=== PATIENT | female | born 1960 | race Caucasian/White ===

== ENCOUNTER 2017-01-21 20:31 | Emergency (ER) | payer OTHER ==
[~2017-01-21] VITALS: Ht 165.1 cm; Wt 59.0 kg
[~2017-01-21 20:31] MED LIST: AMBI5TAB PO; AMIT25TA9 PO; ATOR40TA16 PO; BLOOD GLUCOSE T1 TES; BLOOMIS; CELE20TA PO; CENTTAB PO; DICL1GEL TOPICAL; FISHCAP4 PO; GABA300C5 PO; HYDR-3535 PO; LANC1MIS; LANTUS2P SQ; LISI10TA3 PO; METF-382 PO; ROPI2TAB PO; SODI1TAB PO; VITA400C2 PO; XANA1TAB2 PO; [UNRECOGNIZED DRUG - CODE]
[2017-01-21 20:33] VITALS: BP 146/89; PULSE 82; RESP 18; TEMP 98.5; O2SAT 100
--- NOTE | 2017-01-21 21:09 | PD ---
HPI Chief Complaint: Pain: Acute or Chronic Time Seen by Provider: 21:00 Travel History International Travel<30 days: No Contact w/Intl Traveler<30days: No Traveled to known affect area: No History of Present Illness HPI 56-year-old female presents for evaluation of anterior bilateral thigh pain. Symptoms started 2 days ago. She has a history of chronic pain in multiple joints per her chart review. She reports that she currently takes Percocet for pain. She now has worse pain which she describes as a burning sensation in the anterior thighs bilaterally. She denies any trauma. Nothing seems to be the pain better or worse. She reports that she is currently prescribed gabapentin 3 times a day. She says that she is supposed to be having bilateral total hip replacement on February 13. She has no other complaints at this time. PFSH Past Medical History Arthritis: Yes Asthma: No Anxiety: Yes Depression: Yes Heart Rhythm Problems: No Cancer: No Cardiovascular Problems: No (HTN) High Cholesterol: Yes Chest Pain: Yes Congestive Heart Failure: No COPD: No Cerebrovascular Accident: No Diabetes: Yes (METFORMIN) Patient Takes Glucophage: Yes Diminished Hearing: No Endocrine: Yes (DM) Gastrointestinal Disorders: Yes (UPSET STOMACH TODAY) GERD: Yes Genitourinary: No Headaches: Yes Hepatitis: No Hiatal Hernia: No Hypertension: Yes Implanted Vascular Access Dvce: No Kidney Stones: No Musculoskeletal: Yes (CHRONIC BACK PAIN/ CHRONIC LEFT KNEE PAIN, RLS) Neurologic: No Psychiatric: No Reproductive: No Respiratory: Yes (COPD) Immunizations Current: Yes Migraines: Yes Myocardial Infarction: No Renal Failure: No Seizures: No Sleep Apnea: No Thyroid Disease: No Ulcer: No Tetanus Vaccination: Unknown Influenza Vaccination: Yes Menopausal: Yes Tubal Ligation: Yes Past Surgical History Abdominal Surgery: No Appendectomy: No Cardiac Surgery: No Section: Yes (1992) Cholecystectomy: No Ear Surgery: No Endocrine Surgery: No Eye Surgery: No Genitourinary Surgery: No Gynecologic Surgery: Yes (TUBLIGATION) Neurologic Surgery: No Oral Surgery: No Thoracic Surgery: No Other Surgery: Yes Social History Alcohol Use: Yes (RARELY) Tobacco Use: Yes Substance Use: No Allergies-Medications (Allergen,Severity, Reaction): Coded Allergies: No Known Allergies (Verified , 01/21/17) Reported Meds & Prescriptions Reported Meds & Active Scripts Active Gabapentin 300 Mg Cap 300 Mg PO TID Ambien (Zolpidem Tartrate) 5 Mg Tab 5 Mg PO HS PRN Ropinirole 2 Mg Tab 2 Mg PO HS Metformin ER (Metformin HCl) 1,000 Mg Ariana 1,000 Mg PO DAILY With evening meal Celexa (Citalopram Hydrobromide) 20 Mg Tab 20 Mg PO DAILY Sodium Chloride 1 Gm Tab 1 Gm PO DAILY Amitriptyline (Amitriptyline HCl) 25 Mg Tab 25 Mg PO HS Reported Xanax (Alprazolam) 1 Mg Tab 1 Mg PO Q8H PRN Centrum Silver (Multiple Vitamins W/ Minerals) 1 Tab 1 Tab PO DAILY Vitamin E 400 Unit Cap 400 Units PO DAILY Fish Oil + D3 (Fish Oil-Cholecalciferol) 1,200-1,000 Mg-Unit Cap 1 Cap PO DAILY Easy Touch Lancets 30G 1 Mis Mis 1 Box .ROUTE DIRECTED Ultilet Insulin Syringe/S 30G X 5/16" 0.5 ml (Insulin Syringe Ultilet 30G X 5/16 " 0.5 ml) 1 Mis Mis 1 Ea .ROUTE DIRECTED Lortab (Hydrocodone-Acetaminophen) 10-325 Mg Tab 1 Tab PO Q4H PRN Lisinopril 10 Mg Tab 10 Mg PO DAILY Lantus Inj (Insulin Glargine) 100 Unit/Ml Inj 10 Units SQ HS Atorvastatin (Atorvastatin Calcium) 40 Mg Tab 40 Mg PO DAILY Voltaren Topical (Diclofenac Topical) 1% Gel 1 Applic TOPICAL DAILY Blood Glucose Test Strips 1 Trina Trina 1 Ea .ROUTE DIRECTED Concepcion Contour Next Ez W/Device (Device) 1 Kit Kit 1 Ea .ROUTE DIRECTED Review of Systems Except as stated in HPI: all other systems reviewed are Neg Physical Exam Narrative GENERAL: Well-developed well-nourished female in no acute distress. SKIN: Warm and dry. There is no rash, no bruising, no soft tissue swelling CARDIOVASCULAR: Regular rate and rhythm. No murmur appreciated. RESPIRATORY: No accessory muscle use. Clear to auscultation. Breath sounds equal bilaterally. GASTROINTESTINAL: Abdomen soft, non-tender, nondistended. Hepatic and splenic margins not palpable. MUSCULOSKELETAL: There is no tenderness to palpation along the thoracic or lumbar midline spine. Bilaterally lower extremities no obvious deformities. There is no reproducible tenderness to palpation to the thighs or the calves or the knees. Negative Homans bilaterally. No lower extremity edema. 2+ dorsalis pedis and posterior tibial pulses. She does have some pain with hip and knee flexion and extension which appears chronic. NEUROLOGICAL: Awake and alert. No obvious cranial nerve deficits. Motor grossly within normal limits. Normal speech. Data Data Last Documented VS Vital Signs Date Time Temp Pulse Resp B/P Pulse Ox O2 Delivery O2 Flow Rate FiO2 01/21/17 20:33 98.5 82 18 146/89 100 Room Air Orders Ketorolac Inj (Toradol Inj) (01/21/17 21:30) Orphenadrine Inj (Norflex Inj) (01/21/17 21:30) Gabapentin (Neurontin) (01/21/17 21:30) Hydromorphone Pf Inj (Dilaudid Pf Inj) (01/21/17 21:30) MDM Medical Decision Making Medical Screen Exam Complete: Yes Emergency Medical Condition: Yes Medical Record Reviewed: Yes Differential Diagnosis Chronic pain, neuropathy, radiculopathy, peripheral vascular disease, muscle cramps, myositis, rhabdomyolysis, bilateral spontaneous femoral fractures Narrative Course 56-year-old female with history of chronic pain in multiple joints of her body who presents with 2 days of pain to the anterior thighs bilaterally. On examination there is no obvious deformity, no reproducible tenderness to palpation to the thighs to suggest bony involvement. There is certainly no evidence of compartment syndrome, arterial occlusion, DVT, infectious process and given her description of symptoms I suspect neuropathy as the most likely cause. She is currently on a regimen of gabapentin 300 mg 3 times a day. I recommended that she escalated her morning dose to 600 mg and follow up closely with her primary care physician. She will be given a dose of gabapentin tonight as well as a small dose of Dilaudid, Toradol and Norflex. She'll be discharged with a prescription for baclofen. Diagnosis Primary Impression: Leg pain, bilateral Additional Instructions: As discussed, increase morning dose of gabapentin to 600 mg. Continue taking afternoon and evening 300 mg doses as prescribed. Continue to use your normal at home pain medication as needed. Baclofen has been prescribed as well. Do not drive or drink alcohol when taking this medicine. Follow-up in the next few days with your primary care physician. Return for any emergent medical conditions. Med/Other Pt SpecificInfo: Prescription(s) given Scripts Baclofen 10 Mg Tab10 Mg PO Q8HR PRN (MUSCLE SPASM) 7 Days Ref 0 Prov:Hosea Owens MD 01/21/17 Disposition: 01 DISCHARGE HOME Condition: Stable Garret Tadeo Jan 21, 2017 21:08
[2017-01-21] MEDS ORDERED: BACL10TA PO (21:21)
[2017-01-21] MEDS ORDERED: KETOROLAC TROMETHAMINE 60 MG/2 ML (IM) VIAL IM ONE (21:30)
[2017-01-21] MEDS ORDERED: HYDROmorphone HCL PF 1 MG/ML VIAL IM ONE (21:30)
[2017-01-21] MEDS ORDERED: GABAPENTIN 300 MG CAP PO ONE (21:30)
[2017-01-21] MEDS ORDERED: ORPHENADRINE INJ 60 MG/2 ML AMP IM ONE (21:30)
[2017-02-04] MEDS ORDERED: BACL10TA PO (10:12)
[2017-02-07] MEDS ORDERED: LISI10TA3 PO (16:15)
[2017-03-21] MEDS ORDERED: BACL10TA PO (10:29)
[2017-04-16] MEDS ORDERED: LISI10TA3 PO (08:30)
== END 2017-01-21 21:54 | disposition home or self-care (01) ==
LOC: NEPK 20:31
DX: M79.605 Pain in left leg (principal); M79.604 Pain in right leg; E11.9 Type 2 diabetes mellitus without complications; I10 Essential (primary) hypertension; J44.9 Chronic obstructive pulmonary disease, unspecified; K21.9 Gastro-esophageal reflux disease without esophagitis; Z79.899 Other long term (current) drug therapy; Z79.4 Long term (current) use of insulin; Z72.0 Tobacco use
CPT/HCPCS: 96372; 99283; J1170; J1885; J2360

== ENCOUNTER 2017-04-18 14:10 | Observation (INO) | payer OTHER ==
[~2017-04-18] VITALS: Ht 160 cm; Wt 60.0 kg
[~2017-04-18 14:10] MED LIST changes: +BACL10TA PO; +METF500T PO
[2017-04-18 14:11] VITALS: BP 100/60; PULSE 80; RESP 18; TEMP 98.9; O2SAT 99
--- NOTE | 2017-04-18 14:48 | PD ---
Physical Exam Time Seen by Provider: 14:45 Narrative Pt presents to the ED for evaluation of multiple somatic complaints. She has a list with all of her complaints including confusion, weakness, lethargy, swelling of lower extremities. VSS. Awaiting bed placement. Data Data Last Documented VS Vital Signs Date Time Temp Pulse Resp B/P Pulse Ox O2 Delivery O2 Flow Rate FiO2 04/18/17 14:11 98.9 80 18 100/60 99 Room Air MDM Supervised Visit with ONESIMO: Laura Barrett Apr 18, 2017 14:48
--- NOTE | 2017-04-18 15:32 | PD ---
HPI Chief Complaint: General Weakness Time Seen by Provider: 14:54 Travel History International Travel<30 days: No Contact w/Intl Traveler<30days: No Traveled to known affect area: No History of Present Illness HPI 56-year-old female came to the emergency room with history of lethargic, altered mental status being found by her friend who brought her into the emergency room. As per the friend she last saw her her normal self at 1 PM yesterday. When she arrived today in the house patient was lethargic. Patient has history of chronic pain and takes pain medications. She was complaining of generalized pain when she arrived. However her speech was quite slurred and she was falling asleep in the middle off talking. Blood pressure was little bit soft in triage. PFSH Past Medical History Narrative Medical List of her past medical, surgical, social and family history was reviewed from the nursing note. Hx Anticoagulant Therapy: No Arthritis: Yes Asthma: No Anxiety: Yes Depression: Yes Heart Rhythm Problems: No Cancer: No Cardiovascular Problems: No (HTN) High Cholesterol: Yes Chest Pain: Yes Congestive Heart Failure: No COPD: No Cerebrovascular Accident: No Diabetes: Yes Diminished Hearing: No Endocrine: Yes (DM) Gastrointestinal Disorders: Yes (UPSET STOMACH TODAY) GERD: Yes Genitourinary: No Headaches: Yes Hepatitis: No Hiatal Hernia: No Hypertension: Yes Implanted Vascular Access Dvce: No Kidney Stones: No Musculoskeletal: Yes (CHRONIC BACK PAIN/ CHRONIC LEFT KNEE PAIN, RLS) Neurologic: No Psychiatric: No Reproductive: No Respiratory: Yes (COPD) Immunizations Current: Yes Migraines: Yes Myocardial Infarction: No Renal Failure: No Seizures: No Sleep Apnea: No Thyroid Disease: No Ulcer: No ?: Not Menopausal: Yes Tubal Ligation: Yes Past Surgical History Abdominal Surgery: No Appendectomy: No Cardiac Surgery: No Section: Yes (1992) Cholecystectomy: No Ear Surgery: No Endocrine Surgery: No Eye Surgery: No Genitourinary Surgery: No Gynecologic Surgery: Yes (TUBLIGATION) Neurologic Surgery: No Oral Surgery: No Thoracic Surgery: No Other Surgery: Yes Social History Alcohol Use: Yes (RARELY) Tobacco Use: Yes Substance Use: No Allergies-Medications (Allergen,Severity, Reaction): Coded Allergies: No Known Allergies (Verified , 04/18/17) Comments No known drug allergies. Reported Meds & Prescriptions Reported Meds & Active Scripts Active Metformin (Metformin HCl) 500 Mg Tab 500 Mg PO BIDPC With meals Lisinopril 10 Mg Tab 5 Mg PO DAILY Take half a tablet daily. Gabapentin 300 Mg Cap 300 Mg PO TID Celexa (Citalopram Hydrobromide) 20 Mg Tab 20 Mg PO DAILY Sodium Chloride 1 Gm Tab 1 Gm PO DAILY Amitriptyline (Amitriptyline HCl) 25 Mg Tab 25 Mg PO HS Reported Xanax (Alprazolam) 1 Mg Tab 1 Mg PO Q8H PRN Fish Oil + D3 (Fish Oil-Cholecalciferol) 1,200-1,000 Mg-Unit Cap 1 Cap PO DAILY Easy Touch Lancets 30G 1 Mis Mis 1 Box .ROUTE DIRECTED Ultilet Insulin Syringe/S 30G X 5/16" 0.5 ml (Insulin Syringe Ultilet 30G X 5/16 " 0.5 ml) 1 Mis Mis 1 Ea .ROUTE DIRECTED Lortab (Hydrocodone-Acetaminophen) 10-325 Mg Tab 1 Tab PO Q4H PRN Lantus Inj (Insulin Glargine) 100 Unit/Ml Inj 10 Units SQ HS Atorvastatin (Atorvastatin Calcium) 40 Mg Tab 40 Mg PO DAILY Blood Glucose Test Strips 1 Trian Trina 1 Ea .ROUTE DIRECTED OpenChime Contour Next Ez W/Device (Device) 1 Kit Kit 1 Ea .ROUTE DIRECTED Narrative Medication List of her home medications reviewed from the nursing note. Review of Systems Except as stated in HPI: all other systems reviewed are Neg Physical Exam Narrative GENERAL: Lethargic, slurred speech SKIN: Focused skin assessment warm/dry. Pale HEAD: Atraumatic. Normocephalic. EYES: Pupils equal and round. No scleral icterus. No injection or drainage. ENT: No nasal bleeding or discharge. Mucous membranes pink and moist. NECK: Trachea midline. No JVD. CARDIOVASCULAR: Regular rate and rhythm. No murmur appreciated. RESPIRATORY: No accessory muscle use. Clear to auscultation. Breath sounds equal bilaterally. GASTROINTESTINAL: Abdomen soft, non-tender, nondistended. Hepatic and splenic margins not palpable. MUSCULOSKELETAL: No obvious deformities. No clubbing. No cyanosis. No edema. NEUROLOGICAL: GCS of 13. No obvious cranial nerve deficits. Motor grossly within normal limits. Slurred speech. PSYCHIATRIC: Appropriate mood and affect; insight and judgment normal. Data Data Last Documented VS Vital Signs Date Time Temp Pulse Resp B/P Pulse Ox O2 Delivery O2 Flow Rate FiO2 04/18/17 19:10 98.4 97 18 155/99 100 Room Air Orders Electrocardiogram (04/18/17 15:43) Ammonia (04/18/17 15:43) Complete Blood Count With Diff (04/18/17 15:43) Comprehensive Metabolic Panel (04/18/17 15:43) Creatine Kinase (Cpk) (04/18/17 15:43) Prothrombin Time / Inr (Pt) (04/18/17 15:43) Troponin I (04/18/17 15:43) Urinalysis - C+S If Indicated (04/18/17 15:43) Lactic Acid Sepsis Protocol (04/18/17 15:43) Blood Culture (04/18/17 15:43) Chest, Single Ap (04/18/17 15:43) Ct Brain W/O Iv Contrast(Rout) (04/18/17 15:43) Blood Glucose (04/18/17 15:43) Ecg Monitoring (04/18/17 15:43) Iv Access Insert/Monitor (04/18/17 15:43) Oximetry (04/18/17 15:43) Sodium Chloride 0.9% Flush (Ns Flush) (04/18/17 15:45) Sodium Chlor 0.9% 1000 Ml Inj (Ns 1000 M (04/18/17 15:43) Drug Screen, Random Urine (04/18/17 15:43) Alcohol (Ethanol) (04/18/17 15:43) Naloxone Inj (Narcan Inj) (04/18/17 15:45) Naloxone Inj (Narcan Inj) (04/18/17 15:46) Naloxone Inj (Narcan Inj) (04/18/17 17:00) Admit Order (Ed Use Only) (04/18/17 19:25) Labs Laboratory Tests Test 04/18/17 04/18/17 16:20 16:45 Urine Color YELLOW Urine Turbidity CLEAR Urine pH 5.5 Urine Specific [place] 1.026 Urine Protein TRACE mg/dL Urine Glucose (UA) NEG mg/dL Urine Ketones NEG mg/dL Urine Occult Blood NEG Urine Nitrite NEG Urine Bilirubin NEG Urine Urobilinogen LESS THAN 2.0 MG/DL Urine Leukocyte Esterase TRACE Urine RBC 2 /hpf Urine WBC 1 /hpf Urine Squamous Epithelial 2 /hpf Cells Microscopic Urinalysis Comment CATH-CULT NOT IND Urine Opiates Screen NEG Urine Barbiturates Screen NEG Urine Amphetamines Screen NEG Urine Benzodiazepines Screen POS Urine Cocaine Screen NEG Urine Cannabinoids Screen POS White Blood Count 8.8 TH/MM3 Red Blood Count 3.96 MIL/MM3 Hemoglobin 11.5 GM/DL Hematocrit 36.3 % Mean Corpuscular Volume 91.6 FL Mean Corpuscular Hemoglobin 29.1 PG Mean Corpuscular Hemoglobin 31.7 % Concent Red Cell Distribution Width 14.5 % Platelet Count 226 TH/MM3 Mean Platelet Volume 8.4 FL Neutrophils (%) (Auto) 60.2 % Lymphocytes (%) (Auto) 22.1 % Monocytes (%) (Auto) 7.9 % Eosinophils (%) (Auto) 9.5 % Basophils (%) (Auto) 0.3 % Neutrophils # (Auto) 5.3 TH/MM3 Lymphocytes # (Auto) 1.9 TH/MM3 Monocytes # (Auto) 0.7 TH/MM3 Eosinophils # (Auto) 0.8 TH/MM3 Basophils # (Auto) 0.0 TH/MM3 CBC Comment DIFF FINAL Differential Comment Prothrombin Time 10.7 SEC Prothromb Time International 1.0 RATIO Ratio Sodium Level 136 MEQ/L Potassium Level 5.1 MEQ/L Chloride Level 105 MEQ/L Carbon Dioxide Level 23.2 MEQ/L Anion Gap 8 MEQ/L Blood Urea Nitrogen 12 MG/DL Creatinine 0.68 MG/DL Estimat Glomerular Filtration 89 ML/MIN Rate Random Glucose 61 MG/DL Lactic Acid Level 1.2 mmol/L Calcium Level 8.8 MG/DL Total Bilirubin 0.8 MG/DL Aspartate Amino Transf 26 U/L (AST/SGOT) Alanine Aminotransferase 11 U/L (ALT/SGPT) Alkaline Phosphatase 111 U/L Ammonia 24 MCMOL/L Total Creatine Kinase 111 U/L Troponin I LESS THAN 0.02 NG/ML Total Protein 6.4 GM/DL Albumin 3.2 GM/DL Ethyl Alcohol Level LESS THAN 3 MG/DL [facility] Medical Decision Making Medical Screen Exam Complete: Yes Emergency Medical Condition: Yes Medical Record Reviewed: Yes Interpretation(s) Twelve-lead EKG was reviewed by me. Normal sinus rhythm, normal axis, nonspecific ST-T wave changes. Heart rate of 69 bpm. Differential Diagnosis Intracranial bleed, narcotic overdose, substance abuse, electrolyte abnormality Narrative Course 5:57 PM awaiting for the blood test results to be back. Patient was given a total of 0.8 mg of Narcan after which she seemed to wake up a little more. Head CT and chest x-rays back and is not show any acute finding that would explain her condition. Awaiting for the blood test results to come back. Her CBC and UA appeared to be within acceptable limits. I have ordered a urine drug screen as well. 6:48 PM all the test results are back. Patient is positive for benzodiazepine and marijuana. Patient continues to be lethargic. I would like to admit her at least for observation until her mental status clears up. Awaiting for the residents to call back. Procedures EKG Prior to Arrival: No Diagnosis Primary Impression: Altered mental status Qualified Code: R40.1 - Stupor Admitting Information Admitting Physician Requests: Observation Rashawn Young MD Apr 18, 2017 15:32 Rashawn Young MD Apr 18, 2017 15:32 Rashawn Young MD Apr 18, 2017 15:32
[2017-04-18] MEDS ORDERED: SODIUM CHLOR 0.9% 1000 ML INJ 1,000 ML IV SCH (15:43)
[2017-04-18] MEDS ORDERED: NALOXONE HCL 0.4 MG/ML AMP IV PUSH ONE (15:45)
[2017-04-18] MEDS ORDERED: SODIUM CHLORIDE 0.9% FLUSH 5 ML FLUSH IV FLUSH PRN (15:45)
[2017-04-18] MEDS ORDERED: NALOXONE HCL 0.4 MG/ML AMP ONE (15:46)
--- NOTE | 2017-04-18 16:37 | RADRPT ---
EXAM DATE/TIME: 04/18/2017 16:26 [facility] COMPARISON: CT BRAIN W/O CONTRAST, November 29, 2015, 15:44. INDICATIONS : Evaluate for altered mental status. RADIATION DOSE: 28.75 CTDIvol (mGy) MEDICAL HISTORY : Hypertension. Chronic obstructive pulmonary disease. Diabetes mellitus type 2. SURGICAL HISTORY : Tubal ligation. ENCOUNTER: Initial ACUITY: 2 days PAIN SCALE: 3/10 LOCATION: Bilateral cranial TECHNIQUE: Multiple contiguous axial images were obtained of the head. Using automated exposure control and adj ustment of the mA and/or kV according to patient size, radiation dose was kept as low as reasonably a chievable to obtain optimal diagnostic quality images. DICOM format image data is available electro nically for review and comparison. FINDINGS: CEREBRUM: The ventricles are normal for age. 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 No evidence of midline shift, mass lesion, hemorrhage or acute infarction. No extra-axial fluid collections are seen. POSTERIOR FOSSA: The cerebellum and brainstem are intact. The 4th ventricle is midline. The cerebellopontine angle i s unremarkable. EXTRACRANIAL: The visualized portion of the orbits is intact. SKULL: The calvaria is intact. No evidence of skull fracture. CONCLUSION: 1. Stable bifrontal atrophy. 2. No significant change compared to 2016. Gino Nur MD on April 18, 2017 at 16:34 Board Certified Radiologist. This report was verified electronically.
[2017-04-18 16:43] LABS: BLOOD, URINE NEG (NEG); GLUCOSE,URINE NEG (NEG); KETONE, URINE NEG (NEG); NITRITE,URINE NEG (NEG); PH, URINE 5.5 (5.0-8.5); SQUAMOUS EPITHELIAL CELL URINE 2 /hpf (0-5); URINE COLOR YELLOW (YELLW/STRAW)
[2017-04-18 16:44] LABS: COMMENT (UR) CATH-CULT NOT IND; CULTURE IF INDICATED CATH CULTURE NOT IND
--- NOTE | 2017-04-18 16:50 | RADRPT ---
EXAM DATE/TIME: 04/18/2017 16:34 [facility] COMPARISON: CHEST SINGLE AP, August 24, 2016, 20:47. INDICATIONS : Syncopal episode. Weakness. MEDICAL HISTORY : Hypertension. Chronic obstructive pulmonary disease. Diabetes mellitus type II. SURGICAL HISTORY : None. ENCOUNTER: Initial ACUITY: 1 day PAIN SCORE: 0/10 LOCATION: Bilateral chest FINDINGS: A single view of the chest demonstrates the lungs to be symmetrically aerated without evidence of mas s, infiltrate or effusion. There is chronic stable interstitial lung changes bilaterally. The cardiom ediastinal contours are unremarkable. Osseous structures are intact. CONCLUSION: No acute disease. No significant change has occurred. Gino Nur MD on April 18, 2017 at 16:47 Board Certified Radiologist. This report was verified electronically.
[2017-04-18] MEDS ORDERED: NALOXONE HCL 2 MG/2 ML VIAL IV PUSH ONE (17:00)
[2017-04-18 17:11] VITALS: BP 160/82; PULSE 72; RESP 12; O2SAT 97
[2017-04-18 17:54] LABS: AUTOMATED NEUTROPHIL # 5.3 TH/MM3 (1.8-7.7); BASOPHIL % 0.3 % (0.0-2.0); EOSINOPHIL # 0.8 TH/MM3 (0-0.4); EOSINOPHIL % 9.5 % (0.0-4.0); HEMATOCRIT 36.3 % (35.0-46.0); HEMO FLAGS DIFF FINAL; LYMPH % 22.1 % (9.0-44.0); LYMPHOCYTE # 1.9 TH/MM3 (1.0-4.8); MEAN CELL VOLUME 91.6 FL (80.0-100.0); MEAN CORPUSCULAR HEMOGLOBIN 29.1 PG (27.0-34.0); MEAN CORPUSCULAR HGB CONC 31.7 % (32.0-36.0); MONO % 7.9 % (0.0-8.0); NEUT % 60.2 % (16.0-70.0); PLATELET COUNT 226 TH/MM3 (150-450); RED BLOOD COUNT 3.96 MIL/MM3 (4.00-5.30); RED CELL DISTRIBUTION WIDTH 14.5 % (11.6-17.2); WHITE BLOOD COUNT 8.8 TH/MM3 (4.0-11.0)
[2017-04-18 18:04] LABS: PROTHROMBIN TIME - PATIENT 10.7 SEC (9.8-11.6)
[2017-04-18 18:11] LABS: AMPHETAMINE, URINE NEG (NEG); BARBITURATES, URINE NEG (NEG); COCAINE, URINE NEG (NEG)
[2017-04-18 18:13] LABS: ALT (GPT) 11 U/L (10-53); ANION GAP 8 MEQ/L (5-15); AST (GOT) 26 U/L (15-37); BICARBONATE 23.2 MEQ/L (21.0-32.0); BLOOD UREA NITROGEN 12 MG/DL (7-18); CHLORIDE 105 MEQ/L (98-107); GLOMERULAR FILTRATION RATE 89 ML/MIN (>89); POTASSIUM 5.1 MEQ/L (3.5-5.1); SODIUM (NA) 136 MEQ/L (136-145)
[2017-04-18 18:19] LABS: ALKALINE PHOSPHATASE 111 U/L (45-117); CREATINE KINASE 111 U/L (26-192); TOTAL BILIRUBIN ADULT 0.8 MG/DL (0.2-1.0)
[2017-04-18 19:10] VITALS: BP 155/99; PULSE 97; RESP 18; TEMP 98.4; O2SAT 100
--- NOTE | 2017-04-18 20:03 | HHI.HP ---
[facility] Service Family Medicine Primary Care Physician Pavan Mckinley MD Admission Diagnosis altered mental status Diagnoses: Chief Complaint: Weakness International Travel<30 Days: No Contact w/Intl Traveler<30days: No Known Affected Area: No History of Present Illness 56 y/o female with PMHx of HTN, tobacco use, severe OA of both hips, DM, SIADH, and anxiety, presenting with 1 day hx of altered mental status and generalized weakness. History provided by pt and confirmed by . Pt woke up around 2am this morning looking for cigarettes around the house. During that time, she felt her legs giving out, fell, and couldn't stand up on her own. She started crying and began crawling. She was unsure if she hit her head. Her then found her on the floor and brought her back to bed. She denies LOC, accidental urination/defecation, shaking, N/ V, biting tongue, SOB, dizziness, and CP. She had an appointment to see ortho today at [place] for carpal tunnel syndrome in her right hand. As her best friend was accompanying her to the clinic, her best friend noticed that pt appeared lethargic and was not her normal self. Her best friend became concerned and brought pt to the ED for evaluation. In the ED, pt was complaining of generalized pain on arrival, had slurred speech, and was falling asleep in the middle of talking. Pt has a history of chronic pain and takes pain medications. Pt reports taking her regular meds this morning ,such as Xanax. She denies taking extra doses of her medications. Pt has also starting taking a new multivitamin, "Thrive", which contain high doses of Vitamin B12. Pt smokes about 1ppd and uses marijuana recreationally. Denies alcohol use and IV drug use. states that pt also has poor appetite and insomnia. She states that she has significant weight loss over the past 4 months after her hip surgery in February 2017, but can't recall how much. Denies suicidal ideation, previous history of stroke, NH, headache, fever, night sweats , and chills. Review of Systems ROS Limitations: Altered Mental Status (appeared confused upon arrival in ED), Poor Historian (tangential speech, said this is normal ) Constitutional: COMPLAINS OF: Weight loss (pt reports weight loss over past 4 months ), Change in appetite (poor appetite ), DENIES: Fever, Chills, Dizziness , Night Sweats Eyes: DENIES: Blurred vision, Vision loss Ears, nose, mouth, throat: DENIES: Odynophagia Respiratory: DENIES: Cough, Shortness of breath Cardiovascular: COMPLAINS OF: Lower Extremity Edema (pt reports swelling in lower extremities ), DENIES: Chest pain, Palpitations Gastrointestinal: DENIES: Abdominal pain, Diarrhea, Nausea, Vomiting, Difficulty Swallowing Genitourinary: DENIES: Dysuria Musculoskeletal: COMPLAINS OF: Muscle aches (pt reports generalized muscles aches ) Integumentary: DENIES: Rash Hematologic/lymphatic: DENIES: Lymphadenopathy Neurologic: COMPLAINS OF: Localized weakness (slight weakness in right leg ), Speech Problems (pt has slightly slurred speech ), DENIES: Headache, Paresthesias, Seizures Psychiatric: DENIES: Hallucinations, Agitation, Suicidal Ideation Past Family Social History Past Medical History Hypertension Chronic pain involving multiple joints due to previous trauma. Patient's pain management physician recently suspended. Due to previous trauma. She has been following with a different physician who is not on her insurance. History of glaucoma Diabetes Mellitus Past Surgical History Right wrist repair Allergies: Coded Allergies: No Known Allergies (Verified , 04/18/17) Family History Father from a car accident in 1959 Mother in 2011. History of heart disease, RA, dementia, unknown cancer. Social History Patient is currently on disability. She has been smoking a pack per day since she was 17 years old. She denies illicit drug use. Physical Exam Vital Signs Vital Signs Date Time Temp Pulse Resp B/P Pulse Ox O2 Delivery O2 Flow Rate FiO2 04/18/17 19:10 98.4 97 18 155/99 100 Room Air 04/18/17 17:11 72 12 160/82 97 Room Air 04/18/17 15:12 70 14 97 Room Air 04/18/17 14:11 98.9 80 18 100/60 99 Room Air Physical Exam GENERAL: Slight slurred speech,no apparent distress. SKIN: No rashes, ecchymoses or lesions. Cool and dry. HEAD: Atraumatic. Normocephalic. No temporal or scalp tenderness. EYES: Pupils equal round and reactive. Extraocular motions intact. No scleral icterus. No injection or drainage. ENT: Nose without bleeding, purulent drainage or septal hematoma. Throat without erythema, tonsillar hypertrophy or exudate. Uvula midline. Airway patent. NECK: Trachea midline. No JVD or lymphadenopathy. Supple, nontender, no meningeal signs. CARDIOVASCULAR: Regular rate and rhythm without murmurs, gallops, or rubs. RESPIRATORY: Clear to auscultation. Breath sounds equal bilaterally. No wheezes , rales, or rhonchi. GASTROINTESTINAL: Abdomen soft, non-tender, nondistended. No hepato-splenomegaly , or palpable masses. No guarding. MUSCULOSKELETAL: Lower extremities appear swollen, but no pitting edema. NEUROLOGICAL: Awake and alert. Cranial nerves II through XII intact. Slight left -sided face droop. Sensory within normal limits in face and all extremities. Mild weakness (4/5) in right arm and leg. Full strength (5/5) in left arm and leg. Slightly slurred and tangential speech. Affect is normal. Laboratory Laboratory Tests Test 04/18/17 04/18/17 16:20 16:45 Urine Color YELLOW Urine Turbidity CLEAR Urine pH 5.5 Urine Specific [place] 1.026 Urine Protein TRACE Urine Glucose (UA) NEG Urine Ketones NEG Urine Occult Blood NEG Urine Nitrite NEG Urine Bilirubin NEG Urine Urobilinogen LESS THAN 2.0 Urine Leukocyte Esterase TRACE Urine RBC 2 Urine WBC 1 Urine Squamous Epithelial 2 Cells Microscopic Urinalysis Comment CATH-CULT NOT IND Urine Opiates Screen NEG Urine Barbiturates Screen NEG Urine Amphetamines Screen NEG Urine Benzodiazepines Screen POS Urine Cocaine Screen NEG Urine Cannabinoids Screen POS White Blood Count 8.8 Red Blood Count 3.96 Hemoglobin 11.5 Hematocrit 36.3 Mean Corpuscular Volume 91.6 Mean Corpuscular Hemoglobin 29.1 Mean Corpuscular Hemoglobin 31.7 Concent Red Cell Distribution Width 14.5 Platelet Count 226 Mean Platelet Volume 8.4 Neutrophils (%) (Auto) 60.2 Lymphocytes (%) (Auto) 22.1 Monocytes (%) (Auto) 7.9 Eosinophils (%) (Auto) 9.5 Basophils (%) (Auto) 0.3 Neutrophils # (Auto) 5.3 Lymphocytes # (Auto) 1.9 Monocytes # (Auto) 0.7 Eosinophils # (Auto) 0.8 Basophils # (Auto) 0.0 CBC Comment DIFF FINAL Differential Comment Prothrombin Time 10.7 Prothromb Time International 1.0 Ratio Sodium Level 136 Potassium Level 5.1 Chloride Level 105 Carbon Dioxide Level 23.2 Anion Gap 8 Blood Urea Nitrogen 12 Creatinine 0.68 Estimat Glomerular Filtration 89 Rate Random Glucose 61 Lactic Acid Level 1.2 Calcium Level 8.8 Total Bilirubin 0.8 Aspartate Amino Transf 26 (AST/SGOT) Alanine Aminotransferase 11 (ALT/SGPT) Alkaline Phosphatase 111 Ammonia 24 Total Creatine Kinase 111 Troponin I LESS THAN 0.02 Total Protein 6.4 Albumin 3.2 Ethyl Alcohol Level LESS THAN 3 Date/Time Procedure Status Source Growth 04/18/17 17:05 Aerobic Blood Culture Received Blood Peripheral Pending 04/18/17 17:05 Anaerobic Blood Culture Received Blood Peripheral Pending Result Diagram: 04/18/17 1645 04/18/17 1645 Imaging Last Impressions Head CT 04/18/17 1543 Signed Impressions: Service Date/Time: Tuesday, April 18, 2017 16:26 - CONCLUSION: 1. Stable bifrontal atrophy. 2. No significant change compared to 2016. Gino Nur MD Chest X-Ray 04/18/17 1543 Signed Impressions: Service Date/Time: Tuesday, April 18, 2017 16:34 - CONCLUSION: No acute disease. No significant change has occurred. Gino Nur MD Head Magnetic Resonance Angiography 04/18/17 0000 Signed Impressions: Service Date/Time: Tuesday, April 18, 2017 21:55 - CONCLUSION: Normal examination for a patient of this age. Daniel Fairchild MD Brain MRI 04/18/17 0000 Signed Impressions: Service Date/Time: Tuesday, April 18, 2017 21:55 - CONCLUSION: 1. No acute findings. Mild white matter ischemic change. No recent infarct, mass effect or midline shift. Daniel Fairchild MD Assessment and Plan Assessment and Plan 56 y/o female with PMHx of HTN, tobacco use, severe OA of both hips, DM, SIADH, and anxiety, presenting with 1 day hx of altered mental status and generalized weakness. Pt admitted for observation and work-up. Differential diagnoses are hypoglycemia vs medication overdose vs TIA vs NH vs seizure. Pt has had previous hospitalizations of hypoglycemia. BMP showed glucose of 61. Pt has history of taking pain meds. Urine drug screen was positive for benzodiazepine and marijuana, thus medication overdose is likely. In the ED, pt given 0.8mg of Narcan after which she seemed more alert. Due to slight left-sided face droop and right-sided weakness in extremities, TIA/stroke could be likely. However, head CT, MRI and MRA appeared normal. NH is also low on the differential, since EKG and troponin were normal. Pt did not have any evidence of a seizure (shaking , biting tongue, accidental urination, post-ictal confusion), thus it is very unlikely. Code Status Full Code Discussed Condition With Pt discussed with Dr. Young. Pt seen and examined with Dr. Potter. Problem List: (1) Altered mental status Status: Acute Plan: -Pt given 0.8mg of Narco in the ED -Urine drug test positive for benzodiazepines and marijuana -CBC normal -BMP- Na of 136 and Glucose 61 -UA negative, UTI is unlikely responsible for AMS -CXR-normal; troponin normal, EKG normal, pt denies chest pain on exam -Head CT, MRI, and MRA - normal -Trending troponin q3h, EKG q3h, pt on telemetry -Orthostatic BP ordered for the AM -Ordered CBC and BMP for the AM (2) Uncontrolled diabetes mellitus Status: Chronic Plan: - bedside glucose -pt on NovoLog sliding scale (3) Hypertension Status: Chronic Plan: -Lisinopril 5mg PO daily (4) FEN/PPX Status: Acute Plan: Fluids- 60mls/hr, lower than maintenance b/c pt is able to drink and eat Electrolytes- monitor and replace as needed Nutrition: regular diet Nursing orders: vitals q4h, monitor I & Os, neuro checks q4h Problem Qualifiers (1) Altered mental status: Qualified Code: R40.1 - Saranya Martinez MD R1 Apr 18, 2017 20:03
[2017-04-18] MEDS: DOCUSATE SODIUM 50 MG/SENNA 8.6 MG TAB PO SCH (21:00)
[2017-04-18] MEDS ORDERED: NALOXONE HCL 0.4 MG/ML AMP IV PRN (21:00)
[2017-04-18] MEDS ORDERED: MAGNESIUM HYDROXIDE SUSP 30 ML CUP PO PRN (21:00)
[2017-04-18] MEDS: SODIUM CHLORIDE 0.9% FLUSH 10 ML FLUSH IV FLUSH SCH (21:19)
[2017-04-18] MEDS ORDERED: GLUCAGON 1 MG/ML VIAL OTHER PRN (21:30)
[2017-04-18] MEDS ORDERED: DEXTROSE 50% IN WATER 50 ML VIAL(D50) IV PRN (21:30)
[2017-04-18] MEDS ORDERED: DEXT 5%-NACL 0.45% 1000 ML INJ 1,000 ML IV SCH (21:30)
[2017-04-18] MEDS ORDERED: ENOXAPARIN SODIUM 40 MG/0.4 ML SYRINGE SQ SCH (21:45)
[2017-04-18] MEDS ORDERED: ENOXAPARIN SODIUM 30 MG/0.3 ML SYRINGE SQ SCH (21:45)
[2017-04-18] MEDS ORDERED: RESP: ALBUTEROL 2.5 MG/3 ML NEB (PRN) INH (22:00)
--- NOTE | 2017-04-18 22:47 | RADRPT ---
EXAM DATE/TIME: 04/18/2017 21:55 [facility] COMPARISON: No previous studies available for comparison. INDICATIONS : CVA. MEDICAL HISTORY : Diabetes mellitus type 2. SURGICAL HISTORY : section. Bilateral hips, forarms, and shoulders sx. ENCOUNTER: Initial ACUITY: 1 day PAIN SCORE: 5/10 LOCATION: Bilateral cranial TECHNIQUE: Multiplanar, multisequence MRI of the brain was performed without contrast. FINDINGS: CEREBRUM: The ventricles are normal for age. No evidence of midline shift, mass lesion, hemorrhage or acute in farction. No extraaxial fluid collections are seen. The pituitary gland and suprasellar cistern are normal in configuration. WHITE MATTER: Mild signal abnormalities are seen in the white matter. POSTERIOR FOSSA: The cerebellum and brainstem are intact. The 4th ventricle is midline. The cerebellopontine angle is unremarkable. The cerebellar tonsils are normal in position. DIFFUSION IMAGING: No focal areas of restricted diffusion are seen. No evidence of acute infarction. EXTRACRANIAL: The visualized portions of the orbits and paranasal sinuses are unremarkable. CONCLUSION: 1. No acute findings. Mild white matter ischemic change. No recent infarct, mass effect or midline sh ift. Daniel Fairchild MD on April 18, 2017 at 22:42 Board Certified Radiologist. This report was verified electronically.
--- NOTE | 2017-04-18 22:48 | RADRPT ---
EXAM DATE/TIME: 04/18/2017 21:55 [facility] COMPARISON: No previous studies available for comparison. INDICATIONS : CVA. MEDICAL HISTORY : Diabetes mellitus type 2. SURGICAL HISTORY : section. Bilateral hips, forarms, and shoulders sx. ENCOUNTER: Initial ACUITY: 1 day PAIN SCORE: 5/10 LOCATION: Bilateral cranial Please note a normal MRA of the brain does not entirely exclude the possibility of a small aneurysm, nor the possibility of distal intracranial vessel disease. TECHNIQUE: 3D time of flight MRA was performed. Source images, multiplanar STS MIP, and 3D volume MIP reconstru ctions were reviewed. FINDINGS: There is excellent visualization of the major intracranial arteries out to the second-order branch ve ssels. There is no evidence for aneurysm, vessel truncation or stenosis, and no evidence for vascula r malformation. CONCLUSION: Normal examination for a patient of this age. Daniel Fairchild MD on April 18, 2017 at 22:45 Board Certified Radiologist. This report was verified electronically.
[2017-04-18 23:48] VITALS: PULSE 77
[2017-04-19] VITALS (11 sets, daily range): BP systolic 110–146; BP diastolic 74–83; PULSE 65–87; RESP 16–18; TEMP 97.7–98.4; O2SAT 96–100
[2017-04-19] MEDS: INSULIN ASPART SUPPLEMENTAL SCALE SQ SCH ×2 (06:03→14:18)
[2017-04-19 06:07] LABS: AUTOMATED NEUTROPHIL # 3.6 TH/MM3 (1.8-7.7); BASOPHIL % 0.6 % (0.0-2.0); EOSINOPHIL # 0.8 TH/MM3 (0-0.4); EOSINOPHIL % 10.8 % (0.0-4.0); HEMATOCRIT 32.3 % (35.0-46.0); HEMO FLAGS DIFF FINAL; LYMPH % 29.3 % (9.0-44.0); LYMPHOCYTE # 2.1 TH/MM3 (1.0-4.8); MEAN CELL VOLUME 90.2 FL (80.0-100.0); MEAN CORPUSCULAR HEMOGLOBIN 29.7 PG (27.0-34.0); MEAN CORPUSCULAR HGB CONC 32.9 % (32.0-36.0); MONO % 8.1 % (0.0-8.0); NEUT % 51.2 % (16.0-70.0); PLATELET COUNT 215 TH/MM3 (150-450); RED BLOOD COUNT 3.59 MIL/MM3 (4.00-5.30); RED CELL DISTRIBUTION WIDTH 14.7 % (11.6-17.2); WHITE BLOOD COUNT 7.1 TH/MM3 (4.0-11.0)
[2017-04-19 06:27] LABS: ANION GAP 5 MEQ/L (5-15); BICARBONATE 26.6 MEQ/L (21.0-32.0); BLOOD UREA NITROGEN 9 MG/DL (7-18); CHLORIDE 108 MEQ/L (98-107); GLOMERULAR FILTRATION RATE 97 ML/MIN (>89); SODIUM (NA) 140 MEQ/L (136-145)
[2017-04-19] MEDS ORDERED: ALPRAZolam 1 MG TAB PO PRN (08:45)
[2017-04-19] MEDS ORDERED: ATORVASTATIN 40 MG TAB PO SCH (09:00)
[2017-04-19] MEDS ORDERED: LISINOPRIL 5 MG TAB PO SCH (09:00)
[2017-04-19] MEDS ORDERED: CITALOPRAM HYDROBROMIDE 20 MG TAB PO SCH (09:00)
--- NOTE | 2017-04-19 09:15 | HHI.FPPN ---
Subjective Remarks Patient is doing better this morning. She is awake alert oriented 3. She is answering questions appropriately. She is still having problems with her right foot and is unsure if she can walk properly. She understands she is on multiple medications and we would like for her to try to be off of some of these. She denies fever, chills, nausea, vomiting, diarrhea. (Derrell Hwang MD R2) Objective Vitals Vital Signs Date Time Temp Pulse Resp B/P Pulse Ox O2 Delivery O2 Flow Rate FiO2 04/19/17 07:53 98.4 71 16 146/83 100 04/19/17 06:40 96 21 04/19/17 03:31 65 04/19/17 02:59 97.8 69 18 110/74 100 04/19/17 00:50 76 04/19/17 00:49 98.4 77 18 129/78 100 144/74 131/74 04/18/17 23:48 77 04/18/17 19:10 98.4 97 18 155/99 100 Room Air 04/18/17 17:11 72 12 160/82 97 Room Air 04/18/17 15:12 70 14 97 Room Air 04/18/17 14:11 98.9 80 18 100/60 99 Room Air (Derrell Hwang MD R2) Result Diagram: 04/19/17 0540 04/19/17 0540 Imaging Last Impressions Head CT 04/18/17 1543 Signed Impressions: Service Date/Time: Tuesday, April 18, 2017 16:26 - CONCLUSION: 1. Stable bifrontal atrophy. 2. No significant change compared to 2016. Gino Nur MD Chest X-Ray 04/18/17 1543 Signed Impressions: Service Date/Time: Tuesday, April 18, 2017 16:34 - CONCLUSION: No acute disease. No significant change has occurred. Gino Nur MD Head Magnetic Resonance Angiography 04/18/17 0000 Signed Impressions: Service Date/Time: Tuesday, April 18, 2017 21:55 - CONCLUSION: Normal examination for a patient of this age. Daniel Fairchild MD Brain MRI 04/18/17 0000 Signed Impressions: Service Date/Time: Tuesday, April 18, 2017 21:55 - CONCLUSION: 1. No acute findings. Mild white matter ischemic change. No recent infarct, mass effect or midline shift. Daniel Fairchild MD Objective Remarks O. CONSTITUTIONAL/GEN: normally nourished, in NAD. EYES: conjunctiva normal, PERRLA, EOMI. ENT: Mouth and pharynx normal. NECK: thyroid midline, carotids symmetrical. LUNGS: clear A-P, respiratory effort is normal. CARDIOVASCULAR: RR without murmur or gallop. No significant edema. GI/ABD: soft without masses, without organomegaly. : no CVA tenderness NEURO: Awake and alert. Cranial nerves II through XII intact. Sensory within normal limits in face and all extremities. Mild weakness (4/5) in right arm and right foot. Right foot drop. Full strength (5/5) in left arm and leg. Affect is normal. SKIN: color normal, no rashes noted. HEME/LYMPH: no bruising, petechia or significant adenopathy MUSC: back is normal in appearance. Extremities are normal in appearance. PSYCH/MENTAL STATUS: Alert and oriented x 3. (Derrell Hwang MD R2) A/P Assessment and Plan 56-year-old female with history of anxiety, depression, status post bilateral hip replacement in February presents with altered mental status likely secondary to polypharmacy. Stroke workup negative. We discussed all of her medications and that we would like her to be off some of these including baclofen, ropinirole, Ambien. Also counseled against marijuana abuse. Her PCP may consider adding these discontinued medications one by one if she continues to have problems. In this way, we will be able to figure out the medication causes her to have altered mental status and stop that medication individually. Discharge Planning Likely today or tomorrow pending physical therapy evaluation (Derrell Hwang MD R2) Attending Attestation Patient seen and examined. Case reviewed and discussed with the resident team. Agree with plan of care as discussed with me and documented in the resident note.She is on so many meds that can be sedating. She understands that adding all these meds together could be too much. She also uses marijuana which can definitely add to confusion. Fortunately, she is much better today and is conversing appropriately. (Natty Zhang MD) Problem List: (1) Altered mental status Status: Acute Plan: Stroke workup negative Likely related to polypharmacy Currently resolved. Patient is awake alert and oriented 3, back to her baseline. We will discontinue baclofen, Ambien, ropinirole from her medication list. Her PCP can continue these one by one as needed. Continue Xanax (patient states she takes 2 a day) so she will not go through withdrawal. Her pain is being managed by pain management as an outpatient. We'll continue pain medication (Lortab) while inpatient. Physical therapy consult (2) Aftercare following bilateral hip joint replacement surgery Status: Acute Plan: Patient is status post bilateral hip replacement in February. We will have physical therapy evaluate the patient while here Patient does appear to have right foot drop on exam PT will determine physical therapy needs prior to discharge (3) Uncontrolled diabetes mellitus Status: Chronic Plan: - bedside glucose -pt on NovoLog sliding scale (4) Hypertension Status: Chronic Plan: -Lisinopril 5mg PO daily (5) Marijuana abuse Status: Acute Plan: Counseled cessation. Possibly related to altered mental status, see above (6) Restless leg syndrome Status: Chronic Plan: We'll stop home ropinirole as this can cause altered mental status PCP can continue this as needed Consider sleep study as an outpatient (7) Anxiety Status: Chronic Plan: Continue Xanax as this can cause withdrawals if removed abruptly Consider weaning as an outpatient Patient currently takes two 1 mg tablets daily (8) Depression Status: Chronic Plan: Continue citalopram (9) FEN/PPX Status: Acute Plan: Fluids-tolerating by mouth Electrolytes- monitor and replace as needed Nutrition: regular diet Prophylaxis: Lovenox 40 mg subcutaneous 24 hours (Derrell Hwang MD R2) Problem Qualifiers (1) Altered mental status: Qualified Code: R40.1 - Stupor (2) Uncontrolled diabetes mellitus: Qualified Code: E11.8 - Uncontrolled type 2 diabetes mellitus with complication , with long-term current use of insulin Derrell Hwang MD R2 Apr 19, 2017 09:15 Natty Zhang MD Apr 19, 2017 10:17
[2017-04-19] MEDS ORDERED: ACETAMINOPHEN/HYDROcodone 325 MG/10 MG TAB PO PRN (09:30)
--- NOTE | 2017-04-19 09:31 | HHI.DCPOC ---
Discharge Care Plan Diagnosis: (1) Altered mental status Goals to Promote Your Health * To prevent worsening of your condition and complications * To maintain your health at the optimal level Directions to Meet Your Goals Take your medications as prescribed Follow your dietary instruction Follow activity as directed Keep your appointments as scheduled Take your immunizations and boosters as scheduled If your symptoms worsen call your PCP, if no PCP go to Urgent Care Center or Emergency Room Smoking is Dangerous to Your Health. Avoid second hand smoke Call the 24-hour hour crisis hotline for domestic abuse at Derrell Hwang MD R2 Apr 19, 2017 09:31
[2017-04-19] MEDS: DOCUSATE SODIUM 50 MG/SENNA 8.6 MG TAB PO SCH (10:30)
[2017-04-19] MEDS: SODIUM CHLORIDE 0.9% FLUSH 10 ML FLUSH IV FLUSH SCH (10:31)
--- NOTE | 2017-04-19 16:01 | HHI.FPPN ---
Addendum to progress note ADDENDUM Reason for addendum: Additonal documentation Additional information After physical therapy evaluation indicating foot drop, the decision was made to proceed with neurology consultation. However, the patient did not want to see neurology and wanted to go home. She understood our accommodation forewarning to see neurology including finding out the potential etiology behind her footdrop. Despite this understanding, the patient wanted to go home. She understands we recommend outpatient physical therapy per the physical therapist's note. Discussed with Derrell Reed MD R2 Apr 19, 2017 16:01
--- NOTE | 2017-04-19 18:18 | EKG ---
Date Performed: 04/18/2017 Time Performed: 23:40:31 PTAGE: 56 years EKG: Sinus rhythm NORMAL ECG PREVIOUS TRACING : 04/18/2017 15.42 Compared to prior tracing no significant change DOCTOR: Danya Melchor Interpretating Date/Time 04/19/2017 18:17:38
--- NOTE | 2017-04-19 18:18 | EKG ---
Date Performed: 04/18/2017 Time Performed: 15:42:03 PTAGE: 56 years EKG: Sinus rhythm POSSIBLE LEFT ATRIAL ENLARGEMENT POSSIBLE RIGHT VENTRICULAR CONDUCTION DELAY BORDERLINE ECG PREVIOUS TRACING : 08/24/2016 21.10 Compared to prior tracing no significant change DOCTOR: Danya Melchor Interpretating Date/Time 04/19/2017 18:17:26
--- NOTE | 2017-04-19 18:19 | EKG ---
Date Performed: 04/19/2017 Time Performed: 03:06:54 PTAGE: 56 years EKG: Sinus rhythm POSSIBLE RIGHT VENTRICULAR CONDUCTION DELAY BORDERLINE ECG PREVIOUS TRACING : 04/18/2017 23.40 Compared to prior tracing no significant change DOCTOR: Danya Melchor Interpretating Date/Time 04/19/2017 18:17:52
== END 2017-04-19 18:03 | disposition home or self-care (01) ==
LOC: NEPE 14:10 → NEDA 19:27 → NEPGCP 21:38
PROVIDERS: ADMIT Family Medicine; ATTEND Family Medicine
DX: R41.82 Altered mental status, unspecified (principal); I10 Essential (primary) hypertension; M16.0 Bilateral primary osteoarthritis of hip; R53.1 Weakness; R52 Pain, unspecified; R47.81 Slurred speech; R40.1 Stupor; F17.200 Nicotine dependence, unspecified, uncomplicated; M21.379 Foot drop, unspecified foot; E11.65 Type 2 diabetes mellitus with hyperglycemia; G25.81 Restless legs syndrome; F12.10 Cannabis abuse, uncomplicated; F32.9 Major depressive disorder, single episode, unspecified; F41.9 Anxiety disorder, unspecified; Z79.4 Long term (current) use of insulin; Z96.643 Presence of artificial hip joint, bilateral; Z79.899 Other long term (current) drug therapy
CPT/HCPCS: 70450; 70544; 70551; 71010; 80048; 80053; 80307; 81001; 82140; 82550; 82948; 83605; 84484; 85025; 85610; 87040; 93005; 96374; 97162; 97165; 99285; G0378; G8987; G8988; J1650; J1815; J2310; J7030

== ENCOUNTER 2017-04-23 17:18 | Emergency (ER) | payer OTHER ==
[~2017-04-23] VITALS: Ht 165.1 cm; Wt 60.0 kg
[~2017-04-23 17:18] MED LIST changes: -AMBI5TAB PO; -BACL10TA PO; -CENTTAB PO; -DICL1GEL TOPICAL; -METF-382 PO; -ROPI2TAB PO; -VITA400C2 PO
[2017-04-23 17:22] VITALS: BP 110/72; PULSE 102; RESP 20; TEMP 98.3; O2SAT 96
[2017-04-23] MEDS ORDERED: LISI2.5T3 PO (18:40)
--- NOTE | 2017-04-23 18:53 | PD ---
HPI Chief Complaint: Medical Clearance Time Seen by Provider: 18:10 Travel History International Travel<30 days: No Contact w/Intl Traveler<30days: No Traveled to known affect area: No History of Present Illness HPI This is a 56 year old female status post bilateral hip replacement on February 14, 2017. The patient has been off her Xarelto for 2 weeks. She presents today with complaints of right leg swelling and pain. She was sent here at the request of her family practice doctor to rule out right lower extremity DVT. The patient reports swelling and pain in her right lower shimmy. She reports her left lower shimmy has been doing well without discomfort or swelling. There are no other complaints the time my examination. PFSH Past Medical History Hx Anticoagulant Therapy: No Arthritis: Yes Asthma: No Blood Disorders: No Anxiety: Yes Depression: Yes Heart Rhythm Problems: No Cancer: No Cardiovascular Problems: No High Cholesterol: Yes Chest Pain: Yes Congestive Heart Failure: No COPD: No Cerebrovascular Accident: No Diabetes: Yes Patient Takes Glucophage: Yes Diminished Hearing: No Endocrine: Yes Gastrointestinal Disorders: Yes (UPSET STOMACH TODAY) GERD: Yes Genitourinary: No Headaches: Yes Hepatitis: No Hiatal Hernia: No Hypertension: Yes Implanted Vascular Access Dvce: No Kidney Stones: No Musculoskeletal: Yes (hip and back) Neurologic: Yes (here with AMS) Psychiatric: No Reproductive: No Respiratory: No Immunizations Current: Yes Migraines: Yes Myocardial Infarction: No Renal Failure: No Seizures: No Sleep Apnea: No Thyroid Disease: No Ulcer: No Tetanus Vaccination: > 5 Years Influenza Vaccination: No Menopausal: Yes Tubal Ligation: Yes Past Surgical History Abdominal Surgery: No Appendectomy: No Cardiac Surgery: No Section: Yes (1992) Cholecystectomy: No Ear Surgery: No Endocrine Surgery: No Eye Surgery: No Genitourinary Surgery: No Gynecologic Surgery: Yes (TUBLIGATION) Neurologic Surgery: No Oral Surgery: No Thoracic Surgery: No Other Surgery: Yes (bilat hips) Social History Alcohol Use: No Tobacco Use: No (PPD) Substance Use: No Allergies-Medications (Allergen,Severity, Reaction): Coded Allergies: No Known Allergies (Verified , 04/23/17) Reported Meds & Prescriptions Reported Meds & Active Scripts Active Celexa (Citalopram Hydrobromide) 20 Mg Tab 20 Mg PO DAILY Amitriptyline (Amitriptyline HCl) 25 Mg Tab 25 Mg PO HS Reported Lisinopril 2.5 Mg Tab 2.5 Mg PO DAILY Xanax (Alprazolam) 1 Mg Tab 1 Mg PO Q8H PRN Lortab (Hydrocodone-Acetaminophen) 10-325 Mg Tab 1 Tab PO Q4H PRN Atorvastatin (Atorvastatin Calcium) 40 Mg Tab 40 Mg PO HS Review of Systems Except as stated in HPI: all other systems reviewed are Neg General / Constitutional: No: Fever HENT: No: Headaches, Lightheadedness Cardiovascular: No: Chest Pain or Discomfort, Palpitations Respiratory: No: Cough, Shortness of Breath Gastrointestinal: No: Nausea, Vomiting, Abdominal Pain Musculoskeletal: Positive: Edema (left lower extremity), Pain (left lower extremity) Neurologic: No: Weakness, Dizziness, Incontinence Physical Exam Narrative GENERAL: Well-nourished, well-developed patient, in no acute respiratory distress. SKIN: Focused skin assessment warm/dry. HEAD: Normocephalic/atraumatic. EYES: No scleral icterus. No injection or drainage. NECK: Supple, trachea midline. CARDIOVASCULAR: Regular rate and rhythm without murmurs, gallops, or rubs. RESPIRATORY: Breath sounds equal bilaterally. No accessory muscle use. GASTROINTESTINAL: Abdomen soft, non-tender, nondistended. MUSCULOSKELETAL: Right lower extremity with 1-2+ edema. She does have subjective pain to her foot and calf. There is no palpable cords in her popliteal area.. NEUROLOGICAL: Awake and alert. Cranial nerves II through XII intact. Motor grossly within normal limits. Five out of 5 muscle strength in all muscle groups. Normal speech. Data Data Last Documented VS Vital Signs Date Time Temp Pulse Resp B/P Pulse Ox O2 Delivery O2 Flow Rate FiO2 04/23/17 18:11 94 18 04/23/17 17:22 98.3 110/72 96 Room Air Orders Us Leg Venous Doppler (04/23/17 18:17) MDM Medical Decision Making Medical Screen Exam Complete: Yes Emergency Medical Condition: Yes Differential Diagnosis DVT versus postoperative edema versus dependent edema Narrative Course 56-year-old female who is status post bilateral hip replacements February 14, 2017. The patient has swelling and pain in her right lower extremity. She is sent here by her primary care doctor to rule out DVT. The patient be signed out to Dr. Young, who will follow up on the ultrasound results. Disposition will be per Dr. Young. Diagnosis Primary Impression: right lower extremity pain and edema. Hermelindo Mina MD Apr 23, 2017 18:53
--- NOTE | 2017-04-23 19:58 | RADRPT ---
EXAM DATE/TIME: 04/23/2017 19:18 [facility] COMPARISON: No previous studies available for comparison. INDICATIONS : Right leg pain and swelling. MEDICAL HISTORY : Hypertension. Gastroesophageal reflux disease. Migraine. Heartburn. Arthr itis. Diabetes. Depression. Endocrine disorder. SURGICAL HISTORY : Tubal ligation. section. Right wrist fracture repair. ENCOUNTER: Initial ACUITY: 2 day PAIN SCORE: 0/10 LOCATION: Right leg. TECHNIQUE: Venous ultrasound of the leg was performed from the inguinal ligament to the proximal calf. Real-time, color Doppler and spectral tracing, compression and augmentation techniques were us ed. FINDINGS: There is normal compressibility of the deep venous system from the inguinal region to the proximal ca lf. No echogenic clot is seen in the lumen of the common femoral, femoral, popliteal, and posterior tibial veins. There is a normal response of the venous system to proximal and distal augmentation an d respiration. CONCLUSION: Negative for deep venous thrombosis. Nick Cook MD FACR on April 23, 2017 at 19:56 Board Certified Radiologist. This report was verified electronically.
--- NOTE | 2017-04-23 20:00 | PD ---
Physical Exam Date Seen by Provider: Apr 23, 2017 Time Seen by Provider: 20:00 Narrative 56-year-old female came to the emergency room with history of leg swelling and pain status post hip replacement surgery. She was seen by the previous ER physician who signed the case over to me to follow-up on the ultrasound report. Please refer to his history and physical regarding further details. The ultrasound report just came back in its negative for DVT. I will that the patient about this test result and discharge her home on instructions. Data Data Last Documented VS Vital Signs Date Time Temp Pulse Resp B/P Pulse Ox O2 Delivery O2 Flow Rate FiO2 04/23/17 18:11 94 18 04/23/17 17:22 98.3 110/72 96 Room Air Orders Us Leg Venous Doppler (04/23/17 18:17) MDM Supervised Visit with ONESIMO: No Diagnosis Primary Impression: right lower extremity pain and edema. Referrals: Primary Care Physician Additional Instruction: Please keep the leg elevated above the heart level. Follow-up with your primary care in couple days. Return to the ER if the condition worsens or any other new concerns. Med/Other Pt SpecificInfo: No Change to Meds Disposition: 01 DISCHARGE HOME Condition: Stable Rashawn Young MD Apr 23, 2017 20:00
== END 2017-04-23 20:23 | disposition home or self-care (01) ==
LOC: NEPE 17:18
DX: M79.661 Pain in right lower leg (principal); R60.9 Edema, unspecified; M19.90 Unspecified osteoarthritis, unspecified site; F41.9 Anxiety disorder, unspecified; F32.9 Major depressive disorder, single episode, unspecified; E78.00 Pure hypercholesterolemia, unspecified; E11.9 Type 2 diabetes mellitus without complications; I10 Essential (primary) hypertension; K21.9 Gastro-esophageal reflux disease without esophagitis
CPT/HCPCS: 93971; 99284

== ENCOUNTER 2017-04-30 14:50 | Emergency (ER) | payer OTHER ==
[~2017-04-30] VITALS: Ht 165.1 cm; Wt 59.0 kg
[~2017-04-30 14:50] MED LIST changes: -BLOOD GLUCOSE T1 TES; -BLOOMIS; -FISHCAP4 PO; -GABA300C5 PO; -LANC1MIS; -LANTUS2P SQ; -LISI10TA3 PO; +LISI2.5T3 PO; -METF500T PO; -SODI1TAB PO; -[UNRECOGNIZED DRUG - CODE]
[2017-04-30 15:12] VITALS: BP 128/81; PULSE 84; RESP 16; TEMP 98.2; O2SAT 98
--- NOTE | 2017-04-30 15:39 | PD ---
HPI Chief Complaint: Pain: Acute or Chronic Time Seen by Provider: 15:20 Travel History International Travel<30 days: No Contact w/Intl Traveler<30days: No Traveled to known affect area: No History of Present Illness HPI 56-year-old female presents to the emergency room via ambulance for evaluation of acute on chronic low back pain. Patient has had chronic back pain for 10 years after fracturing it but states it worsened last night. She has had foot drop for the past 3 weeks which started about 8 weeks after hip replacement surgery on February 14. She has an appointment with a neurologist in 3 weeks to assess for the foot. Because "they have done everything else." States the foot drop has been causing her to fall more often recently. She last felt "a few days ago." Denies hitting her head or loss of consciousness. States the back pain did not become severe until last night. It was so severe she had difficulty getting to and from the bathroom and had to use a bucket next to her bed. States anytime anyone touches her, she screams in pain. Pain is localized to the midline lumbar spine without radiation. She reports chronic right lower extremity paresthesias that are no worse than previous. She has been taking her chronic pain medication including meloxicam, gabapentin, baclofen, and Percocet 10/325 without relief in symptoms. PFSH Past Medical History Hx Anticoagulant Therapy: No Arthritis: Yes Asthma: No Blood Disorders: No Anxiety: Yes Depression: Yes Heart Rhythm Problems: No Cancer: No Cardiovascular Problems: Yes (htn on meds) High Cholesterol: Yes Chest Pain: Yes Congestive Heart Failure: No COPD: No Cerebrovascular Accident: No Diabetes: Yes (diet ) Patient Takes Glucophage: No Diminished Hearing: No Endocrine: Yes Gastrointestinal Disorders: Yes (UPSET STOMACH TODAY) GERD: Yes Genitourinary: No Headaches: Yes Hepatitis: No Hiatal Hernia: No Hypertension: Yes Implanted Vascular Access Dvce: No Kidney Stones: No Musculoskeletal: Yes (hip and back) Neurologic: Yes (here with AMS) Psychiatric: No Reproductive: No Respiratory: No Immunizations Current: Yes Migraines: Yes Myocardial Infarction: No Renal Failure: No Seizures: No Sleep Apnea: No Thyroid Disease: No Ulcer: No Tetanus Vaccination: < 5 Years Influenza Vaccination: Yes ?: Not Menopausal: Yes Tubal Ligation: Yes Past Surgical History Abdominal Surgery: No Appendectomy: No Cardiac Surgery: No Section: Yes (1992) Cholecystectomy: No Ear Surgery: No Endocrine Surgery: No Eye Surgery: No Genitourinary Surgery: No Gynecologic Surgery: Yes (TUBLIGATION) Neurologic Surgery: No Oral Surgery: No Thoracic Surgery: No Other Surgery: Yes (bilat hips) Social History Alcohol Use: No Tobacco Use: No (PPD) Substance Use: No Allergies-Medications (Allergen,Severity, Reaction): Coded Allergies: No Known Allergies (Verified , 04/30/17) Reported Meds & Prescriptions Reported Meds & Active Scripts Active Percocet (Oxycodone-Acetaminophen) 10-325 mg Tab 1 Tab PO Q6H PRN Baclofen 10 Mg Tab 10 Mg PO Q8HR PRN Amitriptyline (Amitriptyline HCl) 25 Mg Tab 25 Mg PO HS Reported Gabapentin 300 Mg Cap 300 Mg PO DAILY Meloxicam 15 Mg Tab 15 Mg PO DAILY Lipitor (Atorvastatin Calcium) 40 Mg Tab 40 Mg PO HS Zofran (Ondansetron HCl) 8 Mg Tab 8 Mg PO Q8HR PRN Baclofen 10 Mg Tab 10 Mg PO TID PRN Oxycodone-Acetaminophen 5-325 mg Tab 1 Tab PO Q6H PRN Lisinopril 2.5 Mg Tab 2.5 Mg PO DAILY Ropinirole 2 Mg Tab 2 Mg PO HS Proair Hfa 8.5 GM Inh (Albuterol Sulfate) 90 Mcg/Act Aer 2 Puff INH Q4-6H PRN 108 mcg/actuation Citalopram (Citalopram Hydrobromide) 20 Mg Tab 20 Mg PO DAILY Zolpidem (Zolpidem Tartrate) 5 Mg Tab 5 Mg PO HS PRN Lisinopril 2.5 Mg Tab 2.5 Mg PO DAILY Xanax (Alprazolam) 1 Mg Tab 1 Mg PO Q8H PRN Review of Systems Except as stated in HPI: all other systems reviewed are Neg Physical Exam Narrative GENERAL: Well-nourished, well-developed female in no acute distress. Afebrile. SKIN: Focused skin assessment warm/dry. No erythema or ecchymosis. HEAD: Normocephalic. EYES: No scleral icterus. No injection or drainage. NECK: Supple, trachea midline. No JVD or lymphadenopathy. CARDIOVASCULAR: Regular rate and rhythm without murmurs, gallops, or rubs. RESPIRATORY: Breath sounds equal bilaterally. No accessory muscle use. BACK: No step-off or obvious deformity. No CVA tenderness. Strength 5/5 and equal in lower extremities. Bilateral 2+ patellar reflexes are equal. Positive straight leg raise on the right. Data Data Last Documented VS Vital Signs Date Time Temp Pulse Resp B/P Pulse Ox O2 Delivery O2 Flow Rate FiO2 04/30/17 21:15 85 14 138/88 99 Room Air 04/30/17 15:[address] Lumb Spine W/O Contrast (04/30/17 ) Oxycodone-Acetamin 10-325 Mg (Percocet 1 (04/30/17 17:15) Mri L Spine W&W/O Contrast (04/30/17 ) Complete Blood Count With Diff (04/30/17 17:18) Basic Metabolic Panel (Bmp) (04/30/17 17:18) Lorazepam Inj (Ativan Inj) (04/30/17 18:30) Gadodiamide Pf Inj (Omniscan Pf Inj) (04/30/17 19:47) Labs Laboratory Tests Test 04/30/17 18:05 White Blood Count 11.4 TH/MM3 Red Blood Count 4.26 MIL/MM3 Hemoglobin 12.8 GM/DL Hematocrit 37.8 % Mean Corpuscular Volume 88.7 FL Mean Corpuscular Hemoglobin 30.0 PG Mean Corpuscular Hemoglobin 33.8 % Concent Red Cell Distribution Width 13.3 % Platelet Count 431 TH/MM3 Mean Platelet Volume 7.7 FL Neutrophils (%) (Auto) 75.4 % Lymphocytes (%) (Auto) 13.3 % Monocytes (%) (Auto) 3.9 % Eosinophils (%) (Auto) 7.1 % Basophils (%) (Auto) 0.3 % Neutrophils # (Auto) 8.7 TH/MM3 Lymphocytes # (Auto) 1.5 TH/MM3 Monocytes # (Auto) 0.4 TH/MM3 Eosinophils # (Auto) 0.8 TH/MM3 Basophils # (Auto) 0.0 TH/MM3 CBC Comment DIFF FINAL Differential Comment Sodium Level 142 MEQ/L Potassium Level 4.1 MEQ/L Chloride Level 106 MEQ/L Carbon Dioxide Level 29.6 MEQ/L Anion Gap 6 MEQ/L Blood Urea Nitrogen 7 MG/DL Creatinine 0.71 MG/DL Estimat Glomerular Filtration 85 ML/MIN Rate Random Glucose 99 MG/DL Calcium Level 9.3 MG/DL MDM Medical Decision Making Medical Screen Exam Complete: Yes Emergency Medical Condition: Yes Medical Record Reviewed: Yes Differential Diagnosis Fracture, sprain, strain, muscle spasm, degenerative disc disease, spondylolisthesis Narrative Course 56-year-old female with history of chronic low back pain presents to the emergency room via ambulance for evaluation of acute on chronic pain. She reports history of frequent falls after developing foot drop 3 weeks ago. States that drop developed 8 weeks after she had bilateral hip replacement on February 14. She has an appointment with the neurologist on May 16 for follow-up on the foot drop. Patient is tender to palpation and crying out in pain with any movement on the bed. Vital signs stable. CT shows old fracture and anterior subluxation of L4 on L5 and diffuse annular bulge. I spoke to my attending physician regarding this and he recommends MRI because patient is in so much pain. She was given Percocet 10/325 with good relief in symptoms. Patient reports history of claustrophobia and was given Ativan prior to MRI. MRI shows acute bilateral sacral alar fractures, degenerative changes, and grade 1 anterior listhesis of L4-L5. Given her history of fall, sacral fractures are likely cause of her excruciating pain. Patient's pain was controlled in the emergency room with Percocet and Ativan. Patient states she feels safe to go home because her can help her and she has a walker. She was able to ambulate to and from the bathroom without significant difficulty. She'll be discharged with prescriptions for Percocet and baclofen. Told to follow up with her primary care physician or return for worsening symptoms. She understands and agrees to plan. Diagnosis Primary Impression: Sacral fracture, closed Qualified Code: S32.10XA - Closed fracture of sacrum, unspecified portion of sacrum, initial encounter Referrals: Primary Care Physician Patient Instructions: General Instructions Additional Instructions: Rest and drink plenty of fluids. Take Percocet as directed, as needed for pain. Do not drink alcohol or drive with taking medication. Baclofen as directed, as needed for muscle spasm/pain. Do not drink alcohol or drive while taking this medication. Apply ice to the affected area for 20 minutes at a time, as needed for pain and swelling. Follow-up with a primary care physician. Return to the emergency room for worsening symptoms. Med/Other Pt SpecificInfo: Prescription(s) given Scripts Oxycodone-Acetaminophen (Percocet)10-325 mg Tab1 Tab PO Q6H PRN (PAIN) #15 TAB Ref 0 Prov:Kimber Larose MD 04/30/17 Baclofen 10 Mg Tab10 Mg PO Q8HR PRN (MUSCLE SPASM) #21 TAB Ref 0 Prov:Tl Rosas MD 04/30/17 Disposition: 01 DISCHARGE HOME Condition: Stable Nelly Curiel Apr 30, 2017 15:39
[2017-04-30] MEDS ORDERED: LISI2.5T3 PO (16:36)
[2017-04-30] MEDS ORDERED: ALBUAER3 INH (16:36)
[2017-04-30] MEDS ORDERED: OXYC1TAB63 PO (16:36)
[2017-04-30] MEDS ORDERED: ZOFR8TAB PO (16:36)
[2017-04-30] MEDS ORDERED: MELO-1 PO (16:36)
[2017-04-30] MEDS ORDERED: GABA300C5 PO (16:36)
[2017-04-30] MEDS ORDERED: BACL10TA PO ×2 (16:36→21:08)
[2017-04-30] MEDS ORDERED: ROPI2TAB PO (16:36)
[2017-04-30] MEDS ORDERED: CITA20TA4 PO (16:36)
[2017-04-30] MEDS ORDERED: LIPI40TA PO (16:36)
[2017-04-30] MEDS ORDERED: ZOLP5TAB3 PO (16:36)
--- NOTE | 2017-04-30 17:02 | RADRPT ---
EXAM DATE/TIME: 04/30/2017 16:34 [facility] COMPARISON: No previous studies available for comparison. INDICATIONS : Fall. Lower back pain. RADIATION DOSE: 17.92 CTDIvol (mGy) MEDICAL HISTORY : Hypertension. SURGICAL HISTORY : Tubal ligation. section.Bilateral hip surgery. ENCOUNTER: Initial ACUITY: 4 - 6 days PAIN SCALE: 4/10 LOCATION: spine TECHNIQUE: Volumetric scanning of the lumbar spine was performed. Multiplanar reconstructions in the sagittal, coronal and oblique axial planes were performed. Using automated exposure control and adjustment of the mA and/or kV according to patient size, radiation dose was kept as low as reasonably achievable t o obtain optimal diagnostic quality images. DICOM format image data is available electronically for review and comparison. FINDINGS: VERTEBRAE: There is obvious wedging of the L1 vertebral body with a chronic appearing endplate cupped fracture. No endplate fracture is identified. Marked degenerative facet disease at L4-5 level and the L5-S1 lev els ALIGNMENT: Mild anterior subluxation of L4 on L5. T12-L1: The thecal sac has a normal diameter. No evidence of disc bulge or protrusion. The neural foramina are patent bilaterally. L1-L2: The thecal sac has a normal diameter. No evidence of disc bulge or protrusion. The neural foramina are patent bilaterally. L2-L3: The thecal sac has a normal diameter. No evidence of disc bulge or protrusion. The neural foramina are patent bilaterally. L3-L4: The thecal sac has a normal diameter. No evidence of disc bulge or protrusion. The neural foramina are patent bilaterally. L4-L5: Broad-based diffuse annular bulge narrows the thecal sac. Both lateral recesses are narrowed. The L4 nerve roots have already exited. L5-S1: The thecal sac has a normal diameter. No evidence of disc bulge or protrusion. The neural foramina are patent bilaterally. CONCLUSION: Wedging of the L1 vertebral body which on the CT scan is clearly chronic. On axial images I do not se e any obvious soft tissue swelling or residual fracture lines to suggest an acute fracture. Mild sten osis at L4-5 secondary to anterior subluxation of L4 on L5 and a diffuse annular bulge. Hosea Guzmán MD on April 30, 2017 at 16:57 Board Certified Radiologist. This report was verified electronically.
[2017-04-30] MEDS ORDERED: oxyCODONE/ACETAMINOPHEN 10 MG/325 MG TAB PO ONE (17:15)
[2017-04-30 18:20] LABS: AUTOMATED NEUTROPHIL # 8.7 TH/MM3 (1.8-7.7); BASOPHIL % 0.3 % (0.0-2.0); EOSINOPHIL # 0.8 TH/MM3 (0-0.4); EOSINOPHIL % 7.1 % (0.0-4.0); HEMATOCRIT 37.8 % (35.0-46.0); HEMO FLAGS DIFF FINAL; LYMPH % 13.3 % (9.0-44.0); LYMPHOCYTE # 1.5 TH/MM3 (1.0-4.8); MEAN CELL VOLUME 88.7 FL (80.0-100.0); MEAN CORPUSCULAR HGB CONC 33.8 % (32.0-36.0); MONO % 3.9 % (0.0-8.0); NEUT % 75.4 % (16.0-70.0); PLATELET COUNT 431 TH/MM3 (150-450); RED BLOOD COUNT 4.26 MIL/MM3 (4.00-5.30); RED CELL DISTRIBUTION WIDTH 13.3 % (11.6-17.2); WHITE BLOOD COUNT 11.4 TH/MM3 (4.0-11.0)
[2017-04-30] MEDS ORDERED: LORazepam 2 MG/ML VIAL IM ONE (18:30)
[2017-04-30 18:36] LABS: POTASSIUM 4.1 MEQ/L (3.5-5.1)
[2017-04-30 18:41] LABS: BICARBONATE 29.6 MEQ/L (21.0-32.0)
[2017-04-30] MEDS ORDERED: GADODIAMIDE PF 287 MG/ML 5 ML VIAL (for RAD MRI) IV ONE (19:47)
--- NOTE | 2017-04-30 20:33 | RADRPT ---
EXAM DATE/TIME: 04/30/2017 19:32 [facility] COMPARISON: CT LUMBAR SPINE W/O CONTRAST, April 30, 2017, 16:34. INDICATIONS : Radiculopathy. Right lower extremity weakness. CONTRAST: 12 cc Omniscan (gadodiamide) IV MEDICAL HISTORY : Hypertension. SURGICAL HISTORY : section. Bilateral hips, forarms, and shoulders. ENCOUNTER: Initial ACUITY: 1 week PAIN SCORE: 8/10 LOCATION: Lower back. TECHNIQUE: Multiplanar multisequence MRI of the lumbar spine was performed with and without contrast. FINDINGS: The most caudal appearing lumbar vertebra is numbered as L5. There is a nonacute moderate wedge compr ession fracture of L1 with a Schmorl node at the superior endplate. There is diffuse disc desiccation and mild disc space narrowing. The conus is unremarkable. Facet joint fluid at L3-4 and L4-5 bilater ally. There is no spinal stenosis. There is abnormal marrow edema and enhancement involving the S1 se gment inferior endplate as well as asked to. This is quite pronounced and there is a small amount of surrounding edema. There is evidence of bilateral sacral alar fractures with associated edema and enh ancement. Grade 1 anterolisthesis of L4 on L5. T12-L1: The thecal sac has a normal diameter. No evidence of disc bulge or protrusion. The neural foramina are patent bilaterally. L1-L2: Minimal diffuse disc bulge and mild facet and ligamentum flavum hypertrophy. L2-L3: Mild facet and ligamentum flavum hypertrophy. L3-L4: Mild diffuse disc bulge and moderate facet and ligamentum flavum hypertrophy with no canal or foramin al narrowing. L4-L5: A diffuse disc bulge is present abutting the L5 nerve roots and right L4 exiting nerve. Moderate left foraminal narrowing. L5-S1: A diffuse disc bulge is present. There is abutment but no displacement of the L5 nerves. There is mod erate bilateral foraminal narrowing. CONCLUSION: 1. Sacral fractures are noted as described above. 2. Degenerative changes of the lumbar spine are noted as above. Narciso Anderson MD on April 30, 2017 at 20:25 Board Certified Radiologist. This report was verified electronically.
[2017-04-30] MEDS ORDERED: PERC10TA27 PO ×2 (21:08→21:12)
[2017-04-30 21:15] VITALS: BP 138/88; PULSE 85; RESP 14; O2SAT 99
== END 2017-04-30 21:30 | disposition home or self-care (01) ==
LOC: PHEFT 14:50
DX: S32.10XA Unspecified fracture of sacrum, initial encounter for closed fracture (principal); G89.29 Other chronic pain; M21.379 Foot drop, unspecified foot; R20.9 Unspecified disturbances of skin sensation; I10 Essential (primary) hypertension; E78.00 Pure hypercholesterolemia, unspecified; F17.210 Nicotine dependence, cigarettes, uncomplicated; K21.9 Gastro-esophageal reflux disease without esophagitis; Z96.643 Presence of artificial hip joint, bilateral; W19.XXXA Unspecified fall, initial encounter; Y93.9 Activity, unspecified; Y92.9 Unspecified place or not applicable
CPT/HCPCS: 72131; 72158; 80048; 85025; 96372; 99285; A9579; J2060

== ENCOUNTER 2017-08-24 12:39 | Observation (INO) | payer OTHER ==
[2017-08-24] VITALS (9 sets, daily range): BP systolic 122–172; BP diastolic 75–96; PULSE 57–103; RESP 13–18; TEMP 97.4–98.4; O2SAT 96–99
[~2017-08-24] VITALS: Ht 165.1 cm; Wt 58.0 kg
[~2017-08-24 12:39] MED LIST changes: +ALBUAER3 INH; -ATOR40TA16 PO; +BACL10TA PO; -CELE20TA PO; +CITA20TA4 PO; +GABA300C5 PO; -HYDR-3535 PO; +LIPI40TA PO; +MELO15TA20 PO; +METF500T PO; +OXYC1TAB63 PO; +PERC10TA27 PO; +ROPI2TAB PO; +ZOFR8TAB PO; +ZOLP5TAB3 PO
[2017-08-24] MEDS ORDERED: SODIUM CHLOR 0.9% 1000 ML INJ 1,000 ML IV SCH (13:21)
[2017-08-24] MEDS ORDERED: SODIUM CHLORIDE 0.9% FLUSH 5 ML FLUSH IV FLUSH PRN (13:30)
--- NOTE | 2017-08-24 13:38 | PD ---
HPI Chief Complaint: Fall Time Seen by Provider: 12:53 Travel History International Travel<30 days: No Contact w/Intl Traveler<30days: No Traveled to known affect area: No History of Present Illness HPI 57-year-old female with history of chronic pain, hypertension, hyperlipidemia, diabetes mellitus, who presents after having a mechanical fall today. states that she was sitting on the porch drinking coffee when she went to stand up, she fell forward striking her head on the handrail. There is no reported loss of consciousness. does report that she has been much more confused over the last few days. He reports she's had 2 previous falls. There is no change in her medication. She denies taking more of her pain medication or sleeping medication that previously's prescribed. There is no reported fevers, chills. The patient is able to answer questions however is very lethargic and falls asleep during exam. PFSH Past Medical History Hx Anticoagulant Therapy: No Arthritis: Yes Asthma: No Blood Disorders: No Anxiety: Yes Depression: Yes Heart Rhythm Problems: No Cancer: No Cardiovascular Problems: Yes (htn on meds) High Cholesterol: Yes Chest Pain: Yes Congestive Heart Failure: No COPD: No Cerebrovascular Accident: No Diabetes: Yes (diet ) Diminished Hearing: No Endocrine: Yes Gastrointestinal Disorders: Yes (UPSET STOMACH TODAY) GERD: Yes Genitourinary: No Headaches: Yes Hepatitis: No Hiatal Hernia: No Hypertension: Yes Implanted Vascular Access Dvce: No Kidney Stones: No Musculoskeletal: Yes (hip and back) Neurologic: Yes (here with AMS) Psychiatric: No Reproductive: No Respiratory: No Immunizations Current: Yes Migraines: Yes Myocardial Infarction: No Renal Failure: No Seizures: No Sleep Apnea: No Thyroid Disease: No Ulcer: No Menopausal: Yes Tubal Ligation: Yes Past Surgical History Abdominal Surgery: No Appendectomy: No Cardiac Surgery: No Section: Yes (1992) Cholecystectomy: No Ear Surgery: No Endocrine Surgery: No Eye Surgery: No Genitourinary Surgery: No Gynecologic Surgery: Yes (TUBLIGATION) Neurologic Surgery: No Oral Surgery: No Thoracic Surgery: No Other Surgery: Yes (bilat hips-02/2017) Social History Alcohol Use: No (denies) Tobacco Use: No (ppd of cigs) Substance Use: Yes (hx of crack, cocaine use) Allergies-Medications (Allergen,Severity, Reaction): Coded Allergies: No Known Allergies (Verified Adverse Reaction, Unknown, 08/24/17) Reported Meds & Prescriptions Reported Meds & Active Scripts Active Metformin (Metformin HCl) 500 Mg Tab 500 Mg PO DAILY With a meal Gabapentin 300 Mg Cap 300 Mg PO TID Percocet (Oxycodone-Acetaminophen) 10-325 mg Tab 1 Tab PO Q6H PRN Amitriptyline (Amitriptyline HCl) 25 Mg Tab 25 Mg PO HS Reported Meloxicam 15 Mg Tab 15 Mg PO DAILY Lipitor (Atorvastatin Calcium) 40 Mg Tab 40 Mg PO HS Zofran (Ondansetron HCl) 8 Mg Tab 8 Mg PO Q8HR PRN Baclofen 10 Mg Tab 10 Mg PO TID PRN Oxycodone-Acetaminophen 5-325 mg Tab 1 Tab PO Q6H PRN Ropinirole 2 Mg Tab 2 Mg PO HS Proair Hfa 8.5 GM Inh (Albuterol Sulfate) 90 Mcg/Act Aer 2 Puff INH Q4-6H PRN 108 mcg/actuation Citalopram (Citalopram Hydrobromide) 20 Mg Tab 20 Mg PO DAILY Zolpidem (Zolpidem Tartrate) 5 Mg Tab 5 Mg PO HS PRN Lisinopril 2.5 Mg Tab 2.5 Mg PO DAILY Xanax (Alprazolam) 1 Mg Tab 1 Mg PO Q8H PRN Review of Systems Except as stated in HPI: all other systems reviewed are Neg General / Constitutional: No: Fever, Chills Eyes: No: Blurred Vision, Photophobia HENT: Positive: Headaches (forehead where she struck her head), Lightheadedness , Neck Pain (chronic neck) Cardiovascular: No: Chest Pain or Discomfort, Palpitations Respiratory: No: Cough, Shortness of Breath Gastrointestinal: No: Nausea, Vomiting, Abdominal Pain Genitourinary: No: Frequency, Dysuria, Incontinence Musculoskeletal: Positive: Pain (chronic neck and back pain), No: Weakness Neurologic: Positive: Weakness, Dizziness, Headache (forehead where she struck her head on the handrail.), Change in Mentation (lethargy with sleepiness), Slurred Speech Physical Exam Narrative GENERAL: Well-developed well-nourished female who appears lethargic and sleepy. The patient was falling asleep when answering questions. SKIN: Focused skin assessment warm/dry. HEAD: Normocephalic. The patient has a small hematoma to the left forehead. EYES: Pupils equal and round. No scleral icterus. No injection or drainage. ENT: No nasal bleeding or discharge. Mucous membranes pink and moist. NECK: Trachea midline. Chronic neck pain. No new neck pain. No midline deformity. CARDIOVASCULAR: Regular rate and rhythm. No murmur appreciated. RESPIRATORY: No accessory muscle use. Clear to auscultation. Breath sounds equal bilaterally. GASTROINTESTINAL: Abdomen soft, non-tender, nondistended. MUSCULOSKELETAL: No obvious deformities. No clubbing. No cyanosis. No edema. NEUROLOGICAL: Awake and lethargic. No obvious cranial nerve deficits. Motor grossly within normal limits. Slurred speech. The patient falls asleep when not stimulated Data Data Last Documented VS Vital Signs Date Time Temp Pulse Resp B/P (MAP) Pulse Ox O2 Delivery O2 Flow Rate FiO2 08/24/17 16:00 76 18 153/96 (115) 99 Room Air 08/24/17 12:40 97.4 Orders Orders Electrocardiogram (08/24/17:) Ammonia (08/24/17:) Complete Blood Count With Diff (08/24/17:) Comprehensive Metabolic Panel (08/24/17:) Troponin I (08/24/17:) Thyroid Stimulating Hormone (08/24/17:) Urinalysis - C+S If Indicated (08/24/17 13:21) Chest, Single Ap (08/24/17:21) Ct Brain W/O Iv Contrast(Rout) (08/24/17:21) Blood Glucose (08/24/17:) Ecg Monitoring (08/24/17:21) Iv Access Insert/Monitor (08/24/17:) Oximetry (08/24/17 13:21) Sodium Chloride 0.9% Flush (Ns Flush) (08/24/17 13:30) Sodium Chlor 0.9% 1000 Ml Inj (Ns 1000 M (08/24/17 13:21) Drug Screen, Random Urine (08/24/17 13:21) Alcohol (Ethanol) (08/24/17 13:21) Tylenol (Acetaminophen) (08/24/17 13:21) Salicylates (Aspirin) (08/24/17 13:21) Ct Cerv Spine W/O Contrast (08/24/17 13:23) Naloxone Inj (Narcan Inj) (08/24/17 15:00) Admit Order (Ed Use Only) (08/24/17 17:00) Labs Laboratory Tests Test 08/24/17 13:30 08/24/17 14:15 08/24/17 14:30 White Blood Count 6.6 TH/MM3 Red Blood Count 4.44 MIL/MM3 Hemoglobin 13.7 GM/DL Hematocrit 40.0 % Mean Corpuscular Volume 90.2 FL Mean Corpuscular Hemoglobin 31.0 PG Mean Corpuscular Hemoglobin Concent 34.3 % Red Cell Distribution Width 14.8 % Platelet Count 309 TH/MM3 Mean Platelet Volume 8.3 FL Neutrophils (%) (Auto) 59.0 % Lymphocytes (%) (Auto) 24.3 % Monocytes (%) (Auto) 6.7 % Eosinophils (%) (Auto) 9.4 % Basophils (%) (Auto) 0.6 % Neutrophils # (Auto) 3.9 TH/MM3 Lymphocytes # (Auto) 1.6 TH/MM3 Monocytes # (Auto) 0.4 TH/MM3 Eosinophils # (Auto) 0.6 TH/MM3 Basophils # (Auto) 0.0 TH/MM3 CBC Comment DIFF FINAL Differential Comment Blood Urea Nitrogen 4 MG/DL Creatinine 0.85 MG/DL Random Glucose 155 MG/DL Total Protein 7.8 GM/DL Albumin 4.0 GM/DL Calcium Level 9.2 MG/DL Alkaline Phosphatase 154 U/L Aspartate Amino Transf (AST/SGOT) 19 U/L Alanine Aminotransferase (ALT/SGPT) 30 U/L Total Bilirubin 0.4 MG/DL Sodium Level 138 MEQ/L Potassium Level 4.3 MEQ/L Chloride Level 102 MEQ/L Carbon Dioxide Level 30.4 MEQ/L Anion Gap 6 MEQ/L Estimat Glomerular Filtration Rate 69 ML/MIN Troponin I LESS THAN 0.02 NG/ML Thyroid Stimulating Hormone 3rd Gen 1.370 uIU/ML Salicylates Level 4.7 MG/DL Acetaminophen Level LESS THAN 2.0 MCG/ML Ethyl Alcohol Level LESS THAN 3 MG/DL Ammonia 13 MCMOL/L Urine Color YELLOW Urine Turbidity CLEAR Urine pH 6.0 Urine Specific [place] 1.010 Urine Protein NEG mg/dL Urine Glucose (UA) NEG mg/dL Urine Ketones NEG mg/dL Urine Occult Blood TRACE Urine Nitrite NEG Urine Bilirubin NEG Urine Urobilinogen LESS THAN 2.0 MG/DL Urine Leukocyte Esterase NEG Urine RBC 1 /hpf Urine Squamous Epithelial Cells <1 /hpf Urine Hyaline Casts 6 /lpf Urine Mucus FEW /lpf Microscopic Urinalysis Comment CATH-CULT NOT IND MDM Medical Decision Making Medical Screen Exam Complete: Yes Emergency Medical Condition: Yes Differential Diagnosis Closed head injury versus intracranial injury versus metabolic derangement versus overmedication Narrative Course 57-year-old female history chronic neck and back pain, diabetes mellitus, hyperlipidemia, hypertension, presents here with altered mental status and reported head trauma. The patient reportedly fell and struck her head on a handrail on the porch. reports she's been more lethargic and having slurred speech over the last 2-3 days. The patient is on pain medication as well as sleeping medication. Patient reports she is not taking any more medicine that she was prescribed. She reports no change in her medication regimen. Head CT and neck CT showed no evidence of acute process. Chest x-ray shows no acute process. Salicylate and acetaminophen are negative. Alcohol level is negative. Urine tox is pending at this time. The patient is taking opiates for pain. She is given 0.4 mg of Narcan. This did perk her up a little bit however she is still lethargic and sleepy. The patient is a patient of the [facility] [facility]. I spoke with Dr. delaney, resident covering for the service who will admit the patient under Dr. Natty Zhang. Suspicion is that this patient has had overmedication. She is not suicidal. Diagnosis Primary Impression: Altered sensorium Additional Impressions: History of chronic pain suspected overmedication History of hypertension Diabetes mellitus Hyperlipidemia Admitting Information Admitting Physician Requests: Observation Hermelindo Mina MD Aug 24, 2017 13:38
--- NOTE | 2017-08-24 13:58 | RADRPT ---
EXAM DATE/TIME: 08/24/2017 13:47 [facility] COMPARISON: CHEST SINGLE AP, April 18, 2017, 16:34. INDICATIONS : Syncope, weakness, short of breath MEDICAL HISTORY : Diabetes mellitus type II. Chronic obstructive pulmonary disease. Hypertension. SURGICAL HISTORY : None. ENCOUNTER: Initial ACUITY: 1 day PAIN SCORE: Non-responsive. LOCATION: Bilateral chest FINDINGS: Portable AP view of the chest demonstrates a normal-sized cardiac silhouette. No effusion, consolidat ion, or pneumothorax is visualized. The bones and soft tissues demonstrate no acute abnormality. Ther e are degenerative changes of the thoracic spine. CONCLUSION: No acute cardiopulmonary abnormality is identified. Smooth Bocanegra MD on August 24, 2017 at 13:55 Board Certified Radiologist. This report was verified electronically.
[2017-08-24 14:04] LABS: AUTOMATED NEUTROPHIL # 3.9 TH/MM3 (1.8-7.7); BASOPHIL % 0.6 % (0.0-2.0); EOSINOPHIL # 0.6 TH/MM3 (0-0.4); EOSINOPHIL % 9.4 % (0.0-4.0); HEMO FLAGS DIFF FINAL; LYMPH % 24.3 % (9.0-44.0); LYMPHOCYTE # 1.6 TH/MM3 (1.0-4.8); MEAN CELL VOLUME 90.2 FL (80.0-100.0); MEAN CORPUSCULAR HGB CONC 34.3 % (32.0-36.0); MONO % 6.7 % (0.0-8.0); PLATELET COUNT 309 TH/MM3 (150-450); RED BLOOD COUNT 4.44 MIL/MM3 (4.00-5.30); RED CELL DISTRIBUTION WIDTH 14.8 % (11.6-17.2); WHITE BLOOD COUNT 6.6 TH/MM3 (4.0-11.0)
[2017-08-24 14:25] LABS: ALT (GPT) 30 U/L (10-53); ANION GAP 6 MEQ/L (5-15); AST (GOT) 19 U/L (15-37); BICARBONATE 30.4 MEQ/L (21.0-32.0); BLOOD UREA NITROGEN 4 MG/DL (7-18); CHLORIDE 102 MEQ/L (98-107); GLOMERULAR FILTRATION RATE 69 ML/MIN (>89); POTASSIUM 4.3 MEQ/L (3.5-5.1); SODIUM (NA) 138 MEQ/L (136-145)
[2017-08-24 14:30] LABS: ALCOHOL LESS THAN 3 MG/DL (0-5)
--- NOTE | 2017-08-24 14:32 | RADRPT ---
EXAM DATE/TIME: 08/24/2017 13:53 [facility] COMPARISON: CT BRAIN W/O CONTRAST, April 18, 2017, 16:26. INDICATIONS : Fell and hit head. Decreased consciousness. RADIATION DOSE: 30.65 CTDIvol (mGy) MEDICAL HISTORY : Hypertension. Cardiovascular disease SURGICAL HISTORY : Tubal ligation. ENCOUNTER: Initial ACUITY: 1 day PAIN SCALE: Non-responsive LOCATION: cranial TECHNIQUE: Multiple contiguous axial images were obtained of the head. Using automated exposure control and adj ustment of the mA and/or kV according to patient size, radiation dose was kept as low as reasonably a chievable to obtain optimal diagnostic quality images. DICOM format image data is available electro nically for review and comparison. FINDINGS: CEREBRUM: The ventricles are normal for age. No evidence of midline shift, mass lesion, hemorrhage or acute in farction. No extra-axial fluid collections are seen. POSTERIOR FOSSA: The cerebellum and brainstem are intact. The 4th ventricle is midline. The cerebellopontine angle i s unremarkable. EXTRACRANIAL: The visualized portion of the orbits is intact. SKULL: The calvaria is intact. No evidence of skull fracture. Cephalohematoma left front region. CONCLUSION: Intracranial contents unremarkable. Nick Cook MD FACR on August 24, 2017 at 14:29 Board Certified Radiologist. This report was verified electronically.
[2017-08-24 14:36] LABS: ACETAMINOPHEN LESS THAN 2.0 MCG/ML (10.0-30.0); ALKALINE PHOSPHATASE 154 U/L (45-117); TOTAL BILIRUBIN ADULT 0.4 MG/DL (0.2-1.0)
--- NOTE | 2017-08-24 14:36 | RADRPT ---
EXAM DATE/TIME: 08/24/2017 13:53 [facility] COMPARISON: No previous studies available for comparison. INDICATIONS : Fell and hit head. Decreased consciousness. RADIATION DOSE: 18.44 CTDIvol (mGy) MEDICAL HISTORY : Cardiovascular disease. Hypertension. SURGICAL HISTORY : Tubal ligation. ENCOUNTER: Initial ACUITY: 1 day PAIN SCALE: Non-responsive LOCATION: neck TECHNIQUE: Volumetric scanning of the cervical spine was performed. Multiplanar reconstructions in the sagittal, coronal and oblique axial planes were performed. Using automated exposure control and adjustment o f the mA and/or kV according to patient size, radiation dose was kept as low as reasonably achievable to obtain optimal diagnostic quality images. DICOM format image data is available electronically f or review and comparison. FINDINGS: VERTEBRAE: Normal vertebral body height. ALIGNMENT: No evidence of subluxation. C2-C3: The bony spinal canal is normal in size. No evidence of disc bulge or herniation. The neural forami na are bilaterally patent. C3-C4: The bony spinal canal is normal in size. No evidence of disc bulge or herniation. . Mild bilateral neural foramina encroachment C4-C5: The bony spinal canal is normal in size. No evidence of disc bulge or herniation. Mild bilateral ne ural foramina encroachment. C5-C6: Minimal degenerative changes are seen with mild bilateral neuroforaminal encroachment. C6-C7: The bony spinal canal is normal in size. No evidence of disc bulge or herniation. The neural forami na are bilaterally patent. C7-T1: The bony spinal canal is normal in size. No evidence of disc bulge or herniation. The neural forami na are bilaterally patent. CONCLUSION: Degenerative changes, negative for fracture. Nick Cook MD FACR on August 24, 2017 at 14:33 Board Certified Radiologist. This report was verified electronically.
[2017-08-24 14:44] LABS: BLOOD, URINE TRACE (NEG); GLUCOSE,URINE NEG (NEG); HYALINE CAST, URINE 6 /lpf (RARE); KETONE, URINE NEG (NEG); MUCUS URINE FEW /lpf (OCC); NITRITE,URINE NEG (NEG); SQUAMOUS EPITHELIAL CELL URINE <1 /hpf (0-5); URINE COLOR YELLOW (YELLW/STRAW)
[2017-08-24 14:45] LABS: COMMENT (UR) CATH-CULT NOT IND; CULTURE IF INDICATED CATH CULTURE NOT IND
[2017-08-24] MEDS ORDERED: NALOXONE HCL 0.4 MG/ML AMP IV PUSH PRN (15:00)
--- NOTE | 2017-08-24 20:01 | HHI.HP ---
[facility] Service Family Medicine Primary Care Physician Christiano Browne MD Admission Diagnosis altered mental status, suspected overmedication, diabetes, htn , Diagnoses: International Travel<30 Days: No Contact w/Intl Traveler<30days: No Known Affected Area: No History of Present Illness The patient is a 57-year-old female with a past medical history of hypertension, diabetes, glaucoma, and chronic pain that presents to the [place] ED after having a mechanical fall. Patient states that a week ago, she received a phone call that her daughter, who is a drug abuser, is back in [facility] each made her very sad. Around 3-4 AM in the morning, she took two 2 mg Xanax pills that belonged to her because she just wanted to sleep and forget all the pain. She currently has a prescription for 1 mg tablets PO every 8 hours. Patient states that she has insomnia secondary to PTSD from her son being premature and having multiple medical problems. After taking the Xanax pills, she went to bed and later got up to go to the bathroom when she fell out of the bed. Later that morning she was able to get some breakfast and was having coffee with her on the porch which is connected to the kitchen. She got up to go into the house to pick something up when she tripped on a piece of loose wood on the deck and hit her head on the top rail of the deck. This happened around 9:51 AM. Patient states that she has dropped foot which causes her toes to get caught up in stuff. She denies any recent illnesses or medication changes prior to this incident. She did not want to come to the ER, she is only here because of her 's insistence. She was hoping to sleep off the medication at home. Review of Systems Constitutional: DENIES: Fever, Chills Eyes: DENIES: Blurred vision, Vision loss Ears, nose, mouth, throat: DENIES: Nasal discharge, Throat pain Respiratory: DENIES: Cough, Shortness of breath Cardiovascular: DENIES: Chest pain, Palpitations, Syncope Gastrointestinal: DENIES: Diarrhea, Nausea, Vomiting Genitourinary: DENIES: Urinary frequency, Dysuria Musculoskeletal: DENIES: Back pain (nothing acute) Integumentary: DENIES: Pruritus, Rash Neurologic: COMPLAINS OF: Headache, Poor Balance (intermittent) Psychiatric: COMPLAINS OF: Depression, DENIES: Suicidal Ideation, Homicidal Ideation Past Family Social History Past Medical History Hypertension Diabetes Mellitus - she states that she's not on any medications. She denies being on metformin although this medication is present on her med rec Chronic pain involving multiple joints due to previous trauma. History of glaucoma Past Surgical History Right wrist repair Reported Medications Reported Meds & Active Scripts Active Metformin (Metformin HCl) 500 Mg Tab 500 Mg PO DAILY With a meal Gabapentin 300 Mg Cap 300 Mg PO TID Percocet (Oxycodone-Acetaminophen) 10-325 mg Tab 1 Tab PO Q6H PRN Amitriptyline (Amitriptyline HCl) 25 Mg Tab 25 Mg PO HS Reported Meloxicam 15 Mg Tab 15 Mg PO DAILY Lipitor (Atorvastatin Calcium) 40 Mg Tab 40 Mg PO HS Zofran (Ondansetron HCl) 8 Mg Tab 8 Mg PO Q8HR PRN Baclofen 10 Mg Tab 10 Mg PO TID PRN Oxycodone-Acetaminophen 5-325 mg Tab 1 Tab PO Q6H PRN Ropinirole 2 Mg Tab 2 Mg PO HS Proair Hfa 8.5 GM Inh (Albuterol Sulfate) 90 Mcg/Act Aer 2 Puff INH Q4-6H PRN 108 mcg/actuation Citalopram (Citalopram Hydrobromide) 20 Mg Tab 20 Mg PO DAILY Zolpidem (Zolpidem Tartrate) 5 Mg Tab 5 Mg PO HS PRN Lisinopril 2.5 Mg Tab 2.5 Mg PO DAILY Xanax (Alprazolam) 1 Mg Tab 1 Mg PO Q8H PRN Allergies: Coded Allergies: No Known Allergies (Verified Allergy, Unknown, 08/24/17) Family History Father from a car accident in 1959 Mother in 2011. History of heart disease, RA, dementia, unknown cancer. Social History Patient is currently on disability Started smoking half pack a day in 2003 She denies illicit drug use Physical Exam Vital Signs Vital Signs Date Time Temp Pulse Resp B/P (MAP) Pulse Ox O2 Delivery O2 Flow Rate FiO2 08/24/17 19:54 08/24/17 17:36 103 122/75 (91) 08/24/17 16:00 76 18 153/96 (115) 99 Room Air 08/24/17 15:00 76 16 139/84 (102) 97 Room Air 08/24/17 13:30 97 Room Air 08/24/17 12:40 97.4 84 13 172/95 (120) 98 Physical Exam GENERAL: This is a well-nourished, well-developed patient, in no apparent distress. Very talkative when awake, occasionally sleepy during the exam SKIN: No rashes, ecchymoses or lesions. Cool and dry. HEAD: Swollen left forehead with no open wounds. Normocephalic. No temporal or scalp tenderness. EYES: Pupils equal round and reactive. Extraocular motions intact. No scleral icterus. No injection or drainage. ENT: Nose without bleeding, purulent drainage or septal hematoma. Throat without erythema, tonsillar hypertrophy or exudate. Uvula midline. Airway patent. NECK: Trachea midline. No JVD or lymphadenopathy. Supple, nontender, no meningeal signs. CARDIOVASCULAR: Regular rate and rhythm without murmurs, gallops, or rubs. RESPIRATORY: Clear to auscultation. Breath sounds equal bilaterally. No wheezes , rales, or rhonchi. GASTROINTESTINAL: Abdomen soft, non-tender, nondistended. No hepato-splenomegaly , or palpable masses. No guarding. MUSCULOSKELETAL: Extremities without clubbing, cyanosis, or edema. No joint tenderness, effusion, or edema noted. No calf tenderness. Feet appear normal bilaterally NEUROLOGICAL: Awake and alert during most of the exam. Cranial nerves II through XII intact. Normal finger to nose exam. Motor and sensory grossly within normal limits. Five out of 5 muscle strength in all muscle groups. Normal speech. Laboratory Laboratory Tests Test 08/24/17 13:30 08/24/17 14:15 08/24/17 14:30 White Blood Count 6.6 Red Blood Count 4.44 Hemoglobin 13.7 Hematocrit 40.0 Mean Corpuscular Volume 90.2 Mean Corpuscular Hemoglobin 31.0 Mean Corpuscular Hemoglobin Concent 34.3 Red Cell Distribution Width 14.8 Platelet Count 309 Mean Platelet Volume 8.3 Neutrophils (%) (Auto) 59.0 Lymphocytes (%) (Auto) 24.3 Monocytes (%) (Auto) 6.7 Eosinophils (%) (Auto) 9.4 Basophils (%) (Auto) 0.6 Neutrophils # (Auto) 3.9 Lymphocytes # (Auto) 1.6 Monocytes # (Auto) 0.4 Eosinophils # (Auto) 0.6 Basophils # (Auto) 0.0 CBC Comment DIFF FINAL Differential Comment Blood Urea Nitrogen 4 Creatinine 0.85 Random Glucose 155 Total Protein 7.8 Albumin 4.0 Calcium Level 9.2 Alkaline Phosphatase 154 Aspartate Amino Transf (AST/SGOT) 19 Alanine Aminotransferase (ALT/SGPT) 30 Total Bilirubin 0.4 Sodium Level 138 Potassium Level 4.3 Chloride Level 102 Carbon Dioxide Level 30.4 Anion Gap 6 Estimat Glomerular Filtration Rate 69 Troponin I LESS THAN 0.02 Thyroid Stimulating Hormone 3rd Gen 1.370 Salicylates Level 4.7 Acetaminophen Level LESS THAN 2.0 Ethyl Alcohol Level LESS THAN 3 Ammonia 13 Urine Color YELLOW Urine Turbidity CLEAR Urine pH 6.0 Urine Specific [place] 1.010 Urine Protein NEG Urine Glucose (UA) NEG Urine Ketones NEG Urine Occult Blood TRACE Urine Nitrite NEG Urine Bilirubin NEG Urine Urobilinogen LESS THAN 2.0 Urine Leukocyte Esterase NEG Urine RBC 1 Urine Squamous Epithelial Cells <1 Urine Hyaline Casts 6 Urine Mucus FEW Microscopic Urinalysis Comment CATH-CULT NOT IND Urine Opiates Screen NEG Urine Barbiturates Screen NEG Urine Amphetamines Screen NEG Urine Benzodiazepines Screen POS Urine Cocaine Screen NEG Urine Cannabinoids Screen NEG Result Diagram: 08/24/17 1330 08/24/17 1330 Imaging Last 72 hours Impressions Cervical Spine CT 08/24/171322 Signed Impressions: Service Date/Time: Thursday, August 24, 2017 13:53 - CONCLUSION: Degenerative changes, negative for fracture. iNck Cook MD FACR Head CT 08/24/171320 Signed Impressions: Service Date/Time: Thursday, August 24, 2017 13:53 - CONCLUSION: Intracranial contents unremarkable. Nick Cook MD FACR Chest X-Ray 08/24/171320 Signed Impressions: Service Date/Time: Thursday, August 24, 2017 13:47 - CONCLUSION: No acute cardiopulmonary abnormality is identified. Smooth Bocanegra MD Course In the ED, patient was administered 0.4 mg of Narcan IV push which helped wake her up. A CT of her head was normal. CT cervical spine did not indicate any fractures. Caprini VTE Risk Assessment Caprini VTE Risk Assessment: No/Low Risk (score <= 1) Caprini Risk Assessment Model Point Value = 1 Point Value = 2 Point Value = 3 Point Value = 5 Age 41-60 Minor surgery BMI > 25 kg/m2 Swollen legs Varicose veins or History of unexplained or recurrent spontaneous Oral contraceptives or hormone replacement Sepsis (< 1 month) Serious lung disease, including pneumonia (< 1 month) Abnormal pulmonary function Acute myocardial infarction Congestive heart failure (< 1 month) History of inflammatory bowel disease Medical patient at bed rest Age 61-74 Arthroscopic surgery Major open surgery (> 45 min) Laparoscopic surgery (> 45 min) Malignancy Confined to bed (> 72 hours) Immobilizing plaster cast Central venous access Age >= 75 History of VTE Family history of VTE Factor V Leiden Prothrombin [id number] Lupus anticoagulant Anticardiolipin antibodies Elevated serum homocysteine Heparin-induced thrombocytopenia Other congenital or acquired thrombophilia Stroke (< 1 month) Elective arthroplasty Hip, pelvis, or leg fracture Acute spinal cord injury (< 1 month) Prophylaxis Regimen Total Risk Factor Score Risk Level Prophylaxis Regimen 0-1 Low Early ambulation 2 Moderate Order ONE of the following: *Sequential Compression Device (SCD) *Heparin 5000 units SQ BID 3-4 Higher Order ONE of the following medications: *Heparin 5000 units SQ TID *Enoxaparin/Lovenox 40 mg SQ daily (WT < 150 kg, CrCl > 30 mL/min) *Enoxaparin/Lovenox 30 mg SQ daily (WT < 150 kg, CrCl > 10-29 mL/min) *Enoxaparin/Lovenox 30 mg SQ BID (WT < 150 kg, CrCl > 30 mL/min) AND/OR *Sequential Compression Device (SCD) 5 or more Highest Order ONE of the following medications: *Heparin 5000 units SQ TID (Preferred with Epidurals) *Enoxaparin/Lovenox 40 mg SQ daily (WT < 150 kg, CrCl > 30 mL/min) *Enoxaparin/Lovenox 30 mg SQ daily (WT < 150 kg, CrCl > 10-29 mL/min) *Enoxaparin/Lovenox 30 mg SQ BID (WT < 150 kg, CrCl > 30 mL/min) AND *Sequential Compression Device (SCD) Assessment and Plan Assessment and Plan 57 year old female presents with lethargy/altered mental status secondary to overdose on Xanax. She will be admitted on observation with continuous telemetry to monitor her vital signs. Code Status Full code Discussed Condition With ED attending. Will discuss with FPTS Senior. Problem List: (1) Altered mental status ICD Codes: R41.82 - Altered mental status, unspecified Plan: -Acutely altered after ingestion of 4 mg of Xanax -CT head negative, but will continue to monitor in case of a slow bleed from head trauma -Troponin 1 less than 0.02 -Ammonia within normal limits at 13 -Aspirin, acetaminophen, and alcohol levels within normal limits -Urine drug screen positive for benzodiazepines only -Admit on observation -Continuous cardiac monitoring with telemetry -Neuro checks every 4 hours -Vital signs every 4 -Fall precautions -Seizure precautions -Hold all home medications that may have a sedating effect including Percocet, gabapentin, amitriptyline, citalopram, alprazolam, and zolpidem -Zofran 4 mg IV push every 6 hours when necessary nausea vomiting -Narcan 0.4 mg IV push and scheduled 1 when necessary respiratory depression or hypotension (2) Hypertension ICD Codes: I10 - Hypertension Status: Chronic Plan: -Continue lisinopril 2.5 mg by mouth daily -Vasotec 1.25 mg IV PRN SBP greater than or equal to 170 or DBP greater than or equal to 100 (3) History of diabetes mellitus ICD Codes: Z86.39 - Personal history of other endocrine, nutritional and metabolic disease Status: Chronic Plan: -Not currently on metformin per patient -However due to history of diabetes, will start Accu-Cheks with sliding scale insulin as needed (4) Chronic pain disorder ICD Codes: G89.4 - Chronic pain syndrome Status: Chronic Plan: Continue baclofen 10 mg by mouth 3 times a day when necessary muscle pain Continue meloxicam 15 mg by mouth daily for arthritis pain (5) Hyperlipidemia ICD Codes: E78.5 - Hyperlipidemia, unspecified Status: Chronic Plan: Continue atorvastatin 40 mg by mouth daily (6) FEN Plan: Fluids: Oral fluids only Electrolytes: Will monitor and replace as needed Nutrition: Regular adult diet while awake Problem Qualifiers (1) Hypertension: Qualified Codes: I10 - Essential (primary) hypertension Sania Bacon MD R2 Aug 24, 2017 20:01
[2017-08-24] MEDS ORDERED: DEXTROSE 50% IN WATER 50 ML VIAL(D50) IV PUSH PRN (20:30)
[2017-08-24] MEDS ORDERED: ALBUTEROL SULFATE 90 MCG/ACT HFA 8 GM INHALER INH PRN (20:30)
[2017-08-24] MEDS ORDERED: PILL SPLITTER OTHER PRN (20:30)
[2017-08-24] MEDS ORDERED: GLUCAGON 1 MG/ML VIAL OTHER PRN (20:30)
[2017-08-24] MEDS ORDERED: BACLOFEN 10 MG TAB PO PRN (20:30)
[2017-08-24] MEDS ORDERED: ATORVASTATIN 40 MG TAB PO SCH (21:00)
[2017-08-24] MEDS: INSULIN ASPART SUPPLEMENTAL SCALE SQ SCH (21:00)
[2017-08-24] MEDS ORDERED: ONDANSETRON HCL 4 MG/2 ML VIAL IVP PRN (21:30)
[2017-08-24] MEDS ORDERED: ACETAMINOPHEN 325 MG TAB PO PRN (21:30)
[2017-08-24] MEDS ORDERED: ENOXAPARIN SODIUM 40 MG/0.4 ML SYRINGE SQ SCH (22:00)
[2017-08-25 00:20] VITALS: PULSE 84
[2017-08-25 03:24] VITALS: BP 168/96; PULSE 75; RESP 17; TEMP 97.9; O2SAT 99
[2017-08-25 04:00] VITALS: PULSE 86
[2017-08-25] MEDS ORDERED: NALOXONE HCL 0.4 MG/ML AMP IV PUSH PRN (05:00)
[2017-08-25] MEDS ORDERED: ENALAPRILAT 1.25 MG/ML VIAL IV PUSH PRN (05:30)
[2017-08-25 08:18] VITALS: BP 132/80; PULSE 68; RESP 20; TEMP 97.9; O2SAT 96
[2017-08-25 08:30] VITALS: PULSE 58
[2017-08-25] MEDS ORDERED: LISINOPRIL 5 MG TAB PO SCH (09:00)
[2017-08-25] MEDS ORDERED: MELOXICAM 15 MG TAB PO SCH (09:00)
[2017-08-25] MEDS ORDERED: NON-FORMULARY DRUG (Lisinopril 2.5 MG) PO SCH (09:00)
[2017-08-25] MEDS: INSULIN ASPART SUPPLEMENTAL SCALE SQ SCH (09:00)
[2017-08-25 09:40] LABS: BICARBONATE 27.7 MEQ/L (21.0-32.0); POTASSIUM 4.9 MEQ/L (3.5-5.1)
--- NOTE | 2017-08-25 10:17 | HHI.FPPN ---
Subjective Remarks Patient seen and examined this morning. Afebrile vital signs stable. She reports that she is back to her baseline. She is no longer feeling drowsy or confused. She feels that her strength is back to normal. She denies any suicidal or homicidal ideations. She understands she taken the amount of Xanax she did wrong and has no intention to do so again. (Deshawn Yepez MD, R3) Objective Vitals Vital Signs Date Time Temp Pulse Resp B/P (MAP) Pulse Ox O2 Delivery O2 Flow Rate FiO2 08/25/17 08:18 97.9 68 20 132/80 (97) 96 08/25/17 04:00 86 08/25/17 03:24 97.9 75 17 168/96 (120) 99 08/25/17 00:20 84 08/24/17 23:45 98.1 65 17 142/93 (109) 96 08/24/17 22:04 57 08/24/17 20:40 98.4 85 17 140/83 (102) 98 08/24/17 20:27 98 21 08/24/17 19:54 08/24/17 17:36 103 122/75 (91) 08/24/17 16:00 76 18 153/96 (115) 99 Room Air 08/24/17 15:00 76 16 139/84 (102) 97 Room Air 08/24/17 13:30 97 Room Air 08/24/17 12:40 97.4 84 13 172/95 (120) 98 I/O 08/24/17 08/24/17 08/24/17 08/25/17 08/25/17 08/25/17 07:00 15:00 23:00 07:00 15:00 23:00 Intake Total 1120 ml Balance 1120 ml Intake Oral 120 ml IV Total 1000 ml # Voids 1 (Deshawn Yepez MD, R3) Result Diagram: 08/24/17 1330 08/25/17 0722 Imaging Last Impressions Cervical Spine CT 08/24/17 1323 Signed Impressions: Service Date/Time: Thursday, August 24, 2017 13:53 - CONCLUSION: Degenerative changes, negative for fracture. Nick Cook MD FACR Head CT 08/24/17 1321 Signed Impressions: Service Date/Time: Thursday, August 24, 2017 13:53 - CONCLUSION: Intracranial contents unremarkable. Nick Cook MD FACR Chest X-Ray 08/24/17 1321 Signed Impressions: Service Date/Time: Thursday, August 24, 2017 13:47 - CONCLUSION: No acute cardiopulmonary abnormality is identified. Smooth Bocanegra MD Objective Remarks GEN: Well-developed, well-nourished patient. No acute distress. CV: Regular rate and rhythm without obvious murmurs LUNGS: Clear to auscultation bilaterally. Normal respiratory effort. No wheezes , rales, rhonchi. GI: Soft, nontender, nondistended. No palpable masses. Bowel sounds WNL. EXT: No edema. NEURO/PSYCH: Afocal. Awake, alert, and oriented x3. Appropriate insight and judgment. Medications and IVs Current Medications Medications (Trade) Dose Ordered Sig/Ana Route Start Time Stop Time Status Last Admin (NS Flush) 2 ml UNSCH PRN IV FLUSH 08/24/17 13:30 (Narcan Inj) 0.4 mg UNSCH X1 PRN IV PUSH 08/24/17 15:00 08/24/17 16:04 (Proair Hfa Inh) 2 puff Q4HR PRN INH 08/24/17 20:30 (Lipitor) 40 mg HS PO 08/24/17 21:00 (Lioresal) 10 mg TID PRN PO 08/24/17 20:30 (Mobic) 15 mg DAILY PO 08/25/17 09:00 08/25/17 08:18 (D50w (Vial) Inj) 50 ml UNSCH PRN IV PUSH 08/24/17 20:30 (Glucagon Inj) 1 mg UNSCH PRN OTHER 08/24/17 20:30 (NovoLOG SUPPLEMENTAL SCALE) 1 ACHS SLIDING SCALE SQ 08/24/17 21:00 (Prinivil) 2.5 mg DAILY PO 08/25/17 09:00 08/25/17 08:18 (Pill Splitter) 1 ea UNSCH PRN OTHER 08/24/17 20:30 (Zofran Inj) 4 mg Q6H PRN IVP 08/24/17 21:30 (Lovenox Inj) 40 mg Q24H SQ 08/24/17 22:00 (Tylenol) 650 mg Q6H PRN PO 08/24/17 21:30 (Narcan Inj) 0.4 mg UNSCH X1 PRN IV PUSH 08/25/17 05:00 08/27/17 04:59 (Vasotec Inj) 1.25 mg Q6H PRN IV PUSH 08/25/17 05:30 (Deshawn Yepez MD, R3) A/P Assessment and Plan 57 year old female presents with lethargy/altered mental status secondary to overdose on Xanax. She will be admitted on observation with continuous telemetry to monitor her vital signs. Discharge Planning Plan for discharge home today (Deshawn Yepez MD, R3) Attending Attestation Patient seen and examined. Case reviewed and discussed with the resident team. Agree with plan of care as discussed with me and documented in the resident note. Saw her in the ED. She unequivocally stated she was not trying to kill herself. "My sister would try to kill herself and go in the [facility] and I told her to use a gun in her mouth because I don't believe in committing suicide." "I come from a dysfunctional family with an alcoholic mother as well plus my brother dies riding a motorcycle and I was very close to him." She also reports having PTSD from her son being born premature 24 years ago at [facility] as he had many problems especially in the first 5 months of his life. I discussed with her that Xanax is one of the leading causes of seizures and is very dangerous to quit suddenly and also to take too much of. She stated she only took her Xanax normally when she was having a panic attack and would be very careful with it. I recommended she strongly consider counselling as she had many issues past and present that were weighting on her mind. (Natty Zhang MD) Problem List: (1) Altered mental status ICD Codes: R41.82 - Altered mental status, unspecified Plan: Patient was acutely altered from ingesting 4 mg of Xanax. She was able to sleep the results from this and is now back to her baseline. -CT head negative, but will continue to monitor in case of a slow bleed from head trauma -Troponin 1 less than 0.02 -Ammonia within normal limits at 13 -Aspirin, acetaminophen, and alcohol levels within normal limits -Urine drug screen positive for benzodiazepines only -Admit on observation -Continuous cardiac monitoring with telemetry -Neuro checks every 4 hours -Vital signs every 4 -Fall precautions -Seizure precautions -Hold all home medications that may have a sedating effect including Percocet, gabapentin, amitriptyline, citalopram, alprazolam, and zolpidem -Zofran 4 mg IV push every 6 hours when necessary nausea vomiting -Narcan 0.4 mg IV push and scheduled 1 when necessary respiratory depression or hypotension (2) Hypertension ICD Codes: I10 - Hypertension Status: Chronic Plan: -Continue lisinopril 2.5 mg by mouth daily -Vasotec 1.25 mg IV PRN SBP greater than or equal to 170 or DBP greater than or equal to 100 (3) History of diabetes mellitus ICD Codes: Z86.39 - Personal history of other endocrine, nutritional and metabolic disease Status: Chronic Plan: -Not currently on metformin per patient -However due to history of diabetes, will start Accu-Cheks with sliding scale insulin as needed (4) Chronic pain disorder ICD Codes: G89.4 - Chronic pain syndrome Status: Chronic Plan: Continue baclofen 10 mg by mouth 3 times a day when necessary muscle pain Continue meloxicam 15 mg by mouth daily for arthritis pain (5) Hyperlipidemia ICD Codes: E78.5 - Hyperlipidemia, unspecified Status: Chronic Plan: Continue atorvastatin 40 mg by mouth daily (6) FEN Plan: Fluids: Oral fluids only Electrolytes: Will monitor and replace as needed Nutrition: Regular adult diet (Deshawn Yepez MD, R3) Problem Qualifiers (1) Altered mental status: Qualified Codes: R41.82 - Altered mental status, unspecified (2) Hypertension: Qualified Codes: I10 - Essential (primary) hypertension Deshawn Yepez MD, R3 Aug 25, 2017 10:17 Natty Zhang MD Aug 25, 2017 15:50
--- NOTE | 2017-08-25 10:20 | HHI.DCPOC ---
Discharge Care Plan Diagnosis: (1) Benzodiazepine overdose (2) Altered mental status Goals to Promote Your Health * To prevent worsening of your condition and complications * To maintain your health at the optimal level Directions to Meet Your Goals Take your medications as prescribed Follow your dietary instruction Follow activity as directed Keep your appointments as scheduled Take your immunizations and boosters as scheduled If your symptoms worsen call your PCP, if no PCP go to Urgent Care Center or Emergency Room Smoking is Dangerous to Your Health. Avoid second hand smoke Call the 24-hour hour crisis hotline for domestic abuse at Deshawn Yepez MD, R3 Aug 25, 2017 10:20
[2017-08-25 12:22] VITALS: BP 130/60; PULSE 68; RESP 18; TEMP 97.9; O2SAT 96
--- NOTE | 2017-08-25 12:32 | EKG ---
Date Performed: 08/24/2017 Time Performed: 15:20:12 PTAGE: 57 years EKG: Sinus rhythm ARM LEADS REVERSED ATYPICAL ECG Compared to PREVIOUS TRACING , the arm leads are now reversed. The precordial leads appear to be abou t the same. Recommend repeat tracing with corrected limb lead placement. PREVIOUS TRACIN04/19/2017 03.06 DOCTOR: Seamus Barrow Interpretating Date/Time 08/25/2017 12:31:14
== END 2017-08-25 12:38 | disposition home or self-care (01) ==
LOC: NEPC 12:39 → NEDA 17:05 → NEPGCP 19:47
PROVIDERS: ADMIT Family Medicine; ATTEND Family Medicine
DX: R41.82 Altered mental status, unspecified (principal); T42.4X1A Poisoning by benzodiazepines, accidental (unintentional), initial encounter; S09.90XA Unspecified injury of head, initial encounter; R53.83 Other fatigue; R55 Syncope and collapse; R53.1 Weakness; R06.02 Shortness of breath; I10 Essential (primary) hypertension; E78.00 Pure hypercholesterolemia, unspecified; E11.9 Type 2 diabetes mellitus without complications; J44.9 Chronic obstructive pulmonary disease, unspecified; K21.9 Gastro-esophageal reflux disease without esophagitis; R07.9 Chest pain, unspecified; F41.9 Anxiety disorder, unspecified; M54.2 Cervicalgia; M54.9 Dorsalgia, unspecified; G89.4 Chronic pain syndrome; G47.00 Insomnia, unspecified; F43.10 Post-traumatic stress disorder, unspecified; F32.9 Major depressive disorder, single episode, unspecified; H40.9 Unspecified glaucoma; M19.90 Unspecified osteoarthritis, unspecified site; F17.200 Nicotine dependence, unspecified, uncomplicated; Z79.899 Other long term (current) drug therapy; Z91.81 History of falling; W06.XXXA Fall from bed, initial encounter
CPT/HCPCS: 70450; 71010; 72125; 80048; 80053; 80307; 81001; 82140; 82948; 84443; 84484; 85025; 93005; 96360; 97162; 99285; G0378; G8987; G8988; J2310; J7030

== ENCOUNTER 2017-09-17 16:09 | Observation (INO) | payer OTHER ==
[~2017-09-17] VITALS: Ht 165.1 cm; Wt 56.8 kg
[2017-09-17 16:17] VITALS: BP 119/79; PULSE 106; RESP 16; TEMP 97.8; O2SAT 100
[2017-09-17] MEDS ORDERED: SODIUM CHLOR 0.9% 1000 ML INJ 1,000 ML IV ONE ×3 (17:19→19:00)
[2017-09-17] MEDS ORDERED: INSULIN HUMAN REGULAR 1,000 UNITS/10 ML VIAL IV PUSH ONE ×2 (17:30→19:00)
[2017-09-17] MEDS ORDERED: SODIUM CHLORIDE 0.9% FLUSH 10 ML FLUSH IVF PRN (17:30)
[2017-09-17 18:02] LABS: AUTOMATED NEUTROPHIL # 5.1 TH/MM3 (1.8-7.7); BASOPHIL # 0.1 TH/MM3 (0-0.2); BASOPHIL % 0.9 % (0.0-2.0); EOSINOPHIL # 0.1 TH/MM3 (0-0.4); EOSINOPHIL % 1.9 % (0.0-4.0); HEMATOCRIT 44.8 % (35.0-46.0); HEMO FLAGS DIFF FINAL; LYMPH % 20.5 % (9.0-44.0); LYMPHOCYTE # 1.5 TH/MM3 (1.0-4.8); MEAN CELL VOLUME 88.3 FL (80.0-100.0); MEAN CORPUSCULAR HEMOGLOBIN 29.3 PG (27.0-34.0); MEAN CORPUSCULAR HGB CONC 33.2 % (32.0-36.0); MONO % 4.3 % (0.0-8.0); NEUT % 72.4 % (16.0-70.0); PLATELET COUNT 340 TH/MM3 (150-450); RED BLOOD COUNT 5.07 MIL/MM3 (4.00-5.30); WHITE BLOOD COUNT 7.1 TH/MM3 (4.0-11.0)
[2017-09-17 18:10] LABS: CHLORIDE 91 MEQ/L (98-107); POTASSIUM 4.8 MEQ/L (3.5-5.1); SODIUM (NA) 126 MEQ/L (136-145)
[2017-09-17 18:13] LABS: ANION GAP 16 MEQ/L (5-15); BICARBONATE 19.1 MEQ/L (21.0-32.0)
--- NOTE | 2017-09-17 18:20 | PD ---
HPI . Diabetes Chief Complaint: Diabetic Time Seen by Provider: 17:19 Travel History International Travel<30 days: No Contact w/Intl Traveler<30days: No Traveled to known affect area: No History of Present Illness HPI This patient presents with a three-day history of dizziness, blurred vision, polyuria/polydipsia and headache. Symptoms are getting progressively worse. She reports history of diabetes but states that her doctor took her off of her medication about 6 months ago because she was doing so well. She is not sure as to what may have caused this current problem with hyperglycemia. She does state that her symptoms are very similar to the symptoms that she had when she was first diagnosed with diabetes. PFSH Past Medical History Hx Anticoagulant Therapy: No Arthritis: Yes Asthma: No Blood Disorders: No Anxiety: Yes Depression: Yes Heart Rhythm Problems: No Cancer: No Cardiovascular Problems: Yes (htn on meds) High Cholesterol: Yes Chest Pain: Yes Congestive Heart Failure: No COPD: No Cerebrovascular Accident: No Diabetes: Yes (diet ) Patient Takes Glucophage: No Diminished Hearing: No Endocrine: Yes Gastrointestinal Disorders: Yes GERD: Yes Genitourinary: No Headaches: Yes Hepatitis: No Hiatal Hernia: No Hypertension: Yes Implanted Vascular Access Dvce: No Kidney Stones: No Musculoskeletal: Yes (hip and back) Neurologic: Yes Psychiatric: No Reproductive: No Respiratory: No Immunizations Current: Yes Migraines: Yes Myocardial Infarction: No Renal Failure: No Seizures: No Sleep Apnea: No Thyroid Disease: No Ulcer: No Tetanus Vaccination: Unknown Influenza Vaccination: Yes ?: Not LMP: MENOPAUSAL Menopausal: Yes Tubal Ligation: Yes Past Surgical History Abdominal Surgery: No Appendectomy: No Cardiac Surgery: No Section: Yes (1992) Cholecystectomy: No Ear Surgery: No Endocrine Surgery: No Eye Surgery: No Genitourinary Surgery: No Gynecologic Surgery: Yes (TUBLIGATION) Neurologic Surgery: No Oral Surgery: No Thoracic Surgery: No Other Surgery: Yes (bilat hips-02/2017) Social History Alcohol Use: No (denies) Tobacco Use: Yes (1/2 ppd) Substance Use: No (hx of crack, cocaine, marijuana ) Allergies-Medications (Allergen,Severity, Reaction): Coded Allergies: No Known Allergies (Verified Allergy, Unknown, 09/17/17) Reported Meds & Prescriptions Reported Meds & Active Scripts Active Gabapentin 300 Mg Cap 300 Mg PO TID Percocet (Oxycodone-Acetaminophen) 10-325 mg Tab 1 Tab PO Q6H PRN Amitriptyline (Amitriptyline HCl) 25 Mg Tab 25 Mg PO HS Reported Meloxicam 15 Mg Tab 15 Mg PO DAILY Lipitor (Atorvastatin Calcium) 40 Mg Tab 40 Mg PO HS Ropinirole 2 Mg Tab 2 Mg PO HS Proair Hfa 8.5 GM Inh (Albuterol Sulfate) 90 Mcg/Act Aer 2 Puff INH Q4-6H PRN 108 mcg/actuation Citalopram (Citalopram Hydrobromide) 20 Mg Tab 20 Mg PO DAILY Zolpidem (Zolpidem Tartrate) 5 Mg Tab 5 Mg PO HS PRN Lisinopril 2.5 Mg Tab 2.5 Mg PO DAILY Xanax (Alprazolam) 1 Mg Tab 1 Mg PO Q8H PRN Review of Systems Except as stated in HPI: all other systems reviewed are Neg Eyes: Positive: Blurred Vision HENT: Positive: Headaches Gastrointestinal: Positive: Nausea Endocrine: Positive: Polyuria, Polydipsia Physical Exam Narrative GENERAL: Patient is awake and alert and does not appear to be in any acute distress. SKIN: warm/dry. HEAD: Normocephalic. Atraumatic. EYES: Pupils equal and round. No scleral icterus. No injection or drainage. ENT: No nasal bleeding or discharge. Mucous membranes pink and moist. NECK: Trachea midline. Full range of motion without pain.. CARDIOVASCULAR: Regular rate and rhythm. Heart sounds normal. RESPIRATORY: No accessory muscle use. Clear to auscultation. Breath sounds equal bilaterally. GASTROINTESTINAL: Abdomen soft. Nontender. Bowel sounds present. Nondistended. : MUSCULOSKELETAL: No obvious deformities. NEUROLOGICAL: Awake and alert. No obvious cranial nerve deficits. Motor grossly within normal limits. Normal speech. PSYCHIATRIC: Appropriate mood and affect; insight and judgment normal. Data Data Last Documented VS Vital Signs Date Time Temp Pulse Resp B/P (MAP) Pulse Ox O2 Delivery O2 Flow Rate FiO2 09/17/17 17:15 100 Room Air 09/17/17 16:17 97.8 106 16 119/79 (92) Orders Orders Electrocardiogram (09/17/17 17:19) Complete Blood Count With Diff (09/17/17 17:19) Comprehensive Metabolic Panel (09/17/17 17:19) Beta Hydroxybutyrate (Acetone) (09/17/17 17:19) Urinalysis - C+S If Indicated (09/17/17 17:19) Blood Glucose (09/17/17 17:19) Blood Glucose (09/17/17 18:19) Blood Glucose (09/17/17 19:19) Blood Glucose (09/17/17 20:19) Blood Glucose (09/17/17 21:19) Blood Glucose (09/17/17 22:19) Blood Glucose (09/17/17 23:19) Iv Access Insert/Monitor (09/17/17 17:19) NPO (09/17/17 17:19) Sodium Chlor 0.9% 1000 Ml Inj (Ns 1000 M (09/17/17 17:19) Sodium Chlor 0.9% 1000 Ml Inj (Ns 1000 M (09/17/17 17:49) Sodium Chloride 0.9% Flush (Ns Flush) (09/17/17 17:30) Insulin Human Regular Inj (Novolin R Inj (09/17/17 17:30) Insulin Human Regular Inj (Novolin R Inj (09/17/17 19:00) Ns (Bolus) Inj (09/17/17 19:00) Potassium Chloride (Kcl) (09/17/17 19:00) Labs Laboratory Tests Test 09/17/17 17:45 White Blood Count 7.1 TH/MM3 Red Blood Count 5.07 MIL/MM3 Hemoglobin 14.9 GM/DL Hematocrit 44.8 % Mean Corpuscular Volume 88.3 FL Mean Corpuscular Hemoglobin 29.3 PG Mean Corpuscular Hemoglobin Concent 33.2 % Red Cell Distribution Width 13.0 % Platelet Count 340 TH/MM3 Mean Platelet Volume 9.1 FL Neutrophils (%) (Auto) 72.4 % Lymphocytes (%) (Auto) 20.5 % Monocytes (%) (Auto) 4.3 % Eosinophils (%) (Auto) 1.9 % Basophils (%) (Auto) 0.9 % Neutrophils # (Auto) 5.1 TH/MM3 Lymphocytes # (Auto) 1.5 TH/MM3 Monocytes # (Auto) 0.3 TH/MM3 Eosinophils # (Auto) 0.1 TH/MM3 Basophils # (Auto) 0.1 TH/MM3 CBC Comment DIFF FINAL Differential Comment Urine Color YELLOW Urine Turbidity CLEAR Urine pH 5.5 Urine Specific [place] 1.035 Urine Protein NEG mg/dL Urine Glucose (UA) 1000 OR GREATER mg/dL Urine Ketones 80 OR GREATER mg/dL Urine Occult Blood TRACE Urine Nitrite NEG Urine Bilirubin NEG Urine Leukocyte Esterase NEG Urine RBC 4-9 /hpf Urine WBC 3-5 /hpf Urine Squamous Epithelial Cells 0-5 /hpf Microscopic Urinalysis Comment CULT NOT INDICATED Blood Urea Nitrogen 15 MG/DL Creatinine 1.00 MG/DL Random Glucose 452 MG/DL Total Protein 7.8 GM/DL Albumin 4.0 GM/DL Calcium Level 9.6 MG/DL Alkaline Phosphatase 160 U/L Aspartate Amino Transf (AST/SGOT) 8 U/L Alanine Aminotransferase (ALT/SGPT) 14 U/L Total Bilirubin 0.5 MG/DL Sodium Level 126 MEQ/L Potassium Level 4.8 MEQ/L Chloride Level 91 MEQ/L Carbon Dioxide Level 19.1 MEQ/L Anion Gap 16 MEQ/L Estimat Glomerular Filtration Rate 57 ML/MIN MDM Medical Decision Making Medical Screen Exam Complete: Yes Emergency Medical Condition: Yes Interpretation(s) EKG shows a sinus rhythm with a rate of 89. No acute ST segment changes noted. Differential Diagnosis Differential diagnosis of hyperglycemia includes but is not limited to dietary indiscretion, medication noncompliance, infection, DC Narrative Course Patient presents with signs and symptoms compatible with hyperglycemia. Her fingerstick blood sugar here was over 500. I have ordered IV fluids and IV insulin. Labs are pending. Disposition will depend on how she does in the next couple of hours and upon what her labs show. CBC & BMP Diagram 09/17/17 17:45 Total Protein 7.8, Albumin 4.0, Calcium Level 9.6, Alkaline Phosphatase 160 H, Aspartate Amino Transf (AST/SGOT) 8 L, Alanine Aminotransferase (ALT/SGPT) 14, Total Bilirubin 0.5 UA neg for infection. Fingerstick sugar an hour after IV insulin was 370. I have ordered an additional dose of insulin 5 units IV. I have also ordered an additional liter of fluid. I have ordered a repeat BMP in an hour. Care is being turned over to Dr. Baca at this time. Diagnosis Primary Impression: Hyperglycemia Condition: Stable Nancy Kenyon MD Sep 17, 2017 18:20
[2017-09-17 18:26] LABS: BLOOD, URINE TRACE (NEG); GLUCOSE,URINE 1000 OR GREATER mg/dL (NEG); KETONE, URINE 80 OR GREATER mg/dL (NEG); NITRITE,URINE NEG (NEG); PH, URINE 5.5 (5.0-8.5)
[2017-09-17 18:28] LABS: ALKALINE PHOSPHATASE 160 U/L (45-117); ALT (GPT) 14 U/L (10-53); AST (GOT) 8 U/L (15-37); BLOOD UREA NITROGEN 15 MG/DL (7-18); GLOMERULAR FILTRATION RATE 57 ML/MIN (>89); TOTAL BILIRUBIN ADULT 0.5 MG/DL (0.2-1.0)
[2017-09-17 18:30] LABS: URINE COLOR YELLOW (YELLW/STRAW)
[2017-09-17 18:32] LABS: COMMENT (UR) CULT NOT INDICATED; CULTURE IF INDICATED CULT NOT INDICATED; SQUAMOUS EPITHELIAL CELL URINE 0-5 /hpf (0-5)
[2017-09-17] MEDS ORDERED: POTASSIUM CHLORIDE 20 MEQ CONTROLLED RELEASE TAB PO ONE (19:00)
--- NOTE | 2017-09-17 19:09 | PD ---
Physical Exam Date Seen by Provider: Sep 17, 2017 Time Seen by Provider: 19:08 Narrative Accepted in transfer of care from Dr. Kenyon Data Data Last Documented VS Vital Signs Date Time Temp Pulse Resp B/P (MAP) Pulse Ox O2 Delivery O2 Flow Rate FiO2 09/17/17 22:12 98.2 88 14 133/91 (105) 99 Room Air Orders Orders Electrocardiogram (09/17/17 17:19) Complete Blood Count With Diff (09/17/17 17:19) Comprehensive Metabolic Panel (09/17/17 17:19) Beta Hydroxybutyrate (Acetone) (09/17/17 17:19) Urinalysis - C+S If Indicated (09/17/17 17:19) Blood Glucose (09/17/17 17:19) Blood Glucose (09/17/17 18:19) Blood Glucose (09/17/17 19:19) Blood Glucose (09/17/17 20:19) Blood Glucose (09/17/17 21:19) Blood Glucose (09/17/17 22:19) Blood Glucose (09/17/17 23:19) Iv Access Insert/Monitor (09/17/17 17:19) NPO (09/17/17 17:19) Sodium Chlor 0.9% 1000 Ml Inj (Ns 1000 M (09/17/17 17:19) Sodium Chlor 0.9% 1000 Ml Inj (Ns 1000 M (09/17/17 17:49) Sodium Chloride 0.9% Flush (Ns Flush) (09/17/17 17:30) Insulin Human Regular Inj (Novolin R Inj (09/17/17 17:30) Insulin Human Regular Inj (Novolin R Inj (09/17/17 19:00) Sodium Chlor 0.9% 1000 Ml Inj (Ns 1000 M (09/17/17 19:00) Potassium Chloride (Kcl) (09/17/17 19:00) Basic Metabolic Panel (Bmp) (09/17/17 20:00) Blood Gas Venous Ph (09/17/17 21:51) Admit Order (Ed Use Only) (09/17/17 ) Solar Installation Manager / Telemetry CORINNE.Q8H (09/17/17 22:28) Diet 1999 [place] Cons Carb (09/18/17 Breakfast) Activity Oob With Assistance (09/17/17 22:28) Notify Dr: Other (09/17/17 22:28) Place In Observation (09/17/17 ) Vital Signs (Adult) Q4H (09/17/17 22:27) Activity Oob With Assistance (09/17/17 22:27) Solar Installation Manager / Telemetry .CONTINUOUS (09/17/17 22:27) Diet Heart Healthy (09/18/17 Breakfast) Sodium Chlor 0.9% 1000 Ml Inj (Ns 1000 M (09/17/17 22:27) Sodium Chloride 0.9% Flush (Ns Flush) (09/17/17 22:30) Sodium Chloride 0.9% Flush (Ns Flush) (09/18/17 09:00) Basic Metabolic Panel (Bmp) (09/18/17 06:00) Complete Blood Count With Diff (09/18/17 06:00) Case Management Consult (09/17/17 22:27) Naloxone Inj (Narcan Inj) (09/17/17 22:30) Bedside Glucose Q4H (09/17/17 22:27) Blood Glucose Goal (Criteria) (09/17/17 22:27) Hypoglycemia 70 Mg/Dl Or < (09/17/17 22:27) Notify Dr: Other (09/17/17 22:27) Dextrose 50% In Jesse (Vial) Inj (D50w (Vi (09/17/17 22:30) Glucagon Inj (Glucagon Inj) (09/17/17 22:30) Medium Novolog Scale (09/17/17 23:00) Labs Laboratory Tests Test 09/17/17 17:45 09/17/17 20:45 09/17/17 22:02 White Blood Count 7.1 TH/MM3 Red Blood Count 5.07 MIL/MM3 Hemoglobin 14.9 GM/DL Hematocrit 44.8 % Mean Corpuscular Volume 88.3 FL Mean Corpuscular Hemoglobin 29.3 PG Mean Corpuscular Hemoglobin Concent 33.2 % Red Cell Distribution Width 13.0 % Platelet Count 340 TH/MM3 Mean Platelet Volume 9.1 FL Neutrophils (%) (Auto) 72.4 % Lymphocytes (%) (Auto) 20.5 % Monocytes (%) (Auto) 4.3 % Eosinophils (%) (Auto) 1.9 % Basophils (%) (Auto) 0.9 % Neutrophils # (Auto) 5.1 TH/MM3 Lymphocytes # (Auto) 1.5 TH/MM3 Monocytes # (Auto) 0.3 TH/MM3 Eosinophils # (Auto) 0.1 TH/MM3 Basophils # (Auto) 0.1 TH/MM3 CBC Comment DIFF FINAL Differential Comment Urine Color YELLOW Urine Turbidity CLEAR Urine pH 5.5 Urine Specific [place] 1.035 Urine Protein NEG mg/dL Urine Glucose (UA) 1000 OR GREATER mg/dL Urine Ketones 80 OR GREATER mg/dL Urine Occult Blood TRACE Urine Nitrite NEG Urine Bilirubin NEG Urine Leukocyte Esterase NEG Urine RBC 4-9 /hpf Urine WBC 3-5 /hpf Urine Squamous Epithelial Cells 0-5 /hpf Microscopic Urinalysis Comment CULT NOT INDICATED Blood Urea Nitrogen 15 MG/DL 12 MG/DL Creatinine 1.00 MG/DL 0.72 MG/DL Random Glucose 452 MG/DL 236 MG/DL Total Protein 7.8 GM/DL Albumin 4.0 GM/DL Calcium Level 9.6 MG/DL 8.3 MG/DL Alkaline Phosphatase 160 U/L Aspartate Amino Transf (AST/SGOT) 8 U/L Alanine Aminotransferase (ALT/SGPT) 14 U/L Total Bilirubin 0.5 MG/DL Sodium Level 126 MEQ/L 135 MEQ/L Potassium Level 4.8 MEQ/L 4.4 MEQ/L Chloride Level 91 MEQ/L 104 MEQ/L Carbon Dioxide Level 19.1 MEQ/L 18.8 MEQ/L Anion Gap 16 MEQ/L 12 MEQ/L Estimat Glomerular Filtration Rate 57 ML/MIN 83 ML/MIN B-Hydroxybutyrate 7.00 MMOL/L Venous Blood pH 7.31 MDM Medical Record Reviewed: Yes Supervised Visit with ONESIMO: No Interpretation(s) CBC & BMP Diagram 09/17/17 17:45 Total Protein 7.8, Albumin 4.0, Calcium Level 9.6, Alkaline Phosphatase 160 H, Aspartate Amino Transf (AST/SGOT) 8 L, Alanine Aminotransferase (ALT/SGPT) 14, Total Bilirubin 0.5 09/17/17 20:45 Calcium Level 8.3 #L Vital Signs Date Time Temp Pulse Resp B/P (MAP) Pulse Ox O2 Delivery O2 Flow Rate FiO2 09/17/17 22:12 98.2 88 14 133/91 (105) 99 Room Air 09/17/17 19:54 98.2 84 15 121/78 (92) 99 Room Air 09/17/17 17:15 100 Room Air 09/17/17 16:17 97.8 106 16 119/79 (92) 100 bhb: 7.0, elevated venous ph: 7.31 Differential Diagnosis Accepted in transfer of care from Dr. Kenyon; please refer to her dictation Narrative Course Accepted in transfer of care from Dr. Kenyon; for follow up of pending labs, response to medications, and disposition She'll signed out as type 2 diabetes all above metformin for several months was recently hospitalization with stable blood sugar and more recently in the past 3 days having polydipsia and polyphagia dizziness and some mild blurring of vision. Patient presented with hyperglycemia and bicarbonate 19 with elevated anion gap concerning for metabolic disturbance/ DKA; patient was identified to have a beta hydroxybutyric acid of 7 also elevated previously managing provider had planned to administer additional fluids and insulin with repeat basic metabolic panel with recommendation to discharge patient to home and close follow-up with primary care provider; repeat basic metabolic panel is resulted and does show that patient is improving her anion gap however her venous pH is 7.31; patient will require admission for ongoing management of her hyperglycemia with metabolic acidosis. Call placed to [facility] service for admission. Discussed with Dr Jordan --> OBS Patient aware of observation and agreeable with plan. Physician Communication Physician Communication call placed to [facility] service, discussed with Dr Jordan --will admit as obs for hyperglycemia Diagnosis Primary Impression: Hyperglycemia Additional Impressions: Diabetes mellitus Metabolic acidosis, normal anion gap (NAG) Admitting Information Admitting Physician Requests: Observation Condition: Stable Pratima Baca MD Sep 17, 2017 19:09
[2017-09-17 19:54] VITALS: BP 121/78; PULSE 84; RESP 15; TEMP 98.2; O2SAT 99
[2017-09-17 21:33] LABS: BICARBONATE 18.8 MEQ/L (21.0-32.0); POTASSIUM 4.4 MEQ/L (3.5-5.1)
[2017-09-17 22:12] VITALS: BP 133/91; PULSE 88; RESP 14; TEMP 98.2; O2SAT 99
[2017-09-17] MEDS ORDERED: DEXTROSE 50% IN WATER 50 ML VIAL(D50) IV PUSH PRN (22:30)
[2017-09-17] MEDS ORDERED: SODIUM CHLORIDE 0.9% FLUSH 10 ML FLUSH IV FLUSH PRN (22:30)
[2017-09-17] MEDS ORDERED: NALOXONE HCL 0.4 MG/ML AMP IV PUSH PRN (22:30)
[2017-09-17] MEDS ORDERED: GLUCAGON 1 MG/ML VIAL OTHER PRN (22:30)
[2017-09-17 23:13] VITALS: BP 135/86; TEMP 98.4
[2017-09-18] VITALS: BP 147/84; PULSE 80; RESP 18; TEMP 98.7; O2SAT 100
[2017-09-18] MEDS: SODIUM CHLOR 0.9% 1000 ML INJ 1,000 ML IV SCH ×2 (00:12→10:55)
[2017-09-18] MEDS ORDERED: ZOLPIDEM TARTRATE 5 MG TAB PO PRN (00:15)
[2017-09-18] MEDS ORDERED: AMITRIPTYLINE HCL 25 MG TAB PO ONE (01:00)
[2017-09-18] MEDS: oxyCODONE/ACETAMINOPHEN 10 MG/325 MG TAB PO PRN ×2 (01:05→12:33)
[2017-09-18] MEDS: INSULIN ASPART SUPPLEMENTAL SCALE SQ SCH ×3 (01:07→14:36)
[2017-09-18 02:29] VITALS: PULSE 81
[2017-09-18 04:00] VITALS: BP 135/87; PULSE 81; RESP 16; TEMP 98.4; O2SAT 93
[2017-09-18 06:19] LABS: BASOPHIL # 0.1 TH/MM3 (0-0.2); BASOPHIL % 1.9 % (0.0-2.0); EOSINOPHIL # 0.3 TH/MM3 (0-0.4); EOSINOPHIL % 3.9 % (0.0-4.0); HEMO FLAGS DIFF FINAL; LYMPH % 31.1 % (9.0-44.0); LYMPHOCYTE # 2.2 TH/MM3 (1.0-4.8); MEAN CELL VOLUME 87.8 FL (80.0-100.0); MEAN CORPUSCULAR HEMOGLOBIN 29.7 PG (27.0-34.0); MEAN CORPUSCULAR HGB CONC 33.8 % (32.0-36.0); MONO % 6.9 % (0.0-8.0); NEUT % 56.2 % (16.0-70.0); PLATELET COUNT 279 TH/MM3 (150-450); RED BLOOD COUNT 4.21 MIL/MM3 (4.00-5.30); RED CELL DISTRIBUTION WIDTH 12.7 % (11.6-17.2); WHITE BLOOD COUNT 7.1 TH/MM3 (4.0-11.0)
[2017-09-18 06:28] LABS: POTASSIUM 3.9 MEQ/L (3.5-5.1)
[2017-09-18 06:33] LABS: BICARBONATE 18.8 MEQ/L (21.0-32.0)
[2017-09-18 08:00] VITALS: BP 143/80; PULSE 82; RESP 18; TEMP 96.5; O2SAT 96
[2017-09-18] MEDS ORDERED: SODIUM CHLORIDE 0.9% FLUSH 10 ML FLUSH IV FLUSH SCH (09:00)
[2017-09-18] MEDS ORDERED: CITALOPRAM HYDROBROMIDE 20 MG TAB PO SCH (09:30)
[2017-09-18] MEDS ORDERED: LISINOPRIL 5 MG TAB PO SCH (09:45)
[2017-09-18] MEDS ORDERED: PILL SPLITTER OTHER PRN (09:45)
[2017-09-18] MEDS ORDERED: INSULIN DETEMIR 100 UNITS/ML VIAL SQ SCH (10:00)
[2017-09-18 12:00] VITALS: BP 137/87; PULSE 85; RESP 18; TEMP 98.5; O2SAT 95
[2017-09-18] MEDS ORDERED: GABAPENTIN 300 MG CAP PO SCH (13:00)
[2017-09-18] MEDS ORDERED: NOVOLOGP2 SQ (14:53)
[2017-09-18] MEDS ORDERED: GLUCTES12 (14:53)
[2017-09-18] MEDS ORDERED: INSU1MIS15 (14:53)
[2017-09-18] MEDS ORDERED: METF1000 PO (14:53)
[2017-09-18] MEDS ORDERED: GLUCKIT15 (14:53)
[2017-09-18] MEDS ORDERED: LANCETS1 MI1 (14:53)
[2017-09-18] MEDS ORDERED: LEVEMIR SQ (14:53)
--- NOTE | 2017-09-18 14:53 | HHI.DCPOC ---
Discharge Care Plan Diagnosis: (1) Uncontrolled diabetes mellitus Goals to Promote Your Health * To prevent worsening of your condition and complications * To maintain your health at the optimal level Directions to Meet Your Goals Take your medications as prescribed Follow your dietary instruction Follow activity as directed Keep your appointments as scheduled Take your immunizations and boosters as scheduled If your symptoms worsen call your PCP, if no PCP go to Urgent Care Center or Emergency Room Smoking is Dangerous to Your Health. Avoid second hand smoke Call the 24-hour hour crisis hotline for domestic abuse at Rubén Mcdonnell Sep 18, 2017 14:53
--- NOTE | 2017-09-18 15:21 | HHI.HP ---
HPI Service [facility] Primary Care Physician Christiano Browne MD Admission Diagnosis Hyperglycemia; metabolic disturbance Diagnoses: (1) Diabetic ketoacidosis Diagnosis: Principal (2) Uncontrolled diabetes mellitus Diagnosis: Principal Chief Complaint: Blurred vision Travel History International Travel<30 Days: No Contact w/Intl Traveler <30 Da: No Traveled to Known Affected Are: No History of Present Illness 57-year-old female with known history of diabetes, chronic obstructive pulmonary disease, hypertension, chronic back pain in the hospital for multiple symptoms to include blurred vision, polydipsia, polyuria, lightheadedness, dizziness. The patient indicates that she does have history of diabetes and was taking off of her medication metformin 500 mg twice daily, Lantus 10 units twice daily approximately 6 months ago. Patient does not know if she misinterpreted what her primary doctor said that she did discontinue her medications. She indicates that she had been doing well until last when she started developing lightheadedness, dizziness. Worsening polydipsia, polyuria and blurred vision. She states that she made her bring her to the hospital because she could not see across the table to look at him because of the blurred vision and she cannot see the TV guide. Patient had workup done in the emergency department found to have anion gap acidosis with elevated beta hydroxybutyrate and hyperglycemia. Patient was given 11 units of insulin in the emergency department with significant improvement of her hyperglycemia, anion gap. An ER doctor requested the patient to be observed in the hospital for further management. Review of Systems Constitutional: COMPLAINS OF: Dizziness Endocrine: COMPLAINS OF: Polydipsia, Polyuria Eyes: COMPLAINS OF: Blurred vision Genitourinary: COMPLAINS OF: Urinary frequency Except as stated in HPI: all other systems reviewed are Neg Past Family Social History Past Medical History Diabetes Hypertension Hyperlipidemia Chronic pain History of glaucoma Anxiety Restless leg syndrome Chronic obstructive pulmonary disease Gastroesophageal reflux Past Surgical History Bilateral hip replacement Right wrist surgery Tubal ligation Reported Medications Reported Meds & Active Scripts Active Levemir Inj (Insulin Detemir) 1,000 unit/ 10 ML Vial 10 Units SQ HS 30 Days Do not mix with any other Insulin. Novolog Inj (Insulin Aspart) 1,000 Unit/10 Ml Vial 1-9 Units SQ ACHS Max dose at bedtime:( )units; sugars less than 70,(0)units; sugars 150-199,(1) unit; sugars 200-249,(3) units; sugars 250-299,(5) units; sugars 300-349,(7) units; sugars greater than 349,(9) units Glucocom Test Strips (Blood Glucose Test Strips) 1 Trina Trina Ea .ROUTE DIRECTED Do Accu-Cheks before each meal and at bedtime Lancets 1 Mis Mis Ea .ROUTE DIRECTED Insulin Syringe/U-100/31G X /16" 1 ml 31 Gauge X 5/16" Mis Ea .ROUTE DIRECTED Glucocom Blood Glucose Mo W/Device (Device) 1 Kit Kit Kit .ROUTE DIRECTED Metformin (Metformin HCl) 1,000 Mg Tab 1,000 Mg PO DAILY With a meal Gabapentin 300 Mg Cap 300 Mg PO TID Percocet (Oxycodone-Acetaminophen) 10-325 mg Tab 1 Tab PO Q6H PRN Amitriptyline (Amitriptyline HCl) 25 Mg Tab 25 Mg PO HS Reported Meloxicam 15 Mg Tab 15 Mg PO DAILY Lipitor (Atorvastatin Calcium) 40 Mg Tab 40 Mg PO HS Ropinirole 2 Mg Tab 2 Mg PO HS Proair Hfa 8.5 GM Inh (Albuterol Sulfate) 90 Mcg/Act Aer 2 Puff INH Q4-6H PRN 108 mcg/actuation Citalopram (Citalopram Hydrobromide) 20 Mg Tab 20 Mg PO DAILY Zolpidem (Zolpidem Tartrate) 5 Mg Tab 5 Mg PO HS PRN Lisinopril 2.5 Mg Tab 2.5 Mg PO DAILY Xanax (Alprazolam) 1 Mg Tab 1 Mg PO Q8H PRN Allergies: Coded Allergies: No Known Allergies (Verified Allergy, Unknown, 09/17/17) Family History Reviewed is significant for mother having heart disease, permanent pacemaker, lymphoma Social History Patient continues smoke a half a pack a cigarettes a day since 2003. She states that she does smoke her sister's marijuana. Records indicate that she has history of crack cocaine use. Patient denies any alcohol use Physical Exam Vital Signs Vital Signs Date Time Temp Pulse Resp B/P (MAP) Pulse Ox O2 Delivery O2 Flow Rate FiO2 09/18/17 12:00 98.5 85 18 137/87 (104) 95 09/18/17 08:00 96.5 82 18 143/80 (101) 96 09/18/17 04:00 98.4 81 16 135/87 (103) 93 09/18/17 02:29 81 09/18/17 00:00 98.7 80 18 147/84 (105) 100 09/17/17 23:13 98.4 84 15 135/86 (102) 99 09/17/17 22:12 98.2 88 14 133/91 (105) 99 Room Air 09/17/17 19:54 98.2 84 15 121/78 (92) 99 Room Air 09/17/17 17:15 100 Room Air 09/17/17 16:17 97.8 106 16 119/79 (92) 100 Physical Exam GENERAL: Well-developed, well-nourished, in no acute distress. alert and orientated HEENT: Head is normocephalic without any lesions or masses noted. Facial features are symmetric. Eyes: Pupils equal round reactive to light. Extraocular muscles are intact. Conjunctivae were clear. Oropharyngeal: Pharynx without any erythema edema. Tongue is midline without deviation. Buccal mucosa is moist without any masses or lesions NECK: Supple without any masses. Trachea midline no deviation. No JVD, no bruits are appreciated CARDIAC: Regular rhythm, regular rate. S1/S2 are heard. No murmurs gallops or rubs. LUNGS: Clear to auscultation bilaterally. No wheeze, rhonchi or rales. No use of accessory muscles on inspiration or expiration. ABDOMEN: Soft, nontender. Nondistended. Bowel sounds heard in all 4 quadrants. No organomegaly or masses. Negative rebound, negative guarding EXTREMITIES: No edema, pulses are equal bilaterally. No cyanosis or clubbing NEUROLOGY: Mood and affect appear appropriate. Cranial nerves II through XII grossly intact. Muscle strength 5/5 in upper and lower extremities bilaterally. Deep tendon reflexes are 2+ in upper and lower extremities bilaterally. Laboratory Laboratory Tests Test 09/17/17 17:45 09/17/17 20:45 09/17/17 22:02 09/18/17 04:55 White Blood Count 7.1 7.1 Red Blood Count 5.07 4.21 Hemoglobin 14.9 12.5 Hematocrit 44.8 37.0 Mean Corpuscular Volume 88.3 87.8 Mean Corpuscular Hemoglobin 29.3 29.7 Mean Corpuscular Hemoglobin Concent 33.2 33.8 Red Cell Distribution Width 13.0 12.7 Platelet Count 340 279 Mean Platelet Volume 9.1 9.4 Neutrophils (%) (Auto) 72.4 56.2 Lymphocytes (%) (Auto) 20.5 31.1 Monocytes (%) (Auto) 4.3 6.9 Eosinophils (%) (Auto) 1.9 3.9 Basophils (%) (Auto) 0.9 1.9 Neutrophils # (Auto) 5.1 4.0 Lymphocytes # (Auto) 1.5 2.2 Monocytes # (Auto) 0.3 0.5 Eosinophils # (Auto) 0.1 0.3 Basophils # (Auto) 0.1 0.1 CBC Comment DIFF FINAL DIFF FINAL Differential Comment Urine Color YELLOW Urine Turbidity CLEAR Urine pH 5.5 Urine Specific [place] 1.035 Urine Protein NEG Urine Glucose (UA) 1000 OR GREATER Urine Ketones 80 OR GREATER Urine Occult Blood TRACE Urine Nitrite NEG Urine Bilirubin NEG Urine Leukocyte Esterase NEG Urine RBC 4-9 Urine WBC 3-5 Urine Squamous Epithelial Cells 0-5 Microscopic Urinalysis Comment CULT NOT INDICATED Blood Urea Nitrogen 15 12 10 Creatinine 1.00 0.72 0.60 Random Glucose 452 236 180 Total Protein 7.8 Albumin 4.0 Calcium Level 9.6 8.3 8.2 Alkaline Phosphatase 160 Aspartate Amino Transf (AST/SGOT) 8 Alanine Aminotransferase (ALT/SGPT) 14 Total Bilirubin 0.5 Sodium Level 126 135 135 Potassium Level 4.8 4.4 3.9 Chloride Level 91 104 106 Carbon Dioxide Level 19.1 18.8 18.8 Anion Gap 16 12 10 Estimat Glomerular Filtration Rate 57 83 103 B-Hydroxybutyrate 7.00 Venous Blood pH 7.31 Result Diagram: 09/18/1745409/18/17454 Caprini VTE Risk Assessment Caprini VTE Risk Assessment: Mod/High Risk (score >= 2) Caprini Risk Assessment Model Point Value = 1 Point Value = 2 Point Value = 3 Point Value = 5 Age 41-60 Minor surgery BMI > 25 kg/m2 Swollen legs Varicose veins or History of unexplained or recurrent spontaneous Oral contraceptives or hormone replacement Sepsis (< 1 month) Serious lung disease, including pneumonia (< 1 month) Abnormal pulmonary function Acute myocardial infarction Congestive heart failure (< 1 month) History of inflammatory bowel disease Medical patient at bed rest Age 61-74 Arthroscopic surgery Major open surgery (> 45 min) Laparoscopic surgery (> 45 min) Malignancy Confined to bed (> 72 hours) Immobilizing plaster cast Central venous access Age >= 75 History of VTE Family history of VTE Factor V Leiden Prothrombin [id number] Lupus anticoagulant Anticardiolipin antibodies Elevated serum homocysteine Heparin-induced thrombocytopenia Other congenital or acquired thrombophilia Stroke (< 1 month) Elective arthroplasty Hip, pelvis, or leg fracture Acute spinal cord injury (< 1 month) Prophylaxis Regimen Total Risk Factor Score Risk Level Prophylaxis Regimen 0-1 Low Early ambulation 2 Moderate Order ONE of the following: *Sequential Compression Device (SCD) *Heparin 5000 units SQ BID 3-4 Higher Order ONE of the following medications: *Heparin 5000 units SQ TID *Enoxaparin/Lovenox 40 mg SQ daily (WT < 150 kg, CrCl > 30 mL/min) *Enoxaparin/Lovenox 30 mg SQ daily (WT < 150 kg, CrCl > 10-29 mL/min) *Enoxaparin/Lovenox 30 mg SQ BID (WT < 150 kg, CrCl > 30 mL/min) AND/OR *Sequential Compression Device (SCD) 5 or more Highest Order ONE of the following medications: *Heparin 5000 units SQ TID (Preferred with Epidurals) *Enoxaparin/Lovenox 40 mg SQ daily (WT < 150 kg, CrCl > 30 mL/min) *Enoxaparin/Lovenox 30 mg SQ daily (WT < 150 kg, CrCl > 10-29 mL/min) *Enoxaparin/Lovenox 30 mg SQ BID (WT < 150 kg, CrCl > 30 mL/min) AND *Sequential Compression Device (SCD) Assessment and Plan Assessment and Plan Diabetic ketoacidosis in a patient with uncontrolled diabetes Patient presented with anion gap 16, beta hydroxybutyrate 7.0, pseudohyponatremia, venous blood gas pH 7.31 This was corrected by insulin given in emergency department patient was continued on sliding scale insulin with control of her glucose Discussed with the patient of starting back on long-acting insulin and metformin. Patient is in agreement. Hypertension, hyperlipidemia Continued home medications Chronic back pain, restless leg syndrome continued home medication Chronic obstructive pulmonary disease O2 saturations are good, no need for any oxygen at this time We'll start duo nebs if needed Discharge disposition Discharge home in stable condition Activity: Ad kane. Diet: Diabetic diet Medications per medication reconciliation Follow-up with primary medical doctor in one week Medical Decision Making MDM Remarks The exam, history, and the medical decision-making described in the above note were completed with the assistance of the mid-level provider. I reviewed and agree with the findings presented. I attest that I had a [id number] encounter with the patient on the same day, and personally performed and documented my assessment and findings in the medical record. Ms. Neri is a pleasant 57 year old female with a history of DM type 2 who was admitted due to DKA. Her DKA quickly improved. She stated that because she lost a lot of weight, she thought she was told to stop all her diabetic medications. During her stay in the hospital she required about 22 units of insulin. She is currently doing well and wants to go home. GENERAL: Alert, oriented x 3, NAD. SKIN: Warm and dry. HEAD: Normocephalic. EYES: No scleral icterus. No injection or drainage. NECK: Supple, trachea midline. No JVD or lymphadenopathy. CARDIOVASCULAR: Regular rate and rhythm without murmurs, gallops, or rubs. RESPIRATORY: Breath sounds equal bilaterally. No accessory muscle use. GASTROINTESTINAL: Abdomen soft, non-tender, nondistended. MUSCULOSKELETAL: No cyanosis, or edema. BACK: Nontender without obvious deformity. No CVA tenderness. A/P: Diabetes mellitus type 2 DKA - DKA resolved. Patient is advised to take metformin 1000mg BID. She was on Metformin 500mg BID. - We will give her Long acting insulin 10 units QHS and sliding scale insulin. - She is strongly advised to work with her PCP to adjust insulin regimen. Will discharge patient home today. Problem Qualifiers (1) Uncontrolled diabetes mellitus: Qualified Codes: E13.8 - Other specified diabetes mellitus with unspecified complications; E13.65 - Other specified diabetes mellitus with hyperglycemia; Z79.4 - senior living (current) use of insulin Rubén Mcdonnell Sep 18, 2017 15:21 Stanley Wolfe DO Sep 18, 2017 23:09
[2017-09-18 16:00] VITALS: BP 133/88; PULSE 85; RESP 18; TEMP 98.8; O2SAT 96
[2017-09-18 16:17] LABS: HEMOGLOBIN A1a 1.4 %; HEMOGLOBIN A1b 1.1 %; HEMOGLOBIN Ao 75.9 %; HEMOGLOBIN F 1.8 %; HEMOGLOBIN LA1C 2.7 %; HEMOGLOBIN P3 5.7 %
--- NOTE | 2017-09-18 17:33 | EKG ---
Date Performed: 09/17/2017 Time Performed: 17:35:35 PTAGE: 57 years EKG: Sinus rhythm POSSIBLE RIGHT ATRIAL ENLARGEMENT This racing is not directly comparable to the previous tracing, Be cause of the previous limb lead reversal. The precordial leads however are unchanged on a serial basi s. BORDERLINE ECG PREVIOUS TRACING : 08/24/2017 15.20 DOCTOR: Danya Melchor Interpretating Date/Time 09/18/2017 17:31:52
[2017-09-18] MEDS ORDERED: ATORVASTATIN 40 MG TAB PO SCH (21:00)
[2017-09-18] MEDS ORDERED: AMITRIPTYLINE HCL 25 MG TAB PO SCH (21:00)
[2017-09-19] MEDS ORDERED: INFLUENZA VIRUS VACCINE (QUADRIVALENT) 0.5 ML SYR IM ONE (10:00)
[2017-10-01] MEDS ORDERED: GLUCTES12 (15:29)
[2017-10-01] MEDS ORDERED: INSU1MIS15 (15:29)
[2017-10-01] MEDS ORDERED: NOVOLOGP2 SQ (15:29)
[2017-10-01] MEDS ORDERED: LEVEMIR SQ (15:29)
[2017-10-01] MEDS ORDERED: GLUCKIT15 (15:29)
[2017-10-01] MEDS ORDERED: LANCETS1 MI1 (15:29)
[2017-10-01] MEDS ORDERED: METF1000 PO (15:29)
== END 2017-09-18 16:57 | disposition home or self-care (01) ==
LOC: PHED 16:09 → PHEDA 22:30 → PH3A 23:19
PROVIDERS: ADMIT Hospitalist; ATTEND Hospitalist
DX: E11.10 Type 2 diabetes mellitus with ketoacidosis without coma (principal); E88.9 Metabolic disorder, unspecified; H53.8 Other visual disturbances; R42 Dizziness and giddiness; J44.9 Chronic obstructive pulmonary disease, unspecified; I10 Essential (primary) hypertension; M54.9 Dorsalgia, unspecified; G89.29 Other chronic pain; E78.00 Pure hypercholesterolemia, unspecified; G25.81 Restless legs syndrome; K21.9 Gastro-esophageal reflux disease without esophagitis; F41.9 Anxiety disorder, unspecified; F32.9 Major depressive disorder, single episode, unspecified; H40.9 Unspecified glaucoma; M19.90 Unspecified osteoarthritis, unspecified site; F17.210 Nicotine dependence, cigarettes, uncomplicated; Z79.4 Long term (current) use of insulin; Z79.899 Other long term (current) drug therapy; Z96.643 Presence of artificial hip joint, bilateral
CPT/HCPCS: 80048; 80053; 81001; 82010; 82800; 82948; 83036; 85025; 93005; 96361; 96372; 96374; 96376; 99285; G0378; J1815; J7030

== ENCOUNTER 2017-12-20 19:28 | Observation (INO) | payer OTHER ==
[~2017-12-20] VITALS: Ht 165.1 cm; Wt 57.0 kg
[~2017-12-20 19:28] MED LIST changes: -BACL10TA PO; +GLUCKIT15; +GLUCTES12; +INSU1MIS15; +LANCETS1 MI1; +LEVEMIR SQ; +METF1000 PO; -METF500T PO; +NOVOLOGP2 SQ; -OXYC1TAB63 PO; -PERC10TA27 PO; -ZOFR8TAB PO
[2017-12-20 20:54] VITALS: BP 109/56; PULSE 81; RESP 18; TEMP 98.4; O2SAT 98
[2017-12-20] MEDS ORDERED: SODIUM CHLOR 0.9% 1000 ML INJ 1,000 ML IV ONE ×2 (21:30→22:30)
[2017-12-20] MEDS ORDERED: SODIUM CHLORIDE 0.9% FLUSH 10 ML FLUSH IVF PRN (21:30)
--- NOTE | 2017-12-20 21:36 | PD ---
HPI Chief Complaint: Diabetic Time Seen by Provider: 21:01 Travel History International Travel<30 days: No Contact w/Intl Traveler<30days: No Traveled to known affect area: No History of Present Illness HPI 57-year-old female with history of diabetes and chronic pain syndrome presents to part for complaint of poorly controlled blood sugars and hyperglycemia. Patient states over the past 3 weeks she has seen her primary care provider who increased her daily metformin from 1000 mg daily to 2000 mg daily. Patient is also on Levemir and regular insulin. Patient states that last evening reportedly her blood sugar was 600 and she took a sliding scale dose of insulin and blood sugar went down into the 400 range but she still did not feel well all evening she was also having muscle cramps. Patient states she did not come to the emergency room at that time and waited to call her primary care provider this morning but as he did not respond to anesthetic of the emergency room patient states she has had some blurring of vision and some urinary frequency and polydipsia as well as blood sugars reportedly remain elevated. In triage blood sugar was reportedly 384. Patient is also on Percocet daily every 4 hours for chronic pain syndrome and took her last dose of Percocet reportedly at 4 PM. Patient denies any headache speech disturbance chest pain palpitations shortness of breath vomiting abdominal cramping diarrhea dysuria hematuria flank pain skin rash or joint pain. Patient had no fever or chills. PFSH Past Medical History Narrative Medical Anxiety depression COPD diabetes hypertension chronic pain syndrome migraines C- section tubal ligation hip surgery tobacco use; nursing notes reviewed Hx Anticoagulant Therapy: No Arthritis: Yes Asthma: No Blood Disorders: No Anxiety: Yes Depression: Yes Heart Rhythm Problems: No Cancer: No Cardiovascular Problems: Yes High Cholesterol: Yes Chest Pain: No Congestive Heart Failure: No COPD: Yes Cerebrovascular Accident: No Diabetes: Yes (diet ) Diminished Hearing: No Endocrine: Yes Gastrointestinal Disorders: Yes GERD: Yes Genitourinary: No Headaches: Yes Hepatitis: No Hiatal Hernia: No Hypertension: Yes Immune Disorder: No Implanted Vascular Access Dvce: No Kidney Stones: No Musculoskeletal: Yes (hip and back) Neurologic: Yes Psychiatric: No Reproductive: No Respiratory: Yes Immunizations Current: Yes Migraines: Yes Myocardial Infarction: No Renal Failure: No Seizures: No Sleep Apnea: No Thyroid Disease: No Ulcer: No Menopausal: Yes Tubal Ligation: Yes Past Surgical History Abdominal Surgery: No Appendectomy: No Cardiac Surgery: No Section: Yes (1992) Cholecystectomy: No Ear Surgery: No Endocrine Surgery: No Eye Surgery: No Genitourinary Surgery: No Gynecologic Surgery: Yes (TUBLIGATION) Neurologic Surgery: No Oral Surgery: No Thoracic Surgery: No Other Surgery: Yes (bilat hips-02/2017) Social History Alcohol Use: No (denies) Tobacco Use: Yes (10/16 ppd) Substance Use: No (hx of crack, cocaine, marijuana ) Allergies-Medications (Allergen,Severity, Reaction): Coded Allergies: No Known Allergies (Verified Allergy, Unknown, 12/20/17) Reported Meds & Prescriptions Reported Meds & Active Scripts Active Levemir Inj (Insulin Detemir) 1,000 unit/ 10 ML Vial 10 Units SQ HS 30 Days Do not mix with any other Insulin. Novolog Inj (Insulin Aspart) 1,000 Unit/10 Ml Vial 1-9 Units SQ ACHS Max dose at bedtime:( )units; sugars less than 70,(0)units; sugars 150-199,(1) unit; sugars 200-249,(3) units; sugars 250-299,(5) units; sugars 300-349,(7) units; sugars greater than 349,(9) units Glucocom Test Strips (Blood Glucose Test Strips) 1 Trina Trina Ea .ROUTE DIRECTED Do Accu-Cheks before each meal and at bedtime Lancets 1 Mis Mis Ea .ROUTE DIRECTED Insulin Syringe/U-100/31G X 5/16" 1 ml 31 Gauge X 5/16" Mis Ea .ROUTE DIRECTED Glucocom Blood Glucose Mo W/Device (Device) 1 Kit Kit Kit .ROUTE DIRECTED Metformin (Metformin HCl) 1,000 Mg Tab 1,000 Mg PO DAILY With a meal Gabapentin 300 Mg Cap 300 Mg PO TID Amitriptyline (Amitriptyline HCl) 25 Mg Tab 25 Mg PO HS Reported Meloxicam 15 Mg Tab 15 Mg PO DAILY Lipitor (Atorvastatin Calcium) 40 Mg Tab 40 Mg PO HS Ropinirole 2 Mg Tab 2 Mg PO HS Proair Hfa 8.5 GM Inh (Albuterol Sulfate) 90 Mcg/Act Aer 2 Puff INH Q4-6H PRN 108 mcg/actuation Citalopram (Citalopram Hydrobromide) 20 Mg Tab 20 Mg PO DAILY Zolpidem (Zolpidem Tartrate) 5 Mg Tab 5 Mg PO HS PRN Lisinopril 2.5 Mg Tab 2.5 Mg PO DAILY Xanax (Alprazolam) 1 Mg Tab 1 Mg PO Q8H PRN Review of Systems Except as stated in HPI: all other systems reviewed are Neg General / Constitutional: No: Fever, Chills Eyes: Positive: Blurred Vision HENT: No: Headaches, Vertigo, Lightheadedness Cardiovascular: No: Chest Pain or Discomfort Respiratory: No: Shortness of Breath Gastrointestinal: Positive: Nausea, No: Vomiting, Diarrhea, Abdominal Pain Genitourinary: Positive: Frequency, No: Dysuria Musculoskeletal: Positive: Myalgias, Arthralgias Skin: No Rash Neurologic: No: Weakness, Dizziness, Syncope Psychiatric: No: Anxiety Endocrine: Positive: Polyuria Physical Exam Narrative GENERAL: Well-developed well-nourished female no acute distress no respiratory distress mild slurring of speech but has just taken narcotic pain medication; gcs 15 SKIN: Warm and dry. HEAD: Normocephalic. EYES: No scleral icterus. No injection or drainage. NECK: Supple, trachea midline. No JVD or lymphadenopathy. CARDIOVASCULAR: Regular rate and rhythm without murmurs, gallops, or rubs. RESPIRATORY: Breath sounds equal bilaterally. No accessory muscle use. GASTROINTESTINAL: Abdomen soft, non-tender, nondistended. MUSCULOSKELETAL: No cyanosis, or edema. BACK: Nontender without obvious deformity. No CVA tenderness. Data Data Last Documented VS Vital Signs Date Time Temp Pulse Resp B/P (MAP) Pulse Ox O2 Delivery O2 Flow Rate FiO2 12/20/17 21:54 98.0 73 20 93/58 (70) 98 Room Air Orders Orders Electrocardiogram (12/20/17 21:24) Complete Blood Count With Diff (12/20/17 21:24) Comprehensive Metabolic Panel (12/20/17 21:24) Magnesium (Mg) (12/20/17 21:24) Beta Hydroxybutyrate (Acetone) (12/20/17 21:24) Lactic Acid (12/20/17 21:24) Urinalysis - C+S If Indicated (12/20/17 21:24) Chest, Single Ap (12/20/17 21:24) Blood Gas Venous (Vbg) (12/20/17 21:24) Ecg Monitoring (12/20/17 21:24) Iv Access Insert/Monitor (12/20/17 21:24) Oximetry (12/20/17 21:24) NPO (12/20/17 21:24) Sodium Chloride 0.9% Flush (Ns Flush) (12/20/17 21:30) Troponin I (12/20/17 21:24) Lipase (12/20/17 21:24) Sodium Chlor 0.9% 1000 Ml Inj (Ns 1000 M (12/20/17 21:30) Sodium Chlor 0.9% 1000 Ml Inj (Ns 1000 M (12/20/17 22:30) Insulin Human Regular Inj (Novolin R Inj (12/20/17 22:45) Drug Screen, Random Urine (12/20/17 22:43) Blood Glucose (12/20/17 23:23) Admit Order (Ed Use Only) (12/21/17 ) Insurance Assistant / Telemetry CORINNE.[email or web address] (12/21/17 00:22) Diet 1999 Ada Cons Carb (12/21/17 Breakfast) Activity Oob With Assistance (12/21/17 00:22) Notify Dr: Other (12/21/17 00:22) Labs Laboratory Tests Test 12/20/17 21:55 12/20/17 22:00 12/20/17 23:55 Blood Gas Puncture Site RN KAYLEIGH Blood Gas Patient Temperature 98.6 Venous Blood pH 7.32 Venous Blood Partial Pressure CO2 57 mmHg Venous Blood Partial Pressure O2 18 mmHg Venous Blood HCO3 29 mmol/L Venous Blood Oxygen Saturation 28 % Venous Blood Oxygen Content 5.4 Vol % Venous Blood Base Excess 3.4 mmol/L Oxygen Delivery Device ROOM AIR Blood Gas Inspired Oxygen 21 % White Blood Count 8.7 TH/MM3 Red Blood Count 4.33 MIL/MM3 Hemoglobin 13.8 GM/DL Hematocrit 39.3 % Mean Corpuscular Volume 90.7 FL Mean Corpuscular Hemoglobin 32.0 PG Mean Corpuscular Hemoglobin Concent 35.3 % Red Cell Distribution Width 13.6 % Platelet Count 243 TH/MM3 Mean Platelet Volume 8.5 FL Neutrophils (%) (Auto) 48.3 % Lymphocytes (%) (Auto) 36.1 % Monocytes (%) (Auto) 5.1 % Eosinophils (%) (Auto) 9.8 % Basophils (%) (Auto) 0.7 % Neutrophils # (Auto) 4.2 TH/MM3 Lymphocytes # (Auto) 3.2 TH/MM3 Monocytes # (Auto) 0.4 TH/MM3 Eosinophils # (Auto) 0.9 TH/MM3 Basophils # (Auto) 0.1 TH/MM3 CBC Comment DIFF FINAL Differential Comment Blood Urea Nitrogen 22 MG/DL Creatinine 1.42 MG/DL Random Glucose 328 MG/DL Total Protein 6.8 GM/DL Albumin 3.7 GM/DL Calcium Level 8.9 MG/DL Magnesium Level 2.2 MG/DL Alkaline Phosphatase 118 U/L Aspartate Amino Transf (AST/SGOT) 11 U/L Alanine Aminotransferase (ALT/SGPT) 12 U/L Total Bilirubin 0.4 MG/DL Sodium Level 131 MEQ/L Potassium Level 4.1 MEQ/L Chloride Level 94 MEQ/L Carbon Dioxide Level 29.0 MEQ/L Anion Gap 8 MEQ/L Estimat Glomerular Filtration Rate 38 ML/MIN Lactic Acid Level 2.7 mmol/L Troponin I LESS THAN 0.02 NG/ML Lipase 68 U/L B-Hydroxybutyrate 0.10 MMOL/L MDM Medical Decision Making Medical Screen Exam Complete: Yes Emergency Medical Condition: Yes Medical Record Reviewed: Yes Interpretation(s) vpH: 7.32, acidotic BHB:0.1, not elevated lactic acid: 2.7 elevated Last Impressions Chest X-Ray 12/20/[id number] Signed Impressions: Service Date/Time: December 22:04 - CONCLUSION: The lungs are clear. Vidal Robertson MD CBC & BMP Diagram 12/20/17 22:00 Total Protein 6.8, Albumin 3.7, Calcium Level 8.9, Magnesium Level 2.2, Alkaline Phosphatase 118 H, Aspartate Amino Transf (AST/SGOT) 11 L, Alanine Aminotransferase (ALT/SGPT) 12, Total Bilirubin 0.4 Vital Signs Date Time Temp Pulse Resp B/P (MAP) Pulse Ox O2 Delivery O2 Flow Rate FiO2 12/20/17 21:54 98.0 73 20 93/58 (70) 98 Room Air 12/20/17 21:43 98.0 72 20 89/50 (63) 98 Room Air 12/20/17 21:42 98.0 72 20 89/50 (63) 92 Room Air 12/20/17 20:54 98.4 81 18 109/56 (57) 98 Differential Diagnosis Hyperglycemia, uncontrolled diabetes, DKA, electrolyte disturbance, dehydration , polysubstance ingestion, ACS Narrative Course Patient placed on air sampling and monitoring IV access obtained specimens collected and sent for resulting triage glucose 384 repeat random glucose ordered and 1 L normal saline ordered Patient given repeat bolus of normal saline; regular insulin 4 units IV Repeat blood sugar 187 Patient producing urine and clinically symptomatically improved Patient identified to have elevated lactic acid as well as renal insufficiency and venous pH of 7.32 most likely reflective of hydration status as well as consider effect of increased metformin use Patient's case discussed with medicine service along through residents/family practice service for observation admission Physician Communication Physician Communication dicussed with DR Moreno --attending Dr Hwang Diagnosis Primary Impression: Uncontrolled diabetes mellitus Additional Impression: Elevated lactic acid level Admitting Information Admitting Physician Requests: Observation Pratima Baca MD Dec 20, 2017 21:36
[2017-12-20 21:42] VITALS: BP 89/50; PULSE 72; RESP 20; TEMP 98; O2SAT 92
[2017-12-20 21:43] VITALS: BP 89/50; PULSE 72; RESP 20; TEMP 98; O2SAT 98
[2017-12-20 21:54] VITALS: BP 93/58; PULSE 73; RESP 20; TEMP 98; O2SAT 98
[2017-12-20 22:40] LABS: AUTOMATED NEUTROPHIL # 4.2 TH/MM3 (1.8-7.7); BASOPHIL # 0.1 TH/MM3 (0-0.2); BASOPHIL % 0.7 % (0.0-2.0); EOSINOPHIL # 0.9 TH/MM3 (0-0.4); EOSINOPHIL % 9.8 % (0.0-4.0); HEMATOCRIT 39.3 % (35.0-46.0); HEMOGLOBIN 13.8 GM/DL (11.6-15.3); LYMPH % 36.1 % (9.0-44.0); LYMPHOCYTE # 3.2 TH/MM3 (1.0-4.8); MEAN CELL VOLUME 90.7 FL (80.0-100.0); MEAN CORPUSCULAR HGB CONC 35.3 % (32.0-36.0); MEAN PLATELET VOLUME 8.5 FL (7.0-11.0); MONO % 5.1 % (0.0-8.0); MONOCYTE # 0.4 TH/MM3 (0-0.9); NEUT % 48.3 % (16.0-70.0); PLATELET COUNT 243 TH/MM3 (150-450); RED BLOOD COUNT 4.33 MIL/MM3 (4.00-5.30); RED CELL DISTRIBUTION WIDTH 13.6 % (11.6-17.2); WHITE BLOOD COUNT 8.7 TH/MM3 (4.0-11.0)
[2017-12-20] MEDS ORDERED: INSULIN HUMAN REGULAR 1,000 UNITS/10 ML VIAL IV PUSH ONE (22:45)
[2017-12-20 22:55] LABS: ALBUMIN 3.7 GM/DL (3.4-5.0); ALT (GPT) 12 U/L (10-53); AST (GOT) 11 U/L (15-37); BLOOD UREA NITROGEN 22 MG/DL (7-18); CALCIUM 8.9 MG/DL (8.5-10.1); CHLORIDE 94 MEQ/L (98-107); CREATININE 1.42 MG/DL (0.50-1.00); GLOMERULAR FILTRATION RATE 38 ML/MIN (>89); GLUCOSE,RANDOM 328 MG/DL (74-106); MAGNESIUM 2.2 MG/DL (1.5-2.5); SODIUM (NA) 131 MEQ/L (136-145)
--- NOTE | 2017-12-20 22:56 | RADRPT ---
EXAM DATE/TIME: 12/20/2017 22:04 [facility] COMPARISON: CHEST SINGLE AP, August 24, 2017, 13:47. INDICATIONS : Vomiting- elevated glucose levels. Shortness of breath. MEDICAL HISTORY : Cardiovascular disease. Hypertension SURGICAL HISTORY : Tubal ligation. ENCOUNTER: Initial ACUITY: 1 day PAIN SCORE: 3/10 LOCATION: Bilateral chest FINDINGS: A single view of the chest demonstrates the lungs to be symmetrically aerated without evidence of mas s, infiltrate or effusion. The cardiomediastinal contours are unremarkable. Osseous structures are intact. CONCLUSION: The lungs are clear. Vidal Robertson MD on December 20, 2017 at 22:54 Board Certified Radiologist. This report was verified electronically.
[2017-12-20 22:57] LABS: ALKALINE PHOSPHATASE 118 U/L (45-117); TOTAL BILIRUBIN ADULT 0.4 MG/DL (0.2-1.0); TOTAL PROTEIN 6.8 GM/DL (6.4-8.2); TROPONIN I LESS THAN 0.02 NG/ML (0.02-0.05)
[2017-12-21] VITALS: BP 88/55; PULSE 66; RESP 16; O2SAT 100
[2017-12-21 00:23] LABS: BACTERIA, URINE MOD /hpf; BILIRUBIN, URINE NEG (NEG); BLOOD, URINE NEG (NEG); GLUCOSE,URINE 1000 mg/dL (NEG); HYALINE CAST, URINE 31 /lpf (RARE); KETONE, URINE NEG (NEG); MUCUS URINE FEW /lpf (OCC); NITRITE,URINE NEG (NEG); SQUAMOUS EPITHELIAL CELL URINE 24 /hpf (0-5); TRANSITIONAL EPI CELLS, URINE <1 /hpf; URINE COLOR YELLOW (YELLW/STRAW); URINE LEUKOCYTE ESTERASE NEG (NEG)
[2017-12-21] MEDS ORDERED: cefTRIAXone INJ 1,000 MG in SODIUM CHLORIDE 0.9% INJ 100 ML IV ONE (00:45)
--- NOTE | 2017-12-21 00:45 | HHI.HP ---
[facility] Service Family Medicine Primary Care Physician Christiano Browne MD Admission Diagnosis uncontrollled diabetes; elevated lactic acid Diagnoses: Chief Complaint: high blood sugar International Travel<30 Days: No Contact w/Intl Traveler<30days: No History of Present Illness 57-year-old female with history of diabetes, hypertension, chronic pain presents for hyperglycemia. She states that her blood sugar was 600 earlier today, and then went down to around 474. She takes Levemir and NovoLog. She normally takes from 6-8 units of Levemir at night. She states since then, she has not felt well for general malaise. She also having some left upper extremity muscle cramps. She attempted to call to the office, she sees Dr. Mckinley, but decided to come to the ED. She states she ran out of metformin last couple days as well. Otherwise, patient denies any new complaints. Denies any recent illness. Denies any chest pain, shortness of breath, fever/chills, abdominal pain, dysuria. Denies nay nausea/vomiting. She states she 6 Percocet every 6 hours for chronic pain from bilateral hip surgery and degenerative disc disease. Review of Systems ROS Limitations: Clinical Condition, Poor Historian Constitutional: COMPLAINS OF: Fatigue, DENIES: Fever, Weight gain, Weight loss , Chills, Dizziness Eyes: DENIES: Blurred vision, Vision loss Ears, nose, mouth, throat: DENIES: Hearing loss, Vertigo Respiratory: DENIES: Cough, Snoring, Sputum production, Shortness of breath Cardiovascular: DENIES: Chest pain, Palpitations, Syncope, Lower Extremity Edema Gastrointestinal: DENIES: Abdominal pain, Black stools, Bloody stools, Constipation, Diarrhea, Nausea, Vomiting Genitourinary: DENIES: Dysmenorrhea, Dyspareunia, Urinary frequency Musculoskeletal: DENIES: Stiffness, Joint Swelling, Neck pain Integumentary: DENIES: Abnormal pigmentation, Rash Immunologic/allergic: DENIES: Eczema, Urticaria Neurologic: DENIES: Abnormal gait, Headache, Paresthesias, Seizures Psychiatric: DENIES: Mood changes, Depression, Hallucinations Past Family Social History Past Medical History Hypertension Chronic pain involving multiple joints due to previous trauma. History of glaucoma Diabetes Mellitus Depression COPD RLS Past Surgical History Right wrist repair Tubal ligation Bilateral hip replacements Reported Medications Reported Meds & Active Scripts Active Levemir Inj (Insulin Detemir) 1,000 unit/ 10 ML Vial 10 Units SQ HS 30 Days Do not mix with any other Insulin. Novolog Inj (Insulin Aspart) 1,000 Unit/10 Ml Vial 1-9 Units SQ ACHS Max dose at bedtime:( )units; sugars less than 70,(0)units; sugars 150-199,(1) unit; sugars 200-249,(3) units; sugars 250-299,(5) units; sugars 300-349,(7) units; sugars greater than 349,(9) units Glucocom Test Strips (Blood Glucose Test Strips) 1 Trina Trina Ea .ROUTE DIRECTED Do Accu-Cheks before each meal and at bedtime Lancets 1 Mis Mis Ea .ROUTE DIRECTED Insulin Syringe/U-100/31G X 5/16" 1 ml 31 Gauge X 5/16" Mis Ea .ROUTE DIRECTED Glucocom Blood Glucose Mo W/Device (Device) 1 Kit Kit Kit .ROUTE DIRECTED Metformin (Metformin HCl) 1,000 Mg Tab 1,000 Mg PO DAILY With a meal Gabapentin 300 Mg Cap 300 Mg PO TID Amitriptyline (Amitriptyline HCl) 25 Mg Tab 25 Mg PO HS Reported Meloxicam 15 Mg Tab 15 Mg PO DAILY Lipitor (Atorvastatin Calcium) 40 Mg Tab 40 Mg PO HS Ropinirole 2 Mg Tab 2 Mg PO HS Proair Hfa 8.5 GM Inh (Albuterol Sulfate) 90 Mcg/Act Aer 2 Puff INH Q4-6H PRN 108 mcg/actuation Citalopram (Citalopram Hydrobromide) 20 Mg Tab 20 Mg PO DAILY Zolpidem (Zolpidem Tartrate) 5 Mg Tab 5 Mg PO HS PRN Lisinopril 2.5 Mg Tab 2.5 Mg PO DAILY Xanax (Alprazolam) 1 Mg Tab 1 Mg PO Q8H PRN Allergies: Coded Allergies: No Known Allergies (Verified Allergy, Unknown, 12/20/17) Active Ordered Medications Active Medications Ceftriaxone Sodium 1000 mg/ Sodium Chloride 100 ml @ 200 mls/hr ONCE ONCE IV; Start 12/21/17 at 00:45; Stop 12/21/17 at 01:14 Insulin Human Regular (NovoLIN R INJ) 4 units ONCE ONCE IV PUSH Last administered on 12/20/17at 22:55; Admin Dose 4 UNITS; Start 12/20/17 at 22:45; Stop 12/20/17 at 22:46; Status DC Sodium Chloride 1,000 ml @ 999 mls/hr BOLUS ONCE IV Last administered on at 21:49; Admin Dose 999 MLS/HR; Start 12/20/17 at 21:30; Stop 12/20/17 at 22:30 ; Status DC Sodium Chloride 1,000 ml @ 999 mls/hr BOLUS ONCE IV Last administered on at 22:55; Admin Dose 999 MLS/HR; Start 12/20/17 at 22:30; Stop 12/20/17 at 23:30 ; Status DC Sodium Chloride (NS Flush) 2 ml UNSCH PRN IVF Last administered on 12/20/17at 21: 50; Admin Dose 2 ML; Start 12/20/17 at 21:30 Family History Father from a car accident in 1959 Mother in 2011. History of heart disease, RA, dementia, unknown cancer. Social History Patient is currently on disability. She has been smoking a pack per day since she was 17 years old. Alcohol use denies Marijuana occasionally Physical Exam Vital Signs Vital Signs Date Time Temp Pulse Resp B/P (MAP) Pulse Ox O2 Delivery O2 Flow Rate FiO2 12/21/17 00:00 66 16 88/55 (66) 100 12/20/17 21:54 98.0 73 20 93/58 (70) 98 Room Air 12/20/17 21:43 98.0 72 20 89/50 (63) 98 Room Air 12/20/17 21:42 98.0 72 20 89/50 (63) 92 Room Air 12/20/17 20:54 98.4 81 18 109/56 (73) 98 Physical Exam GENERAL: This is a well-nourished, well-developed patient, in no apparent distress. Falling asleep during exam SKIN: No rashes, ecchymoses or lesions. Cool and dry. HEAD: Atraumatic. Normocephalic. EYES: Pupils equal round and reactive. Extraocular motions intact. No scleral icterus. No injection or drainage. ENT: Throat without erythema, tonsillar hypertrophy or exudate. Uvula midline. Airway patent. NECK: Trachea midline. No JVD or lymphadenopathy. Supple, nontender. CARDIOVASCULAR: Regular rate and rhythm without murmurs, gallops, or rubs. RESPIRATORY: Clear to auscultation. Breath sounds equal bilaterally. No wheezes , rales, or rhonchi. GASTROINTESTINAL: Abdomen soft, non-tender, nondistended. No hepato-splenomegaly , or palpable masses. No guarding. MUSCULOSKELETAL: Extremities without clubbing, cyanosis, or edema. No joint tenderness, effusion, or edema noted. No calf tenderness. NEUROLOGICAL: Awake and alert. Oriented x3. Motor and sensory grossly within normal limits. Five out of 5 muscle strength in all muscle groups. Normal speech. Laboratory Laboratory Tests Test 12/20/17 21:55 12/20/17 22:00 12/20/17 23:55 Blood Gas Puncture Site RN KAYLEIGH Blood Gas Patient Temperature 98.6 Venous Blood pH 7.32 Venous Blood Partial Pressure CO2 57 Venous Blood Partial Pressure O2 18 Venous Blood HCO3 29 Venous Blood Oxygen Saturation 28 Venous Blood Oxygen Content 5.4 Venous Blood Base Excess 3.4 Oxygen Delivery Device ROOM AIR Blood Gas Inspired Oxygen 21 White Blood Count 8.7 Red Blood Count 4.33 Hemoglobin 13.8 Hematocrit 39.3 Mean Corpuscular Volume 90.7 Mean Corpuscular Hemoglobin 32.0 Mean Corpuscular Hemoglobin Concent 35.3 Red Cell Distribution Width 13.6 Platelet Count 243 Mean Platelet Volume 8.5 Neutrophils (%) (Auto) 48.3 Lymphocytes (%) (Auto) 36.1 Monocytes (%) (Auto) 5.1 Eosinophils (%) (Auto) 9.8 Basophils (%) (Auto) 0.7 Neutrophils # (Auto) 4.2 Lymphocytes # (Auto) 3.2 Monocytes # (Auto) 0.4 Eosinophils # (Auto) 0.9 Basophils # (Auto) 0.1 CBC Comment DIFF FINAL Differential Comment Blood Urea Nitrogen 22 Creatinine 1.42 Random Glucose 328 Total Protein 6.8 Albumin 3.7 Calcium Level 8.9 Magnesium Level 2.2 Alkaline Phosphatase 118 Aspartate Amino Transf (AST/SGOT) 11 Alanine Aminotransferase (ALT/SGPT) 12 Total Bilirubin 0.4 Sodium Level 131 Potassium Level 4.1 Chloride Level 94 Carbon Dioxide Level 29.0 Anion Gap 8 Estimat Glomerular Filtration Rate 38 Lactic Acid Level 2.7 Troponin I LESS THAN 0.02 Lipase 68 B-Hydroxybutyrate 0.10 Urine Color YELLOW Urine Turbidity HAZY Urine pH 5.0 Urine Specific [place] 1.015 Urine Protein NEG Urine Glucose (UA) 1000 Urine Ketones NEG Urine Occult Blood NEG Urine Nitrite NEG Urine Bilirubin NEG Urine Urobilinogen LESS THAN 2.0 Urine Leukocyte Esterase NEG Urine RBC 1 Urine WBC 1 Urine Squamous Epithelial Cells 24 Urine Transitional Epithelial Cells <1 Urine Bacteria MOD Urine Hyaline Casts 31 Urine Mucus FEW Microscopic Urinalysis Comment CULTURE INDICATED Urine Opiates Screen NEG Urine Barbiturates Screen NEG Urine Amphetamines Screen NEG Urine Benzodiazepines Screen POS Urine Cocaine Screen NEG Urine Cannabinoids Screen POS Date/Time Source Procedure Growth Status 12/20/17 23:55 Urine Clean Catch Urine Culture Pending Received Result Diagram: 12/20/17219912/20/172199 Imaging Last Impressions Chest X-Ray 12/20/172123 Signed Impressions: Service Date/Time: December 22:04 - CONCLUSION: The lungs are clear. MD Kathrin Concepcion VTE Risk Assessment Kathrin VTE Risk Assessment: No/Low Risk (score <= 1) Princerini Risk Assessment Model Point Value = 1 Point Value = 2 Point Value = 3 Point Value = 5 Age 41-60 Minor surgery BMI > 25 kg/m2 Swollen legs Varicose veins or History of unexplained or recurrent spontaneous Oral contraceptives or hormone replacement Sepsis (< 1 month) Serious lung disease, including pneumonia (< 1 month) Abnormal pulmonary function Acute myocardial infarction Congestive heart failure (< 1 month) History of inflammatory bowel disease Medical patient at bed rest Age 61-74 Arthroscopic surgery Major open surgery (> 45 min) Laparoscopic surgery (> 45 min) Malignancy Confined to bed (> 72 hours) Immobilizing plaster cast Central venous access Age >= 75 History of VTE Family history of VTE Factor V Leiden Prothrombin [id number] Lupus anticoagulant Anticardiolipin antibodies Elevated serum homocysteine Heparin-induced thrombocytopenia Other congenital or acquired thrombophilia Stroke (< 1 month) Elective arthroplasty Hip, pelvis, or leg fracture Acute spinal cord injury (< 1 month) Prophylaxis Regimen Total Risk Factor Score Risk Level Prophylaxis Regimen 0-1 Low Early ambulation 2 Moderate Order ONE of the following: *Sequential Compression Device (SCD) *Heparin 5000 units SQ BID 3-4 Higher Order ONE of the following medications: *Heparin 5000 units SQ TID *Enoxaparin/Lovenox 40 mg SQ daily (WT < 150 kg, CrCl > 30 mL/min) *Enoxaparin/Lovenox 30 mg SQ daily (WT < 150 kg, CrCl > 10-29 mL/min) *Enoxaparin/Lovenox 30 mg SQ BID (WT < 150 kg, CrCl > 30 mL/min) AND/OR *Sequential Compression Device (SCD) 5 or more Highest Order ONE of the following medications: *Heparin 5000 units SQ TID (Preferred with Epidurals) *Enoxaparin/Lovenox 40 mg SQ daily (WT < 150 kg, CrCl > 30 mL/min) *Enoxaparin/Lovenox 30 mg SQ daily (WT < 150 kg, CrCl > 10-29 mL/min) *Enoxaparin/Lovenox 30 mg SQ BID (WT < 150 kg, CrCl > 30 mL/min) AND *Sequential Compression Device (SCD) Assessment and Plan Assessment and Plan 57-year-old female with history of diabetes, hypertension, COPD, chronic pain presents due to hyperglycemia. Will admit for monitoring of glucose and clinical stabilization Code Status Full Discussed Condition With Chari Augustin Problem List: (1) Uncontrolled diabetes mellitus ICD Codes: E11.65 - Type 2 diabetes mellitus with hyperglycemia Status: Chronic Plan: Patient presents with blood glucose of 328 on admission. Patient given 2 1 L boluses of normal saline as well as 4 units of insulin. Vitals stable. Afebrile. The WBC 8.7. Lactic acid 2.7 VBG shows pH of 7.32, PCO2 57, PO2 18, HCO3 29. Beta hydroxybutyrate 0.10. Anion gap 8 Unsure of cause of mild DKA, possible UTI from UA, given Rocephin in ED. Also poor compliance with insulin. BG 185 at 0003 -Will give another 1L bolus due to hypotension -1.5 maintenance NS IVF -Sliding scale insulin w/ regular accuchecks -Follow BMP q4H -Monitor I/O -Hold home metformin (2) UTI (urinary tract infection) ICD Codes: N39.0 - Urinary tract infection, site not specified Plan: UA with moderate bacteria. Endorses urinary frequency Given Rocephin in ED -Continue for possible UTI -F/u urine culture (3) Chronic pain disorder ICD Codes: G89.4 - Chronic pain syndrome Status: Chronic Plan: Continue home meds: Gabapentin, mobic Perocet PRN (4) Depression ICD Codes: F32.9 - Major depressive disorder, single episode, unspecified Status: Chronic Plan: Continue home meds: amitriptyline, Celexa (5) RLS (restless legs syndrome) ICD Codes: G25.81 - Restless legs syndrome Plan: Continue home ropinirole (6) Hyperlipemia ICD Codes: E78.5 - Hyperlipidemia, unspecified Status: Chronic Plan: Continue home lipitor (7) FEN Status: Acute Plan: Fluids: NS @ 150mls/hr Electrolyte: mild hyponatremia; monitor replace PRN Nutrition: Diabetic diet DVT ppx: Heparin Problem Qualifiers (1) Uncontrolled diabetes mellitus: Qualified Codes: E11.65 - Type 2 diabetes mellitus with hyperglycemia; Z79.4 - rat exterminator (current) use of insulin (2) UTI (urinary tract infection): Qualified Codes: N30.00 - Acute cystitis without hematuria (3) Depression: Qualified Codes: F32.9 - Major depressive disorder, single episode, unspecified (4) Hyperlipemia: Qualified Codes: E78.5 - Hyperlipidemia, unspecified Girma Edmondson MD Dec 21, 2017 00:45
[2017-12-21] MEDS ORDERED: BISACODYL 10 MG SUPP RECTAL PRN (01:15)
[2017-12-21] MEDS ORDERED: SODIUM CHLORIDE 0.9% FLUSH 10 ML FLUSH IV FLUSH PRN (01:15)
[2017-12-21] MEDS ORDERED: SENNOSIDES 8.6 MG TAB PO PRN (01:15)
[2017-12-21] MEDS ORDERED: ALBUTEROL SULFATE 90 MCG/ACT HFA 8 GM INHALER INH PRN (01:15)
[2017-12-21] MEDS ORDERED: NALOXONE HCL 0.4 MG/ML AMP IV PUSH PRN (01:15)
[2017-12-21] MEDS ORDERED: MAGNESIUM HYDROXIDE SUSP 30 ML CUP PO PRN (01:15)
[2017-12-21] MEDS ORDERED: LACTULOSE SYRUP 20 GM/30 ML CUP PO PRN (01:15)
[2017-12-21] MEDS ORDERED: GLUCAGON 1 MG/ML VIAL OTHER PRN (01:30)
[2017-12-21] MEDS ORDERED: ONDANSETRON HCL 4 MG/2 ML VIAL IV PUSH PRN (01:30)
[2017-12-21] MEDS ORDERED: oxyCODONE/ACETAMINOPHEN 10 MG/325 MG TAB PO PRN (01:30)
[2017-12-21] MEDS ORDERED: DEXTROSE 50% IN WATER 50 ML VIAL(D50) IV PUSH PRN (01:30)
[2017-12-21] MEDS ORDERED: SODIUM CHLOR 0.9% 1000 ML INJ 1,000 ML IV ONE (01:30)
[2017-12-21] MEDS ORDERED: oxyCODONE/ACETAMINOPHEN 5 MG/325 MG TAB PO PRN (01:30)
[2017-12-21] MEDS ORDERED: ACETAMINOPHEN 325 MG TAB PO PRN (01:30)
[2017-12-21] MEDS ORDERED: PILL SPLITTER OTHER PRN (01:45)
[2017-12-21] MEDS ORDERED: SODIUM CHLOR 0.9% 1000 ML INJ 1,000 ML IV SCH (02:30)
[2017-12-21 03:32] LABS: AUTOMATED NEUTROPHIL # 3.7 TH/MM3 (1.8-7.7); BASOPHIL % 0.4 % (0.0-2.0); EOSINOPHIL # 1.1 TH/MM3 (0-0.4); EOSINOPHIL % 11.8 % (0.0-4.0); HEMATOCRIT 38.2 % (35.0-46.0); HEMOGLOBIN 13.3 GM/DL (11.6-15.3); LYMPHOCYTE # 4.2 TH/MM3 (1.0-4.8); MEAN CELL VOLUME 91.3 FL (80.0-100.0); MEAN CORPUSCULAR HEMOGLOBIN 31.7 PG (27.0-34.0); MEAN CORPUSCULAR HGB CONC 34.7 % (32.0-36.0); MEAN PLATELET VOLUME 8.5 FL (7.0-11.0); MONO % 5.1 % (0.0-8.0); MONOCYTE # 0.5 TH/MM3 (0-0.9); NEUT % 38.7 % (16.0-70.0); PLATELET COUNT 244 TH/MM3 (150-450); RED BLOOD COUNT 4.18 MIL/MM3 (4.00-5.30); RED CELL DISTRIBUTION WIDTH 13.6 % (11.6-17.2); WHITE BLOOD COUNT 9.5 TH/MM3 (4.0-11.0)
[2017-12-21 04:00] VITALS: BP 95/50; PULSE 61; RESP 16; O2SAT 80
[2017-12-21 04:39] LABS: BICARBONATE 29.6 MEQ/L (21.0-32.0); CALCIUM 8.5 MG/DL (8.5-10.1); CREATININE 0.91 MG/DL (0.50-1.00)
[2017-12-21 07:40] VITALS: BP 122/77; PULSE 65; RESP 18; O2SAT 97
[2017-12-21] MEDS ORDERED: INSULIN ASPART SUPPLEMENTAL SCALE SQ SCH (08:00)
[2017-12-21] MEDS ORDERED: SODIUM CHLORIDE 0.9% FLUSH 10 ML FLUSH IV FLUSH SCH (09:00)
[2017-12-21] MEDS ORDERED: GABAPENTIN 300 MG CAP PO SCH (09:00)
[2017-12-21] MEDS ORDERED: MELOXICAM 15 MG TAB PO SCH (09:00)
[2017-12-21] MEDS ORDERED: CITALOPRAM HYDROBROMIDE 20 MG TAB PO SCH (09:00)
[2017-12-21] MEDS ORDERED: LISINOPRIL 5 MG TAB PO SCH (09:00)
[2017-12-21] MEDS ORDERED: HEPARIN SODIUM - SQ 10,000 UNITS/ML VIAL SQ SCH (09:00)
[2017-12-21] MEDS ORDERED: DOCUSATE SODIUM 50 MG/SENNA 8.6 MG TAB PO SCH (09:00)
[2017-12-21] MEDS ORDERED: LEVEMIR SQ (11:16)
[2017-12-21] MEDS ORDERED: NOVOLOGP2 SQ (11:16)
[2017-12-21] MEDS ORDERED: METF1000 PO ×3 (11:16→12:57)
--- NOTE | 2017-12-21 11:17 | HHI.DCPOC ---
Discharge Care Plan Diagnosis: (1) Uncontrolled diabetes mellitus Goals to Promote Your Health * To prevent worsening of your condition and complications * To maintain your health at the optimal level Directions to Meet Your Goals Take your medications as prescribed Follow your dietary instruction Follow activity as directed Keep your appointments as scheduled Take your immunizations and boosters as scheduled If your symptoms worsen call your PCP, if no PCP go to Urgent Care Center or Emergency Room Smoking is Dangerous to Your Health. Avoid second hand smoke Call the 24-hour hour crisis hotline for domestic abuse at Deshawn Yepez MD, R3 Dec 21, 2017 11:17
[2017-12-21] MEDS ORDERED: MACR100C2 PO ×2 (11:23→12:55)
--- NOTE | 2017-12-21 11:24 | HHI.FPPN ---
Subjective Remarks Patient seen and examined this morning. Afebrile vital signs stable. She reports that she is feeling better today. She admits to noticing her blood sugars being elevated more often than they should be. She does feel like she develops a headache and nausea when her blood sugars too high. She states that she was without her metformin for several days due to lack of refilled medication. She has been titrating her insulin will need to continue this as an outpatient. We informed her as a team will provide her with refills of her diabetes medications, and that she is stable for discharge home to follow-up with her PCP Dr. Mckinley. She agrees to this plan of care. (Deshawn Yepez MD, R3) Objective Vitals Vital Signs Date Time Temp Pulse Resp B/P (MAP) Pulse Ox O2 Delivery O2 Flow Rate FiO2 12/21/17 07:40 65 18 122/77 (92) 97 Room Air 12/21/17 04:00 61 16 95/50 (65) 80 12/21/17 00:00 66 16 88/55 (66) 100 12/20/17 21:54 98.0 73 20 93/58 (70) 98 Room Air 12/20/17 21:43 98.0 72 20 89/50 (63) 98 Room Air 12/20/17 21:42 98.0 72 20 89/50 (63) 92 Room Air 12/20/17 20:54 98.4 81 18 109/56 (73) 98 I/O 12/20/17 12/20/17 12/20/17 12/21/17 12/21/17 12/21/17 07:00 15:00 23:00 07:00 15:00 23:00 Intake Total 1000 ml 1000 ml Balance 1000 ml 1000 ml Intake IV Total 1000 ml 1000 ml (Deshawn Yepez MD, R3) Result Diagram: 12/21/1722412/21/17224 Imaging Last Impressions Chest X-Ray 12/20/172123 Signed Impressions: Service Date/Time: December 22:04 - CONCLUSION: The lungs are clear. Vidal Robertson MD Objective Remarks GEN: Well-developed, well-nourished patient. No acute distress. CV: Regular rate and rhythm without obvious murmurs LUNGS: Clear to auscultation bilaterally. Normal respiratory effort. No wheezes , rales, rhonchi. GI: Soft, nontender, nondistended. No palpable masses. Bowel sounds WNL. EXT: No edema. NEURO/PSYCH: Afocal. Awake, alert, and oriented x3. Appropriate insight and judgment. Medications and IVs Current Medications Medications (Trade) Dose Ordered Sig/Ana Route Start Time Stop Time Status Last Admin (NS Flush) 2 ml UNSCH PRN IV FLUSH 12/21/17 01:15 (NS Flush) 2 ml BID IV FLUSH 12/21/17 09:00 12/21/17 09:33 (Narcan Inj) 0.4 mg UNSCH PRN IV PUSH 12/21/17 01:15 (Joan-Colace) 1 tab BID PO 12/21/17 09:00 12/21/17 09:35 (Milk Of Magnesia Liq) 30 ml Q12H PRN PO 12/21/17 01:15 (Senokot) 17.2 mg Q12H PRN PO 12/21/17 01:15 (Dulcolax Supp) 10 mg DAILY PRN RECTAL 12/21/17 01:15 (Lactulose Liq) 30 ml DAILY PRN PO 12/21/17 01:15 (Proair Hfa Inh) 2 puff DAILY PRN INH 12/21/17 01:15 (Elavil) 25 mg HS PO 12/21/17 21:00 (Lipitor) 40 mg HS PO 12/21/17 21:00 (CeleXA) 20 mg DAILY PO 12/21/17 09:00 12/21/17 09:35 (Neurontin) 300 mg TID PO 12/21/17 09:00 12/21/17 09:34 (Mobic) 15 mg DAILY PO 12/21/17 09:00 12/21/17 09:34 (Requip) 2 mg HS PO 12/21/17 21:00 (D50w (Vial) Inj) 50 ml UNSCH PRN IV PUSH 12/21/17 01:30 (Glucagon Inj) 1 mg UNSCH PRN OTHER 12/21/17 01:30 (NovoLOG SUPPLEMENTAL SCALE) 1 ACHS SLIDING SCALE SQ 12/21/17 08:00 12/21/17 09:33 Sodium Chloride 1,000 ml @ 150 mls/hr Q6H40M IV 12/21/17 02:30 12/21/17 06:01 (Tylenol) 650 mg Q4H PRN PO 12/21/17 01:30 (Percocet 5-325 Mg) 1 tab Q6H PRN PO 12/21/17 01:30 (Percocet 10-325 Mg) 1 tab Q6H PRN PO 12/21/17 01:30 (Zofran Inj) 4 mg Q6H PRN IV PUSH 12/21/17 01:30 Ceftriaxone Sodium 1000 mg/ Sodium Chloride 100 ml @ 200 mls/hr Q24H IV 12/22/17 00:30 (Deshawn Yepez MD, R3) A/P Assessment and Plan 57-year-old female with history of diabetes, hypertension, COPD, chronic pain presents due to hyperglycemia. Admitted for monitoring of glucose and clinical stabilization Discharge Planning Discharge home today (Deshawn Yepez MD, R3) Attending Attestation Patient seen and examined with the medicine team. Case discussed with the resident team. Agree with plan of care as discussed with me and documented in the resident note. (Cecilia Hwang MD) Problem List: (1) Uncontrolled diabetes mellitus ICD Codes: E11.65 - Type 2 diabetes mellitus with hyperglycemia Status: Chronic Plan: Current random glucose is 112 and stable. -Sliding scale insulin w/ regular accuchecks -We will restart patient's home medications and provide prescription refills -Monitor I/O -Start metformin 1000 mg twice daily (2) UTI (urinary tract infection) ICD Codes: N39.0 - Urinary tract infection, site not specified Plan: UA with moderate bacteria. Endorses urinary frequency Given Rocephin in ED -Urine culture pending will be followed as an outpatient -Discharged on Macrobid 100 mg twice daily for 5 days (3) Chronic pain disorder ICD Codes: G89.4 - Chronic pain syndrome Status: Chronic Plan: Continue home meds: Gabapentin, mobic Perocet PRN (4) Depression ICD Codes: F32.9 - Major depressive disorder, single episode, unspecified Status: Chronic Plan: Continue home meds: amitriptyline, Celexa (5) RLS (restless legs syndrome) ICD Codes: G25.81 - Restless legs syndrome Plan: Continue home ropinirole (6) Hyperlipemia ICD Codes: E78.5 - Hyperlipidemia, unspecified Status: Chronic Plan: Continue home lipitor (7) FEN Status: Acute Plan: Fluids: Adequate p.o. intake Electrolyte: mild hyponatremia; monitor replace PRN Nutrition: Diabetic diet DVT ppx: Heparin (Deshawn Yepez MD, R3) Problem Qualifiers (1) Uncontrolled diabetes mellitus: Qualified Codes: E11.65 - Type 2 diabetes mellitus with hyperglycemia; Z79.4 - salvage determiner (current) use of insulin (2) UTI (urinary tract infection): Qualified Codes: N30.00 - Acute cystitis without hematuria (3) Depression: Qualified Codes: F32.9 - Major depressive disorder, single episode, unspecified (4) Hyperlipemia: Qualified Codes: E78.5 - Hyperlipidemia, unspecified Deshawn Yepez MD, R3 Dec 21, 2017 11:24 Cecilia Hwang MD Dec 21, 2017 11:37
[2017-12-21] MEDS ORDERED: AMITRIPTYLINE HCL 25 MG TAB PO SCH (21:00)
[2017-12-21] MEDS ORDERED: ATORVASTATIN 40 MG TAB PO SCH (21:00)
[2017-12-22] MEDS ORDERED: cefTRIAXone INJ 1,000 MG in SODIUM CHLORIDE 0.9% INJ 100 ML IV SCH (00:30)
--- NOTE | 2017-12-22 22:56 | EKG ---
Date Performed: 12/20/2017 Time Performed: 23:31:18 PTAGE: 57 years EKG: Sinus rhythm NONSPECIFIC T-WAVE ABNORMALITY BORDERLINE ECG Compared to prior tracing, rate has decreased DOCTOR: Jose De Jesus Melendez Interpretating Date/Time 12/22/2017 22:55:08
== END 2017-12-21 14:56 | disposition home or self-care (01) ==
LOC: NEPC 19:28 → NEDA 12-21 00:24 → NEDH 12-21 14:37
PROVIDERS: ADMIT Family Medicine; ATTEND Family Medicine
DX: E11.65 Type 2 diabetes mellitus with hyperglycemia (principal); N30.00 Acute cystitis without hematuria; F32.9 Major depressive disorder, single episode, unspecified; R74.0 Nonspecific elevation of levels of transaminase and lactic acid dehydrogenase [LDH]; N28.9 Disorder of kidney and ureter, unspecified; E78.5 Hyperlipidemia, unspecified; E87.1 Hypo-osmolality and hyponatremia; G25.81 Restless legs syndrome; I10 Essential (primary) hypertension; J44.9 Chronic obstructive pulmonary disease, unspecified; G89.4 Chronic pain syndrome; K21.9 Gastro-esophageal reflux disease without esophagitis; R94.31 Abnormal electrocardiogram [ECG] [EKG]; F17.210 Nicotine dependence, cigarettes, uncomplicated; Z79.4 Long term (current) use of insulin; Z79.891 Long term (current) use of opiate analgesic; Z96.643 Presence of artificial hip joint, bilateral
CPT/HCPCS: 71045; 80048; 80053; 80307; 81001; 82010; 82805; 83605; 83690; 83735; 84484; 85025; 87040; 87086; 93005; 96361; 96365; 96366; 96372; 96375; 97161; 99285; G0378; G8987; G8988; J0696; J1815; J7030

== ENCOUNTER 2018-01-03 20:28 | Inpatient (IN) | payer OTHER ==
[~2018-01-03] VITALS: Ht 165.1 cm; Wt 63.6 kg
[~2018-01-03 20:28] MED LIST changes: +MACR100C2 PO
[2018-01-03 20:38] VITALS: BP 142/76; PULSE 83; RESP 16; TEMP 98.6; O2SAT 98
[2018-01-03 20:40] VITALS: O2SAT 99
[2018-01-03 20:50] VITALS: RESP 16; O2SAT 99
[2018-01-03 21:00] LABS: BASOPHIL # 0.1 TH/MM3 (0-0.2); BASOPHIL % 0.9 % (0.0-2.0); EOSINOPHIL # 0.5 TH/MM3 (0-0.4); EOSINOPHIL % 6.7 % (0.0-4.0); HEMATOCRIT 37.3 % (35.0-46.0); HEMOGLOBIN 12.6 GM/DL (11.6-15.3); LYMPH % 31.5 % (9.0-44.0); LYMPHOCYTE # 2.3 TH/MM3 (1.0-4.8); MEAN CORPUSCULAR HEMOGLOBIN 30.8 PG (27.0-34.0); MEAN CORPUSCULAR HGB CONC 33.8 % (32.0-36.0); MONO % 7.3 % (0.0-8.0); MONOCYTE # 0.5 TH/MM3 (0-0.9); NEUT % 53.6 % (16.0-70.0); PLATELET COUNT 306 TH/MM3 (150-450); RED CELL DISTRIBUTION WIDTH 12.6 % (11.6-17.2); WHITE BLOOD COUNT 7.4 TH/MM3 (4.0-11.0)
[2018-01-03] MEDS ORDERED: SODIUM CHLOR 0.9% 1000 ML INJ 1,000 ML IV SCH (21:00)
[2018-01-03] MEDS ORDERED: NALOXONE HCL 0.4 MG/ML AMP IV PUSH ONE ×5 (21:00→23:15)
[2018-01-03 21:04] LABS: CHLORIDE 97 MEQ/L (98-107); SODIUM (NA) 131 MEQ/L (136-145)
[2018-01-03 21:07] LABS: BICARBONATE 27.2 MEQ/L (21.0-32.0); BLOOD UREA NITROGEN 6 MG/DL (7-18); CALCIUM 9.2 MG/DL (8.5-10.1); GLUCOSE,RANDOM 314 MG/DL (74-106)
[2018-01-03 21:10] LABS: INTERNATIONAL NORMALIZED RATIO 1.1 RATIO; PROTHROMBIN TIME - PATIENT 10.7 SEC (9.8-11.6)
[2018-01-03 21:11] LABS: CREATININE 0.75 MG/DL (0.50-1.00); GLOMERULAR FILTRATION RATE 79 ML/MIN (>89)
[2018-01-03 21:16] LABS: TROPONIN I LESS THAN 0.02 NG/ML (0.02-0.05)
--- NOTE | 2018-01-03 21:22 | RADRPT ---
EXAM DATE/TIME: 01/03/2018 20:53 [place] COMPARISON: No previous studies available for comparison. INDICATIONS : Stroke alert. RADIATION DOSE: 57.05 CTDIvol (mGy) This report was called by Dr. Fairchild to Drs. Baca at 919 PM MEDICAL HISTORY : Hypertension. Chronic obstructive pulmonary disease. Diabetes mellitus type 2. SURGICAL HISTORY : None. ENCOUNTER: Initial ACUITY: 1 day PAIN SCALE: 0/10 LOCATION: cranial TECHNIQUE: Multiple contiguous axial images were obtained of the head. Using automated exposure control and adj ustment of the mA and/or kV according to patient size, radiation dose was kept as low as reasonably a chievable to obtain optimal diagnostic quality images. DICOM format image data is available electro nically for review and comparison. FINDINGS: CEREBRUM: The ventricles are normal for age. No evidence of midline shift, mass lesion, hemorrhage or acute in farction. No extra-axial fluid collections are seen. POSTERIOR FOSSA: The cerebellum and brainstem are intact. The 4th ventricle is midline. The cerebellopontine angle i s unremarkable. EXTRACRANIAL: The visualized portion of the orbits is intact. SKULL: The calvaria is intact. No evidence of skull fracture. CONCLUSION: 1. No acute intracranial abnormalities. Partial opacification of ethmoid air cells. Daniel aFirchild MD on January 03, 2018 at 21:15 Board Certified Radiologist. This report was verified electronically.
--- NOTE | 2018-01-03 21:24 | PD ---
HPI Chief Complaint: Altered Mental Status Time Seen by Provider: 20:51 Travel History International Travel<30 days: No Contact w/Intl Traveler<30days: No Traveled to known affect area: No History of Present Illness HPI 57-year-old female presents to the emergency department by private transportation in the care of her for evaluation of possible stroke due to sudden onset of altered mentation. According to the there is been no recent injury or trauma. Has been as good with the patient throughout the afternoon. According to while sitting in the parking lot in the car waiting to get out of the vehicle to go into [facility] he noticed that patient seemed to have a few seconds of a stair and then seemed to not respond to him when he asked her to get out of the car. He continues to see that she would not get out of the vehicle on her own and decided that she might be having a stroke and drove her immediately to the emergency room. noted the symptoms approximately 8:05 PM. reports patient has diabetes. Patient' s is very concerned her blood sugar is uncontrolled. Patient was recently hospitalized for poorly controlled blood sugar. Here the patient is awake appears slightly drowsy but answers appropriately denies headache denies weakness and denies any difficulty swallowing denies visual disturbance and denies any nausea chest pain or shortness of breath. Patient knows who she is where she would is and is able to provide information. Patient states she has taken her diabetic medication as prescribed. PFSH Past Medical History Narrative Medical Diabetes chronic pain syndrome dyslipidemia COPD Hx Anticoagulant Therapy: No Arthritis: Yes Asthma: No Blood Disorders: No Anxiety: Yes Depression: Yes Heart Rhythm Problems: No Cancer: No Cardiovascular Problems: Yes High Cholesterol: Yes Chest Pain: No Congestive Heart Failure: No COPD: Yes Cerebrovascular Accident: No Diabetes: Yes (diet ) Diminished Hearing: No Endocrine: Yes Gastrointestinal Disorders: Yes GERD: Yes Genitourinary: No Headaches: Yes Hepatitis: No Hiatal Hernia: No Hypertension: Yes Immune Disorder: No Implanted Vascular Access Dvce: No Kidney Stones: No Musculoskeletal: Yes (hip and back) Neurologic: Yes Psychiatric: No Reproductive: No Respiratory: Yes Immunizations Current: Yes Migraines: Yes Myocardial Infarction: No Renal Failure: No Seizures: No Sleep Apnea: No Thyroid Disease: No Ulcer: No Menopausal: Yes Tubal Ligation: Yes Past Surgical History Abdominal Surgery: No Appendectomy: No Cardiac Surgery: No Section: Yes (1992) Cholecystectomy: No Ear Surgery: No Endocrine Surgery: No Eye Surgery: No Genitourinary Surgery: No Gynecologic Surgery: Yes (TUBLIGATION) Neurologic Surgery: No Oral Surgery: No Thoracic Surgery: No Other Surgery: Yes (bilat hips-02/2017) Social History Alcohol Use: No Tobacco Use: Yes (10/16 ppd) Substance Use: No (hx of crack, cocaine, marijuana ) Allergies-Medications (Allergen,Severity, Reaction): Coded Allergies: No Known Allergies (Verified Allergy, Unknown, 12/20/17) Reported Meds & Prescriptions Reported Meds & Active Scripts Active Metformin (Metformin HCl) 1,000 Mg Tab 1,000 Mg PO BID With a meal.. Macrobid (Nitrofurantoin Monohydrate Macrocrystals) 100 Mg Capsule 100 Mg PO BID . Levemir Inj (Insulin Detemir) 1,000 unit/ 10 ML Vial 10 Units SQ HS 30 Days Do not mix with any other Insulin. Novolog Inj (Insulin Aspart) 1,000 Unit/10 Ml Vial 1-9 Units SQ ACHS Max dose at bedtime:( )units; sugars less than 70,(0)units; sugars 150-199,(1) unit; sugars 200-249,(3) units; sugars 250-299,(5) units; sugars 300-349,(7) units; sugars greater than 349,(9) units Glucocom Test Strips (Blood Glucose Test Strips) 1 Trina Trina Ea .ROUTE DIRECTED Do Accu-Cheks before each meal and at bedtime Lancets 1 Mis Mis Ea .ROUTE DIRECTED Insulin Syringe/U-100/31G X 5/16" 1 ml 31 Gauge X 5/16" Mis Ea .ROUTE DIRECTED Glucocom Blood Glucose Mo W/Device (Device) 1 Kit Kit Kit .ROUTE DIRECTED Gabapentin 300 Mg Cap 300 Mg PO TID Amitriptyline (Amitriptyline HCl) 25 Mg Tab 25 Mg PO HS Reported Meloxicam 15 Mg Tab 15 Mg PO DAILY Lipitor (Atorvastatin Calcium) 40 Mg Tab 40 Mg PO HS Ropinirole 2 Mg Tab 2 Mg PO HS Proair Hfa 8.5 GM Inh (Albuterol Sulfate) 90 Mcg/Act Aer 2 Puff INH Q4-6H PRN 108 mcg/actuation Citalopram (Citalopram Hydrobromide) 20 Mg Tab 20 Mg PO DAILY Zolpidem (Zolpidem Tartrate) 5 Mg Tab 5 Mg PO HS PRN Lisinopril 2.5 Mg Tab 2.5 Mg PO DAILY Xanax (Alprazolam) 1 Mg Tab 1 Mg PO Q8H PRN Review of Systems ROS Limitations: Clinical Condition, Poor Historian, Other: (Spouse) General / Constitutional: No: Fever Eyes: No: Visual changes HENT: No: Headaches Cardiovascular: No: Chest Pain or Discomfort Respiratory: No: Shortness of Breath Gastrointestinal: No: Abdominal Pain Genitourinary: No: Dysuria Musculoskeletal: No: Pain Skin: No Rash Neurologic: No: Weakness, Headache Hematologic/Lymphatic: No: Lymph Node Enlargement Physical Exam Narrative GENERAL: Well-developed well-nourished female no acute distress no respiratory distress GCS 14-15, mild drowsiness with mild slurring of speech SKIN: Warm and dry. HEAD: Atraumatic. Normocephalic. EYES: Pupils equal and round. Extraocular muscles intact. No scleral icterus. No injection or drainage. ENT: No nasal bleeding or discharge. Mucous membranes pink and moist. NECK: Trachea midline. No JVD. CARDIOVASCULAR: Regular rate and rhythm. RESPIRATORY: No accessory muscle use. Clear to auscultation. Breath sounds equal bilaterally. GASTROINTESTINAL: Abdomen soft, non-tender, nondistended. Hepatic and splenic margins not palpable. MUSCULOSKELETAL: Extremities without clubbing, cyanosis, or edema. No obvious deformities. NEUROLOGICAL: Awake and mild drowsiness. No obvious cranial nerve deficits. Motor grossly within normal limits. Five out of 5 muscle strength in the arms and legs. Negative pronator drift. Negative limb ataxia. Mild slurring of speech. PSYCHIATRIC: Appropriate mood and affect; insight and judgment normal. Data Data Last Documented VS Vital Signs Date Time Temp Pulse Resp B/P (MAP) Pulse Ox O2 Delivery O2 Flow Rate FiO2 01/03/18 22:12 100 21 Orders Orders Cath For Specimen (01/03/18 20:46) Neuro Checks Q2HX12,Q4H (01/03/18 20:46) Nursing Bedside Swallow Assess .ONCE (01/03/18 20:46) Activity Bed Rest (01/03/18 20:46) Diet Npo (01/04/18 Breakfast) Prothrombin Time / Inr (Pt) (01/03/18 20:46) Act Partial Throm Time (Ptt) (01/03/18 20:46) Complete Blood Count With Diff (01/03/18 20:46) Basic Metabolic Panel (Bmp) (01/03/18 20:46) Fibrinogen (01/03/18 20:46) Creatine Kinase (Cpk) (01/03/18 20:46) Troponin I (01/03/18 20:46) Ua Includes Microscopic (01/03/18 20:46) Drug Screen, Random Urine (01/03/18 20:46) Type And Screen (01/03/18 20:46) Ct Brain W/O Iv Contrast(Rout) (01/03/18 ) Cta Brain W Iv Contrast W 3d (01/03/18 20:46) Cta Neck W Iv Contrast W 3d (01/03/18 20:46) Electrocardiogram (01/03/18 ) Beta Hcg (Quant/Titer) (01/03/18 20:46) Consult Neurology (01/03/18 20:46) Blood Glucose (01/03/18 20:46) Ecg Monitoring (01/03/18 20:46) Iv Access Insert/Monitor (01/03/18 20:46) NPO (01/03/18 20:46) Oximetry (01/03/18 20:46) Resp Oxygen Nc Stroke (01/03/18 ) Naloxone Inj (Narcan Inj) (01/03/18 21:00) Sodium Chlor 0.9% 1000 Ml Inj (Ns 1000 M (01/03/18 21:00) Iohexol 350 Inj (Omnipaque 350 Inj) (01/03/18 21:33) Naloxone Inj (Narcan Inj) (01/03/18 22:45) Ammonia Aromatic Inhalant (Aromatic Ammo (01/03/18 22:45) Naloxone Inj (Narcan Inj) (01/03/18 22:45) Ct Brain W/O Iv Contrast(Rout) (01/03/18 ) Arterial Blood Gas (Abg) (01/03/18 ) Naloxone Inj (Narcan Inj) (01/03/18 23:15) Naloxone Inj (Narcan Inj) (01/03/18 23:15) Naloxone Inj (Narcan Inj) (01/03/18 23:15) Sodium Chlor 0.9% 1000 Ml Inj (Ns 1000 M (01/03/18 23:45) Etomidate Inj (Amidate Inj) (01/03/18 23:54) Succinylcholine Inj (Quelicin Inj) (01/03/18 23:55) Chest, Single Ap (01/04/18 ) (Hub Use Only)Inp Phy Cons/Ref (01/04/18 ) Propofol 1000 Mg/100 Ml Inj (Diprivan 10 (01/04/18 00:45) Tylenol (Acetaminophen) (01/04/18 00:49) Salicylates (Aspirin) (01/04/18 00:49) Osmolality, Urine (01/04/18 00:49) Osmolality,Serum (01/04/18 00:49) Sodium, Random Urine (01/04/18 00:49) Portable Eeg (01/04/18 ) Mri Brain W/O Contrast (01/04/18 ) Basic Metabolic Panel (Bmp) (01/04/18 00:49) Magnesium (Mg) (01/04/18 00:49) Phosphorus (Po4) (01/04/18 00:49) Admit Order (Ed Use Only) (01/04/18 ) Superintendent Pier / Telemetry CORINNE.Q8H (01/04/18 00:56) Activity Bed Rest (01/04/18 00:56) Notify Dr: Other (01/04/18 00:56) Labs Laboratory Tests Test 01/03/18 20:51 01/03/18 21:41 White Blood Count 7.4 TH/MM3 Red Blood Count 4.10 MIL/MM3 Hemoglobin 12.6 GM/DL Hematocrit 37.3 % Mean Corpuscular Volume 91.0 FL Mean Corpuscular Hemoglobin 30.8 PG Mean Corpuscular Hemoglobin Concent 33.8 % Red Cell Distribution Width 12.6 % Platelet Count 306 TH/MM3 Mean Platelet Volume 8.0 FL Neutrophils (%) (Auto) 53.6 % Lymphocytes (%) (Auto) 31.5 % Monocytes (%) (Auto) 7.3 % Eosinophils (%) (Auto) 6.7 % Basophils (%) (Auto) 0.9 % Neutrophils # (Auto) 4.0 TH/MM3 Lymphocytes # (Auto) 2.3 TH/MM3 Monocytes # (Auto) 0.5 TH/MM3 Eosinophils # (Auto) 0.5 TH/MM3 Basophils # (Auto) 0.1 TH/MM3 CBC Comment DIFF FINAL Differential Comment Prothrombin Time 10.7 SEC Prothromb Time International Ratio 1.1 RATIO Activated Partial Thromboplast Time 25.8 SEC Fibrinogen 367 mg/dL Blood Urea Nitrogen 6 MG/DL Creatinine 0.75 MG/DL Random Glucose 314 MG/DL Calcium Level 9.2 MG/DL Sodium Level 131 MEQ/L Potassium Level 3.9 MEQ/L Chloride Level 97 MEQ/L Carbon Dioxide Level 27.2 MEQ/L Anion Gap 7 MEQ/L Estimat Glomerular Filtration Rate 79 ML/MIN Total Creatine Kinase 37 U/L Troponin I LESS THAN 0.02 NG/ML Human Chorionic Gonadotropin, Quant 3 MIU/ML Urine Color YELLOW Urine Turbidity CLEAR Urine pH 6.5 Urine Specific Ledbetter LESS/EQUAL 1.005 Urine Protein NEG mg/dL Urine Glucose (UA) 1000 OR GREATER mg/dL Urine Ketones NEG mg/dL Urine Occult Blood TRACE Urine Nitrite NEG Urine Bilirubin NEG Urine Urobilinogen 0.2 MG/DL Urine Leukocyte Esterase NEG Urine RBC 3-5 /hpf Urine WBC 0-2 /hpf Urine Squamous Epithelial Cells 0-5 /hpf Urine Bacteria NONE /hpf Urine Yeast (Budding) OCC Microscopic Urinalysis Comment Urine Opiates Screen NEG Urine Barbiturates Screen NEG Urine Amphetamines Screen NEG Urine Benzodiazepines Screen POS Urine Cocaine Screen NEG Urine Cannabinoids Screen NEG MDM Medical Decision Making Medical Screen Exam Complete: Yes Emergency Medical Condition: Yes Medical Record Reviewed: Yes Interpretation(s) EKG: Normal sinus rhythm rate [address] elevation injury pattern or ectopy noted Last Impressions Neck CTA 01/03/182045 Signed Impressions: Service Date/Time: December 20:53 - CONCLUSION: Normal examination for a patient of this age. Daniel Fairchild MD Head CTA 01/03/182045 Signed Impressions: Service Date/Time: December 20:53 - CONCLUSION: Normal examination for a patient of this age. Daniel Fairchild MD Head CT 01/03/18 0000 Signed Impressions: Service Date/Time: December 23:41 - CONCLUSION: Stable unremarkable noncontrast head CT Chin Zepeda MD Head CT 01/03/18 0000 Signed Impressions: Service Date/Time: December 20:53 - CONCLUSION: 1. No acute intracranial abnormalities. Partial opacification of ethmoid air cells. Daniel Fairchild MD CBC & BMP Diagram 01/03/18 20:51 Calcium Level 9.2 Vital Signs Date Time Temp Pulse Resp B/P (MAP) Pulse Ox O2 Delivery O2 Flow Rate FiO2 01/03/18 22:12 100 21 01/03/18 20:40 99 21 Coagulation studies in normal range Urine drug screen positive for benzodiazepines Urinalysis positive for glucosuria negative ketones Troponin I is less than 0.02, elevated CK total is 32 not elevated Differential Diagnosis Altered mental status, stroke alert, uncontrolled diabetes/hypoglycemia, polysubstance ingestion, seizure, metabolic disturbance/encephalopathy Narrative Course Patient immediately placed supine on ED stretcher placed on secured entrance monitor with continuous pulse oximetry and stat bedside glucose 311; patient presents with mild drowsiness but able to follow commands identifies herself and her date of tongue is midline airway is patent demonstrate slurring of speech symmetric motor strength and sensory exam for bilateral upper extremities and lower extremities no limb ataxia no pronator drift. NIHSS : 2; stroke alert called; Patient sent for stat CT brain noncontrast; discussed with neurologist; reported to nurse prescription for Lortab. At 9:10 PM patient with GCS of 9 after presenting with GCS of 14-15 therefore Narcan 0.2 mg IV administered patient's GCS 15 patient able to say her name date of without slurring of speech able to repeat you cannot teach in all dog matrix able to follow commands able to name 3 items without difficulty able to count fingers no focality on neurologic exam no facial droop tongue midline no pronator drift motor strength 5/5 no limb ataxia. This information was shared with the neurologist Dr. Diane by phone [phone] patient is not a candidate for TPA; aware CT brain noncontrast is pending and CTA brain and carotids pending; Patient admits to Xanax and Percocet use, denies Lortab use. @ 9:[address] negative per radiologist, additional Narcan 0.2 mg IV administered , repeat dose LOC awake, GCS 15 Patient awaiting pending labs for admission Patient noted to be markedly somnolent with snoring respirations and minimal response to sternal rub. Patient given additional Narcan response to repeat doses with minimal response. Patient sent for a stat CT brain noncontrast. While waiting for CT patient transiently sat upright complained of needing to urinate and then became somnolent and then again had decreased level of consciousness with snoring respirations. Stat CT revealed no acute intracranial process and as patient with ongoing recurrence of sonorous respirations and decreased level consciousness patient was intubated. Postintubation chest x-ray reveals no lobar infiltrate no pneumothorax and endotracheal tube to be in good position with NG tube in place. Patient's case was discussed with banking paralegal who has graciously accepted the patient with altered mental status with history of opiate use and chronic benzodiazepine use blood sugar 282. Patient will be admitted for altered mental status long-term benzodiazepine use as possible benzodiazepine overdose history of recent opiate use although tox screen is negative for opiates and poorly controlled diabetes. Physician Communication Physician Communication @ 9:14 no tPa per neurologist, Dr Romeo @ 9:[address] Fairchild radiologist negative CT; discussed with Dr Tamayo ---> ICU service Diagnosis Primary Impression: Altered mental status Additional Impressions: [facility] prescription benzodiazepine use Opiate use Diabetes Admitting Information Admitting Physician Requests: Admit Pratima Baca MD Jan 03, 2018 21:24
[2018-01-03] MEDS ORDERED: IOHEXOL 350 MG/ML 10 ML VIAL (for RAD DIAG) IVCONTRAST ONE (21:33)
[2018-01-03 21:47] LABS: BILIRUBIN, URINE NEG (NEG); BLOOD, URINE TRACE (NEG); GLUCOSE,URINE 1000 OR GREATER mg/dL (NEG); KETONE, URINE NEG (NEG); NITRITE,URINE NEG (NEG); PH, URINE 6.5 (5.0-8.5); URINE COLOR YELLOW (YELLW/STRAW); URINE LEUKOCYTE ESTERASE NEG (NEG)
--- NOTE | 2018-01-03 21:48 | RADRPT ---
EXAM DATE/TIME: 01/03/2018 20:53 [facility] COMPARISON: No previous studies available for comparison. INDICATIONS : Stroke alert. IV CONTRAST: 100 cc Omnipaque 350 (iohexol) IV ; Cumulative dose for multiple exams. RADIATION DOSE: 43.08 CTDIvol (mGy) ; Combined studies MEDICAL HISTORY : Chronic obstructive pulmonary disease. Diabetes mellitus type 2. Hypertension. SURGICAL HISTORY : None. ENCOUNTER: Initial ACUITY: 1 day PAIN SCALE: 0/10 LOCATION: cranial TECHNIQUE: Volumetric scanning was performed using a multi-row detector CT scanner. The data was post processed with a variety of visualization algorithms including full volume maximum intensity projection, multi -planar sliding thin slab reformation, curved planar reformation, and surface rendering techniques. Using automated exposure control and adjustment of the mA and/or kV according to patient size, radiat ion dose was kept as low as reasonably achievable to obtain optimal diagnostic quality images. DICO M format image data is available electronically for review and comparison. FINDINGS: There is excellent visualization of the major intracranial arteries out to the second-order branch ve ssels. There is no evidence for aneurysm, vessel truncation or stenosis, and no evidence for vascula r malformation. CONCLUSION: Normal examination for a patient of this age. Daniel Fairchild MD on January 03, 2018 at 21:42 Board Certified Radiologist. This report was verified electronically.
--- NOTE | 2018-01-03 21:51 | RADRPT ---
EXAM DATE/TIME: 01/03/2018 20:53 [facility] COMPARISON: No previous studies available for comparison. INDICATIONS : Stroke alert. IV CONTRAST: 100 cc Omnipaque 350 (iohexol) IV ; Cumulative dose for multiple exams. RADIATION DOSE: 43.06 CTDIvol (mGy) ; Combined studies MEDICAL HISTORY : Chronic obstructive pulmonary disease. Diabetes mellitus type 2. Hypertension. SURGICAL HISTORY : None. ENCOUNTER: Initial ACUITY: 1 day PAIN SCALE: 0/10 LOCATION: neck Elevated flow velocities and ICA/CCA ratios have been found to correlate with increased degrees of vessel stenosis, calculated as percentage of diameter relative to a normal segment of distal ICA/CCA. TECHNIQUE: Volumetric scanning was performed using a multirow detector CT scanner. The data was post processed with a variety of visualization algorithms including full-volume maximum intensity projection, multip lanar sliding thin-slab reformation, curved-planar reformation, and surface-rendering techniques. Us ing automated exposure control and adjustment of the mA and/or kV according to patient size, radiatio n dose was kept as low as reasonably achievable to obtain optimal diagnostic quality images. DICOM f ormat image data is available electronically for review and comparison. FINDINGS: AORTIC ARCH: There is a three-vessel origin of the great vessels from the aorta. No evidence of ostial narrowing. RIGHT CAROTID: The common carotid artery is intact. The carotid bulb has a normal configuration without ulceration o r narrowing. The internal carotid artery lumen is smooth without stenosis. The external carotid tarsha ry is intact. LEFT CAROTID: The common carotid artery is intact. The carotid bulb has a normal configuration without ulceration or narrowing. The internal carotid artery lumen is smooth without stenosis. The external carotid ar teddy is intact. VERTEBRALS: The vertebral arteries have a symmetric diameter. No stenotic lesions are seen. CONCLUSION: Normal examination for a patient of this age. Daniel Fairchild MD on January 03, 2018 at 21:46 Board Certified Radiologist. This report was verified electronically.
[2018-01-03 22:12] VITALS: O2SAT 100
[2018-01-03 22:38] LABS: WBC, URINE 0-2 /hpf (0-5)
[2018-01-03 22:39] LABS: SQUAMOUS EPITHELIAL CELL URINE 0-5 /hpf (0-5)
[2018-01-03] MEDS ORDERED: AMMONIA AROMATIC INHALANT 0.33 ML NASAL ONE (22:45)
[2018-01-03 23:00] VITALS: BP 161/98; PULSE 72; RESP 12; O2SAT 99
[2018-01-03] MEDS ORDERED: NALOXONE INJ 4 MG in DEXTROSE 5% IN WATER INJ 246 ML IV PRN ×2 (23:15)
[2018-01-03] MEDS ORDERED: SODIUM CHLOR 0.9% 1000 ML INJ 1,000 ML IV ONE (23:45)
[2018-01-03] MEDS ORDERED: ETOMIDATE 20 MG/10 ML VIAL ONE (23:54)
[2018-01-03] MEDS ORDERED: SUCCINYLCHOLINE CHLORIDE 200 MG/10 ML VIAL ONE (23:55)
[2018-01-04] VITALS (58 sets, daily range): BP systolic 84–175; BP diastolic 66–118; PULSE 74–124; RESP 8–32; TEMP 97.8–100.2; O2SAT 98–100
[2018-01-04] MEDS: PROPOFOL 1000 MG/100 ML INJ 100 ML IV PRN ×6 (00:10→23:35)
--- NOTE | 2018-01-04 00:15 | RADRPT ---
EXAM DATE/TIME: 01/03/2018 23:41 [facility] COMPARISON: CT BRAIN W/O CONTRAST, January 03, 2018, 20:53. INDICATIONS : Altered mental status. RADIATION DOSE: 58.34 CTDIvol (mGy) MEDICAL HISTORY : Hypertension. Diabetes mellitus type 2. Chronic obstructive pulmonary disease. SURGICAL HISTORY : None. ENCOUNTER: Subsequent ACUITY: 1 day PAIN SCALE: Non-responsive LOCATION: cranial TECHNIQUE: Multiple contiguous axial images were obtained of the head. Using automated exposure control and adj ustment of the mA and/or kV according to patient size, radiation dose was kept as low as reasonably a chievable to obtain optimal diagnostic quality images. DICOM format image data is available electro nically for review and comparison. FINDINGS: CEREBRUM: The ventricles are normal for age. No evidence of midline shift, mass lesion, hemorrhage or acute in farction. No extra-axial fluid collections are seen. POSTERIOR FOSSA: The cerebellum and brainstem are intact. The 4th ventricle is midline. The cerebellopontine angle i s unremarkable. EXTRACRANIAL: The visualized portion of the orbits is intact. SKULL: The calvaria is intact. No evidence of skull fracture. CONCLUSION: Stable unremarkable noncontrast head CT Chin Zepeda MD on January 04, 2018 at 0:11 Board Certified Radiologist. This report was verified electronically.
[2018-01-04] MEDS ORDERED: PROPOFOL 1000 MG/100 ML INJ 100 ML IV PRN (00:45)
[2018-01-04] MEDS: SODIUM CHLOR 0.9% 1000 ML INJ 1,000 ML IV SCH ×3 (00:54→23:34)
--- NOTE | 2018-01-04 00:57 | RADRPT ---
EXAM DATE/TIME: 01/04/2018 00:28 This report includes an Addendum and supersedes previous reports for this exam. [facility] COMPARISON: CTA CAROTID ARTERIES W 3D RECON, January 03, 2018, 20:53. CHEST SINGLE AP, April 18, 2017, 16:34. CHES T SINGLE AP, August 24, 2017, 13:47. CHEST SINGLE AP, December 20, 2017, 22:04. INDICATIONS : Post intubation MEDICAL HISTORY : Hypertension. Diabetes mellitus type 2. Chronic obstructive pulmonary disease SURGICAL HISTORY : None. ENCOUNTER: Initial ACUITY: 1 day PAIN SCORE: Non-responsive. LOCATION: Bilateral chest FINDINGS: A single AP portable supine view of the chest was obtained and demonstrates that the patient is statu s post intubation with the endotracheal tube tip approximately 3 cm above the ugo. A nasogastric t ube is been placed with the tip in the proximal stomach. The side-port is at the level of the distal esophagus. There is mild hazy perihilar opacities without focal consolidation or effusion. The heart size is within normal limits. The distal left clavicle is abnormal in appearance with apparent resorp tion of bone. This was not present on the more remote 2017 examinations. No other bony abnormalities identified. CONCLUSION: 1. Interval intubation and placement of nasogastric tube. The distal side-port of the nasogastric tub e lies in the region of the distal esophagus. 2. Abnormal distal left clavicle which appears to correspond to an ununited fracture on the CT caroti d angiogram. Chin Zepeda MD on January 04, 2018 at 0:49 Board Certified Radiologist. This report was verified electronically. ADDENDUM: The mild hazy opacity in the perihilar regions could represent early pulmonary edema. Chin Zepeda MD on January 04, 2018 at 2:16 Board Certified Radiologist. This report was verified electronically.
[2018-01-04] MEDS ORDERED: ONDANSETRON HCL 4 MG/2 ML VIAL IV PUSH PRN (01:00)
[2018-01-04] MEDS ORDERED: MAGNESIUM SULFATE INJ 2 GM in SODIUM CHLORIDE 0.9% INJ 96 ML IV PRN (01:00)
[2018-01-04] MEDS ORDERED: RESP: ALBUTEROL 2.5 MG/IPRATROPIUM 0.5 MG NEB (PRN) INH (01:00)
[2018-01-04] MEDS ORDERED: MAGNESIUM HYDROXIDE SUSP 30 ML CUP PO PRN (01:00)
[2018-01-04] MEDS ORDERED: POTASSIUM PHOSPHATE INJ 30 MMOL in SODIUM CHLOR 0.9% 250 ML INJ 250 ML IV PRN (01:00)
[2018-01-04] MEDS ORDERED: DEXTROSE 50% IN WATER 50 ML VIAL(D50) IV PUSH PRN (01:00)
[2018-01-04] MEDS ORDERED: MISCELLANEOUS NURSING INFORMATION XX SCH (01:00)
[2018-01-04] MEDS ORDERED: CHLORHEXIDINE GLUCONATE 2 % 1 PACK (2 CLOTHS) TOP PRN (01:00)
[2018-01-04] MEDS ORDERED: POTASSIUM PHOSPHATE MONOBASIC 500 MG TAB PO PRN (01:00)
[2018-01-04] MEDS ORDERED: MAGNESIUM SULFATE INJ 4 GM in SODIUM CHLORIDE 0.9% INJ 92 ML IV PRN (01:00)
[2018-01-04] MEDS ORDERED: POTASSIUM CHLOR 20 MEQ PREMIX 100 ML IV PRN (01:00)
[2018-01-04] MEDS ORDERED: POTASSIUM CHLORIDE 25 MEQ EFFERVESCENT TAB PO PRN (01:00)
[2018-01-04] MEDS ORDERED: SODIUM PHOSPHATE INJ 30 MMOL in SODIUM CHLOR 0.9% 250 ML INJ 240 ML IV PRN (01:00)
[2018-01-04] MEDS ORDERED: LORazepam 2 MG/ML VIAL IV PUSH PRN (01:00)
[2018-01-04] MEDS ORDERED: MAGNESIUM OXIDE 400 MG TAB PO PRN (01:00)
[2018-01-04] MEDS ORDERED: POTASSIUM CHLOR 40 MEQ PREMIX 100 ML IV PRN ×2 (01:00)
[2018-01-04] MEDS ORDERED: POTASSIUM PHOSPHATE MONOBASIC 500 MG TAB PO/TUBE PRN (01:00)
[2018-01-04] MEDS ORDERED: SODIUM CHLORIDE FLUSH PRN IV FLUSH (02:00)
[2018-01-04] MEDS ORDERED: PANTOPRAZOLE SODIUM 40 MG VIAL IV PUSH ONE (02:00)
[2018-01-04 02:02] LABS: CHLORIDE 101 MEQ/L (98-107); SODIUM (NA) 137 MEQ/L (136-145)
[2018-01-04 02:05] LABS: CALCIUM 9.2 MG/DL (8.5-10.1)
[2018-01-04 02:06] LABS: ALBUMIN 3.6 GM/DL (3.4-5.0); BICARBONATE 27.5 MEQ/L (21.0-32.0); BLOOD UREA NITROGEN 5 MG/DL (7-18); GLUCOSE,RANDOM 331 MG/DL (74-106); MAGNESIUM 1.4 MG/DL (1.5-2.5)
[2018-01-04 02:09] LABS: ALT (GPT) 14 U/L (10-53); AST (GOT) 12 U/L (15-37); CREATININE 0.66 MG/DL (0.50-1.00); GLOMERULAR FILTRATION RATE 92 ML/MIN (>89); PHOSPHORUS 2.9 MG/DL (2.5-4.9)
[2018-01-04 02:10] LABS: TOTAL BILIRUBIN ADULT 0.6 MG/DL (0.2-1.0); TOTAL PROTEIN 7.1 GM/DL (6.4-8.2)
[2018-01-04 02:11] LABS: ALKALINE PHOSPHATASE 116 U/L (45-117)
[2018-01-04] MEDS ORDERED: PANTOPRAZOLE INJ 80 MG in SODIUM CHLORIDE 0.9% INJ 35 ML IV ONE (02:12)
[2018-01-04] MEDS ORDERED: PANTOPRAZOLE INJ 80 MG in SODIUM CHLORIDE 0.9% INJ 100 ML IV SCH (02:12)
[2018-01-04 02:17] LABS: DIRECT BILIRUBIN ADULT 0.1 MG/DL (0.0-0.2); INDIRECT BILIRUBIN 0.5 MG/DL (0.0-0.8)
[2018-01-04] MEDS ORDERED: MAGNESIUM SULFATE 4 GM PREMIX 100 ML IV ONE (02:30)
[2018-01-04] MEDS ORDERED: MAGNESIUM SULFATE INJ 4 GM in SODIUM CHLORIDE 0.9% INJ 92 ML IV ONE (02:45)
[2018-01-04] MEDS: LABETALOL HCL 100 MG/20 ML VIAL IV PUSH PRN ×3 (02:58→04:57)
[2018-01-04] MEDS: RESP: ALBUTEROL 2.5 MG/IPRATROPIUM 0.5 MG NEB (SCH) INH ×4 (03:06→22:00)
[2018-01-04] MEDS: hydrALAZINE HCL 20 MG/ML VIAL IV PUSH PRN ×3 (03:35→17:07)
[2018-01-04] MEDS: CHLORHEXIDINE GLUCONATE 2 % 1 PACK (2 CLOTHS) TOP SCH (04:00)
[2018-01-04 04:01] LABS: ACETAMINOPHEN LESS THAN 2.0 MCG/ML (10.0-30.0)
[2018-01-04] MEDS: INSULIN NovoLIN REGULAR SUPPLEMENTAL SCALE SQ SCH ×6 (05:20→23:12)
[2018-01-04] MEDS ORDERED: HEPARIN SODIUM - SQ 10,000 UNITS/ML VIAL SQ SCH (06:00)
--- NOTE | 2018-01-04 07:45 | MH ---
cc: Otilia Anne MD DATE OF ADMISSION: 01/04/2018 HISTORY OF PRESENT ILLNESS: The patient is a 57-year-old female with past medical history of hypertension, diabetes mellitus, COPD, depression, restless leg syndrome, who presented to [place] ED as a stroke alert. According to the ED records, while the patient was sitting in the car with her , he noticed her to have a few seconds of staring and then seemed to not respond to him when he asked her to get out of the car. He drove her immediately to the ED. The patient was recently hospitalized for poorly controlled diabetes mellitus. The patient, in the ED, was slightly drowsy; however, she was answering questions appropriately initially. Due to her worsening mental status, she was intubated for airway protection. In the ED, the patient was given Narcan x 4 and received 1 liter of normal saline. A CT scan of the brain was unremarkable. She also underwent CTA of the brain and neck, which was within normal. Chest x-ray post-intubation showed ET tube above the ugo, a mild hazy opacity in the perihilar region. Dr. Diane from Neurology service was notified by ED and the patient deemed not a candidate for TPA. She is scheduled to undergo an MRI of the brain along with EEG today. Her urine drug screen was positive for benzodiazepines. There is no evidence of any fever or leukocytosis. When seen in the ER, the patient is sedated with Diprivan and on full mechanical ventilation. She is hypertensive with systolic blood pressure 150s to 160s. PAST MEDICAL HISTORY: Significant for COPD, hypertension, depression, diabetes mellitus, chronic pain syndrome. PAST SURGICAL HISTORY: Previous tubal ligation, previous bilateral hip replacements, previous right wrist repair. ALLERGIES: NO KNOWN DRUG ALLERGIES REPORTED. REPORTED MEDICATIONS: Lipitor, lisinopril, Meloxicam, gabapentin, amitriptyline, Xanax, insulin. SOCIAL HISTORY: Nondrinker, smoker. FAMILY HISTORY: Reviewed, not contributing to present illness. REVIEW OF SYSTEMS: As per HPI. Rest of review of systems limited as the patient is intubated. PHYSICAL EXAMINATION: GENERAL: A 57-year-old female, intubated for airway protection and sedated with Diprivan. VITAL SIGNS: Afebrile, pulse of 86, blood pressure 150/105, saturation 100%. Vent setting: Assist control ventilation with a rate of 15, tidal volume 500, PEEP of 5, FiO2 of 50%. HEENT: Atraumatic, normocephalic. Pupils are equal, round, reactive to light and accommodation. Extraocular muscles intact. Conjunctivae pink. Nonicteric sclerae. Oral mucosa within normal. NECK: Supple. No JVD, adenopathy, or thyromegaly. Trachea in the midline. CARDIOVASCULAR: Regular rate and rhythm. Normal S1, S2, No murmurs, rubs or gallops noted. LUNGS: Bilateral equal air entry. No rales or wheezing. ABDOMEN: Soft, nontender. No distention. Positive bowel sounds. EXTREMITIES: No cyanosis, clubbing or edema. NEUROLOGIC: Intubated and sedated. LABORATORY DATA: Sodium 137, potassium 3.4, chloride 101, CO2 of 27, BUN 5, creatinine 0.66, glucose 331, magnesium 1.4, lactic acid 1.3, phosphorus 2.9. Troponin less than 0.02. Total CK 37. Ammonia 24. WBC 7.4, hemoglobin 12.6, hematocrit 37, platelet count 306. Urine drug screen positive for benzodiazepines. Alcohol level less than 3. Tylenol level less than 2. INR 1.1, PT 10.7, PTT 25.8. Urinalysis negative for nitrite, negative for leukocyte esterase. RADIOGRAPHIC STUDIES: CT brain, CTA of the head and neck unremarkable. EKG is normal sinus rhythm with a rate of 70 beats per minute. IMPRESSION: 1. Vent dependent respiratory failure. 2. Altered mental status, likely secondary to chronic Xanax and Percocet use. 3. Chronic pain syndrome. 4. Hyperglycemia. 5. History of diabetes mellitus. 6. Hypertension. 7. History of depression. 8. History of chronic obstructive pulmonary disease. 9. History of restless leg syndrome. RECOMMENDATIONS: 1. Monitor neuro status closely and daily sedation vacation. CT scan of the brain along with a CTA of the brain and neck unremarkable in the emergency department. Her urine drug screen was positive for benzodiazepines. The patient is status post Narcan x 4 in the ER with waxing and waning mental status prior to incubation. 2. Dr. Diane from Neurology service was notified and the patient is scheduled to undergo MRI and EEG today. 3. Continue with vent support and maintain sats above 92%. 4. Bronchodilators in the form of DuoNeb q.6 hours and will initiate ICU vent bundle. Decrease FIO2 40%. 5. Start spontaneous breathing trials once mental status improves. 6. Monitor heart rate and blood pressure closely and maintain MAP greater than 65 mmHg. Lactic acid level measured 1.3. Placed on hydralazine 10 mg IV q.6 hours p.r.n. for systolic blood pressure greater than 160 and Lopressor 25 mg q.12 hours. 7. Monitor renal function, I's and O's and electrolyte replacement per protocol. Continue with IV fluids, NS at 84 mL an hour. She received 1 liter of NS in the ER. 8. Keep n.p.o. for now and continue with Pepcid 20 mg IV q.12 hours. Consult GI service. The patient might need upper endoscopy. She had coffee ground material gastric output from the OG tube. 9. Monitor for signs of infections, which include fever and WBC. I will hold off on antibiotics at this time as there is no evidence of any infectious process. Follow up on blood cultures which was obtained in the ED. 10. Sliding scale insulin with Accu-Cheks for glycemic control. 11. Monitor CBC and coags. 12. GI prophylaxis with Pepcid and DVT prophylaxis with SCDs. 13. Further recommendations will be based on hospital course. MD ASAF Banks/LYNN , 07:04 AM , 07:44 AM
[2018-01-04] MEDS: FAMOTIDINE 20 MG/2 ML VIAL IV PUSH SCH ×2 (08:16→20:29)
[2018-01-04] MEDS: DOCUSATE SODIUM 50 MG/SENNA 8.6 MG TAB PO SCH ×2 (08:16→20:22)
[2018-01-04] MEDS: CHLORHEXIDINE 0.12% (ORAL KIT) 15 ML CUP MT SCH ×2 (08:17→19:18)
[2018-01-04] MEDS: SODIUM CHLORIDE FLUSH BID IV FLUSH SCH ×2 (08:18→20:22)
[2018-01-04] MEDS ORDERED: METOPROLOL TARTRATE 25 MG TAB PO SCH (09:00)
[2018-01-04 09:25] LABS: AUTOMATED NEUTROPHIL # 9.9 TH/MM3 (1.8-7.7); BASOPHIL # 0.1 TH/MM3 (0-0.2); BASOPHIL % 0.5 % (0.0-2.0); EOSINOPHIL # 0.3 TH/MM3 (0-0.4); HEMATOCRIT 43.9 % (35.0-46.0); HEMOGLOBIN 14.8 GM/DL (11.6-15.3); LYMPH % 14.7 % (9.0-44.0); LYMPHOCYTE # 1.9 TH/MM3 (1.0-4.8); MEAN CELL VOLUME 89.6 FL (80.0-100.0); MEAN CORPUSCULAR HEMOGLOBIN 30.1 PG (27.0-34.0); MEAN CORPUSCULAR HGB CONC 33.6 % (32.0-36.0); MEAN PLATELET VOLUME 8.5 FL (7.0-11.0); MONO % 6.1 % (0.0-8.0); MONOCYTE # 0.8 TH/MM3 (0-0.9); NEUT % 76.7 % (16.0-70.0); PLATELET COUNT 398 TH/MM3 (150-450); RED CELL DISTRIBUTION WIDTH 13.1 % (11.6-17.2)
[2018-01-04] MEDS ORDERED: GADODIAMIDE PF 287 MG/ML 5 ML VIAL (for RAD MRI) IV PUSH ONE (10:10)
--- NOTE | 2018-01-04 10:13 | MB ---
cc: Alejandra Mendez MD DATE: 01/04/2018 HISTORY OF PRESENT ILLNESS: She is a 57-year-old woman seen in neurological consultation. She was intubated in the unit and came to the hospital apparently when she had decreased responsiveness and apparent some staring. She received Narcan on multiple occasions and saline and apparently initially her responsiveness improved, but then she became poorly responsive again so she was intubated. In the interim, the patient has had a CT angio of the head and neck reported as negative. She was positive for benzo in her urine drug screen. She has been treated for diabetes with a recent hospitalization for poorly controlled blood sugars. There is history of chronic pain, hypertension, and COPD. NEUROLOGIC EXAM: Showed the patient to be poorly responsive, but with stimulation, she started withdrawing mildly, grimaces and started moving all 4 extremities grossly equally. Reflexes are diminished, nearly absent throughout and plantar responses are flexor. Pupils are relatively small, but reactive. Eyes were in primary position. LABORATORY DATA: Includes a white count of 7.4 yesterday, today it is 13.0. Sodium now 137, but was 131 yesterday. Glucose yesterday at 314 and today 331. ASSESSMENT AND PLAN: Acute encephalopathy, indeterminate cause, but likely toxic metabolic. I do not think this is a cerebrovascular event and she had a head CT angio of the head and neck which were unremarkable. Continue medical care by the slitter cut off operator. EEG was actually in progress and the MRI of the brain is pending. I will follow the neurological course. Thank you for asking us to assist in her care. Alejandra Mendez MD OFC/DL , 09:38 AM , 10:11 AM
[2018-01-04 10:55] LABS: SODIUM,RANDOM URINE 127 MEQ/L
[2018-01-04 11:03] LABS: OSMOLALITY,URINE 611 MOSM/KG (300-1300)
[2018-01-04] MEDS ORDERED: GADODIAMIDE PF 287 MG/ML 5 ML VIAL (for RAD MRI) IVCONTRAST ONE (11:07)
--- NOTE | 2018-01-04 11:30 | RADRPT ---
EXAM DATE/TIME: 01/04/2018 10:55 [facility] COMPARISON: CT BRAIN W/O CONTRAST, January 03, 2018, 23:41. INDICATIONS : Syncope. CONTRAST: 13 cc Omniscan (gadodiamide) IV MEDICAL HISTORY : Unknown. SURGICAL HISTORY : Unknown. ENCOUNTER: Initial ACUITY: 1 day PAIN SCORE: 10/10 LOCATION: Head. TECHNIQUE: Multiplanar, multisequence MRI of the brain was performed both prior to and following the administrat ion of paramagnetic contrast. FINDINGS: CEREBRUM: Bifrontal cortical atrophy. The ventricles are normal for age. No evidence of midline shift, mass le kayla, hemorrhage or acute infarction. No extraaxial fluid collections are seen. The pituitary gland and suprasellar cistern are normal in configuration. WHITE MATTER: Scattered foci of bright T2 signal abnormalities are seen in the white matter. POSTERIOR FOSSA: The cerebellum and brainstem are intact. The 4th ventricle is midline. The cerebellopontine angle is unremarkable. The cerebellar tonsils are normal in position. DIFFUSION IMAGING: No focal areas of restricted diffusion are seen. No evidence of acute infarction. EXTRACRANIAL: The visualized portions of the orbits are unremarkable. Sinus disease. POST-CONTRAST: No abnormal areas of parenchymal or dural enhancement. No evidence of blood-brain barrier breakdown. CONCLUSION: 1. Bifrontal cortical atrophy and extensive nonspecific white matter changes likely chronic ischemic small vessel vasculopathy. 2. No acute infarction. 3. No active enhancement. Donte Wooten MD on January 04, 2018 at 11:24 Board Certified Radiologist. This report was verified electronically.
[2018-01-04] MEDS ORDERED: METOPROLOL TARTRATE 25 MG TAB PO PRN (13:00)
[2018-01-04] MEDS: METOPROLOL TARTRATE 50 MG TAB PO SCH ×2 (14:35→20:29)
--- NOTE | 2018-01-04 14:37 | PD.PROCEDR ---
GI Procedure PROCEDURE PERFORMED EGD with biopsy INDICATION FOR PROCEDURE [] Coffee-ground emesis and GI bleed PROCEDURE: The procedure, risks and benefits were discussed with Ms. Neri and informed consent was obtained. Anesthesia sedated her with Diprivan. She was placed in the left lateral decubitus position. EGD: The Pentax videoscope was introduced through the oropharynx and advanced to the second portion of the duodenum under direct visualization. Retroflexion was performed in the stomach. Biopsy from the antrum and esophagus ESTIMATED BLOOD LOSS: None SPECIMENS REMOVED: Distal esophagus, antrum COMPLICATIONS: None IMPRESSION: Patient has severe esophagitis with small ulcer and Beatriz-Alvarez tear possibly biopsy was done from the distal esophagus Gastritis biopsy from the antrum to rule out H. pylori Significant duodenitis with small superficial ulcers PLAN: No NSAIDs Protonix 40 mg daily Follow-up biopsy Monitor H&H Upper endoscopy in two-month Bernabe Owens MD Jan 04, 2018 14:37
--- NOTE | 2018-01-04 15:02 | MB ---
cc: Bernabe Owens MD DATE: 01/04/2018 REASON FOR REFERRAL: Coffee ground emesis. Thank you for the consultation. HISTORY OF PRESENT ILLNESS: A 57-year-old lady with multiple medical problems, came to the emergency room as a Stroke Alert. The patient was intubated. She was with her in the car when she saw the changes where she was staring and nonresponsive. She ended up intubated, but the patient also was having coffee ground emesis and some blood coming and patient currently is intubated. NG tube with coffee ground emesis. Not able to give any history. I talked to her , he did not think that she has any GI issues in the past. PAST MEDICAL HISTORY: Significant for COPD, hypertension, diabetes, depression, chronic pain syndrome. PAST SURGICAL HISTORY: Significant for tubal ligation, bilateral hip replacement, right wrist repair. ALLERGIES: NO KNOWN DRUG ALLERGIES. MEDICATIONS: Reviewed in the chart. SOCIAL HISTORY: No alcohol, but positive tobacco. FAMILY HISTORY: Unable to obtain, but from the chart, it says noncontributory. REVIEW OF SYSTEMS: Unable to review. PHYSICAL EXAMINATION: GENERAL: The patient is lying in bed, intubated, sedated. HEENT: Pupils are equal and reactive. NECK: Supple. CHEST: Clear to auscultation bilaterally. CARDIAC: Regular rhythm. No murmurs or gallops. ABDOMEN: Soft, nondistended. EXTREMITIES: No edema, clubbing or cyanosis. NEUROLOGIC: Intact. LABORATORY DATA: White count 13.0, hemoglobin 14.8, platelets 398. INR 1.1. Liver function tests are normal. Ammonia 24. Glucose was elevated at 331. BUN and creatinine normal. Toxicology was unremarkable. Brain MRI: Bifrontal cortical atrophy, extensive nonspecific white matter changes, no acute infarction. ASSESSMENT AND PLAN: A 57-year-old lady who has history of possible stroke. The patient is intubated. She had coffee ground emesis and suspicious for GI bleed, so we will plan on doing upper endoscopy for evaluation. I talked to her and obtained the consent from him. He is agreeable to the procedure. He understands the procedure and complications. MD JEZ Ashby/MORRO , 02:34 PM , 03:01 PM
--- NOTE | 2018-01-04 17:52 | MG ---
cc: Alejandra Mendez MD DATE OF STUDY: 01/04/2018 REQUESTING PHYSICIAN: Dr. Tamayo. INDICATIONS: An EEG was obtained on this 57-year-old patient. The patient is sedated on Diprivan. DESCRIPTION: The EEG shows some beta activity diffusely. There is episodic generalized attenuation. There are probable sleep spindles and K complexes seen intermittently. The patient is intubated, sedated, and photic stimulation disclosed no significant change. INTERPRETATION: Probable normal sleep electroencephalogram, related to sedation. No ictal pattern. Alejandra Mendez MD OFC/KD , 05:40 PM , 05:51 PM
--- NOTE | 2018-01-04 19:53 | EKG ---
Date Performed: 01/03/2018 Time Performed: 21:18:03 PTAGE: 57 years EKG: Sinus rhythm Since previous tracing, no significant change noted NORMAL ECG PREVIOUS TRACING : 12/20/2017 23.31 DOCTOR: Dipesh Mckeon Interpretating Date/Time 01/04/2018 19:50:30
[2018-01-05] VITALS (39 sets, daily range): BP systolic 98–163; BP diastolic 69–111; PULSE 70–112; RESP 9–42; TEMP 97.5–99.4; O2SAT 96–100
[2018-01-05] MEDS: INSULIN NovoLIN REGULAR SUPPLEMENTAL SCALE SQ SCH ×6 (03:18→23:31)
[2018-01-05] MEDS: hydrALAZINE HCL 20 MG/ML VIAL IV PUSH PRN (03:18)
[2018-01-05] MEDS: PROPOFOL 1000 MG/100 ML INJ 100 ML IV PRN ×2 (03:19→05:30)
[2018-01-05] MEDS: CHLORHEXIDINE GLUCONATE 2 % 1 PACK (2 CLOTHS) TOP SCH (03:23)
[2018-01-05] MEDS: RESP: ALBUTEROL 2.5 MG/IPRATROPIUM 0.5 MG NEB (SCH) INH ×4 (04:00→22:15)
[2018-01-05 06:30] LABS: AUTOMATED NEUTROPHIL # 17.5 TH/MM3 (1.8-7.7); BASOPHIL # 0.1 TH/MM3 (0-0.2); BASOPHIL % 0.5 % (0.0-2.0); EOSINOPHIL % 0.2 % (0.0-4.0); HEMATOCRIT 42.7 % (35.0-46.0); HEMOGLOBIN 14.5 GM/DL (11.6-15.3); LYMPH % 9.1 % (9.0-44.0); LYMPHOCYTE # 1.9 TH/MM3 (1.0-4.8); MEAN CELL VOLUME 90.2 FL (80.0-100.0); MEAN CORPUSCULAR HEMOGLOBIN 30.7 PG (27.0-34.0); MEAN PLATELET VOLUME 8.7 FL (7.0-11.0); MONO % 3.8 % (0.0-8.0); MONOCYTE # 0.8 TH/MM3 (0-0.9); NEUT % 86.4 % (16.0-70.0); PLATELET COUNT 360 TH/MM3 (150-450); RED BLOOD COUNT 4.73 MIL/MM3 (4.00-5.30); RED CELL DISTRIBUTION WIDTH 12.8 % (11.6-17.2); WHITE BLOOD COUNT 20.3 TH/MM3 (4.0-11.0)
[2018-01-05] MEDS: CHLORHEXIDINE 0.12% (ORAL KIT) 15 ML CUP MT SCH ×2 (08:00→20:27)
[2018-01-05 08:06] LABS: ALBUMIN 3.3 GM/DL (3.4-5.0); ALKALINE PHOSPHATASE 106 U/L (45-117); ALT (GPT) 12 U/L (10-53); AST (GOT) 28 U/L (15-37); BICARBONATE 25.1 MEQ/L (21.0-32.0); BLOOD UREA NITROGEN 6 MG/DL (7-18); CALCIUM 8.3 MG/DL (8.5-10.1); CHLORIDE 100 MEQ/L (98-107); CREATININE 0.66 MG/DL (0.50-1.00); GLOMERULAR FILTRATION RATE 92 ML/MIN (>89); GLUCOSE,RANDOM 173 MG/DL (74-106); MAGNESIUM 1.8 MG/DL (1.5-2.5); PHOSPHORUS 3.1 MG/DL (2.5-4.9); SODIUM (NA) 137 MEQ/L (136-145); TOTAL BILIRUBIN ADULT 0.9 MG/DL (0.2-1.0); TOTAL PROTEIN 7.1 GM/DL (6.4-8.2)
[2018-01-05] MEDS: POTASSIUM CHLOR 20 MEQ PREMIX 100 ML IV PRN ×4 (09:09→15:22)
[2018-01-05] MEDS: SODIUM CHLORIDE FLUSH BID IV FLUSH SCH ×2 (09:17→20:26)
[2018-01-05] MEDS: METOPROLOL TARTRATE 50 MG TAB PO SCH ×2 (09:23→20:26)
[2018-01-05] MEDS: DOCUSATE SODIUM 50 MG/SENNA 8.6 MG TAB PO SCH ×2 (09:23→20:26)
[2018-01-05] MEDS: FAMOTIDINE 20 MG/2 ML VIAL IV PUSH SCH ×2 (09:27→20:26)
[2018-01-05] MEDS: PIPERACIL-TAZO 4.5 GM PREMIX 100 ML IV SCH ×3 (12:31→22:25)
--- NOTE | 2018-01-05 13:11 | HHI.GIFU ---
GI Follow-up Note Consult Follow-up Subjective: Patient laying in bed comfortably, slightly confused. No nausea, vomiting reported. egd yesterday showed esophageal ulcer Objective: PHYSICAL EXAMINATION: Vitals signs stable No fever Vital Signs Date Time Temp Pulse Resp B/P (MAP) Pulse Ox O2 Delivery O2 Flow Rate FiO2 01/05/18 12:00 78 13 111/82 (92) 99 01/05/18 12:00 78 01/05/18 11:42 99 Nasal Cannula 3.00 01/05/18 11:00 76 19 112/81 (91) 99 01/05/18 10:00 92 17 124/83 (97) 99 01/05/18 10:00 92 01/05/18 09:00 102 17 113/80 (91) 100 01/05/18 09:00 99 Nasal Cannula 3 01/05/18 08:00 30 01/05/18 08:00 97.6 98 22 105/83 (90) 100 01/05/18 08:00 98 01/05/18 07:50 100 30 01/05/18 07:00 110 23 143/75 (97) 100 01/05/18 06:30 104 22 124/91 (102) 99 01/05/18 06:00 100 30 01/05/18 06:00 106 21 143/94 (110) 99 01/05/18 06:00 112 01/05/18 05:30 108 42 140/96 (111) 98 01/05/18 05:18 108 19 140/92 (108) 99 HEENT: Pupils round and reactive to light; normocephalic; atraumatic; no jaundice. Throat is clear. NECK: Neck is supple, no JVD, no lymphadenopathy. CHEST: Chest is clear to auscultation and percussion. CARDIAC: Regular rate and rhythm with no murmur gallop or rubs. ABDOMEN: Soft, nondistended, nontender; no hepatosplenomegaly; bowel sounds are present in all four quadrants. EXTREMITIES: No clubbing, cyanosis, or edema. SKIN: Normal; no rash; no jaundice. CONTINUITY TESTER: No focal deficits; alert , slightly confused Available Data (labs, X- Rays, Procedues) : Laboratory Tests Test 01/03/18 20:51 01/03/18 21:41 01/04/18 01:13 01/04/18 01:27 White Blood Count 7.4 TH/MM3 Red Blood Count 4.10 MIL/MM3 Hemoglobin 12.6 GM/DL Hematocrit 37.3 % Mean Corpuscular Volume 91.0 FL Mean Corpuscular Hemoglobin 30.8 PG Mean Corpuscular Hemoglobin Concent 33.8 % Red Cell Distribution Width 12.6 % Platelet Count 306 TH/MM3 Mean Platelet Volume 8.0 FL Neutrophils (%) (Auto) 53.6 % Lymphocytes (%) (Auto) 31.5 % Monocytes (%) (Auto) 7.3 % Eosinophils (%) (Auto) 6.7 % Basophils (%) (Auto) 0.9 % Neutrophils # (Auto) 4.0 TH/MM3 Lymphocytes # (Auto) 2.3 TH/MM3 Monocytes # (Auto) 0.5 TH/MM3 Eosinophils # (Auto) 0.5 TH/MM3 Basophils # (Auto) 0.1 TH/MM3 CBC Comment DIFF FINAL Differential Comment Prothrombin Time 10.7 SEC Prothromb Time International Ratio 1.1 RATIO Activated Partial Thromboplast Time 25.8 SEC Fibrinogen 367 mg/dL Blood Urea Nitrogen 6 MG/DL 5 MG/DL Creatinine 0.75 MG/DL 0.66 MG/DL Random Glucose 314 MG/DL 331 MG/DL Calcium Level 9.2 MG/DL 9.2 MG/DL Sodium Level 131 MEQ/L 137 MEQ/L Potassium Level 3.9 MEQ/L 3.4 MEQ/L Chloride Level 97 MEQ/L 101 MEQ/L Carbon Dioxide Level 27.2 MEQ/L 27.5 MEQ/L Anion Gap 7 MEQ/L 9 MEQ/L Estimat Glomerular Filtration Rate 79 ML/MIN 92 ML/MIN Total Creatine Kinase 37 U/L Troponin I LESS THAN 0.02 NG/ML Human Chorionic Gonadotropin, Quant 3 MIU/ML Urine Color YELLOW Urine Turbidity CLEAR Urine pH 6.5 Urine Specific [place] LESS/EQUAL 1.005 Urine Protein NEG mg/dL Urine Glucose (UA) 1000 OR GREATER mg/dL Urine Ketones NEG mg/dL Urine Occult Blood TRACE Urine Nitrite NEG Urine Bilirubin NEG Urine Urobilinogen 0.2 MG/DL Urine Leukocyte Esterase NEG Urine RBC 3-5 /hpf Urine WBC 0-2 /hpf Urine Squamous Epithelial Cells 0-5 /hpf Urine Bacteria NONE /hpf Urine Yeast (Budding) OCC Microscopic Urinalysis Comment Urine Opiates Screen NEG Urine Barbiturates Screen NEG Urine Amphetamines Screen NEG Urine Benzodiazepines Screen POS Urine Cocaine Screen NEG Urine Cannabinoids Screen NEG Blood Gas Puncture Site RT BRACHIAL Blood Gas Patient Temperature 98.6 Blood Gas HCO3 27 mmol/L Blood Gas Base Excess 2.8 mmol/L Blood Gas Oxygen Saturation 93 % Arterial Blood pH 7.44 Arterial Blood Partial Pressure CO2 40 mmHG Arterial Blood Partial Pressure O2 110 mmHG Arterial Blood Oxygen Content 17.2 Vol % Arterial Blood Carboxyhemoglobin 4.5 % Arterial Blood Methemoglobin 1.2 % Blood Gas Hemoglobin 13.0 G/DL Oxygen Delivery Device VENTILATOR Blood Gas Ventilator Setting AC550/15/PEEP5 Blood Gas Inspired Oxygen 50 % Total Protein 7.1 GM/DL Albumin 3.6 GM/DL Phosphorus Level 2.9 MG/DL Magnesium Level 1.4 MG/DL Alkaline Phosphatase 116 U/L Aspartate Amino Transf (AST/SGOT) 12 U/L Alanine Aminotransferase (ALT/SGPT) 14 U/L Total Bilirubin 0.6 MG/DL Direct Bilirubin 0.1 MG/DL Lactic Acid Level 1.3 mmol/L Indirect Bilirubin 0.5 MG/DL Ammonia 24 MCMOL/L Salicylates Level 4.5 MG/DL Acetaminophen Level LESS THAN 2.0 MCG/ML Ethyl Alcohol Level LESS THAN 3 MG/DL Test 01/04/18 01:30 01/04/18 08:30 01/04/18 08:50 01/05/18 05:50 Serum Osmolality 304 MOSM/KG Urine Osmolality 611 MOSM/KG Urine Random Sodium 127 MEQ/L Nasal Screen MRSA (PCR) MRSA NOT DETECTED White Blood Count 13.0 TH/MM3 20.3 TH/MM3 Red Blood Count 4.90 MIL/MM3 4.73 MIL/MM3 Hemoglobin 14.8 GM/DL 14.5 GM/DL Hematocrit 43.9 % 42.7 % Mean Corpuscular Volume 89.6 FL 90.2 FL Mean Corpuscular Hemoglobin 30.1 PG 30.7 PG Mean Corpuscular Hemoglobin Concent 33.6 % 34.0 % Red Cell Distribution Width 13.1 % 12.8 % Platelet Count 398 TH/MM3 360 TH/MM3 Mean Platelet Volume 8.5 FL 8.7 FL Neutrophils (%) (Auto) 76.7 % 86.4 % Lymphocytes (%) (Auto) 14.7 % 9.1 % Monocytes (%) (Auto) 6.1 % 3.8 % Eosinophils (%) (Auto) 2.0 % 0.2 % Basophils (%) (Auto) 0.5 % 0.5 % Neutrophils # (Auto) 9.9 TH/MM3 17.5 TH/MM3 Lymphocytes # (Auto) 1.9 TH/MM3 1.9 TH/MM3 Monocytes # (Auto) 0.8 TH/MM3 0.8 TH/MM3 Eosinophils # (Auto) 0.3 TH/MM3 0.0 TH/MM3 Basophils # (Auto) 0.1 TH/MM3 0.1 TH/MM3 CBC Comment DIFF FINAL DIFF FINAL Differential Comment Blood Urea Nitrogen 6 MG/DL Creatinine 0.66 MG/DL Random Glucose 173 MG/DL Total Protein 7.1 GM/DL Albumin 3.3 GM/DL Calcium Level 8.3 MG/DL Phosphorus Level 3.1 MG/DL Magnesium Level 1.8 MG/DL Alkaline Phosphatase 106 U/L Aspartate Amino Transf (AST/SGOT) 28 U/L Alanine Aminotransferase (ALT/SGPT) 12 U/L Total Bilirubin 0.9 MG/DL Sodium Level 137 MEQ/L Potassium Level 3.0 MEQ/L Chloride Level 100 MEQ/L Carbon Dioxide Level 25.1 MEQ/L Anion Gap 12 MEQ/L Estimat Glomerular Filtration Rate 92 ML/MIN Test 01/05/18 08:06 Blood Gas Puncture Site RT RADIAL Blood Gas Patient Temperature 37.0 Blood Gas HCO3 23 mmol/L Blood Gas Base Excess 0.2 mmol/L Blood Gas Oxygen Saturation 96 % Arterial Blood pH 7.52 Arterial Blood Partial Pressure CO2 28 mmHg Arterial Blood Partial Pressure O2 126 mmHg Arterial Blood Oxygen Content 18.3 Vol % Arterial Blood Carboxyhemoglobin 1.3 % Arterial Blood Methemoglobin 1.3 % Blood Gas Hemoglobin 13.4 G/DL Oxygen Delivery Device VENTILATOR Blood Gas Ventilator Setting CPAP 5/5 Blood Gas Inspired Oxygen 30 % ASSESSMENT/PLAN: gi bleeding-secondary esophageal ulcer , mw tear-no indication of active bleeding Recommendations ppi-bid clear liquid diet, than advance as tolerated -speech pathology eval first ok for anticoagulation form gi point call us as needed fu gi upon dc egd in 8-12 weeks gi will sign off It was a pleasure seeing Lynette Neri. Thank you for this consult. Entered by: Savannah Cano MD Jan 05, 2018 13:11
--- NOTE | 2018-01-05 19:41 | HHI.CCPN ---
Subjective Remarks/Hospital Course The patient is a 57-year-old female with past medical history of hypertension, diabetes mellitus, COPD, depression, restless leg syndrome, who presented to [place] ED as a stroke alert. According to the ED records, while the patient was sitting in the car with her , he noticed her to have a few seconds of staring and then seemed to not respond to him when he asked her to get out of the car. He drove her immediately to the ED. The patient was recently hospitalized for poorly controlled diabetes mellitus. The patient, in the ED, was slightly drowsy; however, she was answering questions appropriately initially. Due to her worsening mental status, she was intubated for airway protection. In the ED, the patient was given Narcan x 4 and received 1 liter of normal saline. A CT scan of the brain was unremarkable. She also underwent CTA of the brain and neck, which was within normal. Chest x-ray post-intubation showed ET tube above the ugo, a mild hazy opacity in the perihilar region. Dr. Diane from Neurology service was notified by ED and the patient deemed not a candidate for TPA. She is scheduled to undergo an MRI of the brain along with EEG today. Her urine drug screen was positive for benzodiazepines. There is no evidence of any fever or leukocytosis. When seen in the ER, the patient is sedated with Diprivan and on full mechanical ventilation. She is hypertensive with systolic blood pressure 150s to 160s. 01/05: Extubated and breathing comfortably. Airway clear. No complaints, mildly confused. Objective Vital Signs Date Time Temp Pulse Resp B/P (MAP) Pulse Ox O2 Delivery O2 Flow Rate FiO2 01/05/18 12:00 78 13 111/82 (92) 99 01/05/18 11:42 Nasal Cannula 3.00 01/05/18 08:00 30 01/05/18 08:00 97.6 Intake and Output 01/05/18 01/05/18 01/05/18 07:59 15:59 23:59 Intake Total 2852 ml 100 ml 100 ml Output Total 900 ml Balance 1952 ml 100 ml 100 ml Result Diagram: 01/05/18 0550 01/05/18 0550 Other Results Laboratory Tests Test 01/05/18 08:06 Blood Gas Puncture Site RT RADIAL Blood Gas Patient Temperature 37.0 Blood Gas HCO3 23 mmol/L (22-26) Blood Gas Base Excess 0.2 mmol/L (-2-2) Blood Gas Oxygen Saturation 96 % (90-100) Arterial Blood pH 7.52 (7.380-7.420) Arterial Blood Partial Pressure CO2 28 mmHg (38-42) Arterial Blood Partial Pressure O2 126 mmHg (61-120) Arterial Blood Oxygen Content 18.3 Vol % (12.0-20.0) Arterial Blood Carboxyhemoglobin 1.3 % (0-4) Arterial Blood Methemoglobin 1.3 % (0-2) Blood Gas Hemoglobin 13.4 G/DL (12.0-16.0) Oxygen Delivery Device VENTILATOR Blood Gas Ventilator Setting CPAP 5/5 Blood Gas Inspired Oxygen 30 % Objective Remarks PHYSICAL EXAMINATION: GENERAL: Alert, confused. HEENT: Atraumatic, normocephalic. NECK: Supple. Airway widely patent. CARDIOVASCULAR: Regular rate and rhythm. Normal S1, S2, No JVD. LUNGS: Bilateral equal air entry. No rales or wheezing. Comfortable respiratory pattern. ABDOMEN: Soft, nontender. No distention. Positive bowel sounds. No guarding. EXTREMITIES: No cyanosis, clubbing or edema. Well perfused. NEUROLOGIC: Confused but conversant. Moves 4 limbs with 5/5 strength. Follows commands. A/P Assessment and Plan IMPRESSION: 1. Vent dependent respiratory failure. 2. Altered mental status, likely secondary to chronic Xanax and Percocet use. 3. Chronic pain syndrome. 4. Hyperglycemia. 5. History of diabetes mellitus. 6. Hypertension. 7. History of depression. 8. History of chronic obstructive pulmonary disease. 9. History of restless leg syndrome. Plan: 1. OOB with assistance. 2. Minimal sedation, watch for withdrawal. 3. Swallow eval. 4. If coherent in a.m. discharge. Hermelindo Hager MD Jan 05, 2018 19:41
[2018-01-05] MEDS ORDERED: INSULIN DETEMIR 100 UNITS/ML VIAL SQ SCH (21:00)
[2018-01-06] VITALS (47 sets, daily range): BP systolic 98–133; BP diastolic 58–93; PULSE 74–106; RESP 13–28; TEMP 98.4–99.4; O2SAT 94–99
[2018-01-06] MEDS: CHLORHEXIDINE GLUCONATE 2 % 1 PACK (2 CLOTHS) TOP SCH (04:00)
[2018-01-06] MEDS: INSULIN NovoLIN REGULAR SUPPLEMENTAL SCALE SQ SCH ×6 (04:00→23:41)
[2018-01-06] MEDS: PIPERACIL-TAZO 4.5 GM PREMIX 100 ML IV SCH ×4 (04:01→22:38)
[2018-01-06] MEDS: RESP: ALBUTEROL 2.5 MG/IPRATROPIUM 0.5 MG NEB (SCH) INH ×4 (04:36→21:00)
[2018-01-06 06:07] LABS: AUTOMATED NEUTROPHIL # 8.6 TH/MM3 (1.8-7.7); BASOPHIL % 0.4 % (0.0-2.0); EOSINOPHIL # 0.1 TH/MM3 (0-0.4); EOSINOPHIL % 1.2 % (0.0-4.0); HEMATOCRIT 35.2 % (35.0-46.0); HEMOGLOBIN 12.1 GM/DL (11.6-15.3); LYMPH % 18.2 % (9.0-44.0); LYMPHOCYTE # 2.1 TH/MM3 (1.0-4.8); MEAN CELL VOLUME 89.4 FL (80.0-100.0); MEAN CORPUSCULAR HEMOGLOBIN 30.8 PG (27.0-34.0); MEAN CORPUSCULAR HGB CONC 34.4 % (32.0-36.0); MEAN PLATELET VOLUME 7.9 FL (7.0-11.0); MONO % 5.4 % (0.0-8.0); MONOCYTE # 0.6 TH/MM3 (0-0.9); NEUT % 74.8 % (16.0-70.0); PLATELET COUNT 283 TH/MM3 (150-450); RED BLOOD COUNT 3.94 MIL/MM3 (4.00-5.30); RED CELL DISTRIBUTION WIDTH 12.8 % (11.6-17.2); WHITE BLOOD COUNT 11.4 TH/MM3 (4.0-11.0)
[2018-01-06 06:46] LABS: BICARBONATE 23.5 MEQ/L (21.0-32.0); CALCIUM 8.4 MG/DL (8.5-10.1); CREATININE 0.58 MG/DL (0.50-1.00); MAGNESIUM 1.7 MG/DL (1.5-2.5); PHOSPHORUS 2.5 MG/DL (2.5-4.9)
--- NOTE | 2018-01-06 06:46 | HHI.CCPN ---
Subjective Remarks/Hospital Course The patient is a 57-year-old female with past medical history of hypertension, diabetes mellitus, COPD, depression, restless leg syndrome, who presented to [place] [place] ED as a stroke alert. According to the ED records, while the patient was sitting in the car with her , he noticed her to have a few seconds of staring and then seemed to not respond to him when he asked her to get out of the car. He drove her immediately to the ED. The patient was recently hospitalized for poorly controlled diabetes mellitus. The patient, in the ED, was slightly drowsy; however, she was answering questions appropriately initially. Due to her worsening mental status, she was intubated for airway protection. In the ED, the patient was given Narcan x 4 and received 1 liter of normal saline. A CT scan of the brain was unremarkable. She also underwent CTA of the brain and neck, which was within normal. Chest x-ray post-intubation showed ET tube above the ugo, a mild hazy opacity in the perihilar region. Dr. Diane from Neurology service was notified by ED and the patient deemed not a candidate for TPA. She is scheduled to undergo an MRI of the brain along with EEG today. Her urine drug screen was positive for benzodiazepines. There is no evidence of any fever or leukocytosis. When seen in the ER, the patient is sedated with Diprivan and on full mechanical ventilation. She is hypertensive with systolic blood pressure 150s to 160s. 01/05: Extubated and breathing comfortably. Airway clear. No complaints, mildly confused. 01/06 patient s/p extubation yesterday. Awake, alert lying in bed in NAD. Afebrile. Objective Vital Signs Date Time Temp Pulse Resp B/P (MAP) Pulse Ox O2 Delivery O2 Flow Rate FiO2 01/06/18 06:01 94 13 111/76 (88) 97 01/06/18 04:01 99.2 01/05/18 22:16 21 01/05/18 11:42 Nasal Cannula 3.00 Intake and Output 01/06/18 01/06/18 01/07/18 08:00 16:00 00:00 Intake Total 560 ml Output Total 350 ml Balance 210 ml Result Diagram: 01/06/18 0597 01/05/18 3398 Other Results Laboratory Tests Test 01/05/18 08:06 01/05/18 21:30 01/06/18 05:55 Blood Gas Puncture Site RT RADIAL Blood Gas Patient Temperature 37.0 Blood Gas HCO3 23 mmol/L Blood Gas Base Excess 0.2 mmol/L Blood Gas Oxygen Saturation 96 % Arterial Blood pH 7.52 Arterial Blood Partial Pressure CO2 28 mmHg Arterial Blood Partial Pressure O2 126 mmHg Arterial Blood Oxygen Content 18.3 Vol % Arterial Blood Carboxyhemoglobin 1.3 % Arterial Blood Methemoglobin 1.3 % Blood Gas Hemoglobin 13.4 G/DL Oxygen Delivery Device VENTILATOR Blood Gas Ventilator Setting CPAP 5/5 Blood Gas Inspired Oxygen 30 % Potassium Level 4.0 MEQ/L 3.0 MEQ/L White Blood Count 11.4 TH/MM3 Red Blood Count 3.94 MIL/MM3 Hemoglobin 12.1 GM/DL Hematocrit 35.2 % Mean Corpuscular Volume 89.4 FL Mean Corpuscular Hemoglobin 30.8 PG Mean Corpuscular Hemoglobin Concent 34.4 % Red Cell Distribution Width 12.8 % Platelet Count 283 TH/MM3 Mean Platelet Volume 7.9 FL Neutrophils (%) (Auto) 74.8 % Lymphocytes (%) (Auto) 18.2 % Monocytes (%) (Auto) 5.4 % Eosinophils (%) (Auto) 1.2 % Basophils (%) (Auto) 0.4 % Neutrophils # (Auto) 8.6 TH/MM3 Lymphocytes # (Auto) 2.1 TH/MM3 Monocytes # (Auto) 0.6 TH/MM3 Eosinophils # (Auto) 0.1 TH/MM3 Basophils # (Auto) 0.0 TH/MM3 CBC Comment DIFF FINAL Differential Comment Blood Urea Nitrogen 7 MG/DL Creatinine 0.58 MG/DL Random Glucose 120 MG/DL Calcium Level 8.4 MG/DL Phosphorus Level 2.5 MG/DL Magnesium Level 1.7 MG/DL Sodium Level 142 MEQ/L Chloride Level 107 MEQ/L Carbon Dioxide Level 23.5 MEQ/L Anion Gap 12 MEQ/L Estimat Glomerular Filtration Rate 107 ML/MIN Imaging Last Impressions Chest X-Ray 01/04/18 0000 Signed Impressions: Service Date/Time: Thursday, January 04, 2018 00:28 - CONCLUSION: 1. Interval intubation and placement of nasogastric tube. The distal side-port of the nasogastric tube lies in the region of the distal esophagus. 2. Abnormal distal left clavicle which appears to correspond to an ununited fracture on the CT carotid angiogram. Chin Zepeda MD ADDENDUM: The mild hazy opacity in the perihilar regions could represent early pulmonary edema. Chin Zepeda MD Brain MRI 01/04/18 0000 Signed Impressions: Service Date/Time: Thursday, January 04, 2018 10:55 - CONCLUSION: 1. Bifrontal cortical atrophy and extensive nonspecific white matter changes likely chronic ischemic small vessel vasculopathy. 2. No acute infarction. 3. No active enhancement. Donte Wooten MD Neck CTA [id number]/03/182045 Signed Impressions: Service Date/Time: December 20:53 - CONCLUSION: Normal examination for a patient of this age. Daniel Fairchild MD Head CTA [id number]/03/182045 Signed Impressions: Service Date/Time: December 20:53 - CONCLUSION: Normal examination for a patient of this age. Daniel Fairchild MD Head CT 01/03/18 0000 Signed Impressions: Service Date/Time: December 23:41 - CONCLUSION: Stable unremarkable noncontrast head CT Chin Zepeda MD Objective Remarks PHYSICAL EXAMINATION: GENERAL: Alert, confused. HEENT: Atraumatic, normocephalic. NECK: Supple. Airway widely patent. CARDIOVASCULAR: Regular rate and rhythm. Normal S1, S2, No JVD. LUNGS: Bilateral equal air entry. No rales or wheezing. Comfortable respiratory pattern. ABDOMEN: Soft, nontender. No distention. Positive bowel sounds. No guarding. EXTREMITIES: No cyanosis, clubbing or edema. Well perfused. NEUROLOGIC: Confused but conversant. Moves 4 limbs with 5/5 strength. Follows commands. A/P Assessment and Plan IMPRESSION: 1. Resp Insuff - extubated 01/05 2. AMS, likely secondary to chronic Xanax and Percocet use(improved) 3. Chronic pain syndrome. 4. Hyperglycemia. 5. History of diabetes mellitus. 6. Hypertension. 7. History of depression. 8. History of chronic obstructive pulmonary disease. 9. History of restless leg syndrome. Plan: Monitor neuro status, avoid sedatives MRI brain:. Bifrontal cortical atrophy and extensive nonspecific white matter changes likely chronic ischemic small vessel vasculopathy. No acute infarction. Neuro is following- Dr. Mendez Awaiting psych eval Continue with oxygen keep sats >92% Bronchodilators Monitor HR and BP keep MAP>65mmHg. Decrease Lopressor 25mg Q12 Monitor renal function, electrolytes replacement per protocol. Will need K replacement today On PO diet. GI is following s/p EGD: severe esophagitis with small ulcer and Beatriz-Alvarez tear possibly biopsy was done from the distal esophagus Gastritis biopsy from the antrum to rule out H. pylori Significant duodenitis with small superficial ulcers Continue with empiric abx (Zosyn, add Vanco ) WBC is trending down. sputum cx: MRSA, GNR. BC:NGTD SSI for glycemic control, d/c Levemir GI prophylaxis- On Pepcid Will sign off and transfer care to [facility] Level 2 Otilia Anne MD Jan 06, 2018 06:46
[2018-01-06] MEDS: CHLORHEXIDINE 0.12% (ORAL KIT) 15 ML CUP MT SCH ×2 (08:00→22:38)
[2018-01-06] MEDS: POTASSIUM CHLOR 20 MEQ PREMIX 100 ML IV PRN ×4 (09:10→18:57)
[2018-01-06] MEDS: METOPROLOL TARTRATE 25 MG TAB PO SCH ×2 (09:11→20:27)
[2018-01-06] MEDS: DOCUSATE SODIUM 50 MG/SENNA 8.6 MG TAB PO SCH ×2 (09:11→20:27)
[2018-01-06] MEDS: FAMOTIDINE 20 MG/2 ML VIAL IV PUSH SCH ×2 (09:12→20:27)
[2018-01-06] MEDS: SODIUM CHLORIDE FLUSH BID IV FLUSH SCH ×2 (09:13→20:26)
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
[2018-01-06] MEDS ORDERED: VANCOMYCIN 1 GM/200 ML INJ 200 ML IV SCH (18:00)
[2018-01-07] VITALS (15 sets, daily range): BP systolic 113–160; BP diastolic 78–103; PULSE 78–106; RESP 0–26; TEMP 99.1–99.5; O2SAT 95–99
[2018-01-07] MEDS: INSULIN NovoLIN REGULAR SUPPLEMENTAL SCALE SQ SCH ×2 (04:00→08:00)
[2018-01-07] MEDS: RESP: ALBUTEROL 2.5 MG/IPRATROPIUM 0.5 MG NEB (SCH) INH ×2 (04:00→09:47)
[2018-01-07] MEDS: CHLORHEXIDINE GLUCONATE 2 % 1 PACK (2 CLOTHS) TOP SCH (04:00)
[2018-01-07] MEDS: PIPERACIL-TAZO 4.5 GM PREMIX 100 ML IV SCH ×2 (04:03→10:00)
[2018-01-07 05:14] LABS: AUTOMATED NEUTROPHIL # 9.7 TH/MM3 (1.8-7.7); BASOPHIL # 0.4 TH/MM3 (0-0.2); EOSINOPHIL # 0.1 TH/MM3 (0-0.4); HEMATOCRIT 36.6 % (35.0-46.0); HEMOGLOBIN 12.5 GM/DL (11.6-15.3); LYMPH % 17.7 % (9.0-44.0); LYMPHOCYTE # 2.4 TH/MM3 (1.0-4.8); MEAN CELL VOLUME 91.2 FL (80.0-100.0); MEAN CORPUSCULAR HEMOGLOBIN 31.1 PG (27.0-34.0); MEAN CORPUSCULAR HGB CONC 34.1 % (32.0-36.0); MEAN PLATELET VOLUME 8.7 FL (7.0-11.0); NEUT % 71.3 % (16.0-70.0); PLATELET COUNT 186 TH/MM3 (150-450); RED BLOOD COUNT 4.01 MIL/MM3 (4.00-5.30); WHITE BLOOD COUNT 13.6 TH/MM3 (4.0-11.0)
[2018-01-07 05:45] LABS: CALCIUM 9.2 MG/DL (8.5-10.1)
[2018-01-07 05:46] LABS: BICARBONATE 21.6 MEQ/L (21.0-32.0)
[2018-01-07 05:49] LABS: CREATININE 0.53 MG/DL (0.50-1.00)
[2018-01-07] MEDS: CHLORHEXIDINE 0.12% (ORAL KIT) 15 ML CUP MT SCH (08:00)
[2018-01-07] MEDS: SODIUM CHLORIDE FLUSH BID IV FLUSH SCH (09:00)
[2018-01-07] MEDS: DOCUSATE SODIUM 50 MG/SENNA 8.6 MG TAB PO SCH ×2 (09:00→09:16)
[2018-01-07] MEDS: FAMOTIDINE 20 MG/2 ML VIAL IV PUSH SCH (09:15)
[2018-01-07] MEDS ORDERED: VANCOMYCIN 1 GM/200 ML INJ 200 ML IV SCH (09:15)
[2018-01-07] MEDS: METOPROLOL TARTRATE 25 MG TAB PO SCH (09:16)
[2018-01-07] MEDS ORDERED: PROPOFOL 200 MG/20 ML AMP IV ONE (12:00)
[2018-01-07] MEDS ORDERED: LIDOCAINE HCL 1% PF 5 ML SYRINGE OTHER ONE (12:00)
[2018-01-07] MEDS ORDERED: LACTTAB8 PO (12:20)
[2018-01-07] MEDS ORDERED: BACT800T5 PO (12:20)
--- NOTE | 2018-01-07 12:24 | HHI.DS ---
Discharge Summary Admission Date Jan 04, 2018 at 00:58 Discharge Date: Jan 07, 2018 Admitting Diagnosis altered mental status; h/o opiate/benzodiazepine use (1) Overdose ICD Code: T50.901A - Poisoning by unspecified drugs, medicaments and biological substances, accidental (unintentional), initial encounter Diagnosis: Principal (2) Opiate use ICD Code: F11.90 - Opioid use, unspecified, uncomplicated Diagnosis: Principal Status: Acute Procedures Intubation Brief History - From Admission Patient admitted secondary to overdose CBC/BMP: 01/07/18 0452 01/07/18 0452 Significant Findings Laboratory Tests Test 01/05/18 05:50 01/05/18 08:06 01/05/18 21:30 01/06/18 05:55 White Blood Count 20.3 TH/MM3 (4.0-11.0) 11.4 TH/MM3 (4.0-11.0) Neutrophils (%) (Auto) 86.4 % (16.0-70.0) 74.8 % (16.0-70.0) Neutrophils # (Auto) 17.5 TH/MM3 (1.8-7.7) 8.6 TH/MM3 (1.8-7.7) Blood Urea Nitrogen 6 MG/DL (7-18) Random Glucose 173 MG/DL (74-106) 120 MG/DL (74-106) Albumin 3.3 GM/DL (3.4-5.0) Calcium Level 8.3 MG/DL (8.5-10.1) 8.4 MG/DL (8.5-10.1) Potassium Level 3.0 MEQ/L (3.5-5.1) 3.0 MEQ/L (3.5-5.1) Arterial Blood pH 7.52 (7.380-7.420) Arterial Blood Partial Pressure CO2 28 mmHg (38-42) Arterial Blood Partial Pressure O2 126 mmHg (61-120) Red Blood Count 3.94 MIL/MM3 (4.00-5.30) Test 01/06/18 18:14 01/06/18 22:44 01/07/18 04:52 White Blood Count 13.6 TH/MM3 (4.0-11.0) Neutrophils (%) (Auto) 71.3 % (16.0-70.0) Basophils (%) (Auto) 3.0 % (0.0-2.0) Neutrophils # (Auto) 9.7 TH/MM3 (1.8-7.7) Monocytes # (Auto) 1.0 TH/MM3 (0-0.9) Basophils # (Auto) 0.4 TH/MM3 (0-0.2) Random Glucose 116 MG/DL (74-106) Chloride Level 108 MEQ/L (98-107) Hospital Course Mrs. Neri is a 57-year-old female. She has chronic pain and takes narcotics at baseline. She was not taking narcotics as prescribed in an accidental overdose. Psychiatry has evaluated this patient and does not feel that there was suicidal action taken for this overdose. When she came in she was severely obtunded and had to be intubated initially. As narcotics wore off she did well and was extubated. Extubation included culture of the intubation tube which was positive for MRSA. Patient has no signs of infection. MRSA is likely colonization. She is back to her baseline and has been ambulatory. Medical clearance stable for discharge home today. She will take Bactrim for 10 days with probiotics. Other home treatment to resume. Patient is reiterated not take prescribed medications except as prescribed. Pt Condition on Discharge: Stable Discharge Disposition: Discharge Home Discharge Time: <= 30 minutes Discharge Instructions DIET: Follow Instructions for: As Tolerated, No Restrictions Activities you can perform: Regular-No Restrictions Follow up Referrals: PCP Follow-up - 2 Weeks New Medications: Lactobacillus Acidophilus (Lactobacillus Acidophilus) 1 Billion Cell Tab 1 TAB PO TIDAC for Nutritional Supplement, #30 TAB 0 Refills Sulfamethoxazole-Trimethoprim (Bactrim DS) 800-160 Mg Tab 1 TAB PO BID for Infection, #20 TAB 0 Refills Continued Medications: Albuterol 8.5 GM Inh (Proair Hfa 8.5 GM Inh) 90 Mcg/Act Aer 2 PUFF INH Q4-6H PRN for SHORTNESS OF BREATH, #1 INHALER 0 Refills 108 mcg/actuation Alprazolam (Xanax) 1 Mg Tab 1 MG PO Q8H PRN for ANXIETY, TAB 0 Refills Amitriptyline (Amitriptyline) 25 Mg Tab 25 MG PO HS for Control Depression, #60 TAB 2 Refills Atorvastatin (Lipitor) 40 Mg Tab 40 MG PO HS for Cholesterol Management, #30 TAB 0 Refills Citalopram (Citalopram) 20 Mg Tab 20 MG PO DAILY for Control Depression, #30 TAB 0 Refills Gabapentin (Gabapentin) 300 Mg Cap 300 MG PO TID, #90 CAP 3 Refills Insulin Aspart Inj (Novolog Inj) 1,000 Unit/10 Ml Vial 1-9 UNITS SQ ACHS for Blood Sugar Management, #10 ML 0 Refills Max dose at bedtime:( )units; sugars less than 70,(0)units; sugars 150-199,(1) unit; sugars 200-249,(3) units; sugars 250-299,(5) units; sugars 300-349,(7) units; sugars greater than 349,(9) units Insulin Detemir Inj (Levemir Inj) 1,000 unit/ 10 ML Vial 10 UNITS SQ HS for Blood Sugar Management for 30 Days, #10 VIAL 0 Refills Do not mix with any other Insulin. Lisinopril (Lisinopril) 2.5 Mg Tab 2.5 MG PO DAILY, #30 TAB 0 Refills Meloxicam (Meloxicam) 15 Mg Tab 15 MG PO DAILY for Arthritis Pain, #30 TAB 0 Refills Metformin (Metformin) 1,000 Mg Tab 1000 MG PO BID for Blood Sugar Management, #60 TAB 1 Refill With a meal.. Ropinirole (Ropinirole) 2 Mg Tab 2 MG PO HS, #30 TAB 0 Refills Zolpidem (Zolpidem) 5 Mg Tab 5 MG PO HS PRN for INSOMNIA, TAB 0 Refills Discontinued Medications: Nitrofurantoin Monohydrate Macrocrystals (Macrobid) 100 Mg Capsule 100 MG PO BID for Infection, #10 CAP 0 Refills . Abram Johnson MD Jan 07, 2018 12:24
[2018-01-07] MEDS ORDERED: PROT40TA PO (12:40)
== END 2018-01-07 13:28 | disposition home or self-care (01) | DRG 917 ==
LOC: PHED 20:28 → PHEDA 01-04 00:58 → PHEDH 01-04 04:58 → PHICU 01-04 07:12
PROVIDERS: ADMIT Hospitalist; ATTEND Hospitalist
PROC: 5A1945Z Respiratory Ventilation, 24-96 Consecutive Hours (ICD-10-PCS; 2018-01-04)
PROC: 0DB38ZX Excision of Lower Esophagus, Via Natural or Artificial Opening Endoscopic, Diagnostic (ICD-10-PCS; 2018-01-04)
PROC: 0DB68ZX Excision of Stomach, Via Natural or Artificial Opening Endoscopic, Diagnostic (ICD-10-PCS; 2018-01-04)
PROC: 0BH17EZ Insertion of Endotracheal Airway into Trachea, Via Natural or Artificial Opening (ICD-10-PCS; principal; 2018-01-04 13:08)
DX: T40.601A Poisoning by unspecified narcotics, accidental (unintentional), initial encounter (principal); J96.90 Respiratory failure, unspecified, unspecified whether with hypoxia or hypercapnia; G93.41 Metabolic encephalopathy; K22.6 Gastro-esophageal laceration-hemorrhage syndrome; K22.10 Ulcer of esophagus without bleeding; K29.80 Duodenitis without bleeding; F11.90 Opioid use, unspecified, uncomplicated; G89.4 Chronic pain syndrome; E11.65 Type 2 diabetes mellitus with hyperglycemia; Z79.84 Long term (current) use of oral hypoglycemic drugs; Z79.4 Long term (current) use of insulin; I10 Essential (primary) hypertension; F32.9 Major depressive disorder, single episode, unspecified; J44.9 Chronic obstructive pulmonary disease, unspecified; G25.81 Restless legs syndrome; F17.210 Nicotine dependence, cigarettes, uncomplicated; Z96.643 Presence of artificial hip joint, bilateral
CPT/HCPCS: 31500; 36600; 70450; 70496; 70498; 70553; 71045; 80048; 80053; 80076; 80307; 81001; 82140; 82550; 82805; 82948; 83605; 83735; 83930; 83935; 84100; 84132; 84300; 84484; 84702; 85025; 85384; 85610; 85730; 86403; 86850; 86900; 86901; 87040; 87070; 87077; 87147; 87184; 87185; 87186; 87205; 87641; 88305; 88312; 93005; 94002; 94003; 94150; 94640; 94664; 95819; 96361; 96365; 96375; 96376; A9579; C9113; J0330; J0360; J1644; J2310; J2543; J3370; J3475; J3480; J7030; Q9967

== ENCOUNTER 2018-01-30 07:46 | Observation (INO) | payer OTHER ==
[~2018-01-30] VITALS: Ht 165.1 cm; Wt 60.7 kg
[~2018-01-30 07:46] MED LIST changes: +BACT800T5 PO; +LACTTAB8 PO; -MACR100C2 PO; +PROT40TA PO
[2018-01-30 07:50] VITALS: BP 140/95; PULSE 80; RESP 16; TEMP 98.5; O2SAT 98
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
--- NOTE | 2018-01-30 08:48 | RADRPT ---
EXAM DATE/TIME: 01/30/2018 08:13 [facility] COMPARISON: CHEST SINGLE AP, January 04, 2018, 0:28. INDICATIONS : Syncope, fall, altered mental status. MEDICAL HISTORY : Hypercholesterolemia. Chronic obstructive pulmonary disease. Gastroesophageal reflux disease. Hyp ertension. Arthritis. Diabetic. SURGICAL HISTORY : Tubal ligation. section. Bilateral hip replacement. ENCOUNTER: Initial ACUITY: 1 day PAIN SCORE: 0/10 LOCATION: chest FINDINGS: No new focal pleural or parenchymal opacities. Cardiomegaly stal contours are stable. 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 Remaining osseous structures are intact. CONCLUSION: 1. No acute abnormality or significant interval change. Salvatore Carnes MD on January 30, 2018 at 8:34 Board Certified Radiologist. This report was verified electronically.
[2018-01-30 08:52] LABS: BILIRUBIN, URINE NEG (NEG); BLOOD, URINE NEG (NEG); GLUCOSE,URINE 250 mg/dL (NEG); KETONE, URINE NEG (NEG); NITRITE,URINE NEG (NEG); URINE COLOR YELLOW (YELLW/STRAW); URINE LEUKOCYTE ESTERASE NEG (NEG)
[2018-01-30 08:59] LABS: RBC, URINE 0-3 /hpf (0-3); SQUAMOUS EPITHELIAL CELL URINE 0-5 /hpf (0-5); WBC, URINE 0-2 /hpf (0-5)
--- NOTE | 2018-01-30 09:03 | RADRPT ---
EXAM DATE/TIME: 01/30/2018 08:48 [facility] COMPARISON: CT BRAIN W/O CONTRAST, January 03, 2018, 23:41. INDICATIONS : Altered mental status. RADIATION DOSE: 48.97 CTDIvol (mGy) ; Patient motion MEDICAL HISTORY : Chronic obstructive pulmonary disease. Gastroesophageal reflux disease. Diabetes mellitus type 2.Hype rtension. SURGICAL HISTORY : Tubal ligation. section. ENCOUNTER: Initial ACUITY: 1 day PAIN SCALE: 0/10 LOCATION: cranial TECHNIQUE: Multiple contiguous axial images were obtained of the head. Using automated exposure control and adj ustment of the mA and/or kV according to patient size, radiation dose was kept as low as reasonably a chievable to obtain optimal diagnostic quality images. DICOM format image data is available electro nically for review and comparison. FINDINGS: CEREBRUM: Bifrontal atrophy. The ventricles are normal for age. No evidence of midline shift, mass lesion, he morrhage or acute infarction. No extra-axial fluid collections are seen. POSTERIOR FOSSA: The cerebellum and brainstem are intact. The 4th ventricle is midline. The cerebellopontine angle i s unremarkable. EXTRACRANIAL: The visualized portion of the orbits is intact. SKULL: The calvaria is intact. No evidence of skull fracture. CONCLUSION: Bifrontal atrophy otherwise negative Nick Cook MD FACR on January 30, 2018 at 9:00 Board Certified Radiologist. This report was verified electronically.
[2018-01-30 09:15] VITALS: BP 143/92; PULSE 63; RESP 14; O2SAT 99
[2018-01-30 10:07] LABS: AUTOMATED NEUTROPHIL # 6.3 TH/MM3 (1.8-7.7); BASOPHIL % 0.2 % (0.0-2.0); EOSINOPHIL # 0.3 TH/MM3 (0-0.4); EOSINOPHIL % 3.4 % (0.0-4.0); HEMATOCRIT 35.6 % (35.0-46.0); HEMOGLOBIN 12.2 GM/DL (11.6-15.3); LYMPH % 12.3 % (9.0-44.0); MEAN CELL VOLUME 90.9 FL (80.0-100.0); MEAN CORPUSCULAR HEMOGLOBIN 31.1 PG (27.0-34.0); MEAN CORPUSCULAR HGB CONC 34.2 % (32.0-36.0); MONO % 2.9 % (0.0-8.0); MONOCYTE # 0.2 TH/MM3 (0-0.9); NEUT % 81.2 % (16.0-70.0); PLATELET COUNT 263 TH/MM3 (150-450); RED BLOOD COUNT 3.91 MIL/MM3 (4.00-5.30); RED CELL DISTRIBUTION WIDTH 13.4 % (11.6-17.2); WHITE BLOOD COUNT 7.8 TH/MM3 (4.0-11.0)
[2018-01-30 10:26] LABS: INTERNATIONAL NORMALIZED RATIO 1.1 RATIO; PROTHROMBIN TIME - PATIENT 10.8 SEC (9.8-11.6)
[2018-01-30 10:38] VITALS: BP 163/92; PULSE 67; RESP 14; O2SAT 98
[2018-01-30 11:45] VITALS: BP 136/89; PULSE 70; RESP 16; O2SAT 99
[2018-01-30 11:56] LABS: ALBUMIN 3.7 GM/DL (3.4-5.0); AST (GOT) 11 U/L (15-37); BICARBONATE 22.7 MEQ/L (21.0-32.0); BLOOD UREA NITROGEN 8 MG/DL (7-18); CALCIUM 9.2 MG/DL (8.5-10.1); CHLORIDE 106 MEQ/L (98-107); CREATININE 0.67 MG/DL (0.50-1.00); GLOMERULAR FILTRATION RATE 90 ML/MIN (>89); GLUCOSE,RANDOM 255 MG/DL (74-106); MAGNESIUM 1.4 MG/DL (1.5-2.5); SODIUM (NA) 140 MEQ/L (136-145)
[2018-01-30 12:06] LABS: ACETAMINOPHEN LESS THAN 2.0 MCG/ML (10.0-30.0); ALKALINE PHOSPHATASE 76 U/L (45-117); ALT (GPT) 17 U/L (10-53); TOTAL BILIRUBIN ADULT 0.5 MG/DL (0.2-1.0); TOTAL PROTEIN 6.7 GM/DL (6.4-8.2)
--- NOTE | 2018-01-30 12:08 | EKG ---
Date Performed: 01/30/2018 Time Performed: 08:28:32 PTAGE: 57 years EKG: Sinus rhythm POSSIBLE RIGHT VENTRICULAR CONDUCTION DELAY NONSPECIFIC T-WAVE ABNORMALITY BORDERLINE ECG PREVIOUS TRACING : 01/03/2018 21.18 Since the previous tracing, no significant change noted DOCTOR: Lencho Kaiser Interpretating Date/Time 01/30/2018 12:06:56
[2018-01-30] MEDS ORDERED: ACETAMINOPHEN 325 MG TAB PO PRN (13:15)
[2018-01-30] MEDS ORDERED: ONDANSETRON HCL 4 MG/2 ML VIAL IVP PRN (13:15)
[2018-01-30] MEDS ORDERED: MAGNESIUM HYDROXIDE SUSP 30 ML CUP PO PRN (13:15)
[2018-01-30] MEDS ORDERED: NALOXONE HCL 0.4 MG/ML AMP IV PUSH PRN (13:15)
[2018-01-30] MEDS ORDERED: SODIUM CHLORIDE 0.9% FLUSH 10 ML FLUSH IV FLUSH PRN (13:15)
[2018-01-30 13:48] VITALS: BP 150/98; PULSE 74; RESP 16; O2SAT 98
[2018-01-30] MEDS ORDERED: GLUCAGON 1 MG/ML VIAL OTHER PRN (15:15)
[2018-01-30] MEDS ORDERED: DEXTROSE 50% IN WATER 50 ML VIAL(D50) IV PUSH PRN (15:15)
--- NOTE | 2018-01-30 15:27 | HHI.HP ---
[facility] Christiano Browne MD Admission Diagnosis ALTERED MENTAL STATUS Diagnoses: Chief Complaint: ams Travel History International Travel<30 Days: No Contact w/Intl Traveler <30 Da: No Traveled to Known Affected Are: No History of Present Illness Patient is a 57-year-old female with a history of diabetes and hypertension as well as multiple medications for anxiety, depression and sleep. Apparently she took some Xanax at home and was acting inappropriately per her . She says that she fell out of bed and was walking around the house not making sense. He did call the ambulance and when paramedics arrived patient seemed to have improved. The ambulance did leave her blood sugar that time was 200. Once the left patient started acting oddly again and he brought her to the hospital for further evaluation. Her blood sugar has been stable and her blood pressures been stable however patient does have some low magnesium level she is on quite a bit of medications for her medical drug list and includes gabapentin , amitriptyline, Requip, citalopram, zolpidem and Xanax. Patient also says she was taken Percocets but she does not know from where she got them. Since arrival here she has returned back to baseline. She has chronic right arm weakness which started over several months ago. Images of the head did show chronic cortical atrophy probably from vascular injury. I did speak with the spouse on the phone regarding these findings and he was not aware of the abnormal brain images previously obtained. I did discuss with him regarding possible cognitive impairment and the need for close supervision with medications as well as adjustment in the medication regimen to avoid polypharmacy and drug reactions and side effects and toxic encephalopathy. Patient will be observed overnight for further improvement Review of Systems Constitutional: DENIES: Diaphoretic episodes, Fatigue, Fever, Weight gain, Weight loss, Chills, Dizziness, Change in appetite, Night Sweats Endocrine: DENIES: Abnorml menstrual pattern, Heat/cold intolerance, Polydipsia , Polyuria, Polyphagia Eyes: DENIES: Blurred vision, Diplopia, Eye inflammation, Eye pain, Vision loss , Photosensitivity, Double Vision Ears, nose, mouth, throat: DENIES: Tinnitus, Hearing loss, Vertigo, Nasal discharge, Oral lesions, Throat pain, Hoarseness, Ear Pain, Running Nose, Epistaxis, Sinus Pain, Toothache, Odynophagia Respiratory: DENIES: Apneas, Cough, Snoring, Wheezing, Hemoptysis, Sputum production, Shortness of breath Cardiovascular: DENIES: Chest pain, Palpitations, Syncope, Dyspnea on Exertion , PND, Lower Extremity Edema, Orthopnea, Claudication Gastrointestinal: DENIES: Abdominal pain, Black stools, Bloody stools, Constipation, Diarrhea, Nausea, Vomiting, Difficulty Swallowing, Anorexia Genitourinary: DENIES: Abnormal vaginal bleeding, Dysmenorrhea, Dyspareunia, Sexual dysfunction, Urinary frequency, Urinary incontinence, Urgency, Hematuria , Dysuria, Nocturia, Vaginal discharge Musculoskeletal: DENIES: Joint pain, Muscle aches, Stiffness, Joint Swelling, Back pain, Neck pain Integumentary: DENIES: Abnormal pigmentation, Pruritus, Rash, Nail changes, Breast masses, Breast skin changes, Nipple discharge Hematologic/lymphatic: DENIES: Bruising, Lymphadenopathy Neurologic: COMPLAINS OF: Localized weakness (right arm), DENIES: Abnormal gait , Headache, Paresthesias, Seizures, Speech Problems, Tremor, Poor Balance Psychiatric: COMPLAINS OF: Anxiety, Confusion, DENIES: Mood changes, Depression , Hallucinations, Agitation, Suicidal Ideation, Homicidal Ideation, Delusions Except as stated in HPI: all other systems reviewed are Neg Past Family Social History Past Medical History poly pharmacy anxiety dm2 Past Surgical History cs, tubal hip replacement Reported Medications reviewed in the EMR Allergies: Coded Allergies: No Known Allergies (Verified Allergy, Unknown, 01/30/18) Active Ordered Medications reviewed in the emr Family History parents killed in mva Social History no etoh 2ppd tobacco Physical Exam Vital Signs Vital Signs Date Time Temp Pulse Resp B/P (MAP) Pulse Ox O2 Delivery O2 Flow Rate FiO2 01/30/18 14:09 01/30/18 13:48 74 16 150/98 (115) 98 Room Air 01/30/18 11:45 70 16 136/89 (105) 99 Room Air 01/30/18 10:38 67 14 163/92 (115) 98 Room Air 01/30/18 09:15 63 14 143/92 (109) 99 Room Air 01/30/18 07:50 98.5 80 16 140/95 (110 98 Physical Exam GENERAL: This is a well-nourished, well-developed patient, in no apparent distress. SKIN: No rashes, ecchymoses or lesions. Cool and dry. HEAD: Atraumatic. Normocephalic. No temporal or scalp tenderness. EYES: Pupils equal round and reactive. Extraocular motions intact. No scleral icterus. No injection or drainage. ENT: Nose without bleeding, purulent drainage or septal hematoma. Throat without erythema, tonsillar hypertrophy or exudate. Uvula midline. Airway patent. NECK: Trachea midline. No JVD or lymphadenopathy. Supple, nontender, no meningeal signs. CARDIOVASCULAR: Regular rate and rhythm without murmurs, gallops, or rubs. RESPIRATORY: Clear to auscultation. Breath sounds equal bilaterally. No wheezes , rales, or rhonchi. GASTROINTESTINAL: Abdomen soft, non-tender, nondistended. No hepato-splenomegaly , or palpable masses. No guarding. MUSCULOSKELETAL: Extremities without clubbing, cyanosis, or edema. No joint tenderness, effusion, or edema noted. No calf tenderness. Negative Homans sign bilaterally. NEUROLOGICAL: Awake and alert. Cranial nerves II through XII intact. Motor and sensory grossly within normal limits. Five out of 5 muscle strength in all muscle groups. Normal speech. Laboratory Laboratory Tests Test 01/30/18 08:25 01/30/18 09:50 Urine Collection Type CLEAN CATCH Urine Color YELLOW Urine Turbidity CLEAR Urine pH 6.0 Urine Specific [place] LESS/EQUAL 1.005 Urine Protein NEG Urine Glucose (UA) 250 Urine Ketones NEG Urine Occult Blood NEG Urine Nitrite NEG Urine Bilirubin NEG Urine Urobilinogen 0.2 Urine Leukocyte Esterase NEG Urine RBC 0-3 Urine WBC 0-2 Urine Squamous Epithelial Cells 0-5 Urine Collection Time 08:25 Urine Opiates Screen NEG Urine Barbiturates Screen NEG Urine Amphetamines Screen NEG Urine Benzodiazepines Screen POS Urine Cocaine Screen NEG Urine Cannabinoids Screen NEG White Blood Count 7.8 Red Blood Count 3.91 Hemoglobin 12.2 Bedside Hemoglobin Hematocrit 35.6 Bedside Hematocrit Mean Corpuscular Volume 90.9 Mean Corpuscular Hemoglobin 31.1 Mean Corpuscular Hemoglobin Concent 34.2 Red Cell Distribution Width 13.4 Platelet Count 263 Mean Platelet Volume 8.0 Neutrophils (%) (Auto) 81.2 Lymphocytes (%) (Auto) 12.3 Monocytes (%) (Auto) 2.9 Eosinophils (%) (Auto) 3.4 Basophils (%) (Auto) 0.2 Neutrophils # (Auto) 6.3 Lymphocytes # (Auto) 1.0 Monocytes # (Auto) 0.2 Eosinophils # (Auto) 0.3 Basophils # (Auto) 0.0 CBC Comment DIFF FINAL Differential Comment Prothrombin Time 10.8 Prothromb Time International Ratio 1.1 Activated Partial Thromboplast Time 25.1 Bedside Sodium 139 Blood Urea Nitrogen 8 Creatinine 0.67 Random Glucose 255 Total Protein 6.7 Albumin 3.7 Calcium Level 9.2 Magnesium Level 1.4 Alkaline Phosphatase 76 Aspartate Amino Transf (AST/SGOT) 11 Alanine Aminotransferase (ALT/SGPT) 17 Total Bilirubin 0.5 Sodium Level 140 Potassium Level 4.0 Chloride Level 106 Carbon Dioxide Level 22.7 Bedside Potassium 4.0 Bedside Chloride 102 Anion Gap 11 Bedside Blood Urea Nitrogen 7 Bedside Creatinine 0.5 Estimat Glomerular Filtration Rate 90 Bedside Glucose 255 Ammonia 17 Thyroid Stimulating Hormone 3rd Gen 1.580 Acetaminophen Level LESS THAN 2.0 Ethyl Alcohol Level LESS THAN 3 Result Diagram: 01/30/18 0950 01/30/18 0950 Imaging Last Impressions Head CT 01/30/18802 Signed Impressions: Service Date/Time: Tuesday, January 30, 2018 08:48 - CONCLUSION: Bifrontal atrophy otherwise negative Nick Cook MD FACR Chest X-Ray 01/30/18802 Signed Impressions: Service Date/Time: Tuesday, January 30, 2018 08:13 - CONCLUSION: 1. No acute abnormality or significant interval change. Salvatore Carnes MD Caprini VTE Risk Assessment Caprini VTE Risk Assessment: Mod/High Risk (score >= 2) Caprini Risk Assessment Model Point Value = 1 Point Value = 2 Point Value = 3 Point Value = 5 Age 41-60 Minor surgery BMI > 25 kg/m2 Swollen legs Varicose veins or History of unexplained or recurrent spontaneous Oral contraceptives or hormone replacement Sepsis (< 1 month) Serious lung disease, including pneumonia (< 1 month) Abnormal pulmonary function Acute myocardial infarction Congestive heart failure (< 1 month) History of inflammatory bowel disease Medical patient at bed rest Age 61-74 Arthroscopic surgery Major open surgery (> 45 min) Laparoscopic surgery (> 45 min) Malignancy Confined to bed (> 72 hours) Immobilizing plaster cast Central venous access Age >= 75 History of VTE Family history of VTE Factor V Leiden Prothrombin [id number] Lupus anticoagulant Anticardiolipin antibodies Elevated serum homocysteine Heparin-induced thrombocytopenia Other congenital or acquired thrombophilia Stroke (< 1 month) Elective arthroplasty Hip, pelvis, or leg fracture Acute spinal cord injury (< 1 month) Prophylaxis Regimen Total Risk Factor Score Risk Level Prophylaxis Regimen 0-1 Low Early ambulation 2 Moderate Order ONE of the following: *Sequential Compression Device (SCD) *Heparin 5000 units SQ BID 3-4 Higher Order ONE of the following medications: *Heparin 5000 units SQ TID *Enoxaparin/Lovenox 40 mg SQ daily (WT < 150 kg, CrCl > 30 mL/min) *Enoxaparin/Lovenox 30 mg SQ daily (WT < 150 kg, CrCl > 10-29 mL/min) *Enoxaparin/Lovenox 30 mg SQ BID (WT < 150 kg, CrCl > 30 mL/min) AND/OR *Sequential Compression Device (SCD) 5 or more Highest Order ONE of the following medications: *Heparin 5000 units SQ TID (Preferred with Epidurals) *Enoxaparin/Lovenox 40 mg SQ daily (WT < 150 kg, CrCl > 30 mL/min) *Enoxaparin/Lovenox 30 mg SQ daily (WT < 150 kg, CrCl > 10-29 mL/min) *Enoxaparin/Lovenox 30 mg SQ BID (WT < 150 kg, CrCl > 30 mL/min) AND *Sequential Compression Device (SCD) Assessment and Plan Problem List: (1) Toxic metabolic encephalopathy ICD Code: G92 - Toxic encephalopathy Plan: Likely secondary to polypharmacy in a patient with cognitive impairment 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 Medication list has been tailored to assist with decreasing medication side effects and possible unintentional overdoses Patient will need home health at discharge (2) Uncontrolled diabetes mellitus ICD Code: E11.65 - Type 2 diabetes mellitus with hyperglycemia Status: Chronic Plan: Previous hemoglobin A1c 11 Continue with insulin and sliding scale diabetic diet (3) Benzodiazepine dependence ICD Code: F13.20 - Sedative, hypnotic or anxiolytic dependence, uncomplicated (4) Atrophy, cortical ICD Code: G31.9 - Degenerative disease of nervous system, unspecified Plan: may have cognitive impairment Discussed with spouse regarding MRI findings of December as well as CT of the head findings today Assessment and Plan spoke with spouse Radha Kumar MD Jan 30, 2018 15:26
[2018-01-30] MEDS ORDERED: ALBUTEROL SULFATE 90 MCG/ACT HFA 8 GM INHALER INH PRN (16:00)
[2018-01-30] MEDS ORDERED: ALPRAZolam 1 MG TAB PO PRN (16:00)
[2018-01-30] MEDS ORDERED: MAGNESIUM SULFATE 1 GM PREMIX 100 ML IV ONE (16:00)
[2018-01-30] MEDS: INSULIN ASPART SUPPLEMENTAL SCALE SQ SCH ×2 (17:00→21:10)
[2018-01-30] MEDS: GABAPENTIN 300 MG CAP PO SCH (18:40)
[2018-01-30] MEDS: LISINOPRIL 5 MG TAB PO SCH (18:40)
[2018-01-30] MEDS: CITALOPRAM HYDROBROMIDE 20 MG TAB PO SCH (18:40)
[2018-01-30 20:00] VITALS: BP 171/98; PULSE 78; RESP 20; TEMP 99.6; O2SAT 97
[2018-01-30] MEDS ORDERED: ATORVASTATIN 40 MG TAB PO SCH (21:00)
[2018-01-30] MEDS ORDERED: cloNIDine HCL 0.1 MG TAB PO PRN (21:00)
[2018-01-30] MEDS ORDERED: INSULIN DETEMIR 100 UNITS/ML VIAL SQ SCH (21:00)
[2018-01-30] MEDS ORDERED: AMITRIPTYLINE HCL 25 MG TAB PO SCH (21:00)
[2018-01-30] MEDS: SODIUM CHLORIDE 0.9% FLUSH 10 ML FLUSH IV FLUSH SCH (21:09)
[2018-01-31] VITALS: BP 136/89; PULSE 74; RESP 20; TEMP 98.5; O2SAT 100
[2018-01-31 04:00] VITALS: BP 118/79; PULSE 77; RESP 20; TEMP 97.8; O2SAT 99
[2018-01-31 05:35] LABS: BICARBONATE 28.7 MEQ/L (21.0-32.0); CALCIUM 9.2 MG/DL (8.5-10.1); MAGNESIUM 1.8 MG/DL (1.5-2.5)
[2018-01-31 05:39] LABS: CREATININE 0.56 MG/DL (0.50-1.00)
[2018-01-31] MEDS: INSULIN ASPART SUPPLEMENTAL SCALE SQ SCH ×3 (07:43→17:00)
[2018-01-31 08:00] VITALS: BP 114/69; PULSE 86; RESP 15; TEMP 98; O2SAT 98
[2018-01-31] MEDS: SODIUM CHLORIDE 0.9% FLUSH 10 ML FLUSH IV FLUSH SCH (09:00)
[2018-01-31] MEDS: LISINOPRIL 5 MG TAB PO SCH ×2 (09:00→09:14)
[2018-01-31] MEDS: CITALOPRAM HYDROBROMIDE 20 MG TAB PO SCH (09:00)
[2018-01-31] MEDS: GABAPENTIN 300 MG CAP PO SCH ×2 (09:00→13:00)
[2018-01-31] MEDS: ALPRAZolam 0.5 MG TAB PO SCH ×2 (11:30→14:00)
--- NOTE | 2018-01-31 11:54 | MB ---
cc: Emmanuel Diane MD DATE: 01/31/2018 HISTORY OF PRESENT ILLNESS: A 57-year-old right-handed woman. She is not very cooperative to the history, but I am called to see her for mental status changes, agitation. She did see Dr. Mendez on 01/04/2018. She had some staring, decreased responsiveness, received Narcan. She had a CTA of her head and neck that were negative. She had benzos in her urine. History of poorly controlled blood pressure, chronic pain, hypertension, COPD, and probably thought a toxic metabolic encephalopathy. An EEG was performed that was normal sleep, no seizures. The patient was admitted yesterday through the ER. History was from the . She seemed confused, similar episode in December, possibly related to medication. MRI showed some white matter changes and atrophy. She was wandering around the house shaking her arms and legs, seemed confused, standing in the shower confused. Blood sugar was 200. She does take Xanax. ALLERGIES: NO KNOWN DRUG ALLERGIES. MEDICATIONS AT HOME: Protonix, lactobacillus, metformin, insulin, gabapentin 300 three times a day, Elavil 25 at bedtime, meloxicam, Lipitor, ropinirole 2 mg at bedtime, citalopram, zolpidem, lisinopril, Xanax 1 mg every 8 hours p.r.n. REVIEW OF SYSTEMS: Really unable to get from the patient today. PAST MEDICAL HISTORY: Polypharmacy, anxiety, type 2 diabetes. PHYSICAL EXAMINATION: VITAL SIGNS: Afebrile, 86, 15, 114/69. NEUROLOGIC: She is resistant to exam. Her visual felipe are full. Face is symmetric. Tongue is midline. She has normal strength in upper and lower extremities bilaterally. Toes downgoing bilaterally. She is awake and alert. She is oriented x 3. She knew the month, year. She knew where she was. She showed me her left thumb. Her speech is fluent, not aphasic, but she is a bit agitated. It is hard to say if she slept well last night or not. She says she did not. Also, says she has a history of migraine headaches and has a headache now. She is in no apparent distress, but is generally uncooperative and a little bit paranoid that people are trying to manipulate her. Her speech is quite fluent. She is not aphasic. LABORATORY DATA: CBC essentially normal. RPR has been negative in the past. Urine drug screen here positive for benzos only. UA here was negative except for glucose of 250. Coags normal. Basic metabolic profile here, glucose initially 255, 67 this morning. BMP is normal. Calcium is normal. Magnesium 1.4. LFTs are normal. Ammonia level is normal. Thyroid is normal. B12 in 2015 was low at 260. She had a blood gas done last month showed a pH of 7.52 with a PaCO2 of 28 and a pO2 of 126. She had a CAT scan of her brain last evening, showed some atrophy, otherwise normal. She had an MRI of her brain done, also negative, in December of this year. CTA was normal of the head and normal of the neck. Review of the CAT scan of the brain here does show some bifrontal atrophy not as severe as we usually see in Pick's disease, but there does appear to be some significant atrophy there. Review of the MRI of the brain done last month again shows this bifrontal atrophy, white matter changes bilaterally consistent with her age. Temporal lobes are not majorly atrophied and hippocampi looked a good size. IMPRESSION: Some paranoia. I would recommend having psychiatry see her. I would hold her Elavil for now and give her some Xanax in case there is any Xanax withdrawal. Check a sleep chart on her and make sure she is sleeping at night. Recheck her B12 level. I will be following her with you in the hospital. MD LETTY Landeros/TL/ , 11:00 AM , 11:40 AM
[2018-01-31] MEDS ORDERED: HALOPERIDOL LACTATE 5 MG/ML AMP IM PRN (12:15)
--- NOTE | 2018-01-31 12:55 | PD.PSY.CON ---
Provisional Diagnosis Admission Date Jan 30, 2018 at 12:57 Energy I. Unspecified psychosis, R/O bipolar disorder, manic episode, schizoaffective disorder, Delirium due to benzo withdrawal, Hx of polysubstance Energy II. deferred. History of Present Illness Service Psychiatry Consult Requested By Medicine Reason for Consult Psychosis Primary Care Physician Christiano Browne MD HPI The patient is a 57-year-old woman, , domiciled with , son and granddaughter in [place], unemployed, supported by [facility] ,with a past psychiatric history of major depressive disorder, anxiety, polysubstance abuse ( cocaine/amphetamines/benzo), in partial remission, no prior psychiatric admission, no previous suicide attempt, she has clear abusing-medications tendencies, seen by Dr. Hernandez in consult last month due to unintentional OD, she is on Celexa 20 mg, Xanax, 1 mg tid, Ambien 5 mg hs, with a past medical history significant for hypertension, diabetes, COPD, RLS, Admitted due to AMS , Apparently she took some Xanax at home and was acting inappropriately per her . She says that she fell out of bed and was walking around the house not making sense. He did call the ambulance and when paramedics arrived patient seemed to have improved. The ambulance did leave her blood sugar that time was 200. Once the left patient started acting oddly again and he brought her to the hospital for further evaluation. Her blood sugar has been stable and her blood pressures been stable however patient does have some low magnesium level she is on quite a bit of medications for her medical drug list and includes gabapentin, amitriptyline, Requip, citalopram, zolpidem and Xanax. Patient also says she was taken Percocets but she does not know from where she got them. Since arrival here she has returned back to baseline. She has chronic right arm weakness which started over several months ago. Images of the head did show chronic cortical atrophy probably from vascular injury. I did speak with the spouse on the phone regarding these findings and he was not aware of the abnormal brain images previously obtained. I did discuss with him regarding possible cognitive impairment and the need for close supervision with medications as well as adjustment in the medication regimen to avoid polypharmacy and drug reactions and side effects and toxic encephalopathy. Patient will be observed overnight for further improvement. she was also seen and clear by Neurology. Consulted to psychiatry for evaluation of psychosis. On psychiatric evaluation the patient is extremely disorganized, yelling, talking with one profanity after another one. She says that she does not want to speak with a psychiatrist. She keeps talking and talking with José Miguel loosening of associations and disorganized speech. The patient is fully oriented 3, she can tell me who is the emergency vehicle operator, she can remember 3 words after 5 minutes, but she cannot stop talking and yelling 1 second Review of Systems Constitutional: DENIES: Diaphoretic episodes, Fatigue, Fever, Weight gain, Weight loss, Chills, Dizziness, Change in appetite, Night Sweats Endocrine: DENIES: Abnorml menstrual pattern, Heat/cold intolerance, Polydipsia , Polyuria, Polyphagia Eyes: DENIES: Blurred vision, Diplopia, Eye inflammation, Eye pain, Vision loss , Photosensitivity, Double Vision Ears, nose, mouth, throat: DENIES: Tinnitus, Hearing loss, Vertigo, Nasal discharge, Oral lesions, Throat pain, Hoarseness, Ear Pain, Running Nose, Epistaxis, Sinus Pain, Toothache, Odynophagia Respiratory: DENIES: Apneas, Cough, Snoring, Wheezing, Hemoptysis, Sputum production, Shortness of breath Cardiovascular: DENIES: Chest pain, Palpitations, Syncope, Dyspnea on Exertion , PND, Lower Extremity Edema, Orthopnea, Claudication Gastrointestinal: DENIES: Abdominal pain, Black stools, Bloody stools, Constipation, Diarrhea, Nausea, Vomiting, Difficulty Swallowing, Anorexia Genitourinary: DENIES: Abnormal vaginal bleeding, Dysmenorrhea, Dyspareunia, Sexual dysfunction, Urinary frequency, Urinary incontinence, Urgency, Hematuria , Dysuria, Nocturia, Vaginal discharge Musculoskeletal: DENIES: Joint pain, Muscle aches, Stiffness, Joint Swelling, Back pain, Neck pain Integumentary: DENIES: Abnormal pigmentation, Pruritus, Rash, Nail changes, Breast masses, Breast skin changes, Nipple discharge Hematologic/lymphatic: DENIES: Bruising, Lymphadenopathy Immunologic/allergic: DENIES: Eczema, Urticaria Neurologic: DENIES: Abnormal gait, Headache, Localized weakness, Paresthesias, Seizures, Speech Problems, Tremor, Poor Balance Psychiatric: COMPLAINS OF: Confusion, Mood changes, Delusions, DENIES: Anxiety , Depression, Hallucinations, Agitation, Suicidal Ideation, Homicidal Ideation Past Family Social History Coded Allergies: No Known Allergies (Verified Allergy, Unknown, 01/30/18) Active Scripts Quetiapine (Seroquel) 25 Mg Tab, 25 MG PO BID@09,12 for psychosis, #62 TAB Prov:Radha Kumar MD 01/31/18 Metformin (Metformin) 1,000 Mg Tab, 1000 MG PO BID for Blood Sugar Management, # 60 TAB 1 Refill With a meal.. Prov:Sy Franco MD, R1 12/21/17 Insulin Detemir Inj (Levemir Inj) 1,000 unit/ 10 ML Vial, 10 UNITS SQ HS for Blood Sugar Management for 30 Days, #10 VIAL 0 Refills Do not mix with any other Insulin. Prov:Deshawn Yepez MD R3 12/21/17 Glucocom Test Strips (Glucocom Test Strips) 1 Trina Trina, EA .ROUTE DIRECTED for Blood Sugar Management, #1 Do Accu-Cheks before each meal and at bedtime Prov:Pavan Mckinley MD, R3 10/01/17 Lancets (Lancets) 1 Mis Mis, EA .ROUTE DIRECTED for Blood Sugar Management, # 1 0 Refills Prov:Pavan Mckinley MD, R3 10/01/17 Insulin Syringe/U-100/31G X 5/16" 1 ml (Insulin Syringe/U-100/31G X 5/16" 1 ml) 31 Gauge X 5/16" Mis, EA .ROUTE DIRECTED for Blood Sugar Management, #1 0 Refills Prov:Pavan Mckinley MD, R3 10/01/17 Blood Glucose Monitoring W/Device (Glucocom Blood Glucose Mo W/Device) 1 Kit Kit , KIT .ROUTE DIRECTED for Blood Sugar Management, #1 Prov:Pavan Mckinley MD, R3 10/01/17 Gabapentin (Gabapentin) 300 Mg Cap, 300 MG PO TID, #90 CAP 3 Refills Prov:Pavan Mckinley MD, R3 06/07/17 Reported Medications Meloxicam (Meloxicam) 15 Mg Tab, 15 MG PO DAILY for Arthritis Pain, #30 TAB 0 Refills 04/30/17 Atorvastatin (Lipitor) 40 Mg Tab, 40 MG PO HS for Cholesterol Management, #30 TAB 0 Refills 04/30/17 Albuterol 8.5 GM Inh (Proair Hfa 8.5 GM Inh) 90 Mcg/Act Aer, 2 PUFF INH Q4-6H Y for SHORTNESS OF BREATH, #1 INHALER 0 Refills 108 mcg/actuation 04/30/17 Citalopram (Citalopram) 20 Mg Tab, 20 MG PO DAILY for Control Depression, #30 TAB 0 Refills 04/30/17 Lisinopril (Lisinopril) 2.5 Mg Tab, 2.5 MG PO DAILY, #30 TAB 0 Refills 04/23/17 Alprazolam (Xanax) 1 Mg Tab, 1 MG PO Q8H Y for ANXIETY, TAB 0 Refills 08/22/16 Discontinued Reported Medications Ropinirole (Ropinirole) 2 Mg Tab, 2 MG PO HS, #30 TAB 0 Refills 04/30/17 Zolpidem (Zolpidem) 5 Mg Tab, 5 MG PO HS Y for INSOMNIA, TAB 0 Refills 04/30/17 Discontinued Scripts Pantoprazole (Protonix) 40 Mg Tab, 40 MG PO BID for Reflux, #60 TAB 0 Refills Prov:Abram Johnson MD 01/07/18 Lactobacillus Acidophilus (Lactobacillus Acidophilus) 1 Billion Cell Tab, 1 TAB PO TIDAC for Nutritional Supplement, #30 TAB 0 Refills Prov:Abram Johnson MD 01/07/18 Insulin Aspart Inj (Novolog Inj) 1,000 Unit/10 Ml Vial, 1-9 UNITS SQ ACHS for Blood Sugar Management, #10 ML 0 Refills Max dose at bedtime:( )units; sugars less than 70,(0)units; sugars 150-199,(1) unit; sugars 200-249,(3) units; sugars 250-299,(5) units; sugars 300-349,(7) units; sugars greater than 349,(9) units Prov:Deshawn Yepez MD R3 12/21/17 Amitriptyline (Amitriptyline) 25 Mg Tab, 25 MG PO HS for Control Depression, # 60 TAB 2 Refills Prov:Pavan Mckinley MD, R3 08/24/16 Sulfamethoxazole-Trimethoprim (Bactrim DS) 800-160 Mg Tab, 1 TAB PO BID for Infection, #20 TAB 0 Refills Prov:Abram Johnson MD 01/07/18 Current Medications Medications (Trade) Dose Ordered Sig/Aan Route Start Time Stop Time Status Last Admin (NS Flush) 2 ml UNSCH PRN IV FLUSH 01/30/18 13:15 (NS Flush) 2 ml BID IV FLUSH 01/30/18 21:00 01/30/18 21:09 (Tylenol) 650 mg Q4H PRN PO 01/30/18 13:15 (Zofran Inj) 4 mg Q6H PRN IVP 01/30/18 13:15 (Narcan Inj) 0.4 mg UNSCH PRN IV PUSH 01/30/18 13:15 (Milk Of Magnesia Liq) 30 ml Q12H PRN PO 01/30/18 13:15 (D50w (Vial) Inj) 50 ml UNSCH PRN IV PUSH 01/30/18 15:15 (Glucagon Inj) 1 mg UNSCH PRN OTHER 01/30/18 15:15 (NovoLOG SUPPLEMENTAL SCALE) 1 ACHS SLIDING SCALE SQ 01/30/18 17:00 01/30/18 21:10 (Proair Hfa Inh) 2 puff Q6H PRN INH 01/30/18 16:00 (Lipitor) 40 mg HS PO 01/30/18 21:00 01/30/18 21:09 (CeleXA) 20 mg DAILY PO 01/30/18 16:00 01/30/18 18:40 (Neurontin) 300 mg TID PO 01/30/18 18:00 01/30/18 18:40 (Levemir Inj) 10 units HS SQ 01/30/18 21:00 01/30/18 21:09 (Prinivil) 2.5 mg DAILY PO 01/30/18 16:00 01/30/18 18:40 (Catapres) 0.1 mg Q6H PRN PO 01/30/18 21:00 01/30/18 21:10 (Xanax) 0.5 mg Q8HR PO 01/31/18 11:30 (KlonoPIN) 0.5 mg Q12HR PO 01/31/18 12:15 UNV (SEROquel) 25 mg BID@09,12 PO 02/01/18 09:00 UNV (Haldol Inj) 2 mg Q12HR PRN IM 01/31/18 12:15 UNV Social History , domiciled with , unemployed, his education is high school, no background, no access to firearms. Patient denies any legal history. Physical Exam Vital Signs Vital Signs Date Time Temp Pulse Resp B/P (MAP) Pulse Ox O2 Delivery O2 Flow Rate FiO2 01/31/18 08:00 98.0 86 15 114/69 (84) 98 01/30/18 13:48 Room Air I/O 01/31/18 01/31/18 02/01/18 08:00 16:00 00:00 Intake Total 240 ml Balance 240 ml Lab Results Test 01/31/18 04:58 01/31/18 05:58 Blood Urea Nitrogen 7 MG/DL Creatinine 0.56 MG/DL Random Glucose 67 MG/DL Calcium Level 9.2 MG/DL Magnesium Level 1.8 MG/DL Sodium Level 137 MEQ/L Potassium Level 3.7 MEQ/L Chloride Level 103 MEQ/L Carbon Dioxide Level 28.7 MEQ/L Anion Gap 5 MEQ/L Estimat Glomerular Filtration Rate 111 ML/MIN Mental Status Examination Appearance: Appropriate Consciousness: Alert Orientation: x4 Motor Activity: Normal gait Speech: Unremarkable Language: Adequate Fund of Knowledge: Adequate Attention and Concentration: Adequate Memory: Impaired Mood: Angry, Irritable Affect: Irritable, Labile Thought Process & Associations: Loose associations, Disorganized Thought Content: Bizarre thinking, Racing thoughts, Delusional Hallucination Type: None Delusion Type: Bizarre, Paranoid Suicidal Ideation: No Suicidal Plan: No Suicidal Intention: No Homicidal Ideation: No Homicidal Plan: No Homicidal Intention: No Insight: Poor Judgment: Poor Assessment & Plan Problem List: (1) Unspecified psychosis ICD Codes: F29 - Unspecified psychosis not due to a substance or known physiological condition Assessment & Plan: Patient is acutely psychotic/manic like on evaluation. She has a prominent verbal incontinence and pressured speech, with increased amount of profanities, which is not part of baseline by as per , disorganized and tangential thinking, paranoia and agitation, difficult to redirect. She has a significant reality distortion and seems to be quire disinhibited. As per nurse she has been persistently yelling in her room, making nonsense and very disruptive. Surprisingly, she is fully oriented times three, wit not language or semantic impairment. As per , current presentation started last Sunday and since then she has been having periodic lucidity alternated with psychosis/barbara. Even though picture is quite unclear at this point from etiological standpoint, patient needs psychiatric admission for stabilization and safety. Banzo/Ambien withdrawal induced psychosis vs bipolar, manic episode vs schizoaffective disorder vs major neurocognitive disorder, frontal lobe type , have to be carefully rule out. Will DC short acting Benzos and start Clonazepam 1 mg bid. Continue CIWA. Start Seroquel 25 bid ofr psychosis and behavioral control DC amitriptyline due to it potent anticholinergic effects Haldol 2 mg im/iv q/8h PRN severe agitation, make sure QTc is not > 460, now is 392 Patient now under cantu act for psychiatric admission Case widely discussed with Dr. Kumar and medical team. Assessment & Plan Estimated LOS: days Blade Mitchell MD Jan 31, 2018 12:55
[2018-01-31] MEDS ORDERED: clonazePAM 0.5 MG TAB PO SCH (13:00)
[2018-01-31] MEDS ORDERED: SERO25TA PO (13:23)
--- NOTE | 2018-01-31 13:27 | HHI.DS ---
Discharge Summary Admission Date Jan 30, 2018 at 12:57 Discharge Date: Jan 31, 2018 Admitting Diagnosis ALTERED MENTAL STATUS (1) Toxic metabolic encephalopathy ICD Code: G92 - Toxic encephalopathy (2) Uncontrolled diabetes mellitus ICD Code: E11.65 - Type 2 diabetes mellitus with hyperglycemia Status: Chronic (3) Benzodiazepine dependence ICD Code: F13.20 - Sedative, hypnotic or anxiolytic dependence, uncomplicated (4) Atrophy, cortical ICD Code: G31.9 - Degenerative disease of nervous system, unspecified Procedures None Brief History - From Admission Patient is a 57-year-old female with a history of diabetes and hypertension as well as multiple medications for anxiety, depression and sleep. Apparently she took some Xanax at home and was acting inappropriately per her . She says that she fell out of bed and was walking around the house not making sense. He did call the ambulance and when paramedics arrived patient seemed to have improved. The ambulance did leave her blood sugar that time was 200. Once the left patient started acting oddly again and he brought her to the hospital for further evaluation. Her blood sugar has been stable and her blood pressures been stable however patient does have some low magnesium level she is on quite a bit of medications for her medical drug list and includes gabapentin , amitriptyline, Requip, citalopram, zolpidem and Xanax. Patient also says she was taken Percocets but she does not know from where she got them. Since arrival here she has returned back to baseline. She has chronic right arm weakness which started over several months ago. Images of the head did show chronic cortical atrophy probably from vascular injury. I did speak with the spouse on the phone regarding these findings and he was not aware of the abnormal brain images previously obtained. I did discuss with him regarding possible cognitive impairment and the need for close supervision with medications as well as adjustment in the medication regimen to avoid polypharmacy and drug reactions and side effects and toxic encephalopathy. Patient will be observed overnight for further improvement CBC/BMP: 01/30/18 0950 01/31/18 0458 Significant Findings Laboratory Tests Test 01/30/18 08:25 01/30/18 09:50 01/31/18 04:58 01/31/18 05:58 Urine Glucose (UA) 250 mg/dL (NEG) Urine Benzodiazepines Screen POS (NEG) Red Blood Count 3.91 MIL/MM3 (4.00-5.30) Neutrophils (%) (Auto) 81.2 % (16.0-70.0) Random Glucose 255 MG/DL (74-106) 67 MG/DL (74-106) Magnesium Level 1.4 MG/DL (1.5-2.5) Aspartate Amino Transf (AST/SGOT) 11 U/L (15-37) Bedside Creatinine 0.5 MG/DL (0.6-1.3) Bedside Glucose 255 MG/DL (68-110) Acetaminophen Level LESS THAN 2.0 MCG/ML Imaging Last Impressions Head CT 01/30/18802 Signed Impressions: Service Date/Time: Tuesday, January 30, 2018 08:48 - CONCLUSION: Bifrontal atrophy otherwise negative Nick Cook MD FACR Chest X-Ray 01/30/18802 Signed Impressions: Service Date/Time: Tuesday, January 30, 2018 08:13 - CONCLUSION: 1. No acute abnormality or significant interval change. Salvatore Carnes MD PE at Discharge GENERAL: This is a well-nourished, well-developed patient, aggravated with pressured speech and paranoia CARDIOVASCULAR: Regular rate and rhythm without murmurs, gallops, or rubs. RESPIRATORY: Clear to auscultation. Breath sounds equal bilaterally. No wheezes , rales, or rhonchi. GASTROINTESTINAL: Abdomen soft, non-tender, nondistended. Normal active bowel sounds MUSCULOSKELETAL: Extremities without clubbing, cyanosis, or edema. NEURO: Alert & Oriented x4 to person, place, time, situation. Moves all ext x4 Pt update on day of discharge Patient seen today in follow-up for altered mental status which appears to be psychosis. Discussed with psychiatry who recommended a Raines act and transfer to the psych unit Hospital Course Patient seen and treated for episodes of abnormal behavior which appear to be some psychotic manifestation. Patient is medically cleared for follow-up in the psych unit. She has been Raines acted by psych consult. Otherwise no new events Pt Condition on Discharge: Good Discharge Disposition: Disc to Psych Care Fac Discharge Time: <= 30 minutes Discharge Instructions DIET: Follow Instructions for: As Tolerated, No Restrictions Activities you can perform: Regular-No Restrictions New Medications: Quetiapine (Seroquel) 25 Mg Tab 25 MG PO BID@09,12 for psychosis, #62 TAB Continued Medications: Albuterol 8.5 GM Inh (Proair Hfa 8.5 GM Inh) 90 Mcg/Act Aer 2 PUFF INH Q4-6H PRN for SHORTNESS OF BREATH, #1 INHALER 0 Refills 108 mcg/actuation Alprazolam (Xanax) 1 Mg Tab 1 MG PO Q8H PRN for ANXIETY, TAB 0 Refills Atorvastatin (Lipitor) 40 Mg Tab 40 MG PO HS for Cholesterol Management, #30 TAB 0 Refills Citalopram (Citalopram) 20 Mg Tab 20 MG PO DAILY for Control Depression, #30 TAB 0 Refills Gabapentin (Gabapentin) 300 Mg Cap 300 MG PO TID, #90 CAP 3 Refills Insulin Detemir Inj (Levemir Inj) 1,000 unit/ 10 ML Vial 10 UNITS SQ HS for Blood Sugar Management for 30 Days, #10 VIAL 0 Refills Do not mix with any other Insulin. Lisinopril (Lisinopril) 2.5 Mg Tab 2.5 MG PO DAILY, #30 TAB 0 Refills Meloxicam (Meloxicam) 15 Mg Tab 15 MG PO DAILY for Arthritis Pain, #30 TAB 0 Refills Metformin (Metformin) 1,000 Mg Tab 1000 MG PO BID for Blood Sugar Management, #60 TAB 1 Refill With a meal.. Discontinued Medications: Amitriptyline (Amitriptyline) 25 Mg Tab 25 MG PO HS for Control Depression, #60 TAB 2 Refills Insulin Aspart Inj (Novolog Inj) 1,000 Unit/10 Ml Vial 1-9 UNITS SQ ACHS for Blood Sugar Management, #10 ML 0 Refills Max dose at bedtime:( )units; sugars less than 70,(0)units; sugars 150-199,(1) unit; sugars 200-249,(3) units; sugars 250-299,(5) units; sugars 300-349,(7) units; sugars greater than 349,(9) units Lactobacillus Acidophilus (Lactobacillus Acidophilus) 1 Billion Cell Tab 1 TAB PO TIDAC for Nutritional Supplement, #30 TAB 0 Refills Pantoprazole (Protonix) 40 Mg Tab 40 MG PO BID for Reflux, #60 TAB 0 Refills Ropinirole (Ropinirole) 2 Mg Tab 2 MG PO HS, #30 TAB 0 Refills Zolpidem (Zolpidem) 5 Mg Tab 5 MG PO HS PRN for INSOMNIA, TAB 0 Refills Radha Kumar MD Jan 31, 2018 13:27
[2018-01-31 14:15] LABS: C-REACTIVE PROTEIN LESS THAN 0.29 MG/DL (0.00-0.30)
[2018-01-31 19:10] LABS: RHEUMATOID FACTOR SCREEN NEGATIVE (NEGATIVE)
[2018-02-01] MEDS ORDERED: QUEtiapine FUMARATE 25 MG TAB PO SCH (09:00)
[2018-02-04 14:30] LABS: ANA PATTERN DIFFUSE
== END 2018-01-31 18:26 ==
LOC: PHED 07:46 → PHEDA 12:57 → INTOOBSV 12:57 → PH3B 14:04
PROVIDERS: ADMIT Hospitalist; ATTEND Hospitalist
DX: T42.4X1A Poisoning by benzodiazepines, accidental (unintentional), initial encounter (principal); G92 Toxic encephalopathy; F13.20 Sedative, hypnotic or anxiolytic dependence, uncomplicated; E11.65 Type 2 diabetes mellitus with hyperglycemia; G31.9 Degenerative disease of nervous system, unspecified; I10 Essential (primary) hypertension; F41.9 Anxiety disorder, unspecified; W06.XXXA Fall from bed, initial encounter; Y92.009 Unspecified place in unspecified non-institutional (private) residence as the place of occurrence of the external cause; E83.42 Hypomagnesemia; R53.1 Weakness; E78.00 Pure hypercholesterolemia, unspecified; J44.9 Chronic obstructive pulmonary disease, unspecified; K21.9 Gastro-esophageal reflux disease without esophagitis; G43.909 Migraine, unspecified, not intractable, without status migrainosus; R94.31 Abnormal electrocardiogram [ECG] [EKG]; F17.200 Nicotine dependence, unspecified, uncomplicated
CPT/HCPCS: 70450; 71045; 80048; 80053; 80307; 81001; 82140; 82607; 82948; 83735; 83921; 84207; 84425; 84443; 85025; 85610; 85652; 85730; 86038; 86039; 86140; 86430; 93005; 96125; 96372; 97161; 97166; 99285; G0378; G8987; G8988; G9168; G9169; G9170; J1815; J3475

== ENCOUNTER 2018-01-31 16:34 | Inpatient (IN) | payer OTHER ==
[~2018-01-31] VITALS: Ht 165.1 cm; Wt 62.2 kg
[~2018-01-31 16:34] MED LIST changes: -BACT800T5 PO; +SERO25TA PO
[2018-01-31] MEDS ORDERED: OLANZapine IM 10 MG VIAL IM ONE (19:45)
[2018-01-31] MEDS ORDERED: FLUMAZENIL 0.5 MG/5 ML VIAL IV PUSH PRN (20:00)
[2018-01-31] MEDS ORDERED: LORazepam 1 MG TAB PO PRN (20:00)
[2018-01-31] MEDS ORDERED: ALUMINUM/MAGNESIUM/SIMETH 30 ML CUP PO PRN (20:00)
[2018-01-31] MEDS ORDERED: LORazepam 2 MG TAB PO PRN (20:00)
[2018-01-31] MEDS ORDERED: LORazepam 2 MG/ML VIAL IV PUSH PRN ×4 (20:00)
[2018-01-31] MEDS ORDERED: MAGNESIUM HYDROXIDE SUSP 30 ML CUP PO PRN (20:00)
[2018-01-31] MEDS ORDERED: ACETAMINOPHEN 325 MG TAB PO PRN (20:00)
[2018-01-31] MEDS: REMOVE OLD NICOTINE PATCH T-DERMAL SCH (20:01)
[2018-01-31] MEDS ORDERED: GLUCAGON 1 MG/ML VIAL OTHER PRN (20:30)
[2018-01-31] MEDS ORDERED: DEXTROSE 50% IN WATER 50 ML VIAL(D50) IV PUSH PRN (20:30)
[2018-01-31] MEDS ORDERED: PLEASE DISCONTINUE PREVIOUS SUPPLEMENTAL SCALE INSULIN ORDERS ONE (20:30)
[2018-01-31] MEDS: LOW DOSE INSULIN NOVOLOG SUPPLEMENTAL SCALE SQ SCH (21:47)
[2018-02-01 07:00] VITALS: BP 192/104; PULSE 94; RESP 20; TEMP 97.3; O2SAT 99
--- NOTE | 2018-02-01 08:00 | HHI.PR ---
Subjective Remarks slept 3 hours Objective Objective Remarks more cooperative vff moves all well Assessment and Plan Assessment and Plan fu eeg b12 shot fu labs try and sleep better Emmanuel Joaquin MD Feb 01, 2018 08:00
[2018-02-01] MEDS: LOW DOSE INSULIN NOVOLOG SUPPLEMENTAL SCALE SQ SCH ×4 (08:45→20:50)
[2018-02-01] MEDS: NICOTINE 21 MG/24 HR PATCH T-DERMAL SCH (08:48)
[2018-02-01 08:53] VITALS: BP 165/101; PULSE 103
--- NOTE | 2018-02-01 09:37 | PD.CONS ---
HPI Service [facility] Consult Requested By Dr. Quinteros Reason for Consult Medical management Primary Care Physician Unknown Diagnoses: History of Present Illness Patient is a 57-year-old female with past medical history of polysubstance abuse , diabetes, hypertension, is admitted under the psychiatric service for psychotic behavior. During my evaluation this morning patient talks however she does not make much sense. She tells me she does not know why she is here, she states she is in and out of consciousness, states she does not want to be here and needs to be discharged. She keeps saying "got to get the hell out of here, shit, shit, shit." Pt points at the table and states she had coolaid to drink w mongolian vanilla. Pt is a very poor historian and it is difficult for me to obtain any more information some of the Med hx is obtained from her previous visit at where she was admitted for similar behavior and then transferred here for further eval. Review of Systems ROS Limitations: Psychotic, Poor Historian Past Family Social History Allergies: Coded Allergies: No Known Allergies (Verified Allergy, Unknown, 01/30/18) Past Medical History poly pharmacy anxiety dm2 Past Surgical History cs, tubal hip replacement Reported Medications Reported Meds & Active Scripts Active Seroquel (Quetiapine Fumarate) 25 Mg Tab 25 Mg PO BID@09,12 Metformin (Metformin HCl) 1,000 Mg Tab 1,000 Mg PO BID With a meal.. Levemir Inj (Insulin Detemir) 1,000 unit/ 10 ML Vial 10 Units SQ HS 30 Days Do not mix with any other Insulin. Glucocom Test Strips (Blood Glucose Test Strips) 1 Trina Trina Ea .ROUTE DIRECTED Do Accu-Cheks before each meal and at bedtime Lancets 1 Mis Mis Ea .ROUTE DIRECTED Insulin Syringe/U-100/31G X 5/16" 1 ml 31 Gauge X 5/16" Mis Ea .ROUTE DIRECTED Glucocom Blood Glucose Mo W/Device (Device) 1 Kit Kit Kit .ROUTE DIRECTED Gabapentin 300 Mg Cap 300 Mg PO TID Reported Meloxicam 15 Mg Tab 15 Mg PO DAILY Lipitor (Atorvastatin Calcium) 40 Mg Tab 40 Mg PO HS Proair Hfa 8.5 GM Inh (Albuterol Sulfate) 90 Mcg/Act Aer 2 Puff INH Q4-6H PRN 108 mcg/actuation Citalopram (Citalopram Hydrobromide) 20 Mg Tab 20 Mg PO DAILY Lisinopril 2.5 Mg Tab 2.5 Mg PO DAILY Xanax (Alprazolam) 1 Mg Tab 1 Mg PO Q8H PRN Family History mother had [place] father killed in mva Social History no etoh 2ppd tobacco but pt states she quit but cannot tell me when Physical Exam Vital Signs Vital Signs Date Time Temp Pulse Resp B/P (MAP) Pulse Ox O2 Delivery O2 Flow Rate FiO2 02/01/18 08:53 103 165/101 (122) Automatic Cuff 02/01/18 07:00 97.3 94 20 192/104 (133) 99 Physical Exam GENERAL: thin female, agitated truing to get out of bed HEAD: Atraumatic. Normocephalic. EYES: Extraocular motions intact. No scleral icterus. No injection or drainage. ENT: Nose without drainage. Airway patent. NECK: Trachea midline. CARDIOVASCULAR: Regular rate and rhythm without murmurs, RESPIRATORY: Clear to auscultation on the lateral side of chest, she wouldn't let me auscultate her back. Breath sounds equal bilaterally. No wheezes GASTROINTESTINAL: Abdomen soft, non-tender, nondistended. No guarding. MUSCULOSKELETAL: Extremities without edema. NEUROLOGICAL: Awake and alert. follows commands but I have to constantly redirect her. PSYCH: talks but makes no sense Imaging Assessment and Plan Assessment and Plan Psychosis: management per psych. Neurology also following pt. EEG pending uncontrolled HTN: SBP in the 190's to 160's. Med rec at this time not verified. I will start her on amlodipine 10mg po daily. added hydralazine prn and also clonidine prn. Requested that RN please call family to obtain med rec and update in computer. DM: Monitor BS and cover w low dose ISS, start long acting as needed. Looks like HbA1c in 2017 was 11. monitor BS closely. Hx of polysubstance abuse: pt will need close monitor as an outpatient and family should assist her w dispensing meds. Code Status full Discussed Condition With Tisha Lord MD Feb 01, 2018 09:37
[2018-02-01] MEDS ORDERED: hydrALAZINE HCL 10 MG TAB PO PRN (10:00)
--- NOTE | 2018-02-01 12:09 | HHI.HP ---
Provisional Diagnosis Admission Date Jan 31, 2018 at 18:30 Peg[place] I. Unspecified psychosis, r/o bipolar disorder, manic episode, r/o schizoaffective disorder, r/o delirium due to benzodiazepine withdrawal, r/o frontal lobe dementia Certification of Person's Competence To Provide Express and Informed Consent I have personally examined Lynette Neri , a person being served at [facility] on, Feb 01, 2018 12:04. Express and informed consent means consent voluntarily given in writing, by a competent person, after sufficient explanation and disclosure of the subject matter involved to enable the person to make a knowing and willful decision without any element of force, fraud, deceit, duress, or other form of constraint or coercion. This person is 18 years of age or older, is not now known to be incompetent to consent to treatment with a guardian advocate, and does not have a health care surrogate or proxy currently making medical treatment decisions. I have found this person to be one of the following: [] Competent to provide express and informed consent, as defined above, for voluntary admission to this facility and is competent to provide express and informed consent for treatment. He/she has the consistent capacity to make well reasoned, willful, and knowing decisions concerning his or her medical or mental health treatment. The person fully and consistently understands the purpose of the admission for examination/placement and is fully capable of personally exercising all rights assured [place] [x] Incompetent to provide express and informed consent to voluntary admission, and this is incompetent to provide express and informed consent to treatment. The person must be transferred to involuntary status and a petition for a guardian advocate filed with the Circuit Court. [] Refusing to provide express and informed consent to voluntary admission but is competent to provide express and informed consent for treatment. The person must be discharged or transferred to involuntary status. Form shall be completed within 24 hours of a person's arrival at the receiving facility and filed in the clinical record of each person: 1. Admitted on a voluntary basis 2. Permitted to provide express and informed consent to his/her own treatment 3. Allowed to transfer from involuntary to voluntary status 4. Prior to permitting a person to consent to his or her own treatment after having been previously found incompetent to consent to treatment. History of Present Illness Capacity: Lacks Capacity HPI 01/31/2018 The patient is a 57-year-old woman, , domiciled with , son and granddaughter in [place], unemployed, supported by [facility] , with a past psychiatric history of major depressive disorder, anxiety, polysubstance abuse (cocaine/amphetamines/benzo), in partial remission, no prior psychiatric admission, no previous suicide attempt, she has clear abusing- medications tendencies, seen by Dr. Hernandez in consult last month due to unintentional OD, she is on Celexa 20 mg, Xanax, 1 mg tid, Ambien 5 mg hs, with a past medical history significant for hypertension, diabetes, COPD, RLS, Admitted due to AMS, Apparently she took some Xanax at home and was acting inappropriately per her . She says that she fell out of bed and was walking around the house not making sense. He did call the ambulance and when paramedics arrived patient seemed to have improved. The ambulance did leave her blood sugar that time was 200. Once the left patient started acting oddly again and he brought her to the hospital for further evaluation. Her blood sugar has been stable and her blood pressures been stable however patient does have some low magnesium level she is on quite a bit of medications for her medical drug list and includes gabapentin, amitriptyline, Requip, citalopram, zolpidem and Xanax. Patient also says she was taken Percocets but she does not know from where she got them. Since arrival here she has returned back to baseline. She has chronic right arm weakness which started over several months ago. Images of the head did show chronic cortical atrophy probably from vascular injury. I did speak with the spouse on the phone regarding these findings and he was not aware of the abnormal brain images previously obtained. I did discuss with him regarding possible cognitive impairment and the need for close supervision with medications as well as adjustment in the medication regimen to avoid polypharmacy and drug reactions and side effects and toxic encephalopathy. Patient will be observed overnight for further improvement. she was also seen and clear by Neurology. Consulted to psychiatry for evaluation of psychosis. 02/01/2018 the patient was seen today for reevaluation of the psychiatric unit. The patient is poorly cooperative due to the level of sedation. The patient was medicated recently with olanzapine 10 mg to help her to calm down. But, as per nursing charge, the patient has been very intrusive, talkative, persistently yelling and cursing the staff and unable to be redirectable verbally. Review of Systems Constitutional: DENIES: Diaphoretic episodes, Fatigue, Fever, Weight gain, Weight loss, Chills, Dizziness, Change in appetite, Night Sweats Endocrine: DENIES: Abnorml menstrual pattern, Heat/cold intolerance, Polydipsia , Polyuria, Polyphagia Eyes: DENIES: Blurred vision, Diplopia, Eye inflammation, Eye pain, Vision loss , Photosensitivity, Double Vision Ears, nose, mouth, throat: DENIES: Tinnitus, Hearing loss, Vertigo, Nasal discharge, Oral lesions, Throat pain, Hoarseness, Ear Pain, Running Nose, Epistaxis, Sinus Pain, Toothache, Odynophagia Respiratory: DENIES: Apneas, Cough, Snoring, Wheezing, Hemoptysis, Sputum production, Shortness of breath Cardiovascular: DENIES: Chest pain, Palpitations, Syncope, Dyspnea on Exertion , PND, Lower Extremity Edema, Orthopnea, Claudication Gastrointestinal: DENIES: Abdominal pain, Black stools, Bloody stools, Constipation, Diarrhea, Nausea, Vomiting, Difficulty Swallowing, Anorexia Genitourinary: DENIES: Abnormal vaginal bleeding, Dysmenorrhea, Dyspareunia, Sexual dysfunction, Urinary frequency, Urinary incontinence, Urgency, Hematuria , Dysuria, Nocturia, Vaginal discharge Musculoskeletal: DENIES: Joint pain, Muscle aches, Stiffness, Joint Swelling, Back pain, Neck pain Integumentary: DENIES: Abnormal pigmentation, Pruritus, Rash, Nail changes, Breast masses, Breast skin changes, Nipple discharge Hematologic/lymphatic: DENIES: Bruising, Lymphadenopathy Immunologic/allergic: DENIES: Eczema, Urticaria Neurologic: DENIES: Abnormal gait, Headache, Localized weakness, Paresthesias, Seizures, Speech Problems, Tremor, Poor Balance Psychiatric: COMPLAINS OF: Confusion, Delusions, DENIES: Anxiety, Mood changes , Depression, Hallucinations, Agitation, Suicidal Ideation, Homicidal Ideation Past Psych History Violence risk - self (6 mos) Increased Substance Abuse History Drugs/Alcohol past 12 months Denies the use of drug and alcohol in the last days Past Family Social History Coded Allergies: No Known Allergies (Verified Allergy, Unknown, 01/30/18) Active Scripts Quetiapine (Seroquel) 25 Mg Tab, 25 MG PO BID@12 for psychosis, #62 TAB Prov:Radha Kumar MD 01/31/18 Metformin (Metformin) 1,000 Mg Tab, 1000 MG PO BID for Blood Sugar Management, # 60 TAB 1 Refill With a meal.. Prov:Sy Franco MD, R1 12/21/17 Insulin Detemir Inj (Levemir Inj) 1,000 unit/ 10 ML Vial, 10 UNITS SQ HS for Blood Sugar Management for 30 Days, #10 VIAL 0 Refills Do not mix with any other Insulin. Prov:Deshawn Yepez MD R3 12/21/17 Glucocom Test Strips (Glucocom Test Strips) 1 Trina Trina, EA .ROUTE DIRECTED for Blood Sugar Management, #1 Do Accu-Cheks before each meal and at bedtime Prov:Pavan Mckinley MD, R3 10/01/17 Lancets (Lancets) 1 Mis Mis, EA .ROUTE DIRECTED for Blood Sugar Management, # 1 0 Refills Prov:Pavan Mckinley MD, R3 10/01/17 Insulin Syringe/U-100/31G X 5/16" 1 ml (Insulin Syringe/U-100/31G X 5/16" 1 ml) 31 Gauge X 5/16" Mis, EA .ROUTE DIRECTED for Blood Sugar Management, #1 0 Refills Prov:Pavan Mckinley MD, R3 10/01/17 Blood Glucose Monitoring W/Device (Glucocom Blood Glucose Mo W/Device) 1 Kit Kit , KIT .ROUTE DIRECTED for Blood Sugar Management, #1 Prov:Pavan Mckinley MD, R3 10/01/17 Gabapentin (Gabapentin) 300 Mg Cap, 300 MG PO TID, #90 CAP 3 Refills Prov:Pavan Mckinley MD, R3 06/07/17 Reported Medications Meloxicam (Meloxicam) 15 Mg Tab, 15 MG PO DAILY for Arthritis Pain, #30 TAB 0 Refills 04/30/17 Atorvastatin (Lipitor) 40 Mg Tab, 40 MG PO HS for Cholesterol Management, #30 TAB 0 Refills 04/30/17 Albuterol 8.5 GM Inh (Proair Hfa 8.5 GM Inh) 90 Mcg/Act Aer, 2 PUFF INH Q4-6H Y for SHORTNESS OF BREATH, #1 INHALER 0 Refills 108 mcg/actuation 04/30/17 Citalopram (Citalopram) 20 Mg Tab, 20 MG PO DAILY for Control Depression, #30 TAB 0 Refills 04/30/17 Lisinopril (Lisinopril) 2.5 Mg Tab, 2.5 MG PO DAILY, #30 TAB 0 Refills 04/23/17 Alprazolam (Xanax) 1 Mg Tab, 1 MG PO Q8H Y for ANXIETY, TAB 0 Refills 08/22/16 Discontinued Reported Medications Ropinirole (Ropinirole) 2 Mg Tab, 2 MG PO HS, #30 TAB 0 Refills 04/30/17 Zolpidem (Zolpidem) 5 Mg Tab, 5 MG PO HS Y for INSOMNIA, TAB 0 Refills 04/30/17 Discontinued Scripts Pantoprazole (Protonix) 40 Mg Tab, 40 MG PO BID for Reflux, #60 TAB 0 Refills Prov:Abram Johnson MD 01/07/18 Lactobacillus Acidophilus (Lactobacillus Acidophilus) 1 Billion Cell Tab, 1 TAB PO TIDAC for Nutritional Supplement, #30 TAB 0 Refills Prov:Abram Johnson MD 01/07/18 Insulin Aspart Inj (Novolog Inj) 1,000 Unit/10 Ml Vial, 1-9 UNITS SQ ACHS for Blood Sugar Management, #10 ML 0 Refills Max dose at bedtime:( )units; sugars less than 70,(0)units; sugars 150-199,(1) unit; sugars 200-249,(3) units; sugars 250-299,(5) units; sugars 300-349,(7) units; sugars greater than 349,(9) units Prov:Deshawn Yepez MD R3 12/21/17 Amitriptyline (Amitriptyline) 25 Mg Tab, 25 MG PO HS for Control Depression, # 60 TAB 2 Refills Prov:Pavan Mckinley MD, R3 08/24/16 Sulfamethoxazole-Trimethoprim (Bactrim DS) 800-160 Mg Tab, 1 TAB PO BID for Infection, #20 TAB 0 Refills Prov:Abram Johnson MD 01/07/18 Current Medications Medications (Trade) Dose Ordered Sig/Ana Route Start Time Stop Time Status Last Admin (Tylenol) 650 mg Q4H PRN PO 01/31/18 20:00 (Milk Of Magnesia Liq) 30 ml DAILY PRN PO 01/31/18 20:00 (Mag-Al Plus Susp Liq) 30 ml Q6H PRN PO 01/31/18 20:00 (Habitrol 21 Mg Patch.24 Hr) 1 patch DAILY T-DERMAL 02/01/18 09:00 Miscellaneous Information 1 HS T-DERMAL 01/31/18 21:00 (Ativan) 1 mg Q4H PRN PO 01/31/18 20:00 (Ativan Inj) 1 mg Q4H PRN IV PUSH 01/31/18 20:00 (Ativan) 2 mg Q2H PRN PO 01/31/18 20:00 (Ativan Inj) 2 mg Q2H PRN IV PUSH 01/31/18 20:00 (Ativan Inj) 2 mg Q1H PRN IV PUSH 01/31/18 20:00 (Ativan Inj) 2 mg Q15M PRN IV PUSH 01/31/18 20:00 (Romazicon Inj) 0.2 mg Q1M PRN IV PUSH 01/31/18 20:00 (D50w (Vial) Inj) 50 ml UNSCH PRN IV PUSH 01/31/18 20:30 (Glucagon Inj) 1 mg UNSCH PRN OTHER 01/31/18 20:30 (NovoLOG SUPPLEMENTAL SCALE) 1 ACHS SLIDING SCALE SQ 01/31/18 21:00 02/01/18 08:45 (Vitamin B12 Inj) 1,000 mcg DAILY SQ 02/01/18 09:00 02/04/18 08:59 (Norvasc) 10 mg DAILY PO 02/01/18 09:00 02/01/18 08:49 (Apresoline) 10 mg Q6HR PRN PO 02/01/18 10:00 Family Psych History Her mother had dementia Social History , domiciled with , unemployed, his education is high school, no background, no access to firearms. Patient denies any legal history. Physical Exam At this moment the patient is sedated, Vital Signs Vital Signs Date Time Temp Pulse Resp B/P (MAP) Pulse Ox O2 Delivery O2 Flow Rate FiO2 02/01/18 08:53 103 165/101 (122) Automatic Cuff 02/01/18 07:00 97.3 20 99 I/O 02/01/18 02/01/18 02/02/18 08:00 16:00 00:00 Intake Total 240 ml Balance 240 ml Mental Status Examination Appearance: Appropriate Consciousness: Lethargic, Clouded Mental Status Exam Remarks Mental status is limited at this moment due to the level of sedation Assessment & Plan Problem List: (1) Unspecified psychosis ICD Codes: F29 - Unspecified psychosis not due to a substance or known physiological condition Assessment & Plan: Patient is acutely psychotic/manic like on evaluation. She has a prominent verbal incontinence and pressured speech, with increased amount of profanities, which is not part of baseline by as per , disorganized and tangential thinking, paranoia and agitation, difficult to redirect. She has a significant reality distortion and seems to be quire disinhibited. As per nurse she has been persistently yelling in her room, making nonsense and very disruptive. Surprisingly, she is fully oriented times three, wit not language or semantic impairment. As per , current presentation started last Sunday and since then she has been having periodic lucidity alternated with psychosis/barbara. Even though picture is quite unclear at this point from etiological standpoint, patient needs psychiatric admission for stabilization and safety. Banzo/Ambien withdrawal induced psychosis vs bipolar, manic episode vs schizoaffective disorder vs major neurocognitive disorder, frontal lobe type , have to be carefully rule out. Will DC short acting Benzos and start Clonazepam 1 mg bid. Continue CIWA. Start Seroquel 25 bid ofr psychosis and behavioral control DC amitriptyline due to it potent anticholinergic effects Haldol 2 mg im/iv q/8h PRN severe agitation, make sure QTc is not > 460, now is 392 Patient now under cantu act for psychiatric admission Case widely discussed with Dr. Kumar and medical team. Might consult neuropsychologist, Dr. Herrera to help with clarification of diagnosis. Assessment & Plan Estimated LOS: Blade Flores MD Feb 01, 2018 12:09
[2018-02-01] MEDS: CYANOCOBALAMIN 1000 MCG/ML VIAL SQ SCH (12:30)
[2018-02-01] MEDS ORDERED: OLANZapine IM 10 MG VIAL IM ONE (12:45)
[2018-02-01] MEDS ORDERED: OLANZapine IM 10 MG VIAL IM STA (14:14)
[2018-02-01 15:35] VITALS: BP 150/96; PULSE 117; RESP 22; TEMP 97.9; O2SAT 100
[2018-02-01] MEDS ORDERED: HALOPERIDOL LACTATE 5 MG/ML AMP ONE (15:50)
[2018-02-01] MEDS ORDERED: HALOPERIDOL LACTATE 5 MG/ML AMP IM STA (16:09)
[2018-02-01] MEDS ORDERED: LORazepam 2 MG/ML VIAL IM STA (16:10)
[2018-02-01 18:51] VITALS: BP 170/95; PULSE 101; RESP 18; TEMP 97.8; O2SAT 99
[2018-02-01] MEDS: DIVALPROEX SODIUM DELAYED RELEASE 125 MG TAB PO SCH (20:33)
[2018-02-01] MEDS: REMOVE OLD NICOTINE PATCH T-DERMAL SCH (20:34)
[2018-02-01] MEDS: QUEtiapine FUMARATE 25 MG TAB PO SCH (20:34)
[2018-02-02 05:39] VITALS: BP 108/67; PULSE 94; RESP 18; TEMP 98; O2SAT 96
[2018-02-02] MEDS: LOW DOSE INSULIN NOVOLOG SUPPLEMENTAL SCALE SQ SCH ×4 (07:39→21:33)
[2018-02-02] MEDS: NICOTINE 21 MG/24 HR PATCH T-DERMAL SCH (09:00)
--- NOTE | 2018-02-02 09:13 | HHI.PR ---
Subjective Remarks Follow up visit for hypertension, and diabetes. Patient seen and examined sitting up in chair this morning, nurse reports patient has been more alert, and oriented today. Patient denies any fevers, chills, nausea, vomiting, diarrhea or headaches. She does complain of bilateral arm and leg neuropathy, reports she is on gabapentin at home. Objective Vitals Vital Signs Date Time Temp Pulse Resp B/P (MAP) Pulse Ox O2 Delivery O2 Flow Rate FiO2 02/02/18 05:39 98.0 94 18 108/67 (81) 96 02/01/18 18:51 97.8 101 18 170/95 (120) 99 02/01/18 15:35 97.9 117 22 150/96 (114) 100 Manual Cuff/Auscultation I/O 02/01/18 02/01/18 02/01/18 02/02/18 02/02/18 02/02/18 07:00 15:00 23:00 07:00 15:00 23:00 Intake Total 240 ml 0 ml 240 ml Balance 240 ml 0 ml 240 ml Intake Oral 240 ml 0 ml 240 ml # Voids 1 Objective Remarks GENERAL: Well-developed well-nourished thin female. HEAD: Atraumatic. Normocephalic. EYES: Extraocular motions intact. No scleral icterus. No injection or drainage. ENT: Nose without drainage. Airway patent. NECK: Trachea midline. CARDIOVASCULAR: Regular rate and rhythm without murmurs, RESPIRATORY: Clear breath sounds throughout. breath sounds equal bilaterally. No wheezes GASTROINTESTINAL: Abdomen soft, non-tender, nondistended. No guarding. MUSCULOSKELETAL: Extremities without edema. NEUROLOGICAL: Awake and alert. Moving bilateral upper and lower extremities. PSYCH: Interacting, appropriate. A/P Assessment and Plan 57-year-old female with history of HTN, DM, polysubstance abuse who is in medical psychiatry unit for evaluation of psychotic behavior. [facility] has been consulted to assist with ongoing medical management. Psychosis -Treatment plan per primary team, neurology following, greatly appreciate assistance. Hypertension, controlled -Continue Norvasc 10 mg daily, as needed hydralazine as needed -Continue monitoring heart rate and blood pressure Diabetes mellitus II, poorly controlled -Hemoglobin A1c 9.8 -Diabetic diet, Accu-Cheks with insulin sliding scale -Patient reports taking 4 units of Levemir twice daily, will resume this, will also start metformin 500 mg twice daily - Continue trending blood sugars and adjusting medications accordingly. History of polysubstance abuse -Patient will need to be monitored closely once discharged DVT prophylaxis-ambulation Discussed with patient, and nurse. Kamla Mckeon Feb 02, 2018 09:13
[2018-02-02] MEDS: QUEtiapine FUMARATE 25 MG TAB PO SCH ×2 (09:16→21:32)
[2018-02-02] MEDS: DIVALPROEX SODIUM DELAYED RELEASE 125 MG TAB PO SCH ×2 (09:16→21:32)
[2018-02-02] MEDS: CYANOCOBALAMIN 1000 MCG/ML VIAL SQ SCH (09:16)
[2018-02-02 11:48] LABS: BICARBONATE 22.5 MEQ/L (21.0-32.0); BLOOD UREA NITROGEN 17 MG/DL (7-18); CALCIUM 9.7 MG/DL (8.5-10.1); CHLORIDE 106 MEQ/L (98-107); CREATININE 0.87 MG/DL (0.50-1.00); GLOMERULAR FILTRATION RATE 67 ML/MIN (>89); GLUCOSE,RANDOM 176 MG/DL (74-106); SODIUM (NA) 136 MEQ/L (136-145)
[2018-02-02 11:49] LABS: CHOLESTEROL 122 MG/DL (120-200)
[2018-02-02 11:52] LABS: CHOLESTEROL/ HDL RATIO 1.91 RATIO; HDL CHOLESTEROL 63.8 MG/DL (40.0-60.0); LDL CHOLESTEROL 42 MG/DL (0-99); TRIGLYCERIDES 83 MG/DL (42-150)
[2018-02-02] MEDS: INSULIN DETEMIR 100 UNITS/ML VIAL SQ SCH ×2 (12:02→21:33)
[2018-02-02] MEDS: GABAPENTIN 100 MG CAP PO SCH ×2 (12:03→17:30)
[2018-02-02 13:39] LABS: HEMOGLOBIN A1C 9.8 % (4.3-6.0)
--- NOTE | 2018-02-02 16:36 | HHI.PYPN ---
Subjective Remarks This is a request for second opinion. Admission note was reviewed and I agree with the history. Patient was seen and case was discussed with nursing. Behavior has improved and she has not needed any EtOs. Patient was very psychotic at home and yesterday. Today nursing notes improvement. Patient is alert and oriented 4. No psychotic symptoms or agitation was elicited today Mental Status Examination Appearance: Appropriate Consciousness: Lethargic, Clouded Orientation: x4, Person, Place, Date/Time, Situation Speech: Unremarkable Language: Adequate Fund of Knowledge: Adequate Attention and Concentration: Adequate Memory: Unremarkable Mood: Anxious Affect: Irritable Thought Process & Associations: Disorganized Thought Content: Appropriate Hallucination Type: None Delusion Type: None Suicidal Ideation: No Suicidal Plan: No Suicidal Intention: No Homicidal Ideation: No Homicidal Plan: No Homicidal Intention: No Insight: Poor Judgment: Poor Results Labs Test 02/02/18 11:16 Blood Urea Nitrogen 17 MG/DL Creatinine 0.87 MG/DL Random Glucose 176 MG/DL Calcium Level 9.7 MG/DL Sodium Level 136 MEQ/L Potassium Level 3.7 MEQ/L Chloride Level 106 MEQ/L Carbon Dioxide Level 22.5 MEQ/L Anion Gap 8 MEQ/L Estimat Glomerular Filtration Rate 67 ML/MIN Hemoglobin A1c 9.8 % Triglycerides Level 83 MG/DL Cholesterol Level 122 MG/DL LDL Cholesterol 42 MG/DL HDL Cholesterol 63.8 MG/DL Cholesterol/HDL Ratio 1.91 RATIO Vitals/IOs Vital Signs Date Time Temp Pulse Resp B/P (MAP) Pulse Ox O2 Delivery O2 Flow Rate FiO2 02/02/18 05:39 98.0 94 18 108/67 (81) 96 Intake and Output 02/02/18 02/02/18 02/03/18 08:00 16:00 00:00 Intake Total 0 ml 840 ml Balance 0 ml 840 ml Assessment & Plan Problem List: (1) Unspecified psychosis ICD Codes: F29 - Unspecified psychosis not due to a substance or known physiological condition Assessment & Plan I agree with the first opinion to continue petition. Criteria include acute psychosis and change in mental status Justification for Cont. Inpt. Patient would decompensate in a less restrictive setting Crow Figueroa DO Feb 02, 2018 16:36
[2018-02-02 17:00] VITALS: BP 119/79; PULSE 75; RESP 18; TEMP 97.8; O2SAT 96
[2018-02-02] MEDS: metFORMIN HCL 500 MG TAB PO SCH (17:32)
--- NOTE | 2018-02-02 20:35 | MG ---
cc: Alejandra Mendez MD REFERRING PHYSICIAN: Dr. Diane An electroencephalogram is obtained on this 57-year-old patient being evaluated for anxiety, depression, confusion. MEDICATIONS: Zyprexa, insulin, Norvasc. Previous EEG apparently probably normal. The patient is described as awake and asleep. This EEG shows a lot of alpha rhythms in the center and posterior head regions and beta activity frontally. There is some mild symmetry. Intermittently, there are some sharp waves with more of a central temporal pattern and predominantly during sleep, perhaps physiological and seems shifting bilaterally. Later on, there are some higher amplitude runs of theta activity with some sharp component, possibly left more than right, central temporal head region. Photic stimulation showed no significant change. INTERPRETATION: Mildly abnormal electroencephalogram because of mild runs of sharp waves/discharges bilaterally, possibly left more than right, central temporal. Some of these appear to be physiological phenomena, though the possibility of an epileptiform abnormality is not excluded. Alejandra Mendez MD OFC/rt , 08:19 PM , 08:35 PM
[2018-02-02] MEDS: REMOVE OLD NICOTINE PATCH T-DERMAL SCH (21:00)
[2018-02-03 05:52] VITALS: BP 127/66; PULSE 102; RESP 18; TEMP 97.9; O2SAT 99
[2018-02-03] MEDS: LOW DOSE INSULIN NOVOLOG SUPPLEMENTAL SCALE SQ SCH ×4 (08:00→20:19)
--- NOTE | 2018-02-03 08:09 | HHI.PR ---
Subjective Remarks Follow-up for hypertension, diabetes, and neuropathy. Patient seen and examined in bed in no acute distress. She reports that her neuropathy is better but not completely gone. She denies any fevers, chills, nausea, vomiting , diarrhea, shortness of breath or cough. She reports right wrist weakness and states that this has been ongoing since February of last year. She will have transient periods of wrist drop and then this will get better, will usually squeeze a ball at home and this seems to help. No other weakness reported. Objective Vitals Vital Signs Date Time Temp Pulse Resp B/P (MAP) Pulse Ox O2 Delivery O2 Flow Rate FiO2 02/03/18 05:52 97.9 102 18 127/66 (86) 99 02/02/18 17:00 97.8 75 18 119/79 (92) 96 I/O 02/02/18 02/02/18 02/02/18 02/03/18 02/03/18 02/03/18 07:00 15:00 23:00 07:00 15:00 23:00 Intake Total 0 ml 840 ml 600 ml Balance 0 ml 840 ml 600 ml Intake Oral 0 ml 840 ml 600 ml # Voids 1 4 0 1 Result Diagram: 02/02/18 1116 Objective Remarks GENERAL: Well-developed well-nourished thin female. HEAD: Atraumatic. Normocephalic. EYES: Extraocular motions intact. No scleral icterus. No injection or drainage. ENT: Nose without drainage. Airway patent. NECK: Trachea midline. CARDIOVASCULAR: Regular rate and rhythm without murmurs, RESPIRATORY: Clear breath sounds throughout. breath sounds equal bilaterally. No wheezes GASTROINTESTINAL: Abdomen soft, non-tender, nondistended. No guarding. MUSCULOSKELETAL: Extremities without edema. Right wrist drop noted, positive sensation, capillary refill less than 3 seconds, able to move all fingers. NEUROLOGICAL: Awake and alert. Moving bilateral upper and lower extremities. PSYCH: Interacting, appropriate. A/P Assessment and Plan 57-year-old female with history of HTN, DM, polysubstance abuse who is in medical psychiatry unit for evaluation of psychotic behavior. [facility] has been consulted to assist with ongoing medical management. Psychosis -Treatment plan per primary team, neurology following, greatly appreciate assistance. Hypertension, controlled -Continue Norvasc 10 mg daily, as needed hydralazine as needed -Continue monitoring heart rate and blood pressure Diabetes mellitus II, poorly controlled -Hemoglobin A1c 9.8 -Diabetic diet, Accu-Cheks with insulin sliding scale -Levemir 4 units twice a day, metformin 500 mg twice daily. Blood sugars better, will increase metformin to 1000 mg twice a day since she is tolerating. - Continue trending blood sugars and adjusting medications accordingly. Right radial neuropathy - + Wrist drop, reports since this is on and off for the past year. No recent injury or trauma. -We will have OT follow patient as well as provide splint. History of polysubstance abuse -Patient will need to be monitored closely once discharged DVT prophylaxis-ambulation Discussed with patient, and nurse. Kamla Mckeon Feb 03, 2018 08:09
[2018-02-03] MEDS: CYANOCOBALAMIN 1000 MCG/ML VIAL SQ SCH (08:40)
[2018-02-03] MEDS: metFORMIN HCL 500 MG TAB PO SCH ×2 (08:40→17:35)
[2018-02-03] MEDS: QUEtiapine FUMARATE 25 MG TAB PO SCH ×2 (08:40→20:19)
[2018-02-03] MEDS: GABAPENTIN 100 MG CAP PO SCH ×3 (08:40→17:35)
[2018-02-03] MEDS: DIVALPROEX SODIUM DELAYED RELEASE 125 MG TAB PO SCH ×2 (08:41→20:19)
[2018-02-03] MEDS: INSULIN DETEMIR 100 UNITS/ML VIAL SQ SCH ×2 (08:48→20:19)
[2018-02-03] MEDS: NICOTINE 21 MG/24 HR PATCH T-DERMAL SCH (09:00)
--- NOTE | 2018-02-03 14:15 | HHI.PYPN ---
Subjective Remarks Patient was seen and case discussed with nursing. Her altered mental status has cleared up. There is no longer any sign of confusion. She is alert and oriented 4. Patient hopes to get off the Xanax when she goes home. He is expecting a visit from sister and today Mental Status Examination Appearance: Appropriate Consciousness: Lethargic, Clouded Orientation: x4, Person, Place, Date/Time, Situation Speech: Unremarkable Language: Adequate Fund of Knowledge: Adequate Attention and Concentration: Adequate Memory: Unremarkable Mood: Anxious Affect: Appropriate Thought Process & Associations: Intact Thought Content: Appropriate Hallucination Type: None Delusion Type: None Suicidal Ideation: No Suicidal Plan: No Suicidal Intention: No Homicidal Ideation: No Homicidal Plan: No Homicidal Intention: No Insight: Poor Judgment: Poor Results Vitals/IOs Vital Signs Date Time Temp Pulse Resp B/P (MAP) Pulse Ox O2 Delivery O2 Flow Rate FiO2 02/03/18 05:52 97.9 102 18 127/66 (86) 99 Intake and Output 02/03/18 02/03/18 02/04/18 08:00 16:00 00:00 Intake Total 360 ml 240 ml Balance 360 ml 240 ml Assessment & Plan Problem List: (1) Unspecified psychosis ICD Codes: F29 - Unspecified psychosis not due to a substance or known physiological condition Assessment & Plan Continue current treatment plan Justification for Cont. Inpt. Patient would decompensate in a less restrictive setting Crow Figueroa DO Feb 03, 2018 14:15
[2018-02-03 17:21] VITALS: BP 118/77; PULSE 77; RESP 18; TEMP 97.4; O2SAT 98
[2018-02-03] MEDS: REMOVE OLD NICOTINE PATCH T-DERMAL SCH (20:19)
[2018-02-04 06:15] VITALS: BP 128/70; PULSE 86; RESP 16; TEMP 97; O2SAT 96
[2018-02-04] MEDS: LOW DOSE INSULIN NOVOLOG SUPPLEMENTAL SCALE SQ SCH ×2 (08:14→12:00)
--- NOTE | 2018-02-04 08:22 | HHI.PR ---
Subjective Remarks Follow-up hypertension, diabetes, neuropathy. Patient seen and examined sitting up in in chair in her room. She denies any fevers, chills, nausea, vomiting, diarrhea, headaches, dizziness, cough, shortness of breath or chest pain. Spoke with nurse who does not report any acute concerns overnight and this morning. Discussed with Dr. Hernandez, possible discharge today. Objective Vitals Vital Signs Date Time Temp Pulse Resp B/P (MAP) Pulse Ox O2 Delivery O2 Flow Rate FiO2 02/04/18 06:15 97.0 86 16 128/70 (89) 96 02/03/18 17:21 97.4 77 18 118/77 (91) 98 I/O 02/03/18 02/03/18 02/03/18 02/04/18 02/04/18 02/04/18 07:00 15:00 23:00 07:00 15:00 23:00 Intake Total 600 ml 720 ml 240 ml Balance 600 ml 720 ml 240 ml Intake Oral 600 ml 720 ml 240 ml # Voids 1 2 3 Result Diagram: 02/02/18 1116 Objective Remarks GENERAL: Well-developed well-nourished thin female. HEAD: Atraumatic. Normocephalic. EYES: Extraocular motions intact. No scleral icterus. No injection or drainage. ENT: Nose without drainage. Airway patent. NECK: Trachea midline. CARDIOVASCULAR: Regular rate and rhythm without murmurs, RESPIRATORY: Clear breath sounds throughout. breath sounds equal bilaterally. No wheezes GASTROINTESTINAL: Abdomen soft, non-tender, nondistended. No guarding. MUSCULOSKELETAL: Extremities without edema. Right wrist drop noted, positive sensation, capillary refill less than 3 seconds, able to move all fingers. NEUROLOGICAL: Awake and alert. Moving bilateral upper and lower extremities. PSYCH: Interacting, appropriate. A/P Assessment and Plan 57-year-old female with history of HTN, DM, polysubstance abuse who is in medical psychiatry unit for evaluation of psychotic behavior. [facility] has been consulted to assist with ongoing medical management. Psychosis -Treatment plan per primary team, neurology following, greatly appreciate assistance. Hypertension, controlled -Continue Norvasc 10 mg daily, as needed hydralazine as needed -Continue monitoring heart rate and blood pressure Diabetes mellitus II, poorly controlled -Hemoglobin A1c 9.8 -Diabetic diet, Accu-Cheks with insulin sliding scale -Levemir 4 units twice a day, metformin 1000 mg twice a day -Blood sugars relatively controlled, continue trending blood sugars and adjusting medications accordingly. Right radial neuropathy - + Wrist drop, reports since this is on and off for the past year. -Pending OT eval, and splint placed movement today. History of polysubstance abuse -Patient will need to be monitored closely once discharged DVT prophylaxis-ambulation Discussed with patient, nurse, and Dr. Hernandez. Kamla Mckeon Feb 04, 2018 08:22
[2018-02-04] MEDS: DIVALPROEX SODIUM DELAYED RELEASE 125 MG TAB PO SCH (09:51)
[2018-02-04] MEDS: metFORMIN HCL 500 MG TAB PO SCH (09:51)
[2018-02-04] MEDS: QUEtiapine FUMARATE 25 MG TAB PO SCH (09:52)
[2018-02-04] MEDS: GABAPENTIN 100 MG CAP PO SCH (09:52)
[2018-02-04] MEDS: INSULIN DETEMIR 100 UNITS/ML VIAL SQ SCH (09:54)
[2018-02-04] MEDS: NICOTINE 21 MG/24 HR PATCH T-DERMAL SCH (09:54)
[2018-02-04] MEDS ORDERED: SERO25TA PO (10:42)
[2018-02-04] MEDS ORDERED: DIVA125T PO (10:42)
[2018-02-04] MEDS ORDERED: METF1000 PO (10:42)
[2018-02-04] MEDS ORDERED: AMLO10 PO (10:42)
[2018-02-04] MEDS ORDERED: GABA100C4 PO (10:42)
[2018-02-04] MEDS ORDERED: LEVEMIR SQ (10:42)
--- NOTE | 2018-02-05 22:32 | HHI.DS ---
Psychiatry Discharge Summary Inpatient Psychiatric care?: Yes Advance Directive: No Mental Health AdvanceDirective: No Health Care Proxy: No Admission Admission Date Jan 31, 2018 at 18:30 Admission Diagnosis: (1) Unspecified psychosis ICD Code: F29 - Unspecified psychosis not due to a substance or known physiological condition Brief History 01/31/2018 The patient is a 57-year-old woman, , domiciled with , son and granddaughter in [place], unemployed, supported by [facility] , with a past psychiatric history of major depressive disorder, anxiety, polysubstance abuse (cocaine/amphetamines/benzo), in partial remission, no prior psychiatric admission, no previous suicide attempt, she has clear abusing- medications tendencies, seen by Dr. Hernandez in consult last month due to unintentional OD, she is on Celexa 20 mg, Xanax, 1 mg tid, Ambien 5 mg hs, with a past medical history significant for hypertension, diabetes, COPD, RLS, Admitted due to AMS, Apparently she took some Xanax at home and was acting inappropriately per her . She says that she fell out of bed and was walking around the house not making sense. He did call the ambulance and when paramedics arrived patient seemed to have improved. The ambulance did leave her blood sugar that time was 200. Once the left patient started acting oddly again and he brought her to the hospital for further evaluation. Her blood sugar has been stable and her blood pressures been stable however patient does have some low magnesium level she is on quite a bit of medications for her medical drug list and includes gabapentin, amitriptyline, Requip, citalopram, zolpidem and Xanax. Patient also says she was taken Percocets but she does not know from where she got them. Since arrival here she has returned back to baseline. She has chronic right arm weakness which started over several months ago. Images of the head did show chronic cortical atrophy probably from vascular injury. I did speak with the spouse on the phone regarding these findings and he was not aware of the abnormal brain images previously obtained. I did discuss with him regarding possible cognitive impairment and the need for close supervision with medications as well as adjustment in the medication regimen to avoid polypharmacy and drug reactions and side effects and toxic encephalopathy. Patient will be observed overnight for further improvement. she was also seen and clear by Neurology. Consulted to psychiatry for evaluation of psychosis. 02/01/2018 the patient was seen today for reevaluation of the psychiatric unit. The patient is poorly cooperative due to the level of sedation. The patient was medicated recently with olanzapine 10 mg to help her to calm down. But, as per nursing charge, the patient has been very intrusive, talkative, persistently yelling and cursing the staff and unable to be redirectable verbally. Results Blood Pressure 128 / 70 Vital Signs Date Time Temp Pulse Resp B/P (MAP) Pulse Ox O2 Delivery O2 Flow Rate FiO2 02/04/18 06:15 97.0 86 16 128/70 (89) 96 Laboratory Results Test 02/02/18 11:16 Cholesterol Level 122 MG/DL (120-200) HDL Cholesterol 63.8 MG/DL (40.0-60.0) Hemoglobin A1c 9.8 % (4.3-6.0) LDL Cholesterol 42 MG/DL (0-99) Triglycerides Level 83 MG/DL (42-150) Medications Approp Antipsych med options 1 - Minimum of three failed multiple trials of monotherapy. 2 - Documented plan to taper to monotherapy due to previous use of multiple meds OR cross-taper in progress at D/C. 3 - Documentation of augmentation of Clozapine. 4 - Justification other than those listed in allowable values 1-3, document here : Discharge Discharge Date: Feb 04, 2018 Discharge Diagnosis: Pt Condition on Discharge: Stable Discharge Disposition: Discharge Home Discharge Instructions Diet Instructions: Heart Healthy Diet Activities you can perform: Regular-No Restrictions Scheduled Appointment: Len Galaviz Appointment Date: Feb 05, 2018 Appointment Time: 07:30am Mental Status Examination Appearance: Appropriate Consciousness: Lethargic, Clouded Orientation: x4, Person, Place, Date/Time, Situation Speech: Unremarkable Language: Adequate Fund of Knowledge: Adequate Attention and Concentration: Adequate Memory: Unremarkable Mood: Anxious Affect: Appropriate Thought Process & Associations: Intact Thought Content: Appropriate Hallucination Type: None Delusion Type: None Suicidal Ideation: No Suicidal Plan: No Suicidal Intention: No Homicidal Ideation: No Homicidal Plan: No Homicidal Intention: No Insight: Poor Judgment: Poor Discharge/Advance Care Plan Health Problems: (1) Unspecified psychosis Goals to promote your health * To prevent worsening of your condition and complications * To maintain your health at the optimal level Directions to meet your goals Take your medications as prescribed Follow your dietary instruction Follow activity as directed Keep your appointments as scheduled Take your immunizations and boosters as scheduled If your symptoms worsen call your PCP, if no PCP go to Urgent Care Center or Emergency Room For 07/05 questions related to your inpatient stay or results of tests pending at discharge, please contact Dr. Donte Hernandez at Smoking is Dangerous to Your Health. Avoid second hand smoking Donte Hernandez MD Feb 05, 2018 22:32
== END 2018-02-04 13:00 | disposition home or self-care (01) | DRG 885 ==
LOC: H4EA 18:30
PROVIDERS: ADMIT Student in an Organized Health Care Education/Training Program; ATTEND Student in an Organized Health Care Education/Training Program
DX: F23 Brief psychotic disorder (principal); E11.42 Type 2 diabetes mellitus with diabetic polyneuropathy; E11.65 Type 2 diabetes mellitus with hyperglycemia; I10 Essential (primary) hypertension; E11.41 Type 2 diabetes mellitus with diabetic mononeuropathy; J44.9 Chronic obstructive pulmonary disease, unspecified; G25.81 Restless legs syndrome; E83.42 Hypomagnesemia; M21.339 Wrist drop, unspecified wrist; F19.10 Other psychoactive substance abuse, uncomplicated; Z79.4 Long term (current) use of insulin; Z81.8 Family history of other mental and behavioral disorders; Z87.891 Personal history of nicotine dependence
CPT/HCPCS: 70450; 71045; 80048; 80053; 80061; 80307; 81001; 82140; 82607; 82948; 83036; 83735; 83921; 84207; 84425; 84443; 85025; 85610; 85652; 85730; 86038; 86039; 86140; 86430; 93005; 95819; 96372; G0378; G8987-GO; G8987-GP; G8988-GO; G8988-GP; G9168-GN; G9169-GN; G9170-GN; J1630; J1815; J2060; J3420; J3475